=== PATIENT | female | born 1960 | race Caucasian/White ===

== ENCOUNTER 2016-07-25 18:02 | Inpatient (IN) | payer OTHER ==
[2016-07-25] VITALS (27 sets, daily range): BP systolic 66–106; BP diastolic 36–67; PULSE 102–116; RESP 18–30; TEMP 97.6–98.6; O2SAT 91–100
[~2016-07-25] VITALS: Ht 167.6 cm; Wt 101.0 kg
[~2016-07-25 18:02] MED LIST: AMLO10TA2 PO; ATOR20TA15 PO; BUPR100T4 PO; CARV3.12 PO; CHLO25TA2 PO; HYDR-3535 PO; LISI40TA PO; PERC7.5T13 PO; PROT40TA PO; XANA2TAB2 PO; XARE20TA PO
[2016-07-25] MEDS ORDERED: SODIUM CHLORIDE 0.9% FLUSH 5 ML FLUSH IVF PRN ×3 (18:45→19:45)
[2016-07-25] MEDS ORDERED: SODIUM CHLOR 0.9% 1000 ML INJ 1,000 ML IV ONE ×2 (18:45→19:30)
[2016-07-25] MEDS ORDERED: SODIUM CHLOR 0.9% 1000 ML INJ 1,000 ML IV SCH (18:45)
[2016-07-25] MEDS ORDERED: PANTOPRAZOLE INJ 80 MG in SODIUM CHLORIDE 0.9% INJ 35 ML IV ONE (18:45)
[2016-07-25] MEDS ORDERED: ONDANSETRON HCL 4 MG/2 ML VIAL IM ONE (18:45)
[2016-07-25 19:03] LABS: AUTOMATED NEUTROPHIL # 10.1 TH/MM3 (1.8-7.7); BASOPHIL # 0.4 TH/MM3 (0-0.2); EOSINOPHIL # 0.1 TH/MM3 (0-0.4); EOSINOPHIL % 0.8 % (0.0-4.0); HEMATOCRIT 37.3 % (35.0-46.0); LYMPH % 14.1 % (9.0-44.0); LYMPHOCYTE # 1.9 TH/MM3 (1.0-4.8); MEAN CELL VOLUME 85.5 FL (80.0-100.0); MEAN CORPUSCULAR HGB CONC 33.9 % (32.0-36.0); MONO % 6.3 % (0.0-8.0); NEUT % 75.8 % (16.0-70.0); PLATELET COUNT 311 TH/MM3 (150-450); RED BLOOD COUNT 4.36 MIL/MM3 (4.00-5.30); RED CELL DISTRIBUTION WIDTH 13.2 % (11.6-17.2); WHITE BLOOD COUNT 13.3 TH/MM3 (4.0-11.0)
[2016-07-25 19:04] LABS: HEMO FLAGS DIFF FINAL
[2016-07-25] MEDS ORDERED: ONDANSETRON HCL 4 MG/2 ML VIAL IV PUSH ONE ×2 (19:15→20:00)
[2016-07-25 19:22] LABS: CHLORIDE 84 MEQ/L (98-107); POTASSIUM 3.6 MEQ/L (3.5-5.1); SODIUM (NA) 131 MEQ/L (136-145)
[2016-07-25 19:25] LABS: ANION GAP 18 MEQ/L (5-15); BICARBONATE 28.7 MEQ/L (21.0-32.0); BLOOD UREA NITROGEN 70 MG/DL (7-18)
[2016-07-25 19:27] LABS: APTT (PATIENT) 30.6 SEC (24.3-30.1); PROTHROMBIN TIME - PATIENT 11.4 SEC (9.8-11.6)
[2016-07-25 19:28] LABS: ALT (GPT) 18 U/L (10-53); AST (GOT) 32 U/L (15-37)
[2016-07-25 19:29] LABS: GLOMERULAR FILTRATION RATE 5 ML/MIN (>89)
[2016-07-25 19:30] LABS: TOTAL BILIRUBIN ADULT 0.5 MG/DL (0.2-1.0)
[2016-07-25 19:31] LABS: ALKALINE PHOSPHATASE 136 U/L (45-117)
--- NOTE | 2016-07-25 19:43 | PD ---
Data Data Last Documented VS Vital Signs Date Time Temp Pulse Resp B/P Pulse Ox O2 Delivery O2 Flow Rate FiO2 07/25/16 19:35 97.7 104 22 90/65 96 Nasal Cannula 3 Orders Complete Blood Count With Diff (07/25/16 18:45) Comprehensive Metabolic Panel (07/25/16 18:45) Prothrombin Time / Inr (Pt) (07/25/16 18:45) Act Partial Throm Time (Ptt) (07/25/16 18:45) Type And Screen (07/25/16 18:45) Red Blood Cells (Rbc) (07/25/16 18:45) Blood Product Administration .UPON TRANSFUSION (07/25/16 18:45) Ecg Monitoring (07/25/16 18:45) Iv Access Insert/Monitor (07/25/16 18:45) Ng Gastric Tube Insert/Monitor (07/25/16 18:45) Oximetry (07/25/16 18:45) Oxygen Administration (07/25/16 18:45) Sodium Chlor 0.9% 1000 Ml Inj (Ns 1000 M (07/25/16 18:45) Octreotide Inj (Sandostatin Inj) (07/25/16 18:45) Ondansetron Inj (Zofran Inj) (07/25/16 18:45) Pantoprazole Inj (Protonix Inj) (07/25/16 18:45) Sodium Chlor 0.9% 1000 Ml Inj (Ns 1000 M (07/25/16 18:45) Ondansetron Inj (Zofran Inj) (07/25/16 19:15) Ammonia (07/25/16 19:22) Chest, Single Ap (07/25/16 19:22) Pantoprazole Inj (Protonix Inj) (07/25/16 19:30) Sodium Chlor 0.9% 1000 Ml Inj (Ns 1000 M (07/25/16 19:30) Electrocardiogram (07/25/16 ) Ct Abd/Pel W/O Iv Contrast (07/25/16 ) Ed Urine Pregnancytest Poc (07/25/16 19:30) Urinary Catheter Insert/Apply (07/25/16 19:30) Admit Order (Ed Use Only) (07/25/16 ) ^ Saline Lock (07/25/16 19:35) Resp Oxygen Wisam C Titrat 1-4 L (07/25/16 ) ^ Notify Dr: Other (07/25/16 19:35) Sodium Chloride 0.9% Flush (Ns Flush) (07/25/16 21:00) Sodium Chloride 0.9% Flush (Ns Flush) (07/25/16 19:45) Red Blood Cells (Rbc) (07/25/16 19:37) Phosphorus (Po4) (07/25/16 18:59) Labs Laboratory Tests Test 07/25/16 07/25/16 18:59 19:37 White Blood Count 13.3 TH/MM3 Red Blood Count 4.36 MIL/MM3 Hemoglobin 12.6 GM/DL Hematocrit 37.3 % Mean Corpuscular Volume 85.5 FL Mean Corpuscular Hemoglobin 29.0 PG Mean Corpuscular Hemoglobin 33.9 % Concent Red Cell Distribution Width 13.2 % Platelet Count 311 TH/MM3 Mean Platelet Volume 9.4 FL Neutrophils (%) (Auto) 75.8 % Lymphocytes (%) (Auto) 14.1 % Monocytes (%) (Auto) 6.3 % Eosinophils (%) (Auto) 0.8 % Basophils (%) (Auto) 3.0 % Neutrophils # (Auto) 10.1 TH/MM3 Lymphocytes # (Auto) 1.9 TH/MM3 Monocytes # (Auto) 0.8 TH/MM3 Eosinophils # (Auto) 0.1 TH/MM3 Basophils # (Auto) 0.4 TH/MM3 CBC Comment DIFF FINAL Differential Comment Prothrombin Time 11.4 SEC Prothromb Time International 1.0 RATIO Ratio Activated Partial 30.6 SEC Thromboplast Time Sodium Level 131 MEQ/L Potassium Level 3.6 MEQ/L Chloride Level 84 MEQ/L Carbon Dioxide Level 28.7 MEQ/L Anion Gap 18 MEQ/L Blood Urea Nitrogen 70 MG/DL Creatinine 8.20 MG/DL Estimat Glomerular Filtration 5 ML/MIN Rate Random Glucose 121 MG/DL Calcium Level 8.6 MG/DL Phosphorus Level 8.8 MG/DL Total Bilirubin 0.5 MG/DL Aspartate Amino Transf 32 U/L (AST/SGOT) Alanine Aminotransferase 18 U/L (ALT/SGPT) Alkaline Phosphatase 136 U/L Total Protein 8.0 GM/DL Albumin 3.7 GM/DL Blood Type O POSITIVE Antibody Screen NEGATIVE Crossmatch Leukocyte-Reduced Red Blood Cells Blood Bank Comment MDM Supervised Visit with STEFANO: No Narrative Course I was asked by Dr. Hernández to place a central line in the right femoral for this patient. Patient briefly has a history of GI bleeding and anemia. Hypotensive on arrival. Please see Dr. Hernández's note for further details. Procedures Procedure Narrative CENTRAL VENOUS LINE: Under emergent consent. The site was prepped with chlorhexidine and sterilely draped. I was wearing sterile gown and gloves and mask and hat. Patient was prepped very hastily given the nature of her emergency.. It was infiltrated with 1% lidocaine plain. The deep vein was cannulated using normal Seldinger technique. A 7fr 3 lumen central line was placed in the right femoral site and secured with simple interrupted suture. The site was sterilely dressed. The patient tolerated the procedure well. Site was chosen as patient needs compressable site 2/2 anticoagulation. David Sabillon MD Jul 25, 2016 19:43
[2016-07-25] MEDS: OCTREOTIDE INJ 500 MCG in SODIUM CHLORID 0.9% 500 ML INJ 500 ML IV SCH (19:45)
[2016-07-25] MEDS: PANTOPRAZOLE INJ 80 MG in SODIUM CHLORIDE 0.9% INJ 100 ML IV SCH (19:46)
[2016-07-25] MEDS ORDERED: METOCLOPRAMIDE HCL 10 MG/2 ML VIAL IV PUSH ONE (20:00)
--- NOTE | 2016-07-25 20:04 | PD ---
HPI Chief Complaint: GI Complaint Time Seen by Provider: 19:08 Travel History International Travel<30 days: No Contact w/Intl Traveler<30days: No Traveled to known affect area: No History of Present Illness HPI 55-year-old female presents to the emergency department for evaluation of vomiting blood and coffee grounds since yesterday. Patient complains of generalized weakness. Patient notes that she has history of previous peptic ulcer disease and does complain of epigastric pain radiating into her back. Patient's had no fever or chills. Patient denies any bowel movement. Patient denies any injury or fall. Patient denies any chest pain or shortness of breath. Patient states that she does have prior history of DVT and as presently prescribed and taking on a daily basis Xarelto and attempted to take her last dose at 5 AM this morning but vomited the dose. Patient does complain of lightheadedness and generalized weakness and fatigue. Patient rates her gastric right upper quadrant and right flank pain as 8/10 in intensity. Patient also has history of asthma depression CHF DVT Nora filter chronic back pain COPD peptic ulcer disease gastritis tube ligation bilateral hip replacement tonsillectomy adenoidectomy cholecystectomy and in 2012 was admitted with GI bleed at that time had upper endoscopy which was consistent with severe grade D esophagitis and mild gastritis. Patient denies any NSAID use tobacco use or alcohol use. PFSH Past Medical History Narrative Medical Xarelto use, DVT, IVC filter, asthma, COPD, depression, CHF, hypertension, peptic ulcer disease, gastritis, esophagitis, tubal ligation, cholecystectomy, no alcohol use positive tobacco use nursing notes reviewed Hx Anticoagulant Therapy: Yes (Xeralto) Arthritis: No Asthma: Yes Autoimmune Disease: No Blood Disorders: Yes Depression: Yes Heart Rhythm Problems: No Cancer: No Cardiovascular Problems: Yes High Cholesterol: No Chest Pain: No Congestive Heart Failure: No Diabetes: No Diminished Hearing: No Deep Vein Thrombosis: Yes (03/2011- RIGHT LEG) Endocrine: No Gastrointestinal Disorders: Yes GERD: Yes Genitourinary: No Hepatitis: No Hiatal Hernia: No Hypertension: Yes Immune Disorder: No Implanted Vascular Access Dvce: Yes Medical other: Yes (HX BLOOD CLOT-DONNA FILTER) Musculoskeletal: Yes (CHRONIC BACK PAIN) Neurologic: No Psychiatric: No Reproductive: No Respiratory: Yes (copd, hx recent pneumomia) Immunizations Current: Yes Thyroid Disease: No Ulcer: Yes Tetanus Vaccination: < 5 Years Influenza Vaccination: Yes ?: Not Menopausal: Yes : 4 Para: 3 Miscarriage: 1 : 0 Tubal Ligation: Yes Past Surgical History Abdominal Surgery: Yes (DONNA FILTER) AICD: No Body Medical Devices: IVC FILTER Cardiac Surgery: No Cholecystectomy: Yes Ear Surgery: No Endocrine Surgery: No Eye Surgery: No Genitourinary Surgery: No Gynecologic Surgery: Yes (TUBAL LIG.) Joint Replacement: Yes (BILATERAL TOTAL HIPS) Oral Surgery: Yes (T & A) Pacemaker: No Thoracic Surgery: No Tonsillectomy: Yes Other Surgery: Yes (ISIDRO,TUBAL LIG, TONSILS,IVC FILTER) Social History Alcohol Use: No (DENIES ) Tobacco Use: Yes (1 PPD) Substance Use: No Allergies-Medications (Allergen,Severity, Reaction): Coded Allergies: No Known Allergies (Verified , 11/19/15) Reported Meds & Prescriptions Reported Meds & Active Scripts Active Reported Protonix (Pantoprazole Sodium) 40 Mg Tab 40 Mg PO DAILY Xarelto (Rivaroxaban) 20 Mg Tab 20 Mg PO DAILY Lisinopril 40 Mg Tab 40 Mg PO DAILY Xanax (Alprazolam) 2 Mg Tab 2 Mg PO DAILY PRN Amlodipine (Amlodipine Besylate) 10 Mg Tab 10 Mg PO DAILY Chlorthalidone 25 Mg Tab 12.5 Mg PO DAILY Lortab (Hydrocodone-Acetaminophen) 10-325 Mg Tab 1 Tab PO Q4H PRN Carvedilol 3.125 Mg Tab 3.125 Mg PO BID Bupropion HCl 100 Mg Tab 100 Mg PO BID Atorvastatin (Atorvastatin Calcium) 20 Mg Tab 20 Mg PO HS Review of Systems Except as stated in HPI: all other systems reviewed are Neg General / Constitutional: No: Fever HENT: No: Congestion Cardiovascular: No: Chest Pain or Discomfort Respiratory: No: Shortness of Breath Gastrointestinal: Positive: Nausea, Vomiting, Abdominal Pain, Hematemesis Genitourinary: Positive: Decreased Urinary Output Musculoskeletal: No: Myalgias Skin: No Rash Neurologic: Positive: Weakness, Dizziness Psychiatric: No: Anxiety Hematologic/Lymphatic: Positive: Easy Bruising Physical Exam Narrative GENERAL: @ 19:05 Well-developed well-nourished obese female in obvious distress ; GCS 15; @ 18:25 triage blood pressure 81/40 triage heart rate 116 O2 saturation room air 97% respiratory rate 20 afebrile temperature 98.6F SKIN: Warm and dry. Pallor HEAD: Normocephalic. EYES: No scleral icterus. No injection or drainage. ENT: Black tenderness tongue with dried coffee-ground blood on lips and clothing NECK: Supple, trachea midline. No JVD or lymphadenopathy. CARDIOVASCULAR: Increased Regular rate and rhythm without murmurs, gallops, or rubs. RESPIRATORY: Breath sounds equal bilaterally. No accessory muscle use. GASTROINTESTINAL: Abdomen soft, tender epigastric and right upper quadrant, nondistended. MUSCULOSKELETAL: No cyanosis, or edema. BACK: Nontender without obvious deformity. No CVA tenderness. Data Data Last Documented VS Vital Signs Date Time Temp Pulse Resp B/P Pulse Ox O2 Delivery O2 Flow Rate FiO2 07/25/16 19:35 97.7 104 22 90/65 96 Nasal Cannula 3 Orders Complete Blood Count With Diff (07/25/16 18:45) Comprehensive Metabolic Panel (07/25/16 18:45) Prothrombin Time / Inr (Pt) (07/25/16 18:45) Act Partial Throm Time (Ptt) (07/25/16 18:45) Type And Screen (07/25/16 18:45) Red Blood Cells (Rbc) (07/25/16 18:45) Blood Product Administration .UPON TRANSFUSION (07/25/16 18:45) Ecg Monitoring (07/25/16 18:45) Iv Access Insert/Monitor (07/25/16 18:45) Ng Gastric Tube Insert/Monitor (07/25/16 18:45) Oximetry (07/25/16 18:45) Oxygen Administration (07/25/16 18:45) Sodium Chlor 0.9% 1000 Ml Inj (Ns 1000 M (07/25/16 18:45) Octreotide Inj (Sandostatin Inj) (07/25/16 18:45) Ondansetron Inj (Zofran Inj) (07/25/16 18:45) Pantoprazole Inj (Protonix Inj) (07/25/16 18:45) Sodium Chlor 0.9% 1000 Ml Inj (Ns 1000 M (07/25/16 18:45) Ondansetron Inj (Zofran Inj) (07/25/16 19:15) Ammonia (07/25/16 19:22) Chest, Single Ap (07/25/16 19:22) Pantoprazole Inj (Protonix Inj) (07/25/16 19:30) Sodium Chlor 0.9% 1000 Ml Inj (Ns 1000 M (07/25/16 19:30) Electrocardiogram (07/25/16 ) Ct Abd/Pel W/O Iv Contrast (07/25/16 ) Ed Urine Pregnancytest Poc (07/25/16 19:30) Urinary Catheter Insert/Apply (07/25/16 19:30) Admit Order (Ed Use Only) (07/25/16 ) ^ Saline Lock (07/25/16 19:35) Resp Oxygen Wisam C Titrat 1-4 L (07/25/16 ) ^ Notify Dr: Other (07/25/16 19:35) Sodium Chloride 0.9% Flush (Ns Flush) (07/25/16 21:00) Sodium Chloride 0.9% Flush (Ns Flush) (07/25/16 19:45) Red Blood Cells (Rbc) (07/25/16 19:37) Phosphorus (Po4) (07/25/16 18:59) Labs Laboratory Tests Test 07/25/16 07/25/16 18:59 19:37 White Blood Count 13.3 TH/MM3 Red Blood Count 4.36 MIL/MM3 Hemoglobin 12.6 GM/DL Hematocrit 37.3 % Mean Corpuscular Volume 85.5 FL Mean Corpuscular Hemoglobin 29.0 PG Mean Corpuscular Hemoglobin 33.9 % Concent Red Cell Distribution Width 13.2 % Platelet Count 311 TH/MM3 Mean Platelet Volume 9.4 FL Neutrophils (%) (Auto) 75.8 % Lymphocytes (%) (Auto) 14.1 % Monocytes (%) (Auto) 6.3 % Eosinophils (%) (Auto) 0.8 % Basophils (%) (Auto) 3.0 % Neutrophils # (Auto) 10.1 TH/MM3 Lymphocytes # (Auto) 1.9 TH/MM3 Monocytes # (Auto) 0.8 TH/MM3 Eosinophils # (Auto) 0.1 TH/MM3 Basophils # (Auto) 0.4 TH/MM3 CBC Comment DIFF FINAL Differential Comment Prothrombin Time 11.4 SEC Prothromb Time International 1.0 RATIO Ratio Activated Partial 30.6 SEC Thromboplast Time Sodium Level 131 MEQ/L Potassium Level 3.6 MEQ/L Chloride Level 84 MEQ/L Carbon Dioxide Level 28.7 MEQ/L Anion Gap 18 MEQ/L Blood Urea Nitrogen 70 MG/DL Creatinine 8.20 MG/DL Estimat Glomerular Filtration 5 ML/MIN Rate Random Glucose 121 MG/DL Calcium Level 8.6 MG/DL Phosphorus Level 8.8 MG/DL Total Bilirubin 0.5 MG/DL Aspartate Amino Transf 32 U/L (AST/SGOT) Alanine Aminotransferase 18 U/L (ALT/SGPT) Alkaline Phosphatase 136 U/L Total Protein 8.0 GM/DL Albumin 3.7 GM/DL Blood Type O POSITIVE Antibody Screen NEGATIVE Crossmatch Leukocyte-Reduced Red Blood Cells Blood Bank Comment MDM Medical Decision Making Medical Screen Exam Complete: Yes Emergency Medical Condition: Yes Medical Record Reviewed: Yes Interpretation(s) hgb: 12.6 cr 8.2 EKG sinus tachycardia rate [address] elevation or injury pattern change noted artifact baseline is present Last Impressions Chest X-Ray 07/25/16 1922 Signed Impressions: Service Date/Time: Monday, July 25, 2016 19:43 - CONCLUSION: No acute disease. Alden Menendez MD Abdomen/Pelvis CT 07/25/16 0000 Signed Impressions: Service Date/Time: Monday, July 25, 2016 20:28 - CONCLUSION: 1. Fluid distention of the stomach. No small bowel obstruction. No free air or free fluid. Mild constipation. Alden Menendez MD Differential Diagnosis upper gi bleed erosive esophagogastritis PUD viscous perforation hemorrhagic shock Narrative Course At 1905 accepted care from prior provider who has already ordered: IV fluids type and screen, Zofran, Protonix 80 mg IV ordered, Sandostatin ordered, and IV access with large bore 2 ordered. Presently patient's blood pressure is 70/50 patient complaining of nausea additional Zofran administered and vomiting coffee-ground's;emergency release blood ordered x 2 units PRBC's; GCS 15 and daughter at the bedside consent obtained for central line. Patient and family aware of critical nature of condition and plan to transfer to [facility]. Stat chest x-ray identifies no subdiaphragmatic free air; case has been discussed with [employer] Administrator and logging supervisor EKG: Sinus tachycardia rate [address] elevation or injury pattern or ectopy noted artifact is noted at baseline. Initial hemoglobin is identified as 12.6 with initial BUN 70 creatinine of 8.2 this is acutely worsen from comparison creatinine 05/18/16 Cr:3.33 and 1.33; reports patient has had no urine output for 3 days. Central line placed by colleague Dr Sabillon @ 20:45 BP: 100/47 O2 sat 2L/M NC 98% HR: 106 ST patient has returned from CT continues to complain of epigastric pain radiating into her back with mild nausea patient denies any shortness of breath or chest pain. At 10:20 PM EMS is at the bedside GCS remains 15 however blood pressure has decreased to 78/50 and phenylephrine has been initiated. Critical Care Narrative Aggregate critical care time was 45 minutes. Time to perform other separately billable procedures was not included in the critical care time. My time did not include minutes spent treating any other patients simultaneously or on activities that did not directly contribute to the patient's treatment. The services I provided to this patient were to treat and/or prevent clinically significant deterioration that could result in: Hypovolemic/hemorrhagic shock, exsanguination, respiratory failure arrest, I provided critical care services requiring my management, as noted below: Chart data review, documentation time, medication orders and management, vital sign assessments/reviewing monitor data, ordering and reviewing lab tests, ordering and interpreting/reviewing x-rays and diagnostic studies, care of the patient and discussion of the patient with the admitting physicians. Procedures EKG Prior to Arrival: No HemaPrompt Point of Care Internal Pos. & Neg. Controls: Passed Fecal Specimen Occult Blood: Negative Physician Communication Physician Communication 19:[address]graw will accept transfer w sbp 90 or map 65 as needed administer phenyephrine;GI Dr Conn @ 19:40 will scope in the AM; @ 22:30 Dr Mcgraw updated on patient status BP has dropped [id number] on recently started phenylephrine and aware of bun/cr --cant accept with current VS --aware starting levaphed --wants nephrology consulted --- call to Dr Elena -->aware of critical patient with acutely elevated bun/cr 70/8.2 and K 3.6 -- per Dr Elena no further , additional or acute recommendation beyond current aggressive resuscitation and no further intervention by nephrology at this time; patient will be transferred with MD on EMS unit and Dr Mcgraw aware. Diagnosis Primary Impression: Upper gastrointestinal hemorrhage Additional Impressions: Hypotension Qualified Code: I95.89 - Other specified hypotension ARF (acute renal failure) Qualified Code: N17.9 - Acute renal failure, unspecified acute renal failure type Admitting Information Admitting Physician Requests: Admit Tonya Hernández MD Jul 25, 2016 20:04
--- NOTE | 2016-07-25 20:11 | RADHPO ---
EXAM DATE/TIME: 07/25/2016 19:43 [facility] COMPARISON: No previous studies available for comparison. INDICATIONS : Hematemesis. MEDICAL HISTORY : Hypertension. Deep venous thrombosis. Chronic obstructive pulmonary disease. Pneumonia, Asthma, U lcer, Gallbladder disease, GERD SURGICAL HISTORY : Tonsillectomy. Tubal ligation. Cholecystectomy. IVC filter, Left total hip replacement ENCOUNTER: Initial ACUITY: 1 day PAIN SCORE: 8/10 LOCATION: Bilateral chest FINDINGS: A single view of the chest demonstrates the lungs to be symmetrically aerated without evidence of mas s, infiltrate or effusion. The cardiomediastinal contours are unremarkable. Osseous structures are intact. CONCLUSION: No acute disease. Alden Menendez MD on July 25, 2016 at 20:09 Board Certified Radiologist. This report was verified electronically.
--- NOTE | 2016-07-25 20:57 | RADHPO ---
EXAM DATE/TIME: 07/25/2016 20:28 [facility] COMPARISON: No previous studies available for comparison. INDICATIONS : Nausea and vomiting for one day. ORAL CONTRAST: No oral contrast ingested. RADIATION DOSE: 24.41 CTDIvol (mGy) MEDICAL HISTORY : Hypertension. SURGICAL HISTORY : Tonsillectomy. bilateral hip replacement. ENCOUNTER: Initial ACUITY: 1 day PAIN SCALE: 7/10 LOCATION: abdomen. TECHNIQUE: Volumetric scanning of the abdomen and pelvis was performed. Using automated exposure control and ad justment of the mA and/or kV according to patient size, radiation dose was kept as low as reasonably achievable to obtain optimal diagnostic quality images. FINDINGS: Lung bases are clear. No acute findings in the liver, spleen, adrenals, kidneys or pancreas. Previous cholecystectomy. Inferior vena cava filter present. There is fluid distention of the stomach. Mild c onstipation. No small bowel obstruction. No free fluid or free air. Central line present in the right iliac vein. Bilateral hip replacement. CONCLUSION: 1. Fluid distention of the stomach. No small bowel obstruction. No free air or free fluid. Mild const ipation. Alden Menendez MD on July 25, 2016 at 20:52 Board Certified Radiologist. This report was verified electronically.
[2016-07-25] MEDS ORDERED: SODIUM CHLORIDE 0.9% FLUSH 5 ML FLUSH IVF SCH (21:00)
[2016-07-25 21:41] LABS: BLOOD, URINE LARGE (NEG); GLUCOSE,URINE NEG (NEG); KETONE, URINE NEG (NEG); NITRITE,URINE NEG (NEG); PH, URINE 5.5 (5.0-8.5)
[2016-07-25] MEDS ORDERED: TERBUTALINE INJ 1 MG/ML AMP SQ PRN ×3 (21:45→22:45)
[2016-07-25] MEDS ORDERED: SODIUM CHLORID 0.9% 500 ML INJ 500 ML IV ONE ×2 (21:45→22:15)
[2016-07-25 21:56] LABS: RBC, URINE 0-3 /hpf (0-3); SQUAMOUS EPITHELIAL CELL URINE 0-5 /hpf (0-5); URINE COLOR YELLOW (YELLW/STRAW)
[2016-07-25 21:57] LABS: COMMENT (UR) CATH-CULT NOT IND; CULTURE IF INDICATED CATH CULTURE NOT IND
[2016-07-25 22:06] LABS: BLOOD GAS BASE EXCESS -7.8 mmol/L (-2-2); BLOOD GAS CARBOXYHEMOGLOBIN 4.2 % (0-4); BLOOD GAS HCO3 19 mmol/L (22-26); BLOOD GAS METHEMOGLOBIN 1.4 % (0-2); BLOOD GAS O2 HGB SATURATION 93 % (90-100); BLOOD GAS OXYGEN CONTENT 16.1 Vol % (12.0-20.0); BLOOD GAS PCO2 47 mmHG (38-42); BLOOD GAS PO2 127 mmHG (61-120); BLOOD GAS TOTAL HGB 12.2 G/DL (12.0-16.0); TEMP CORR TO 98.6
[2016-07-25 22:07] LABS: CRITICAL VALUE YES; DRAW SITE LT RADIAL; LITER FLOW 4 L/M; NUMBER OF ARTERIAL PUNCTURES 1; OXYGEN DEVICE NASAL CANNULA; STAT YES; ULNAR PULSE Y
[2016-07-25] MEDS: SODIUM CHLOR 0.9% 1000 ML INJ 1,000 ML IV SCH (22:07)
[2016-07-25] MEDS ORDERED: POTASSIUM CHLOR 40 MEQ PREMIX 100 ML IV PRN ×2 (22:15)
[2016-07-25] MEDS ORDERED: BISACODYL 10 MG SUPP RECTAL PRN (22:15)
[2016-07-25] MEDS ORDERED: CHLORHEXIDINE GLUCONATE 2 % 1 PACK (2 CLOTHS) TOP PRN (22:15)
[2016-07-25] MEDS: PHENYLEPHRINE INJ 40 MG in DEXTROSE 5% IN WATE 500 ML INJ 496 ML IV SCH ×2 (22:15)
[2016-07-25] MEDS ORDERED: POTASSIUM PHOSPHATE INJ 30 MMOL in SODIUM CHLOR 0.9% 250 ML INJ 250 ML IV PRN (22:15)
[2016-07-25] MEDS ORDERED: POTASSIUM CHLOR 20 MEQ PREMIX 100 ML IV PRN ×2 (22:15)
[2016-07-25] MEDS ORDERED: SODIUM PHOSPHATE INJ 30 MMOL in SODIUM CHLOR 0.9% 250 ML INJ 240 ML IV PRN (22:15)
[2016-07-25] MEDS ORDERED: MAGNESIUM SULFATE INJ 2 GM in SODIUM CHLORIDE 0.9% INJ 96 ML IV PRN (22:15)
[2016-07-25] MEDS ORDERED: POTASSIUM PHOSPHATE MONOBASIC 500 MG TAB PO/TUBE PRN (22:15)
[2016-07-25] MEDS ORDERED: POTASSIUM PHOSPHATE MONOBASIC 500 MG TAB PO PRN (22:15)
[2016-07-25] MEDS ORDERED: MAGNESIUM OXIDE 400 MG TAB PO PRN (22:15)
[2016-07-25] MEDS ORDERED: RESP: ALBUTEROL 2.5 MG/IPRATROPIUM 0.5 MG NEB (PRN) INH (22:15)
[2016-07-25] MEDS ORDERED: MISCELLANEOUS NURSING INFORMATION XX SCH (22:15)
[2016-07-25] MEDS ORDERED: ONDANSETRON HCL 4 MG/2 ML VIAL IV PRN (22:15)
[2016-07-25] MEDS ORDERED: MAGNESIUM SULFATE INJ 4 GM in SODIUM CHLORIDE 0.9% INJ 92 ML IV PRN (22:15)
[2016-07-25] MEDS ORDERED: POTASSIUM CL 40 MEQ/30 ML LIQ UDC PO/TUBE PRN ×2 (22:15)
[2016-07-25] MEDS ORDERED: DEXTROSE 50% IN WATER 50 ML VIAL(D50) IV PUSH PRN (22:30)
[2016-07-25] MEDS ORDERED: GLUCAGON 1 MG/ML VIAL OTHER PRN (22:30)
[2016-07-25] MEDS ORDERED: NOREPINEPHRINE-DEXTROSE DRIP 250 ML IV SCH ×2 (22:45)
--- NOTE | 2016-07-25 22:45 | EKG ---
Date Performed: 07/25/2016 Time Performed: 19:38:08 PTAGE: 55 years EKG: Sinus tachycardia. Inferior/lateral T wave changes are nonspecific Borderline ECG PREVIOUS TRACING : 07/27/2015 12.23 Compared to the previous tracing, Nonspecific ST and T wav e abnormalities DOCTOR: Patel Reeder Interpretating Date/Time 07/25/2016 22:42:50
[2016-07-26] VITALS (19 sets, daily range): BP systolic 95–132; BP diastolic 44–80; PULSE 80–112; RESP 14–27; TEMP 98.5–99.9; O2SAT 92–100
[2016-07-26] MEDS ORDERED: PANTOPRAZOLE INJ 80 MG in SODIUM CHLORIDE 0.9% INJ 100 ML IV SCH ×2
--- NOTE | 2016-07-26 01:16 | HHI.HP ---
HPI Service Critical Care Medicine Primary Care Physician Chacha Vazquez MD Admission Diagnosis Upper GI Bleed on xarelto w/ shock Diagnosis: Travel History International Travel<30 Days: No Contact w/Intl Traveler <30 Da: No Traveled to Known Affected Are: No History of Present Illness 55-year-old female that presented to [facility] emergency department for evaluation of vomiting blood and coffee grounds since yesterday. Patient complains of generalized weakness. The patient states that she started vomiting approximately 2 days ago, dark black emesis. She stated that she had no urine output for approximately 3 days. Her history is significant for the fact that she has a history of DVT in 2013, Donna filter placement and is on Xarelto. The patient also stated that she has a history of peptic ulcer disease. The patient's pain level on presentation to the [facility] was 7/10 noted to be epigastric and radiating into her back. The patient presented with complaints of lightheadedness ,generalized weakness,fatigue and inability to void 3 days. The patient medical history significant for the fact that in 2012 was admitted with GI bleed at that time had upper endoscopy which was consistent with severe grade D esophagitis and mild gastritis. The patient denies NSAID use. On presentation to the ED and [facility] the patient's blood pressure ranges 65/40 to 81/40 with initial hemoglobin of 12. The patient reported also having medical history significant for history of renal failure, and congestive heart failure. The patient received 4 units of crystalloid, an NG tube was placed, approximately a liter of coffee ground emesis upon initial placement. Octreotide and Protonix infusions were initiated , and GI was consulted. Patient was transfused 1unit PRBC. The patient remained hypotensive, a right femoral line was placed, the patient was placed on Shane-Synephrine. Critical care medicine was consulted for treatment and management. A telephone handoff was given from Dr. Hernández, upon initiation of transport from [facility], the patient became acutely hypotensive, SBP 70's. The patient was placed on a Levophed infusion, MAP's were obtained greater than 65mmHG. the patient was then transferred to [facility] with ER physician, Dr. Sabillon accompanying patient. The patient arrived in [facility] @2327, verbal handoff was given with Dr. Sabillon. Upon arrival, MAP 76, the patient was alert and oriented not in respiratory distress, tachycardic complaining of abdominal pain, maldonado draining pale yellow urine. Levophed had been weaned off prior to arrival ,and the patient remained on Shane-Synephrine at 70mcgs. [facility] Past Medical History Narrative Medical Xarelto use, DVT, IVC filter, asthma, COPD, depression, CHF, hypertension, peptic ulcer disease, gastritis, esophagitis, tubal ligation, cholecystectomy, no alcohol use positive tobacco use nursing notes reviewed Hx Anticoagulant Therapy: Yes (Xeralto) Arthritis: No Asthma: Yes Autoimmune Disease: No Blood Disorders: Yes Depression: Yes Heart Rhythm Problems: No Cancer: No Cardiovascular Problems: Yes High Cholesterol: No Chest Pain: No Congestive Heart Failure: No Diabetes: No Diminished Hearing: No Deep Vein Thrombosis: Yes (03/2011- RIGHT LEG) Endocrine: No Gastrointestinal Disorders: Yes GERD: Yes Genitourinary: No Hepatitis: No Hiatal Hernia: No Hypertension: Yes Immune Disorder: No Implanted Vascular Access Dvce: Yes Medical other: Yes (HX BLOOD CLOT-DONNA FILTER) Musculoskeletal: Yes (CHRONIC BACK PAIN) Neurologic: No Psychiatric: No Reproductive: No Respiratory: Yes (copd, hx recent pneumomia) Immunizations Current: Yes Thyroid Disease: No Ulcer: Yes Tetanus Vaccination: < 5 Years Influenza Vaccination: Yes ?: Not Menopausal: Yes : 4 Para: 3 Miscarriage: 1 : 0 Tubal Ligation: Yes Past Surgical History Abdominal Surgery: Yes (DONNA FILTER) AICD: No Body Medical Devices: IVC FILTER Cardiac Surgery: No Cholecystectomy: Yes Ear Surgery: No Endocrine Surgery: No Eye Surgery: No Genitourinary Surgery: No Gynecologic Surgery: Yes (TUBAL LIG.) Joint Replacement: Yes (BILATERAL TOTAL HIPS) Oral Surgery: Yes (T & A) Pacemaker: No Thoracic Surgery: No Tonsillectomy: Yes Other Surgery: Yes (ISIDRO,TUBAL LIG, TONSILS,IVC FILTER) Social History Alcohol Use: No (DENIES ) Tobacco Use: Yes (1 PPD) Substance Use: No Allergies-Medications (Allergen,Severity, Reaction): Coded Allergies: No Known Allergies (Verified , 11/19/15) Reported Meds & Prescriptions Reported Meds & Active Scripts Active Reported Protonix (Pantoprazole Sodium) 40 Mg Tab 40 Mg PO DAILY Xarelto (Rivaroxaban) 20 Mg Tab 20 Mg PO DAILY Lisinopril 40 Mg Tab 40 Mg PO DAILY Xanax (Alprazolam) 2 Mg Tab 2 Mg PO DAILY PRN Amlodipine (Amlodipine Besylate) 10 Mg Tab 10 Mg PO DAILY Chlorthalidone 25 Mg Tab 12.5 Mg PO DAILY Lortab (Hydrocodone-Acetaminophen) 10-325 Mg Tab 1 Tab PO Q4H PRN Carvedilol 3.125 Mg Tab 3.125 Mg PO BID Bupropion HCl 100 Mg Tab 100 Mg PO BID Atorvastatin (Atorvastatin Calcium) 20 Mg Tab 20 Mg PO HS Review of Systems Except as stated in HPI: all other systems reviewed are Neg General / Constitutional: No: Fever HENT: No: Congestion Cardiovascular: No: Chest Pain or Discomfort Respiratory: No: Shortness of Breath Gastrointestinal: Positive: Nausea, Vomiting, Abdominal Pain, Hematemesis Genitourinary: Positive: Decreased Urinary Output Musculoskeletal: No: Myalgias Skin: No Rash Neurologic: Positive: Weakness, Dizziness Psychiatric: No: Anxiety Hematologic/Lymphatic: Positive: Easy Bruising Physical Exam Vital Signs Vital Signs Date Time Temp Pulse Resp B/P Pulse Ox O2 Delivery O2 Flow Rate FiO2 07/26/16 00:11 96 Nasal Cannula 3.00 07/26/16 00:10 98.5 112 27 98/50 98 07/25/16 19:35 97.7 104 22 90/65 96 Nasal Cannula 3 07/25/16 19:25 97.7 104 22 104/51 96 Nasal Cannula 3 07/25/16 19:20 97.6 105 22 73/36 96 Nasal Cannula 3 07/25/16 19:15 96 Nasal Cannula 3 07/25/16 19:00 22 07/25/16 19:00 91 Nasal Cannula 3 07/25/16 18:25 98.6 116 20 81/40 97 Physical Exam GENERAL: This is a well-developed well-nourished morbidly obese female, sitting up; recumbent in bed. SKIN: Warm and dry. HEAD: Atraumatic. Normocephalic. EYES: Pupils equal and round. No scleral icterus. No injection or drainage. ENT: No nasal bleeding or discharge. Mucous membranes pink and moist. NG tube right more, nasal cannula at 2 L/m NECK: Trachea midline. No JVD. CARDIOVASCULAR: Sinus tachycardia, regular rhythm. RESPIRATORY: No accessory muscle use. Clear to auscultation. Breath sounds equal bilaterally. GASTROINTESTINAL: Abdomen obese soft, non-tender, nondistended. No guarding. No rebound tenderness. Right upper quadrant pain MUSCULOSKELETAL: Extremities without clubbing, cyanosis, or edema. No obvious deformities. NEUROLOGICAL: Awake and alert. RASS 0. No gross focal/sensory deficits. Follows commands in all 4 extremities. Laboratory Laboratory Tests Test 07/25/16 07/25/16 07/25/16 07/25/16 18:59 19:37 21:24 21:30 White Blood Count 13.3 Red Blood Count 4.36 Hemoglobin 12.6 Hematocrit 37.3 Mean Corpuscular Volume 85.5 Mean Corpuscular Hemoglobin 29.0 Mean Corpuscular Hemoglobin 33.9 Concent Red Cell Distribution Width 13.2 Platelet Count 311 Mean Platelet Volume 9.4 Neutrophils (%) (Auto) 75.8 Lymphocytes (%) (Auto) 14.1 Monocytes (%) (Auto) 6.3 Eosinophils (%) (Auto) 0.8 Basophils (%) (Auto) 3.0 Neutrophils # (Auto) 10.1 Lymphocytes # (Auto) 1.9 Monocytes # (Auto) 0.8 Eosinophils # (Auto) 0.1 Basophils # (Auto) 0.4 CBC Comment DIFF FINAL Differential Comment Prothrombin Time 11.4 Prothromb Time International 1.0 Ratio Activated Partial 30.6 Thromboplast Time Sodium Level 131 Potassium Level 3.6 Chloride Level 84 Carbon Dioxide Level 28.7 Anion Gap 18 Blood Urea Nitrogen 70 Creatinine 8.20 Estimat Glomerular Filtration 5 Rate Random Glucose 121 Calcium Level 8.6 Phosphorus Level 8.8 Total Bilirubin 0.5 Aspartate Amino Transf 32 (AST/SGOT) Alanine Aminotransferase 18 (ALT/SGPT) Alkaline Phosphatase 136 Total Protein 8.0 Albumin 3.7 Blood Type O POSITIVE Antibody Screen NEGATIVE Crossmatch Leukocyte-Reduced Red Blood Cells Blood Bank Comment Ammonia 23 Urine Color YELLOW Urine Turbidity CLEAR Urine pH 5.5 Urine Specific Cameron 1.012 Urine Protein 30 Urine Glucose (UA) NEG Urine Ketones NEG Urine Occult Blood LARGE Urine Nitrite NEG Urine Bilirubin NEG Urine Leukocyte Esterase NEG Urine RBC 0-3 Urine WBC 3-5 Urine Squamous Epithelial 0-5 Cells Urine Bacteria NONE Microscopic Urinalysis Comment CATH-CULT NOT IND Test 07/25/16 07/25/16 21:51 22:01 Lactic Acid Level 0.8 Blood Gas Puncture Site LT RADIAL Blood Gas Patient Temperature 98.6 Blood Gas HCO3 19 Blood Gas Base Excess -7.8 Blood Gas Oxygen Saturation 93 Arterial Blood pH 7.22 Arterial Blood Partial 47 Pressure CO2 Arterial Blood Partial 127 Pressure O2 Arterial Blood Oxygen Content 16.1 Arterial Blood 4.2 Carboxyhemoglobin Arterial Blood Methemoglobin 1.4 Blood Gas Hemoglobin 12.2 Oxygen Delivery Device NASAL CANNULA Blood Gas Liter Flow 4 Result Diagram: 07/25/16185807/25/161858 Imaging Last 24 hours Impressions Chest X-Ray 07/25/161921 Signed Impressions: Service Date/Time: Monday, July 25, 2016 19:43 - CONCLUSION: No acute disease. Alden Menendez MD Septic Shock Reassessment Lungs: Clear Skin: Warm Peripheral Pulses: Bounding Right Radial Bounding Left Radial Bounding Right Dorsalis Pedis Bounding Left Dorsalis Pedis Capillary Refill: Brisk Assessment and Plan Assessment and Plan This is a 55-year-old morbidly obese female, with a history of DVT on Xarelto daily that presents with hematemesis for greater than 48 hours, and severe dehydration, and hemorrhagic shock. Plan by systems: Neurologic: Anxiety Depression Pain -Ofirmev 1 g every 6 hours 4 -Fentanyl 50-100 mcgs PRN -Ativan 0.5 mg PRN Respiratory: COPD Asthma Nicotine abuse -Nicotine patch -Maintain O2 sat greater than 92%, O2 at 3 L nasal cannula O2 sat 98% -Bronchodilators scheduled every 4 hours, and every 2 hours when necessary -Patient counseled on cessation of smoking Cardiovascular: Hemorrhagic shock H/O CHF Hypertension H/O DVT Hyperlipidemia -Maintain MAP greater than 65 mmHg -Hold Xarelto, atorvastatin -Patient transfused 2 units of packed cells, transfuse 2 units of FFP -Obtain PTT, PTT, INR to assess residual effects of Xarelto -Monitor serial hemoglobin levels every 4 hours -EKG 07/25-sinus tach Renal: Severe dehydration -Creatinine 8.2, BUN 70 -Patient received 4 L IV fluid bolus at [facility], 1 L bolus initiated -Repeat BMP follow-up results -Maintain Maldonado, hourly measurement -- Strict I/Os FEN/GI: Morbid obesity Upper GI bleed GERD -Maintain NPO status -NG tube to low intermittent wall suction-monitor output, replace cc per cc with IV fluid -Octreotide and Protonix infusions -Zofran when necessary for nausea -GI consulted Dr [id number] recommendations - CT Abd/Pel-no free air Heme/ID: Possible anticoagulate associated hemorrhage H/O DVT -Xarelto held -Transfuse 2 units of FFP -Serial CBC every 4 hours -Derwent IVC filter placement-2012 Endocrine: -- SSI Prophylaxis: GI Prophylaxis Protonix DVT Prophylaxis -- SCDs No pharmacological prophylaxis indicated at this time Lines: Peripheral IVs 2. Right femoral triple-lumen catheter( 07/26) Dispo: This patient remains critically ill with one or more organ systems which are or may become a threat to life. I have spent in excess of 72 minutes discontinuously in the care and management of this patient. This time is exclusive of procedures, and includes, but is not limited to, evaluation of the patient, review of the medical record, discussions with family, consultants, nursing staff, or respiratory therapy, and documentation in the medical record. Code Status Full Code Discussed Condition With WEB PAGE DESIGNER at bedside Mimi Mcgraw MD Jul 26, 2016 01:16
[2016-07-26] MEDS ORDERED: LORazepam 2 MG/ML VIAL IV PUSH PRN (01:30)
[2016-07-26] MEDS: NICOTINE 21 MG/24 HR PATCH TD SCH ×2 (01:38→07:49)
[2016-07-26] MEDS: ACETAMINOPHEN 1000 MG/100 ML VIAL IV SCH ×4 (01:39→19:53)
[2016-07-26 02:34] LABS: AUTOMATED NEUTROPHIL # 6.6 TH/MM3 (1.8-7.7); BASOPHIL % 0.3 % (0.0-2.0); EOSINOPHIL # 0.1 TH/MM3 (0-0.4); HEMATOCRIT 33.2 % (35.0-46.0); HEMO FLAGS DIFF FINAL; LYMPH % 18.7 % (9.0-44.0); LYMPHOCYTE # 1.8 TH/MM3 (1.0-4.8); MEAN CELL VOLUME 83.2 FL (80.0-100.0); MEAN CORPUSCULAR HEMOGLOBIN 28.5 PG (27.0-34.0); MEAN CORPUSCULAR HGB CONC 34.2 % (32.0-36.0); MONO % 10.6 % (0.0-8.0); NEUT % 69.4 % (16.0-70.0); PLATELET COUNT 201 TH/MM3 (150-450); RED BLOOD COUNT 3.99 MIL/MM3 (4.00-5.30); RED CELL DISTRIBUTION WIDTH 17.8 % (11.6-17.2); WHITE BLOOD COUNT 9.6 TH/MM3 (4.0-11.0)
[2016-07-26 02:51] LABS: APTT (PATIENT) 29.4 SEC (24.3-30.1)
--- NOTE | 2016-07-26 03:15 | PD ---
Data Data Last Documented VS Vital Signs Date Time Temp Pulse Resp B/P Pulse Ox O2 Delivery O2 Flow Rate FiO2 07/25/16 19:35 97.7 104 22 90/65 96 Nasal Cannula 3 Orders Complete Blood Count With Diff (07/25/16 18:45) Comprehensive Metabolic Panel (07/25/16 18:45) Prothrombin Time / Inr (Pt) (07/25/16 18:45) Act Partial Throm Time (Ptt) (07/25/16 18:45) Type And Screen (07/25/16 18:45) Red Blood Cells (Rbc) (07/25/16 18:45) Blood Product Administration .UPON TRANSFUSION (07/25/16 18:45) Ecg Monitoring (07/25/16 18:45) Iv Access Insert/Monitor (07/25/16 18:45) Ng Gastric Tube Insert/Monitor (07/25/16 18:45) Oximetry (07/25/16 18:45) Oxygen Administration (07/25/16 18:45) Sodium Chlor 0.9% 1000 Ml Inj (Ns 1000 M (07/25/16 18:45) Octreotide Inj (Sandostatin Inj) (07/25/16 18:45) Ondansetron Inj (Zofran Inj) (07/25/16 18:45) Pantoprazole Inj (Protonix Inj) (07/25/16 18:45) Sodium Chlor 0.9% 1000 Ml Inj (Ns 1000 M (07/25/16 18:45) Ondansetron Inj (Zofran Inj) (07/25/16 19:15) Ammonia (07/25/16 19:22) Chest, Single Ap (07/25/16 19:22) Pantoprazole Inj (Protonix Inj) (07/25/16 19:30) Sodium Chlor 0.9% 1000 Ml Inj (Ns 1000 M (07/25/16 19:30) Electrocardiogram (07/25/16 ) Ct Abd/Pel W/O Iv Contrast (07/25/16 ) Ed Urine Pregnancytest Poc (07/25/16 19:30) Urinary Catheter Insert/Apply (07/25/16 19:30) Admit Order (Ed Use Only) (07/25/16 ) ^ Saline Lock (07/25/16 19:35) Resp Oxygen Wisam C Titrat 1-4 L (07/25/16 ) ^ Notify Dr: Other (07/25/16 19:35) Sodium Chloride 0.9% Flush (Ns Flush) (07/25/16 21:00) Sodium Chloride 0.9% Flush (Ns Flush) (07/25/16 19:45) Red Blood Cells (Rbc) (07/25/16 19:37) Phosphorus (Po4) (07/25/16 18:59) Labs Laboratory Tests Test 07/25/16 07/25/16 18:59 19:37 White Blood Count 13.3 TH/MM3 Red Blood Count 4.36 MIL/MM3 Hemoglobin 12.6 GM/DL Hematocrit 37.3 % Mean Corpuscular Volume 85.5 FL Mean Corpuscular Hemoglobin 29.0 PG Mean Corpuscular Hemoglobin 33.9 % Concent Red Cell Distribution Width 13.2 % Platelet Count 311 TH/MM3 Mean Platelet Volume 9.4 FL Neutrophils (%) (Auto) 75.8 % Lymphocytes (%) (Auto) 14.1 % Monocytes (%) (Auto) 6.3 % Eosinophils (%) (Auto) 0.8 % Basophils (%) (Auto) 3.0 % Neutrophils # (Auto) 10.1 TH/MM3 Lymphocytes # (Auto) 1.9 TH/MM3 Monocytes # (Auto) 0.8 TH/MM3 Eosinophils # (Auto) 0.1 TH/MM3 Basophils # (Auto) 0.4 TH/MM3 CBC Comment DIFF FINAL Differential Comment Prothrombin Time 11.4 SEC Prothromb Time International 1.0 RATIO Ratio Activated Partial 30.6 SEC Thromboplast Time Sodium Level 131 MEQ/L Potassium Level 3.6 MEQ/L Chloride Level 84 MEQ/L Carbon Dioxide Level 28.7 MEQ/L Anion Gap 18 MEQ/L Blood Urea Nitrogen 70 MG/DL Creatinine 8.20 MG/DL Estimat Glomerular Filtration 5 ML/MIN Rate Random Glucose 121 MG/DL Calcium Level 8.6 MG/DL Phosphorus Level 8.8 MG/DL Total Bilirubin 0.5 MG/DL Aspartate Amino Transf 32 U/L (AST/SGOT) Alanine Aminotransferase 18 U/L (ALT/SGPT) Alkaline Phosphatase 136 U/L Total Protein 8.0 GM/DL Albumin 3.7 GM/DL Blood Type O POSITIVE Antibody Screen NEGATIVE Crossmatch Leukocyte-Reduced Red Blood Cells Blood Bank Comment MDM Supervised Visit with STEFANO: No Narrative Course Patient toward the end of her workup patient needing transfer up to [facility] for higher level of care. Dr. Hernández has been working up patient and i have participated to this point only to place a central line. Logistically, it is more amenable for me to transfer patient. Dr. Hernández has given me report on the patient. SHe has recieved near 4L of fluid and 1U of PRBC's for hypotension, she has significant JESUS with uremia and Cr of 8. Nephrology has been consulted as well as GI and shear tender. Patient despite fluid resucitation. She has now started neosyn for hypotension refractory to fluid resucitation. Patient has had near to a L of output from her NG tube of dark material likely blood. SHe has had about 200cc of urine output in the ED. EMS arrives and patient underwent a short transfer to the [facility] ICU. I increased her neosyn modestly enroute. Her pap was maintained at >60 and she is mentating appropriately on transfer. On arrival to the [facility] a face to face handoff was given between me and Dr. Mcgraw. Patient care was transferred to Dr. Mcgraw who plans for additional blood transfusion. Patient is critically ill Diagnosis Primary Impression: Upper gastrointestinal hemorrhage Additional Impressions: ARF (acute renal failure) Qualified Code: N17.9 - Acute renal failure, unspecified acute renal failure type Hypotension Qualified Code: I95.89 - Other specified hypotension Admitting Information Admitting Physician Requests: Admit Condition: Critical David Sabillon MD Jul 26, 2016 03:15
[2016-07-26] MEDS: CHLORHEXIDINE GLUCONATE 2 % 1 PACK (2 CLOTHS) TOP SCH (04:00)
[2016-07-26] MEDS: PANTOPRAZOLE INJ 80 MG in SODIUM CHLORIDE 0.9% INJ 100 ML IV SCH ×2 (04:15→15:42)
[2016-07-26] MEDS: PHENYLEPHRINE INJ 40 MG in DEXTROSE 5% IN WATE 500 ML INJ 496 ML IV SCH ×2 (04:15)
[2016-07-26] MEDS: OCTREOTIDE INJ 500 MCG in SODIUM CHLORID 0.9% 500 ML INJ 500 ML IV SCH ×2 (04:15→15:55)
[2016-07-26 05:06] LABS: BICARBONATE 24.3 MEQ/L (21.0-32.0); MAGNESIUM 1.8 MG/DL (1.5-2.5); POTASSIUM 3.6 MEQ/L (3.5-5.1)
[2016-07-26 05:51] LABS: CALCIUM-PROTEIN CORRECTED 7.9 MG/DL (8.5-10.1)
[2016-07-26 07:00] LABS: MEAN CELL VOLUME 83.9 FL (80.0-100.0); MEAN CORPUSCULAR HEMOGLOBIN 28.9 PG (27.0-34.0); MEAN CORPUSCULAR HGB CONC 34.5 % (32.0-36.0); PLATELET COUNT 176 TH/MM3 (150-450); RED BLOOD COUNT 3.58 MIL/MM3 (4.00-5.30); RED CELL DISTRIBUTION WIDTH 18.1 % (11.6-17.2); REVIEW FLAG FINAL; WHITE BLOOD COUNT 7.5 TH/MM3 (4.0-11.0)
[2016-07-26] MEDS: INSULIN ASPART SUPPLEMENTAL SCALE SQ SCH ×4 (07:00→21:00)
[2016-07-26] MEDS: fentaNYL CITRATE 250 MCG/5 ML AMP IV PUSH PRN ×3 (07:49→23:35)
[2016-07-26] MEDS: SODIUM CHLORIDE 0.9% FLUSH 5 ML FLUSH IV FLUSH SCH ×2 (07:49→21:00)
[2016-07-26] MEDS: REMOVE OLD NICODERM (NICOTINE) PATCH TD SCH (07:49)
[2016-07-26] MEDS: SODIUM CHLOR 0.9% 1000 ML INJ 1,000 ML IV SCH ×2 (07:49→21:49)
[2016-07-26] MEDS ORDERED: LACTATED RINGER'S 1000 ML INJ 1,000 ML IV ONE (08:00)
--- NOTE | 2016-07-26 08:36 | PD.CONS ---
HPI History of Present Illness This is a 55 year old female patient, with a history of peptic ulcer disease and who is currently on several tilt for a DVT, who came to the emergency room for evaluation of hematemesis. This started about a day going consist of coffee -ground emesis. She also has some associated right upper quadrant tenderness which is a mild dull ache without radiation. This is aggravated by food intake. She reports that she does have a history of GERD but that this is well controlled with Protonix 40 mg by mouth daily. She denies any bowel changes and denies any melena or hematochezia. She does not take any ibuprofen or Aleve and does not drink alcohol. She had an upper endoscopy (08/17/2012) and this revealed severe grade D esophagitis with exudate possible Ruiz's esophagus, mild gastritis, normal duodenum. Pathology revealed squamous mucosa with superficial mild acute inflammation. A GMS staining is positive for small number pseudohyphae invading the superficial squamous mucosa consistent with Mckayla esophagitis. It was recommended that she have her EGD/colonoscopy in 6 weeks. She reports that this was done but because of her insurance it was done at [facility] by Dr. Kohler and that it was normal. (Aline Marquez) PFSH Past Medical History DVT (July 2015) Asthma/COPD Depression CHF HTN Reports PUD Severe esophagitis (mckayla) Gastritis Past Surgical History Cholecystectomy Tonsillectomy EGD Colonoscopy IVC Filter Bilateral hip surgery (Alnie Marquez) Coded Allergies: No Known Allergies (Verified , 11/19/15) Medications Allergies Coded Allergies Type Severity Reaction Last Updated Verified No Known Allergies 11/19/15 Yes Active Scripts Medications Dose Route/Sig Days Date Category Protonix (Pantoprazole Sodium) 40 Mg Tab 40 Mg PO DAILY 05/18/16 Reported Xarelto (Rivaroxaban) 20 Mg Tab 20 Mg PO DAILY 05/18/16 Reported Lisinopril 40 Mg Tab 40 Mg PO DAILY 05/18/16 Reported Xanax (Alprazolam) 2 Mg Tab 2 Mg PO DAILY PRN 05/18/16 Reported Amlodipine (Amlodipine Besylate) 10 Mg Tab 10 Mg PO DAILY 05/18/16 Reported Chlorthalidone 25 Mg Tab 12.5 Mg PO DAILY 05/18/16 Reported Lortab (Hydrocodone-Acetaminophen) 10-325 Mg Tab 1 Tab PO Q4H PRN 05/18/16 Reported Carvedilol 3.125 Mg Tab 3.125 Mg PO BID 05/18/16 Reported Bupropion HCl 100 Mg Tab 100 Mg PO BID 05/18/16 Reported Atorvastatin (Atorvastatin Calcium) 20 Mg Tab 20 Mg PO HS 05/18/16 Reported Family History Father had colon cancer Social History Patient smokes 1 pack of cigarettes per day. States that she has actually cut back and one year ago she was smoking 3 packs of cigarettes per day No EtOH (Aline Marquez) Review of Systems Constitutional: COMPLAINS OF: Fatigue, DENIES: Weight loss Respiratory: DENIES: Cough, Shortness of breath Cardiovascular: DENIES: Chest pain Gastrointestinal: COMPLAINS OF: Abdominal pain, Nausea, Vomiting, Heartburn, Hematemesis, DENIES: Black stools, Bloody stools, Constipation, Diarrhea, Swelling of Abdomen Musculoskeletal: COMPLAINS OF: Joint pain Integumentary: DENIES: Abnormal pigmentation Hematologic/lymphatic: DENIES: Bruising Neurologic: DENIES: Headache Psychiatric: DENIES: Confusion (Aline Marquez) GI Exam Vitals I&O Vital Signs Date Time Temp Pulse Resp B/P Pulse Ox O2 Delivery O2 Flow Rate FiO2 07/26/16 08:11 97 Nasal Cannula 2.00 07/26/16 06:00 80 07/26/16 04:09 99.1 85 16 96/44 99 07/26/16 04:00 85 07/26/16 04:00 99.1 85 19 106/53 99 95/44 07/26/16 03:00 98.9 97 24 122/55 100 07/26/16 02:23 99.8 99 24 117/46 96 07/26/16 02:09 24 07/26/16 02:00 98.7 99 24 106/61 98 07/26/16 02:00 99 07/26/16 01:00 98.5 106 24 104/50 97 07/26/16 00:11 96 Nasal Cannula 3.00 07/26/16 00:10 98.5 112 27 98/50 98 07/25/16 23:52 112 07/25/16 23:45 112 30 100/51 96 07/25/16 23:17 113 18 105/64 100 Nasal Cannula 2 07/25/16 23:10 110 20 93/52 98 Nasal Cannula 2 07/25/16 23:04 112 20 81/36 98 Nasal Cannula 2 07/25/16 22:59 112 20 97/49 100 Nasal Cannula 2 07/25/16 22:55 110 20 95/54 98 Nasal Cannula 2 07/25/16 22:40 110 18 106/51 96 Nasal Cannula 07/25/16 22:35 110 18 102/60 96 Nasal Cannula 2 07/25/16 22:30 110 20 91/52 95 Nasal Cannula 2 07/25/16 22:25 110 20 76/50 96 Nasal Cannula 2 07/25/16 22:20 110 20 78/50 96 Nasal Cannula 2 07/25/16 22:15 112 20 79/45 95 Nasal Cannula 2 07/25/16 22:00 114 20 84/67 100 Nasal Cannula 2 07/25/16 21:45 114 20 89/50 95 Nasal Cannula 2 07/25/16 21:30 110 20 84/47 97 Nasal Cannula 2 07/25/16 21:15 110 20 90/53 100 Nasal Cannula 2 07/25/16 20:45 106 20 99/50 95 Nasal Cannula 2 07/25/16 20:10 97.8 102 20 85/42 100 Nasal Cannula 3 07/25/16 20:00 104 20 86/49 99 Nasal Cannula 3 07/25/16 19:45 102 22 74/50 96 Nasal Cannula 3 07/25/16 19:35 97.7 104 22 90/65 96 Nasal Cannula 3 07/25/16 19:25 97.7 104 22 104/51 96 Nasal Cannula 3 07/25/16 19:20 97.6 105 22 73/36 96 Nasal Cannula 3 07/25/16 19:15 96 Nasal Cannula 3 07/25/16 19:00 108 22 66/44 91 Nasal Cannula 3 07/25/16 19:00 22 07/25/16 19:00 91 Nasal Cannula 3 07/25/16 18:25 98.6 116 20 81/40 97 I/O 07/25/16 07/25/16 07/25/16 07/26/16 07/26/16 07/26/16 07:00 15:00 23:00 07:00 15:00 23:00 Intake Total 4600 ml 3611 ml Output Total 1025 ml 2600 ml Balance 3575 ml 1011 ml Intake Oral 0 ml IV Total 4000 ml 2649 ml Packed Cells 600 ml 260 ml FFP 702 ml Output Urine Total 275 ml 2290 ml Stool Total 0 ml Gastric Drainage Total 750 ml 310 ml Imaging Last Impressions Chest X-Ray 07/25/16 1922 Signed Impressions: Service Date/Time: Monday, July 25, 2016 19:43 - CONCLUSION: No acute disease. Alden Menendez MD Abdomen/Pelvis CT 07/25/16 0000 Signed Impressions: Service Date/Time: Monday, July 25, 2016 20:28 - CONCLUSION: 1. Fluid distention of the stomach. No small bowel obstruction. No free air or free fluid. Mild constipation. Alden Menendez MD Laboratory Test 07/25/16 07/25/16 07/25/16 07/25/16 18:59 19:37 21:24 21:30 White Blood Count 13.3 TH/MM3 Red Blood Count 4.36 MIL/MM3 Hemoglobin 12.6 GM/DL Hematocrit 37.3 % Mean Corpuscular Volume 85.5 FL Mean Corpuscular Hemoglobin 29.0 PG Mean Corpuscular Hemoglobin 33.9 % Concent Red Cell Distribution Width 13.2 % Platelet Count 311 TH/MM3 Mean Platelet Volume 9.4 FL Neutrophils (%) (Auto) 75.8 % Lymphocytes (%) (Auto) 14.1 % Monocytes (%) (Auto) 6.3 % Eosinophils (%) (Auto) 0.8 % Basophils (%) (Auto) 3.0 % Neutrophils # (Auto) 10.1 TH/MM3 Lymphocytes # (Auto) 1.9 TH/MM3 Monocytes # (Auto) 0.8 TH/MM3 Eosinophils # (Auto) 0.1 TH/MM3 Basophils # (Auto) 0.4 TH/MM3 CBC Comment DIFF FINAL Differential Comment Prothrombin Time 11.4 SEC Prothromb Time International 1.0 RATIO Ratio Activated Partial 30.6 SEC Thromboplast Time Sodium Level 131 MEQ/L Potassium Level 3.6 MEQ/L Chloride Level 84 MEQ/L Carbon Dioxide Level 28.7 MEQ/L Anion Gap 18 MEQ/L Blood Urea Nitrogen 70 MG/DL Creatinine 8.20 MG/DL Estimat Glomerular Filtration 5 ML/MIN Rate Random Glucose 121 MG/DL Calcium Level 8.6 MG/DL Phosphorus Level 8.8 MG/DL Total Bilirubin 0.5 MG/DL Aspartate Amino Transf 32 U/L (AST/SGOT) Alanine Aminotransferase 18 U/L (ALT/SGPT) Alkaline Phosphatase 136 U/L Total Protein 8.0 GM/DL Albumin 3.7 GM/DL Blood Type O POSITIVE Antibody Screen NEGATIVE Crossmatch Leukocyte-Reduced Red Blood Cells Blood Bank Comment Ammonia 23 MCMOL/L Urine Color YELLOW Urine Turbidity CLEAR Urine pH 5.5 Urine Specific [place] 1.012 Urine Protein 30 mg/dL Urine Glucose (UA) NEG mg/dL Urine Ketones NEG mg/dL Urine Occult Blood LARGE Urine Nitrite NEG Urine Bilirubin NEG Urine Leukocyte Esterase NEG Urine RBC 0-3 /hpf Urine WBC 3-5 /hpf Urine Squamous Epithelial 0-5 /hpf Cells Urine Bacteria NONE /hpf Microscopic Urinalysis Comment CATH-CULT NOT IND Test 07/25/16 07/25/16 07/26/16 07/26/16 21:51 22:01 00:00 00:09 Lactic Acid Level 0.8 mmol/L Blood Gas Puncture Site LT RADIAL Blood Gas Patient Temperature 98.6 Blood Gas HCO3 19 mmol/L Blood Gas Base Excess -7.8 mmol/L Blood Gas Oxygen Saturation 93 % Arterial Blood pH 7.22 Arterial Blood Partial 47 mmHG Pressure CO2 Arterial Blood Partial 127 mmHG Pressure O2 Arterial Blood Oxygen Content 16.1 Vol % Arterial Blood 4.2 % Carboxyhemoglobin Arterial Blood Methemoglobin 1.4 % Blood Gas Hemoglobin 12.2 G/DL Oxygen Delivery Device NASAL CANNULA Blood Gas Liter Flow 4 L/M Nasal Screen MRSA (PCR) NEGATIVE Blood Bank Comment Test 07/26/16 07/26/16 07/26/16 01:55 03:20 06:15 White Blood Count 9.6 TH/MM3 7.5 TH/MM3 Red Blood Count 3.99 MIL/MM3 3.58 MIL/MM3 Hemoglobin 11.4 GM/DL 10.4 GM/DL Hematocrit 33.2 % 30.0 % Mean Corpuscular Volume 83.2 FL 83.9 FL Mean Corpuscular Hemoglobin 28.5 PG 28.9 PG Mean Corpuscular Hemoglobin 34.2 % 34.5 % Concent Red Cell Distribution Width 17.8 % 18.1 % Platelet Count 201 TH/MM3 176 TH/MM3 Mean Platelet Volume 9.2 FL 9.4 FL Neutrophils (%) (Auto) 69.4 % Lymphocytes (%) (Auto) 18.7 % Monocytes (%) (Auto) 10.6 % Eosinophils (%) (Auto) 1.0 % Basophils (%) (Auto) 0.3 % Neutrophils # (Auto) 6.6 TH/MM3 Lymphocytes # (Auto) 1.8 TH/MM3 Monocytes # (Auto) 1.0 TH/MM3 Eosinophils # (Auto) 0.1 TH/MM3 Basophils # (Auto) 0.0 TH/MM3 CBC Comment DIFF FINAL Differential Comment Prothrombin Time 11.0 SEC Prothromb Time International 1.0 RATIO Ratio Activated Partial 29.4 SEC Thromboplast Time Sodium Level 140 MEQ/L Potassium Level 3.6 MEQ/L Chloride Level 105 MEQ/L Carbon Dioxide Level 24.3 MEQ/L Anion Gap 11 MEQ/L Blood Urea Nitrogen 53 MG/DL Creatinine 4.32 MG/DL Estimat Glomerular Filtration 11 ML/MIN Rate Random Glucose 156 MG/DL Lactic Acid Level 0.7 mmol/L Calcium Level 7.2 MG/DL Protein Corrected Calcium 7.9 MG/DL Phosphorus Level 4.9 MG/DL Magnesium Level 1.8 MG/DL Total Protein 5.7 GM/DL Physical Examination HEENT: Normocephalic; atraumatic; no jaundice. Throat is clear. NECK: Neck is supple, no JVD, no lymphadenopathy. CHEST: CTA CARDIAC: RRR ABDOMEN: Soft, nondistended, nontender; no hepatosplenomegaly; bowel sounds are present in all four quadrants. NGT to LIWS, coffee ground emesis EXTREMITIES: No clubbing, cyanosis, or edema. SKIN: Normal; no rash; no jaundice. STORY TELLER: No focal deficits; alert and oriented times three. (Aline MarquezP) Assessment and Plan Plan ASSESSMENT: - Upper GI bleed with coffee-ground emesis. Patient reports a history of peptic ulcer disease and takes the Xarelto at home for history of DVT. She last took this yesterday am, but states she vomited right after so she does not think she could have absorbed this. She started having nausea and vomiting with coffee-ground emesis 1 day ago. She has mild right upper quadrant discomfort. She denies any melena or hematochezia. She was evaluated for the same 3 years ago and underwent evaluation with EGD (08/17/2012) and this revealed severe grade D esophagitis with exudate possible Ruiz's esophagus, mild gastritis, normal duodenum. Pathology revealed squamous mucosa with superficial mild acute inflammation. A GMS staining is positive for small number pseudohyphae invading the superficial squamous mucosa consistent with Mckayla esophagitis. It was recommended that she have her EGD/colonoscopy in 6 weeks. She reports that this was done but because of her insurance it was done at [facility] by Dr. Kohler and that it was normal. H&H stable. PPI/octreotide drip. - Anemia secondary to acute blood loss. Status post 2 units of packed red blood cells, 2 units of FFP. H&H is stable at 10.4/30.0 - Acute kidney failure secondary to dehydration. Creatinine improved from 8.20 to 4.32. - Hyponatremia. Per [facility] - Dehydration. IVF - HTN, CHF, Asthma/COPD per primary - Hx DVT, August 2015. S/P IVC Filter. On Xarelto. Last took this yesterday am, but states she vomited right after. PLAN: - Plan for EGD today - Obtain consents - Clear liquids - Nothing by mouth - NGT to LIWS - Protonix drip - Serial H&H - Transfuse as necessary - Continue IV fluids - CBC, BMP in a.m. - Supportive care - Further recommendations to follow based on results of above - Patient seen and examined by Dr. Moss and myself and this note is written on his behalf (Aline Marquez) Physician Comments patient was seen and examined, agree with above note, supportive care, EGD today. (Gabe Moss MD) Aline Marquez Jul 26, 2016 08:36 Gabe Moss MD Jul 26, 2016 11:20
[2016-07-26 10:11] LABS: HEMATOCRIT 31.1 % (35.0-46.0); MEAN CELL VOLUME 83.3 FL (80.0-100.0); MEAN CORPUSCULAR HEMOGLOBIN 28.5 PG (27.0-34.0); MEAN CORPUSCULAR HGB CONC 34.3 % (32.0-36.0); PLATELET COUNT 173 TH/MM3 (150-450); RED BLOOD COUNT 3.74 MIL/MM3 (4.00-5.30); RED CELL DISTRIBUTION WIDTH 17.7 % (11.6-17.2); REVIEW FLAG FINAL; WHITE BLOOD COUNT 6.8 TH/MM3 (4.0-11.0)
[2016-07-26 13:54] LABS: HEMATOCRIT 29.3 % (35.0-46.0); MEAN CELL VOLUME 83.1 FL (80.0-100.0); MEAN CORPUSCULAR HEMOGLOBIN 29.3 PG (27.0-34.0); MEAN CORPUSCULAR HGB CONC 35.3 % (32.0-36.0); PLATELET COUNT 164 TH/MM3 (150-450); RED BLOOD COUNT 3.53 MIL/MM3 (4.00-5.30); RED CELL DISTRIBUTION WIDTH 17.5 % (11.6-17.2); REVIEW FLAG FINAL; WHITE BLOOD COUNT 5.9 TH/MM3 (4.0-11.0)
--- NOTE | 2016-07-26 14:06 | EKG ---
Date Performed: 07/26/2016 Time Performed: 13:38:50 PTAGE: 55 years EKG: Sinus rhythm NORMAL ECG PREVIOUS TRACING : 07/25/2016 19.38 Since previous tracing, no significant change noted DOCTOR: Patel Reeder Interpretating Date/Time 07/26/2016 14:04:48
[2016-07-26] MEDS ORDERED: PROPOFOL 200 MG/20 ML AMP IV ONE (16:54)
[2016-07-26] MEDS ORDERED: DO NOT ADM ANY ANTICOAGULANT DRUGS XX PRN (17:03)
[2016-07-26 20:10] LABS: HEMATOCRIT 31.7 % (35.0-46.0); MEAN CORPUSCULAR HEMOGLOBIN 28.7 PG (27.0-34.0); MEAN CORPUSCULAR HGB CONC 34.1 % (32.0-36.0); PLATELET COUNT 173 TH/MM3 (150-450); RED BLOOD COUNT 3.78 MIL/MM3 (4.00-5.30); RED CELL DISTRIBUTION WIDTH 17.5 % (11.6-17.2); REVIEW FLAG FINAL; WHITE BLOOD COUNT 8.3 TH/MM3 (4.0-11.0)
[2016-07-26 23:04] LABS: BASOPHIL % 0.4 % (0.0-2.0); EOSINOPHIL # 0.1 TH/MM3 (0-0.4); EOSINOPHIL % 1.1 % (0.0-4.0); HEMATOCRIT 30.7 % (35.0-46.0); HEMO FLAGS DIFF FINAL; LYMPH % 8.9 % (9.0-44.0); LYMPHOCYTE # 0.6 TH/MM3 (1.0-4.8); MEAN CORPUSCULAR HEMOGLOBIN 28.6 PG (27.0-34.0); MONO % 6.2 % (0.0-8.0); NEUT % 83.4 % (16.0-70.0); PLATELET COUNT 168 TH/MM3 (150-450); RED BLOOD COUNT 3.66 MIL/MM3 (4.00-5.30); RED CELL DISTRIBUTION WIDTH 17.6 % (11.6-17.2); WHITE BLOOD COUNT 7.1 TH/MM3 (4.0-11.0)
[2016-07-27] VITALS (13 sets, daily range): BP systolic 117–166; BP diastolic 63–80; PULSE 85–95; RESP 14–22; TEMP 97.7–99.1; O2SAT 93–99
[2016-07-27] MEDS: ACETAMINOPHEN 1000 MG/100 ML VIAL IV SCH ×2 (03:57→07:43)
[2016-07-27] MEDS: PANTOPRAZOLE INJ 80 MG in SODIUM CHLORIDE 0.9% INJ 100 ML IV SCH (03:58)
[2016-07-27] MEDS: OCTREOTIDE INJ 500 MCG in SODIUM CHLORID 0.9% 500 ML INJ 500 ML IV SCH (03:58)
[2016-07-27] MEDS: CHLORHEXIDINE GLUCONATE 2 % 1 PACK (2 CLOTHS) TOP SCH (04:00)
[2016-07-27] MEDS: fentaNYL CITRATE 250 MCG/5 ML AMP IV PUSH PRN ×2 (04:13→09:27)
[2016-07-27 05:06] LABS: AUTOMATED NEUTROPHIL # 4.2 TH/MM3 (1.8-7.7); BASOPHIL # 0.1 TH/MM3 (0-0.2); BASOPHIL % 0.9 % (0.0-2.0); EOSINOPHIL # 0.1 TH/MM3 (0-0.4); EOSINOPHIL % 1.4 % (0.0-4.0); HEMATOCRIT 31.5 % (35.0-46.0); HEMO FLAGS DIFF FINAL; LYMPH % 16.1 % (9.0-44.0); MEAN CELL VOLUME 84.2 FL (80.0-100.0); MEAN CORPUSCULAR HEMOGLOBIN 28.6 PG (27.0-34.0); MEAN CORPUSCULAR HGB CONC 33.9 % (32.0-36.0); MONO % 10.4 % (0.0-8.0); NEUT % 71.2 % (16.0-70.0); PLATELET COUNT 169 TH/MM3 (150-450); RED BLOOD COUNT 3.74 MIL/MM3 (4.00-5.30); RED CELL DISTRIBUTION WIDTH 17.2 % (11.6-17.2)
[2016-07-27 05:35] LABS: ALKALINE PHOSPHATASE 93 U/L (45-117); ALT (GPT) 18 U/L (10-53); ANION GAP 8 MEQ/L (5-15); AST (GOT) 31 U/L (15-37); BICARBONATE 28.2 MEQ/L (21.0-32.0); BLOOD UREA NITROGEN 14 MG/DL (7-18); CHLORIDE 109 MEQ/L (98-107); GLOMERULAR FILTRATION RATE 72 ML/MIN (>89); POTASSIUM 4.3 MEQ/L (3.5-5.1); SODIUM (NA) 145 MEQ/L (136-145); TOTAL BILIRUBIN ADULT 0.4 MG/DL (0.2-1.0)
[2016-07-27] MEDS: INSULIN ASPART SUPPLEMENTAL SCALE SQ SCH ×4 (06:26→19:23)
[2016-07-27] MEDS: SODIUM CHLOR 0.9% 1000 ML INJ 1,000 ML IV SCH (07:42)
[2016-07-27] MEDS: REMOVE OLD NICODERM (NICOTINE) PATCH TD SCH (07:42)
[2016-07-27] MEDS: NICOTINE 21 MG/24 HR PATCH TD SCH (07:42)
--- NOTE | 2016-07-27 08:12 | HHI.PR ---
Subjective Remarks f/u; GI bleed resting comfortably with no distress. no further GI bleed. d/w the RN and no acute issues over night. off pressors since yesterday. Objective Vitals Vital Signs Date Time Temp Pulse Resp B/P Pulse Ox O2 Delivery O2 Flow Rate FiO2 07/27/16 06:00 86 07/27/16 04:00 87 07/27/16 04:00 99.1 87 22 138/65 96 117/80 07/27/16 02:00 90 07/27/16 00:35 16 07/27/16 00:00 90 07/27/16 00:00 98.9 90 18 131/63 95 123/78 07/26/16 22:00 93 07/26/16 20:23 16 07/26/16 20:00 99.9 95 16 132/63 97 115/80 07/26/16 20:00 95 07/26/16 19:58 97 Nasal Cannula 1.50 07/26/16 18:00 95 07/26/16 17:30 100.2 96 16 112/63 95 Nasal Cannula 2 07/26/16 17:15 92 16 120/62 95 Nasal Cannula 2 07/26/16 17:06 100.3 96 16 110/64 94 Nasal Cannula 2 07/26/16 16:00 99.5 97 14 125/59 92 07/26/16 16:00 99 07/26/16 14:00 92 07/26/16 12:00 98.9 94 18 100/51 100 07/26/16 12:00 94 07/26/16 10:00 85 07/26/16 08:11 97 Nasal Cannula 2.00 I/O 07/26/16 07/26/16 07/26/16 07/27/16 07/27/16 07/27/16 07:00 15:00 23:00 07:00 15:00 23:00 Intake Total 3611 ml 2723 ml 2086 ml 1361 ml Output Total 2600 ml 1475 ml 2450 ml 525 ml Balance 1011 ml 1248 ml -364 ml 836 ml Intake Oral 0 ml 420 ml 222 ml IV Total 2649 ml 2723 ml 1666 ml 1139 ml Packed Cells 260 ml FFP 702 ml Other 0 ml Output Urine Total 2290 ml 1425 ml 2450 ml 525 ml Stool Total 0 ml 0 ml Gastric Drainage Total 310 ml 50 ml Estimated Blood Loss 0 ml # Bowel Movements 1 0 Result Diagram: 07/27/160 07/27/16 0430 Imaging Last Impressions Chest X-Ray 07/25/16 1922 Signed Impressions: Service Date/Time: Monday, July 25, 2016 19:43 - CONCLUSION: No acute disease. Alden Menendez MD Abdomen/Pelvis CT 07/25/16 0000 Signed Impressions: Service Date/Time: Monday, July 25, 2016 20:28 - CONCLUSION: 1. Fluid distention of the stomach. No small bowel obstruction. No free air or free fluid. Mild constipation. Alden Menendez MD Objective Remarks GENERAL: This is a well-nourished, well-developed patient, in no apparent distress. CARDIOVASCULAR: Regular rate and regular rhythm without murmurs, gallops, or rubs. RESPIRATORY: Clear to auscultation. Breath sounds equal bilaterally. No wheezes , rales, or rhonchi. GASTROINTESTINAL: Abdomen soft, non-tender, nondistended. Normal, active bowel sounds MUSCULOSKELETAL: Extremities without clubbing, cyanosis, or edema. NEURO: Alert & Oriented x4 to person, place, time, situation. Moves all ext x4 Procedures EGD Medications and IVs Current Medications Sodium Chloride (NS 1000 ml Inj) 1,000 ml @ 1,000 mls/hr Q1H IV Last administered on 07/25/16 19:46; Start 07/25/16 at 18:45; Stop 07/25/16 at 19:44; Status DC IV Flush 2 ml 2 ml UNSCH PRN IVF FLUSH AFTER USING IV ACCESS; Start 07/25/16 at 18:45; Status Cancel Octreotide Acetate/Sodium Chloride (SandoSTATIN INJ/ NS 500 ml Inj) 500.5 ml @ 50 mls/hr Q10H IV Last administered on 07/27/16 03:58; Start 07/25/16 at 18:45 Ondansetron HCl 4 mg 4 mg ONCE ONCE IM ; Start 07/25/16 at 18:45; Stop 07/25/16 at 19:50; Status DC Pantoprazole Sodium 80 mg/ Sodium Chloride 35 ml @ 420 mls/hr ONCE ONCE IV Last administered on 07/25/16 19:46; Start 07/25/16 at 18:45; Stop 07/25/16 at 18: 49; Status DC Sodium Chloride (NS 1000 ml Inj) 1,000 ml @ 999 mls/hr BOLUS ONCE IV Last administered on 07/25/16 19:47; Start 07/25/16 at 18:45; Stop 07/25/16 at 19:45; Status DC Ondansetron HCl (Zofran Inj) 4 mg ONCE ONCE IV PUSH Last administered on 19:20; Start 07/25/16 at 19:15; Stop 07/25/16 at 19:16; Status DC IV Flush 2 ml 2 ml UNSCH PRN IVF FLUSH AFTER USING IV ACCESS; Start 07/25/16 at 19:30; Status Cancel Pantoprazole Sodium 80 mg/ Sodium Chloride 100 ml @ 10 mls/hr Q10H IV Last administered on 07/27/16 03:58; Start 07/25/16 at 19:30 Sodium Chloride (NS 1000 ml Inj) 1,000 ml @ 999 mls/hr BOLUS ONCE IV Last administered on 07/25/16 19:49; Start 07/25/16 at 19:30; Stop 07/25/16 at 20:30; Status DC IV Flush (NS Flush) 2 ml BID IVF ; Start 07/25/16 at 21:00; Stop 07/25/16 at 22:34 ; Status DC IV Flush (NS Flush) 2 ml UNSCH PRN IVF FLUSH AFTER USING IV ACCESS; Start at 19:45; Stop 07/25/16 at 22:34; Status DC Ondansetron HCl (Zofran Inj) 4 mg ONCE ONCE IV PUSH Last administered on 19:52; Start 07/25/16 at 20:00; Stop 07/25/16 at 20:01; Status DC Metoclopramide HCl 5 mg 5 mg ONCE ONCE IV PUSH Last administered on 07/25/16 20:08; Start 07/25/16 at 20:00; Stop 07/25/16 at 20:01; Status DC Sodium Chloride 500 ml @ 500 mls/hr BOLUS ONCE IV Last administered on 21:45; Start 07/25/16 at 21:45; Stop 07/25/16 at 22:44; Status DC Phenylephrine HCl/ Dextrose (Neosynephrine Inj/D5W 500 ml Inj) 500 ml @ 0 mls/ hr TITRATE IV Last administered on 07/26/16 04:15; Start 07/25/16 at 22:45 Terbutaline Sulfate 1 mg 1 mg UNSCH PRN SQ For Extravasation; Start 07/25/16 at 21:45 Sodium Chloride 500 ml @ 500 mls/hr BOLUS ONCE IV Last administered on 22:15; Start 07/25/16 at 22:15; Stop 07/25/16 at 23:14; Status DC Sodium Chloride (NS 1000 ml Inj) 1,000 ml @ 100 mls/hr Q10H IV Last administered on 07/27/16 07:42; Start 07/25/16 at 22:07 IV Flush (NS Flush) 2 ml UNSCH PRN IV FLUSH FLUSH AFTER USING IV ACCESS; Start 07/25/16 at 22:15 IV Flush (NS Flush) 2 ml BID IV FLUSH Last administered on 07/26/16 07:49; Start 07/26/16 at 09:00 Ondansetron HCl (Zofran Inj) 4 mg Q6H PRN IV NAUSEA OR VOMITING; Start 07/25/16 at 22:15 Bisacodyl (Dulcolax Supp) 10 mg DAILY PRN RECTAL CONSTIPATION; Start 07/25/16 at 22:15 Albuterol/ Ipratropium (Duoneb Neb) 1 ampule Q4HR NEB PRN INH WHEEZING; Start 07/25/16 at 22:15 Miscellaneous Information 1 [id number] XX Last administered on 07/25/16 22:15; Start 07/25/16 at 22:15 Chlorhexidine Gluconate (Chlorhexidine 2% Cloth) 3 pack Taper DAILY@04 TOP Last administered on 07/27/16 04:00; Start 07/26/16 at 04:00; Stop 07/22/17 at 03: 59 Chlorhexidine Gluconate 3 pack 3 pack UNSCH PRN TOP HYGIENIC CARE; Start at 22:15 Potassium Chloride 100 ml @ 50 mls/hr Q2H PRN IV For Potassium 2.8 - 3.2 mEq/L ; Start 07/25/16 at 22:15; Stop 07/26/16 at 15:24; Status DC Potassium Chloride (KCl 20 Meq Premix Inj) 100 ml @ 50 mls/hr Q2H PRN IV For Potassium 2.8 - 3.2 mEq/L; Start 07/25/16 at 22:15; Stop 07/26/16 at 15:24; Status DC Potassium Chloride 40 meq 40 meq UNSCH PRN PO/TUBE For Potassium 3.3 - 3.5 mEq/ L; Start 07/25/16 at 22:15; Stop 07/26/16 at 15:24; Status DC Potassium Chloride 100 ml @ 25 mls/hr UNSCH PRN IV For Potassium 3.3 - 3.5 mEq /L; Start 07/25/16 at 22:15; Stop 07/26/16 at 15:24; Status DC Potassium Chloride 100 ml @ 50 mls/hr Q2H PRN IV For Potassium 3.3 - 3.5 mEq/L ; Start 07/25/16 at 22:15; Stop 07/26/16 at 15:24; Status DC Magnesium Sulfate/ Sodium Chloride (Magnesium Sulfate Inj/NS Inj) 100 ml @ 50 mls/hr UNSCH PRN IV For Magnesium 0.9 - 1.1 mg/dL; Start 07/25/16 at 22:15; Stop 07/26/16 at 15:21; Status DC Magnesium Oxide 800 mg 800 mg UNSCH PRN PO For Magnesium 1.2 - 1.6 mg/dL; Start 07/25/16 at 22:15; Stop 07/26/16 at 15:24; Status DC Magnesium Sulfate/ Sodium Chloride (Magnesium Sulfate Inj/NS Inj) 100 ml @ 50 mls/hr UNSCH PRN IV For Magnesium 1.2 - 1.6 mg/dL; Start 07/25/16 at 22:15; Stop 07/26/16 at 15:22; Status DC Potassium Phosphate 2000 mg 2,000 mg Q4H PRN PO For Phosphorus < 2.5 mg/dL; Start 07/25/16 at 22:15; Stop 07/26/16 at 15:24; Status DC Sodium Phosphate/ Sodium Chloride (Sodium Phosphate Inj/NS 250 ml Inj) 250 ml @ 42 mls/hr UNSCH PRN IV For Phosphorus < 2.5 mg/dL; Start 07/25/16 at 22:15; Stop 07/26/16 at 15:24; Status DC Potassium Chloride (KCl 40 Meq/30 ml Liq) 40 meq UNSCH PRN PO/TUBE SEE LABEL COMMENTS; Start 07/25/16 at 22:15; Stop 07/26/16 at 15:24; Status DC Potassium Phosphate 2000 mg 2,000 mg UNSCH PRN PO/TUBE SEE LABEL COMMENTS; Start 07/25/16 at 22:15; Stop 07/26/16 at 15:24; Status DC Potassium Phosphate/Sodium Chloride (Potassium Phosphate Inj/NS 250 ml Inj) 260 ml @ 42 mls/hr UNSCH PRN IV SEE LABEL COMMENTS; Start 07/25/16 at 22:15; Stop 07/26/16 at 15:24; Status DC Dextrose (D50w (Vial) Inj) 25 ml UNSCH PRN IV PUSH HYPOGLYCEMIA-SEE COMMENTS; Start 07/25/16 at 22:30 Glucagon (Glucagon Inj) 1 mg UNSCH PRN OTHER HYPOGLYCEMIA-SEE COMMENTS; Start 07/25/16 at 22:30 Insulin Aspart 1 1 ACHS SLIDING SCALE SQ ; Start 07/26/16 at 07:00 Pantoprazole Sodium 80 mg/ Sodium Chloride 100 ml @ 10 mls/hr Q10H IV ; Start 07/26/16 at 00:00; Status Cancel Norepinephrine Bitartrate (Levophed-Dextrose Drip) 250 ml @ 0 mls/hr TITRATE IV ; Start 07/25/16 at 22:45 Terbutaline Sulfate 1 mg 1 mg UNSCH PRN SQ For Extravasation; Start 07/25/16 at 22:45; Stop 07/26/16 at 15:45; Status DC Norepinephrine Bitartrate (Levophed-Dextrose Drip) 250 ml @ 0 mls/hr TITRATE IV ; Start 07/25/16 at 22:45; Stop 07/26/16 at 15:43; Status DC Terbutaline Sulfate (Brethine Inj) 1 mg UNSCH PRN SQ For Extravasation; Start 07/25/16 at 22:45 Nicotine (Habitrol 21 Mg Patch.24 Hr) 1 patch DAILY TD Last administered on 07/27 07:42; Start 07/26/16 at 00:00 Miscellaneous Information 1 DAILY TD Last administered on 07/27/16 07:42; Start 07/26/16 at 09:00 Pneumococcal Polyvalent Vaccine (Pneumovax-23 Inj) 25 mcg ONCE ONCE IM ; Start 07/27/16 at 10:00; Stop 07/27/16 at 10:01 Influenza Virus Vaccine (Flu (Quadrivalent) Vaccine Inj) 0.5 ml ONCE ONCE IM ; Start 07/27/16 at 10:00; Stop 07/27/16 at 10:01 Fentanyl Citrate (fentaNYL INJ) 50 mcg Q4HR PRN IV PUSH PAIN SCALE 7 TO 10 Last administered on 07/27/16 04:13; Start 07/26/16 at 01:30 Lorazepam (Ativan Inj) 0.5 mg Q6H PRN IV PUSH ANXIETY; Start 07/26/16 at 01:30 Acetaminophen 1000 mg 1,000 mg Q6H IV Last administered on 07/27/16 07:43; Start 07/26/16 at 01:30 Lactated Ringer's (Lr 1000 ml Inj) 1,000 ml @ 999 mls/hr BOLUS ONCE IV Last administered on 07/26/16 08:41; Start 07/26/16 at 08:00; Stop 07/26/16 at 09:00; Status DC Miscellaneous Information ALL NURSING DEPARTME... UNSCH PRN XX SEE LABEL COMMENTS; Start 07/26/16 at 17:03; Stop 07/27/16 at 17:02 Propofol (Diprivan 200 Mg/20 ml Inj) 150 mg STK-MED ONCE IV ; Start 07/26/16 at 16:54; Stop 07/26/16 at 17:43; Status DC A/P Assessment and Plan A/P Anxiety Depression Pain -Ativan 0.5 mg PRN COPD Asthma Nicotine abuse -Nicotine patch -Maintain O2 sat greater than 92%, O2 at 3 L nasal cannula O2 sat 98% -continue Bronchodilators -Patient counseled on cessation of smoking Hemorrhagic shock H/O CHF ( chronic diastolic) Hypertension H/O DVT Hyperlipidemia -Maintain MAP greater than 65 mmHg -Hold Xarelto, atorvastatin -Patient transfused 2 units of packed cells, transfused 2 units of FFP -Monitor hemoglobin levels -EKG 07/25-sinus tach acute kidney injury-resolved dc maldonado cath- monitor renal function Morbid obesity Upper GI bleed GERD -s/p EGD with esophageal ulcer -Octreotide and Protonix infusions -Zofran when necessary for nausea -GI following - CT Abd/Pel-no free air Possible anticoagulate associated hemorrhage H/O DVT -Xarelto held -Transfused 2 units of FFP -[place] IVC filter placement-2012 Prophylaxis: GI Prophylaxis Protonix DVT Prophylaxis -- SCDs transfer to telemetry this afternoon if stable. Discharge Planning possible dc home in am if stable and cleared by GI. Zia Patel MD Jul 27, 2016 08:12
[2016-07-27] MEDS: SODIUM CHLORIDE 0.9% FLUSH 5 ML FLUSH IV FLUSH SCH ×2 (09:27→19:20)
[2016-07-27] MEDS ORDERED: PNEUMOCOCCAL POLYVALENT INJ 25 MCG/0.5 ML SYR IM ONE (10:00)
[2016-07-27] MEDS ORDERED: INFLUENZA VIRUS VACCINE (QUADRIVALENT) 0.5 ML SYR IM ONE (10:00)
[2016-07-27] MEDS: HYDROmorphone HCL PF 1 MG/ML VIAL IV PUSH PRN ×3 (13:59→21:52)
[2016-07-27] MEDS: SODIUM CHLORIDE 0.9% FLUSH 5 ML FLUSH IV FLUSH PRN ×2 (13:59→17:57)
[2016-07-27] MEDS: PANTOPRAZOLE SOD 40 MG DELAYED RELEASE TAB PO SCH (19:20)
[2016-07-28] VITALS: BP 171/80; PULSE 95; RESP 18; TEMP 98.6; O2SAT 95
[2016-07-28] MEDS: HYDROmorphone HCL PF 1 MG/ML VIAL IV PUSH PRN ×3 (01:47→09:29)
[2016-07-28] MEDS: CHLORHEXIDINE GLUCONATE 2 % 1 PACK (2 CLOTHS) TOP SCH (03:58)
[2016-07-28] MEDS: INSULIN ASPART SUPPLEMENTAL SCALE SQ SCH ×2 (05:25→11:00)
[2016-07-28 05:35] LABS: HEMATOCRIT 31.5 % (35.0-46.0)
[2016-07-28 06:02] LABS: BICARBONATE 29.1 MEQ/L (21.0-32.0); POTASSIUM 3.3 MEQ/L (3.5-5.1)
--- NOTE | 2016-07-28 07:27 | MR ---
cc: EDISON MOSS M.D., TWETHIDA MD DATE: 07/26/2016 DATE OF : 1960 TYPE OF PROCEDURE Upper gastrointestinal endoscopy with biopsy. ENDOSCOPIST Dr. Moss MEDICATION Propofol with Anesthesia. INSTRUMENT Pentax upper scope. INDICATION A 55-year-old lady who has hematemesis and anemia. PROCEDURE After informing the patient about the procedure and complications, consent was signed. The patient was placed on her back. Intubation was performed by Anesthesia with adequate sedation. The scope was placed in the mouth, advanced under video guidance to the second portion of the duodenum. Scope drawn back to the stomach. Retroflexion was performed. Biopsy from the distal esophagus. The scope drawn back without immediate complication. FINDINGS 1. Esophagus: Severe grade D esophagitis with esophageal ulcers. Biopsy was done. 2. Stomach: Normal. 3. Duodenum: Normal. 4. No sign of active bleeding at this time. RECOMMENDATIONS 1. Follow-up biopsy. 2. No NSAIDs. 3. Avoid tobacco or alcohol. 4. Protonix 40 mg daily. 5. Clear liquids, advance to [facility] as tolerated. MD MICHELLE Obando/COLEMAN /5:05 PM /7:22 AM
--- NOTE | 2016-07-28 07:46 | HHI.PR ---
Subjective Remarks resting comfortably with no distress. no further GI bleed. denies abdominal pain, nausea or vomiting. Objective Vitals Vital Signs Date Time Temp Pulse Resp B/P Pulse Ox O2 Delivery O2 Flow Rate FiO2 07/28/16 06:11 16 07/28/16 00:00 98.6 95 18 171/80 95 07/27/16 20:00 99.1 95 16 136/65 95 07/27/16 19:59 94 07/27/16 18:45 98 21 07/27/16 16:00 98.7 87 16 166/76 98 07/27/16 13:43 97.7 85 16 147/79 99 07/27/16 12:00 93 07/27/16 12:00 98.1 90 16 161/74 93 07/27/16 10:00 88 07/27/16 08:02 97 Nasal Cannula 1.50 07/27/16 08:00 98.6 95 14 139/65 97 Arterial Line 07/27/16 08:00 95 I/O 07/27/16 07/27/16 07/27/16 07/28/16 07/28/16 07/28/16 07:00 15:00 23:00 07:00 15:00 23:00 Intake Total 1361 ml 667 ml 340 ml 340 ml Output Total 525 ml 200 ml 200 ml 500 ml Balance 836 ml 467 ml 140 ml -160 ml Intake Oral 222 ml 340 ml 340 ml IV Total 1139 ml 667 ml Output Urine Total 525 ml 200 ml 200 ml 500 ml Stool Total 0 ml # Voids 2 # Bowel Movements 0 4 Result Diagram: 07/28/160 07/28/160 Imaging Last Impressions Chest X-Ray 07/25/161921 Signed Impressions: Service Date/Time: Monday, July 25, 2016 19:43 - CONCLUSION: No acute disease. Alden Menendez MD Abdomen/Pelvis CT 07/25/16 0000 Signed Impressions: Service Date/Time: Monday, July 25, 2016 20:28 - CONCLUSION: 1. Fluid distention of the stomach. No small bowel obstruction. No free air or free fluid. Mild constipation. Alden Menendez MD Objective Remarks GENERAL: This is a well-nourished, well-developed patient, in no apparent distress. CARDIOVASCULAR: Regular rate and regular rhythm without murmurs, gallops, or rubs. RESPIRATORY: Clear to auscultation. Breath sounds equal bilaterally. No wheezes , rales, or rhonchi. GASTROINTESTINAL: Abdomen soft, non-tender, nondistended. Normal, active bowel sounds MUSCULOSKELETAL: Extremities without clubbing, cyanosis, or edema. NEURO: Alert & Oriented x4 to person, place, time, situation. Moves all ext x4 Procedures EGD Medications and IVs Current Medications Sodium Chloride (NS 1000 ml Inj) 1,000 ml @ 1,000 mls/hr Q1H IV Last administered on 07/25/16 19:46; Start 07/25/16 at 18:45; Stop 07/25/16 at 19:44; Status DC IV Flush 2 ml 2 ml UNSCH PRN IVF FLUSH AFTER USING IV ACCESS; Start 07/25/16 at 18:45; Status Cancel Octreotide Acetate/Sodium Chloride (SandoSTATIN INJ/ NS 500 ml Inj) 500.5 ml @ 50 mls/hr Q10H IV Last administered on 07/27/16 03:58; Start 07/25/16 at 18:45; Stop 07/27/16 at 11:25; Status DC Ondansetron HCl 4 mg 4 mg ONCE ONCE IM ; Start 07/25/16 at 18:45; Stop 07/25/16 at 19:50; Status DC Pantoprazole Sodium 80 mg/ Sodium Chloride 35 ml @ 420 mls/hr ONCE ONCE IV Last administered on 07/25/16 19:46; Start 07/25/16 at 18:45; Stop 07/25/16 at 18: 49; Status DC Sodium Chloride (NS 1000 ml Inj) 1,000 ml @ 999 mls/hr BOLUS ONCE IV Last administered on 07/25/16 19:47; Start 07/25/16 at 18:45; Stop 07/25/16 at 19:45; Status DC Ondansetron HCl (Zofran Inj) 4 mg ONCE ONCE IV PUSH Last administered on 19:20; Start 07/25/16 at 19:15; Stop 07/25/16 at 19:16; Status DC IV Flush 2 ml 2 ml UNSCH PRN IVF FLUSH AFTER USING IV ACCESS; Start 07/25/16 at 19:30; Status Cancel Pantoprazole Sodium 80 mg/ Sodium Chloride 100 ml @ 10 mls/hr Q10H IV Last administered on 07/27/16 03:58; Start 07/25/16 at 19:30; Stop 07/27/16 at 11:28; Status DC Sodium Chloride (NS 1000 ml Inj) 1,000 ml @ 999 mls/hr BOLUS ONCE IV Last administered on 07/25/16 19:49; Start 07/25/16 at 19:30; Stop 07/25/16 at 20:30; Status DC IV Flush (NS Flush) 2 ml BID IVF ; Start 07/25/16 at 21:00; Stop 07/25/16 at 22:34 ; Status DC IV Flush (NS Flush) 2 ml UNSCH PRN IVF FLUSH AFTER USING IV ACCESS; Start at 19:45; Stop 07/25/16 at 22:34; Status DC Ondansetron HCl (Zofran Inj) 4 mg ONCE ONCE IV PUSH Last administered on 19:52; Start 07/25/16 at 20:00; Stop 07/25/16 at 20:01; Status DC Metoclopramide HCl 5 mg 5 mg ONCE ONCE IV PUSH Last administered on 07/25/16 20:08; Start 07/25/16 at 20:00; Stop 07/25/16 at 20:01; Status DC Sodium Chloride 500 ml @ 500 mls/hr BOLUS ONCE IV Last administered on 21:45; Start 07/25/16 at 21:45; Stop 07/25/16 at 22:44; Status DC Phenylephrine HCl/ Dextrose (Neosynephrine Inj/D5W 500 ml Inj) 500 ml @ 0 mls/ hr TITRATE IV Last administered on 07/26/16 04:15; Start 07/25/16 at 22:45; Stop 07/27/16 at 12:48; Status DC Terbutaline Sulfate 1 mg 1 mg UNSCH PRN SQ For Extravasation; Start 07/25/16 at 21:45 Sodium Chloride 500 ml @ 500 mls/hr BOLUS ONCE IV Last administered on 22:15; Start 07/25/16 at 22:15; Stop 07/25/16 at 23:14; Status DC Sodium Chloride (NS 1000 ml Inj) 1,000 ml @ 100 mls/hr Q10H IV Last administered on 07/27/16 07:42; Start 07/25/16 at 22:07; Status Hold IV Flush (NS Flush) 2 ml UNSCH PRN IV FLUSH FLUSH AFTER USING IV ACCESS Last administered on 07/27/16 17:57; Start 07/25/16 at 22:15 IV Flush (NS Flush) 2 ml BID IV FLUSH Last administered on 07/27/16 19:20; Start 07/26/16 at 09:00 Ondansetron HCl (Zofran Inj) 4 mg Q6H PRN IV NAUSEA OR VOMITING; Start 07/25/16 at 22:15 Bisacodyl (Dulcolax Supp) 10 mg DAILY PRN RECTAL CONSTIPATION; Start 07/25/16 at 22:15 Albuterol/ Ipratropium (Duoneb Neb) 1 ampule Q4HR NEB PRN INH WHEEZING; Start 07/25/16 at 22:15 Miscellaneous Information 1 Q361D XX Last administered on 07/25/16 22:15; Start 07/25/16 at 22:15 Chlorhexidine Gluconate (Chlorhexidine 2% Cloth) 3 pack Taper DAILY@04 TOP Last administered on 07/27/16 04:00; Start 07/26/16 at 04:00; Stop 07/22/17 at 03: 59 Chlorhexidine Gluconate 3 pack 3 pack UNSCH PRN TOP HYGIENIC CARE; Start at 22:15 Potassium Chloride 100 ml @ 50 mls/hr Q2H PRN IV For Potassium 2.8 - 3.2 mEq/L ; Start 07/25/16 at 22:15; Stop 07/26/16 at 15:24; Status DC Potassium Chloride (KCl 20 Meq Premix Inj) 100 ml @ 50 mls/hr Q2H PRN IV For Potassium 2.8 - 3.2 mEq/L; Start 07/25/16 at 22:15; Stop 07/26/16 at 15:24; Status DC Potassium Chloride 40 meq 40 meq UNSCH PRN PO/TUBE For Potassium 3.3 - 3.5 mEq/ L; Start 07/25/16 at 22:15; Stop 07/26/16 at 15:24; Status DC Potassium Chloride 100 ml @ 25 mls/hr UNSCH PRN IV For Potassium 3.3 - 3.5 mEq /L; Start 07/25/16 at 22:15; Stop 07/26/16 at 15:24; Status DC Potassium Chloride 100 ml @ 50 mls/hr Q2H PRN IV For Potassium 3.3 - 3.5 mEq/L ; Start 07/25/16 at 22:15; Stop 07/26/16 at 15:24; Status DC Magnesium Sulfate/ Sodium Chloride (Magnesium Sulfate Inj/NS Inj) 100 ml @ 50 mls/hr UNSCH PRN IV For Magnesium 0.9 - 1.1 mg/dL; Start 07/25/16 at 22:15; Stop 07/26/16 at 15:21; Status DC Magnesium Oxide 800 mg 800 mg UNSCH PRN PO For Magnesium 1.2 - 1.6 mg/dL; Start 07/25/16 at 22:15; Stop 07/26/16 at 15:24; Status DC Magnesium Sulfate/ Sodium Chloride (Magnesium Sulfate Inj/NS Inj) 100 ml @ 50 mls/hr UNSCH PRN IV For Magnesium 1.2 - 1.6 mg/dL; Start 07/25/16 at 22:15; Stop 07/26/16 at 15:22; Status DC Potassium Phosphate 2000 mg 2,000 mg Q4H PRN PO For Phosphorus < 2.5 mg/dL; Start 07/25/16 at 22:15; Stop 07/26/16 at 15:24; Status DC Sodium Phosphate/ Sodium Chloride (Sodium Phosphate Inj/NS 250 ml Inj) 250 ml @ 42 mls/hr UNSCH PRN IV For Phosphorus < 2.5 mg/dL; Start 07/25/16 at 22:15; Stop 07/26/16 at 15:24; Status DC Potassium Chloride (KCl 40 Meq/30 ml Liq) 40 meq UNSCH PRN PO/TUBE SEE LABEL COMMENTS; Start 07/25/16 at 22:15; Stop 07/26/16 at 15:24; Status DC Potassium Phosphate 2000 mg 2,000 mg UNSCH PRN PO/TUBE SEE LABEL COMMENTS; Start 07/25/16 at 22:15; Stop 07/26/16 at 15:24; Status DC Potassium Phosphate/Sodium Chloride (Potassium Phosphate Inj/NS 250 ml Inj) 260 ml @ 42 mls/hr UNSCH PRN IV SEE LABEL COMMENTS; Start 07/25/16 at 22:15; Stop 07/26/16 at 15:24; Status DC Dextrose (D50w (Vial) Inj) 25 ml UNSCH PRN IV PUSH HYPOGLYCEMIA-SEE COMMENTS; Start 07/25/16 at 22:30 Glucagon (Glucagon Inj) 1 mg UNSCH PRN OTHER HYPOGLYCEMIA-SEE COMMENTS; Start 07/25/16 at 22:30 Insulin Aspart 1 1 ACHS SLIDING SCALE SQ ; Start 07/26/16 at 07:00 Pantoprazole Sodium 80 mg/ Sodium Chloride 100 ml @ 10 mls/hr Q10H IV ; Start 07/26/16 at 00:00; Status Cancel Norepinephrine Bitartrate (Levophed-Dextrose Drip) 250 ml @ 0 mls/hr TITRATE IV ; Start 07/25/16 at 22:45 Terbutaline Sulfate 1 mg 1 mg UNSCH PRN SQ For Extravasation; Start 07/25/16 at 22:45; Stop 07/26/16 at 15:45; Status DC Norepinephrine Bitartrate (Levophed-Dextrose Drip) 250 ml @ 0 mls/hr TITRATE IV ; Start 07/25/16 at 22:45; Stop 07/26/16 at 15:43; Status DC Terbutaline Sulfate (Brethine Inj) 1 mg UNSCH PRN SQ For Extravasation; Start 07/25/16 at 22:45 Nicotine (Habitrol 21 Mg Patch.24 Hr) 1 patch DAILY TD Last administered on 07/27 07:42; Start 07/26/16 at 00:00 Miscellaneous Information 1 DAILY TD Last administered on 07/27/16 07:42; Start 07/26/16 at 09:00 Pneumococcal Polyvalent Vaccine (Pneumovax-23 Inj) 25 mcg ONCE ONCE IM ; Start 07/27/16 at 10:00; Stop 07/27/16 at 10:01; Status DC Influenza Virus Vaccine (Flu (Quadrivalent) Vaccine Inj) 0.5 ml ONCE ONCE IM ; Start 07/27/16 at 10:00; Stop 07/27/16 at 10:01; Status DC Fentanyl Citrate (fentaNYL INJ) 50 mcg Q4HR PRN IV PUSH PAIN SCALE 7 TO 10 Last administered on 07/27/16 09:27; Start 07/26/16 at 01:30; Stop 07/27/16 at 12: 48; Status DC Lorazepam (Ativan Inj) 0.5 mg Q6H PRN IV PUSH ANXIETY Last administered on 21:52; Start 07/26/16 at 01:30 Acetaminophen 1000 mg 1,000 mg Q6H IV Last administered on 07/27/16 07:43; Start 07/26/16 at 01:30; Stop 07/27/16 at 12:06; Status DC Lactated Ringer's (Lr 1000 ml Inj) 1,000 ml @ 999 mls/hr BOLUS ONCE IV Last administered on 07/26/16 08:41; Start 07/26/16 at 08:00; Stop 07/26/16 at 09:00; Status DC Miscellaneous Information ALL NURSING DEPARTME... UNSCH PRN XX SEE LABEL COMMENTS; Start 07/26/16 at 17:03; Stop 07/27/16 at 17:02; Status DC Propofol (Diprivan 200 Mg/20 ml Inj) 150 mg STK-MED ONCE IV ; Start 07/26/16 at 16:54; Stop 07/26/16 at 17:43; Status DC Pantoprazole Sodium (Protonix) 40 mg BID PO Last administered on 07/27/16 19:20 ; Start 07/27/16 at 21:00 Hydromorphone HCl (Dilaudid Pf Inj) 0.2 mg Q4H PRN IV PUSH PAIN 7-10 Last administered on 07/28/16 05:41; Start 07/27/16 at 13:00 A/P Assessment and Plan A/P Anxiety Depression Pain -Ativan 0.5 mg PRN COPD Asthma Nicotine abuse -Nicotine patch -Maintain O2 sat greater than 92%, O2 at 3 L nasal cannula O2 sat 98% -continue Bronchodilators -Patient counseled on cessation of smoking Hemorrhagic shock H/O CHF ( chronic diastolic) Hypertension H/O DVT Hyperlipidemia -Maintain MAP greater than 65 mmHg -Hold Xarelto, atorvastatin -Patient transfused 2 units of packed cells, transfused 2 units of FFP -Monitor hemoglobin levels -EKG 07/25-sinus tach acute kidney injury-resolved monitor renal function Morbid obesity Upper GI bleed GERD -s/p EGD with esophageal ulcer- biopsy pending. -Octreotide and Protonix infusions -Zofran when necessary for nausea -GI following - CT Abd/Pel-no free air Possible anticoagulate associated hemorrhage H/O DVT -Xarelto held; will resume when ok with GI -Transfused 2 units of FFP -[place] IVC filter placement-2012 Prophylaxis: GI Prophylaxis Protonix DVT Prophylaxis -- SCDs Discharge Planning likely dc home later today if cleared by GI. see med list. f/u; pcp and GI. d/w the patient. Zia Patel MD Jul 28, 2016 07:46
[2016-07-28] MEDS ORDERED: PANT40TA3 PO (07:48)
--- NOTE | 2016-07-28 07:49 | HHI.DCPOC ---
Discharge Care Plan Diagnosis: (1) Upper gastrointestinal hemorrhage Your Health Problems Are: Bleeding Tendency Goals to Promote Your Health * To prevent worsening of your condition and complications * To maintain your health at the optimal level Directions to Meet Your Goals Take your medications as prescribed Follow your dietary instruction Follow activity as directed Keep your appointments as scheduled Take your immunizations and boosters as scheduled If your symptoms worsen call your PCP, if no PCP go to Urgent Care Center or Emergency Room Smoking is Dangerous to Your Health. Avoid second hand smoke Call the 24-hour hour crisis hotline for domestic abuse at Zia Patel MD Jul 28, 2016 07:49
--- NOTE | 2016-07-28 07:50 | HHI.DS ---
Discharge Summary Admission Date Jul 25, 2016 at 19:38 Discharge Date: Jul 28, 2016 Admitting Diagnosis Upper GI Bleed on xarelto w/ shock (1) Upper gastrointestinal hemorrhage ICD Code: K92.2 Diagnosis: Principal (2) Acute kidney injury ICD Code: N17.9 Diagnosis: Principal (3) Hypovolemic shock ICD Code: R57.1 Diagnosis: Principal Procedures EGD Brief History - From Admission 55-year-old female that presented to [place] emergency department for evaluation of vomiting blood and coffee grounds since yesterday. Patient complains of generalized weakness. The patient states that she started vomiting approximately 2 days ago, dark black emesis. She stated that she had no urine output for approximately 3 days. Her history is significant for the fact that she has a history of DVT in 2012, Homer filter placement and is on Xarelto. The patient also stated that she has a history of peptic ulcer disease. The patient's pain level on presentation to the [place] was 7/10 noted to be epigastric and radiating into her back. The patient presented with complaints of lightheadedness ,generalized weakness,fatigue and inability to void 3 days. The patient medical history significant for the fact that in 2012 was admitted with GI bleed at that time had upper endoscopy which was consistent with severe grade D esophagitis and mild gastritis. The patient denies NSAID use. On presentation to the ED and [place] the patient's blood pressure ranges 65/40 to 81/40 with initial hemoglobin of 12. The patient reported also having medical history significant for history of renal failure, and congestive heart failure. The patient received 4 units of crystalloid, an NG tube was placed, approximately a liter of coffee ground emesis upon initial placement. Octreotide and Protonix infusions were initiated , and GI was consulted. Patient was transfused 1unit PRBC. The patient remained hypotensive, a right femoral line was placed, the patient was placed on Shane-Synephrine. Critical care medicine was consulted for treatment and management. A telephone handoff was given from Dr. Hernández, upon initiation of transport from [place], the patient became acutely hypotensive, SBP 70's. The patient was placed on a Levophed infusion, MAP's were obtained greater than 65mmHG. the patient was then transferred to [facility] with ER physician, Dr. Sabillon accompanying patient. The patient arrived in [facility] @2327, verbal handoff was given with Dr. Sabillon. Upon arrival, MAP 76, the patient was alert and oriented not in respiratory distress, tachycardic complaining of abdominal pain, maldonado draining pale yellow urine. Levophed had been weaned off prior to arrival ,and the patient remained on Shane-Synephrine at 70mcgs. [facility] Past Medical History Narrative Medical Xarelto use, DVT, IVC filter, asthma, COPD, depression, CHF, hypertension, peptic ulcer disease, gastritis, esophagitis, tubal ligation, cholecystectomy, no alcohol use positive tobacco use nursing notes reviewed Hx Anticoagulant Therapy: Yes (Xeralto) Arthritis: No Asthma: Yes Autoimmune Disease: No Blood Disorders: Yes Depression: Yes Heart Rhythm Problems: No Cancer: No Cardiovascular Problems: Yes High Cholesterol: No Chest Pain: No Congestive Heart Failure: No Diabetes: No Diminished Hearing: No Deep Vein Thrombosis: Yes (03/2011- RIGHT LEG) Endocrine: No Gastrointestinal Disorders: Yes GERD: Yes Genitourinary: No Hepatitis: No Hiatal Hernia: No Hypertension: Yes Immune Disorder: No Implanted Vascular Access Dvce: Yes Medical other: Yes (HX BLOOD CLOT-DONNA FILTER) Musculoskeletal: Yes (CHRONIC BACK PAIN) Neurologic: No Psychiatric: No Reproductive: No Respiratory: Yes (copd, hx recent pneumomia) Immunizations Current: Yes Thyroid Disease: No Ulcer: Yes Tetanus Vaccination: < 5 Years Influenza Vaccination: Yes ?: Not Menopausal: Yes : 4 Para: 3 Miscarriage: 1 : 0 Tubal Ligation: Yes Past Surgical History Abdominal Surgery: Yes (DONNA FILTER) AICD: No Body Medical Devices: IVC FILTER Cardiac Surgery: No Cholecystectomy: Yes Ear Surgery: No Endocrine Surgery: No Eye Surgery: No Genitourinary Surgery: No Gynecologic Surgery: Yes (TUBAL LIG.) Joint Replacement: Yes (BILATERAL TOTAL HIPS) Oral Surgery: Yes (T & A) Pacemaker: No Thoracic Surgery: No Tonsillectomy: Yes Other Surgery: Yes (ISIDRO,TUBAL LIG, TONSILS,IVC FILTER) Social History Alcohol Use: No (DENIES ) Tobacco Use: Yes (1 PPD) Substance Use: No Allergies-Medications (Allergen,Severity, Reaction): Coded Allergies: No Known Allergies (Verified , 11/19/15) Reported Meds & Prescriptions Reported Meds & Active Scripts Active Reported Protonix (Pantoprazole Sodium) 40 Mg Tab 40 Mg PO DAILY Xarelto (Rivaroxaban) 20 Mg Tab 20 Mg PO DAILY Lisinopril 40 Mg Tab 40 Mg PO DAILY Xanax (Alprazolam) 2 Mg Tab 2 Mg PO DAILY PRN Amlodipine (Amlodipine Besylate) 10 Mg Tab 10 Mg PO DAILY Chlorthalidone 25 Mg Tab 12.5 Mg PO DAILY Lortab (Hydrocodone-Acetaminophen) 10-325 Mg Tab 1 Tab PO Q4H PRN Carvedilol 3.125 Mg Tab 3.125 Mg PO BID Bupropion HCl 100 Mg Tab 100 Mg PO BID Atorvastatin (Atorvastatin Calcium) 20 Mg Tab 20 Mg PO HS Review of Systems Except as stated in HPI: all other systems reviewed are Neg General / Constitutional: No: Fever HENT: No: Congestion Cardiovascular: No: Chest Pain or Discomfort Respiratory: No: Shortness of Breath Gastrointestinal: Positive: Nausea, Vomiting, Abdominal Pain, Hematemesis Genitourinary: Positive: Decreased Urinary Output Musculoskeletal: No: Myalgias Skin: No Rash Neurologic: Positive: Weakness, Dizziness Psychiatric: No: Anxiety Hematologic/Lymphatic: Positive: Easy Bruising CBC/BMP: 07/28/16 0440 07/28/16 0440 Significant Findings Laboratory Tests Test 07/25/16 07/25/16 07/25/16 07/26/16 18:59 21:30 22:01 01:55 White Blood Count 13.3 TH/MM3 (4.0-11.0) Neutrophils (%) (Auto) 75.8 % (16.0-70.0) Basophils (%) (Auto) 3.0 % (0.0-2.0) Neutrophils # (Auto) 10.1 TH/MM3 (1.8-7.7) Basophils # (Auto) 0.4 TH/MM3 (0-0.2) Activated Partial 30.6 SEC Thromboplast Time (24.3-30.1) Sodium Level 131 MEQ/L (136-145) Chloride Level 84 MEQ/L (98-107) Anion Gap 18 MEQ/L (5-15) Blood Urea Nitrogen 70 MG/DL (7-18) Creatinine 8.20 MG/DL (0.50-1.00) Estimat Glomerular Filtration 5 ML/MIN (>89) Rate Random Glucose 121 MG/DL (74-106) Phosphorus Level 8.8 MG/DL (2.5-4.9) Alkaline Phosphatase 136 U/L (45-117) Urine Protein 30 mg/dL (NEG-TRACE) Urine Occult Blood LARGE (NEG) Blood Gas HCO3 19 mmol/L (22-26) Blood Gas Base Excess -7.8 mmol/L (-2-2) Arterial Blood pH 7.22 (7.380-7.420) Arterial Blood Partial 47 mmHG (38-42) Pressure CO2 Arterial Blood Partial 127 mmHG Pressure O2 (61-120) Arterial Blood 4.2 % (0-4) Carboxyhemoglobin Red Blood Count 3.99 MIL/MM3 (4.00-5.30) Hemoglobin 11.4 GM/DL (11.6-15.3) Hematocrit 33.2 % (35.0-46.0) Red Cell Distribution Width 17.8 % (11.6-17.2) Monocytes (%) (Auto) 10.6 % (0.0-8.0) Monocytes # (Auto) 1.0 TH/MM3 (0-0.9) Test 07/26/16 07/26/16 07/26/16 07/26/16 03:20 06:15 09:29 13:12 Blood Urea Nitrogen 53 MG/DL (7-18) Creatinine 4.32 MG/DL (0.50-1.00) Estimat Glomerular Filtration 11 ML/MIN (>89) Rate Random Glucose 156 MG/DL (74-106) Calcium Level 7.2 MG/DL (8.5-10.1) Protein Corrected Calcium 7.9 MG/DL (8.5-10.1) Total Protein 5.7 GM/DL (6.4-8.2) Red Blood Count 3.58 MIL/MM3 3.74 MIL/MM3 3.53 MIL/MM3 (4.00-5.30) (4.00-5.30) (4.00-5.30) Hemoglobin 10.4 GM/DL 10.7 GM/DL 10.4 GM/DL (11.6-15.3) (11.6-15.3) (11.6-15.3) Hematocrit 30.0 % 31.1 % 29.3 % (35.0-46.0) (35.0-46.0) (35.0-46.0) Red Cell Distribution Width 18.1 % 17.7 % 17.5 % (11.6-17.2) (11.6-17.2) (11.6-17.2) Test 07/26/16 07/26/16 07/27/16 07/28/16 18:15 22:20 04:30 04:40 Red Blood Count 3.78 MIL/MM3 3.66 MIL/MM3 3.74 MIL/MM3 (4.00-5.30) (4.00-5.30) (4.00-5.30) Hemoglobin 10.8 GM/DL 10.5 GM/DL 10.7 GM/DL 10.8 GM/DL (11.6-15.3) (11.6-15.3) (11.6-15.3) (11.6-15.3) Hematocrit 31.7 % 30.7 % 31.5 % 31.5 % (35.0-46.0) (35.0-46.0) (35.0-46.0) (35.0-46.0) Red Cell Distribution Width 17.5 % 17.6 % (11.6-17.2) (11.6-17.2) Neutrophils (%) (Auto) 83.4 % 71.2 % (16.0-70.0) (16.0-70.0) Lymphocytes (%) (Auto) 8.9 % (9.0-44.0) Lymphocytes # (Auto) 0.6 TH/MM3 (1.0-4.8) Monocytes (%) (Auto) 10.4 % (0.0-8.0) Chloride Level 109 MEQ/L 109 MEQ/L (98-107) (98-107) Estimat Glomerular Filtration 72 ML/MIN (>89) 76 ML/MIN (>89) Rate Random Glucose 136 MG/DL 107 MG/DL (74-106) (74-106) Calcium Level 7.9 MG/DL (8.5-10.1) Total Protein 6.0 GM/DL (6.4-8.2) Albumin 2.7 GM/DL (3.4-5.0) Potassium Level 3.3 MEQ/L (3.5-5.1) Imaging Last Impressions Chest X-Ray 07/25/16 1922 Signed Impressions: Service Date/Time: Monday, July 25, 2016 19:43 - CONCLUSION: No acute disease. Alden Menendez MD Abdomen/Pelvis CT 07/25/16 0000 Signed Impressions: Service Date/Time: Monday, July 25, 2016 20:28 - CONCLUSION: 1. Fluid distention of the stomach. No small bowel obstruction. No free air or free fluid. Mild constipation. Alden Menendez MD PE at Discharge GENERAL: This is a well-nourished, well-developed patient, in no apparent distress. CARDIOVASCULAR: Regular rate and regular rhythm without murmurs, gallops, or rubs. RESPIRATORY: Clear to auscultation. Breath sounds equal bilaterally. No wheezes , rales, or rhonchi. GASTROINTESTINAL: Abdomen soft, non-tender, nondistended. Normal, active bowel sounds MUSCULOSKELETAL: Extremities without clubbing, cyanosis, or edema. NEURO: Alert & Oriented x4 to person, place, time, situation. Moves all ext x4 Hospital Course Anxiety Depression Pain -Ativan 0.5 mg PRN COPD Asthma Nicotine abuse -Nicotine patch -Maintain O2 sat greater than 92%, O2 at 3 L nasal cannula O2 sat 98% -continue Bronchodilators -Patient counseled on cessation of smoking Hemorrhagic shock H/O CHF ( chronic diastolic) Hypertension H/O DVT Hyperlipidemia -Maintain MAP greater than 65 mmHg -Hold Xarelto, atorvastatin -Patient transfused 2 units of packed cells, transfused 2 units of FFP -Monitor hemoglobin levels -EKG 07/25-sinus tach acute kidney injury-resolved monitor renal function Morbid obesity Upper GI bleed GERD -s/p EGD with esophageal ulcer- biopsy pending. -Octreotide and Protonix infusions -Zofran when necessary for nausea -GI following - CT Abd/Pel-no free air Possible anticoagulate associated hemorrhage H/O DVT -Xarelto held; will resume when ok with GI -Transfused 2 units of FFP -Homer IVC filter placement-2012 Prophylaxis: GI Prophylaxis Protonix DVT Prophylaxis -- SCDs Pt Condition on Discharge: Good Discharge Disposition: Discharge Home Discharge Time: <= 30 minutes Discharge Instructions DIET: Follow Instructions for: Heart Healthy Diet Activities you can perform: Regular-No Restrictions Follow up Referrals: Gastroenterology PCP Follow-up New Medications: Pantoprazole (Pantoprazole) 40 Mg Tab 40 MG PO BID esophagitis Days 30 Ref 0 TAB Continued Medications: Alprazolam (Xanax) 2 Mg Tab 2 MG PO DAILY PRN ANXIETY Ref 0 TAB Atorvastatin (Atorvastatin) 20 Mg Tab 20 MG PO HS Cholesterol Management #30 Ref 0 TAB Bupropion HCl (Bupropion HCl) 100 Mg Tab 100 MG PO BID Control Depression Ref 0 TAB Carvedilol (Carvedilol) 3.125 Mg Tab 3.125 MG PO BID #60 Ref 0 TAB Hydrocodone-Acetaminophen (Lortab) 10-325 Mg Tab 1 TAB PO Q4H PRN PAIN Ref 0 TAB Rivaroxaban (Xarelto) 20 Mg Tab 20 MG PO DAILY Blood Clot Prevention Ref 0 TAB Discontinued Medications: Amlodipine (Amlodipine) 10 Mg Tab 10 MG PO DAILY Blood Pressure Management #30 Ref 0 TAB Chlorthalidone (Chlorthalidone) 25 Mg Tab 12.5 MG PO DAILY Ref 0 TAB Lisinopril (Lisinopril) 40 Mg Tab 40 MG PO DAILY Blood Pressure Management #30 Ref 0 TAB Pantoprazole (Protonix) 40 Mg Tab 40 MG PO DAILY Reflux #30 Ref 0 TAB Zia Patel MD Jul 28, 2016 07:50
[2016-07-28 08:00] VITALS: BP 164/77; PULSE 94; RESP 18; TEMP 97.5; O2SAT 95
[2016-07-28] MEDS: REMOVE OLD NICODERM (NICOTINE) PATCH TD SCH (08:19)
[2016-07-28] MEDS: SODIUM CHLORIDE 0.9% FLUSH 5 ML FLUSH IV FLUSH SCH (08:19)
[2016-07-28] MEDS: PANTOPRAZOLE SOD 40 MG DELAYED RELEASE TAB PO SCH (08:19)
[2016-07-28] MEDS: NICOTINE 21 MG/24 HR PATCH TD SCH (08:19)
[2016-07-28] MEDS ORDERED: POTASSIUM CHLORIDE 10 MEQ CONTROLLED RELEASE TAB PO ONE (09:00)
[2016-07-28 09:09] VITALS: BP 154/71; PULSE 98; RESP 18; TEMP 98.3; O2SAT 94
[2016-07-28 10:07] VITALS: RESP 20
[2016-07-28 10:57] VITALS: O2SAT 92
== END 2016-07-28 12:16 | disposition home or self-care (01) | DRG 377 ==
LOC: PHED 18:02 → PHEDA 19:38 → HIMN 23:30 → N07B 07-27 13:14
PROVIDERS: ADMIT Internal Medicine; ATTEND Internal Medicine
PROC: 30233N1 Transfusion of Nonautologous Red Blood Cells into Peripheral Vein, Percutaneous Approach (ICD-10-PCS; 2016-07-25)
PROC: 04HK33Z Insertion of Infusion Device into Right Femoral Artery, Percutaneous Approach (ICD-10-PCS; 2016-07-25)
PROC: 0DB38ZX Excision of Lower Esophagus, Via Natural or Artificial Opening Endoscopic, Diagnostic (ICD-10-PCS; 2016-07-26)
PROC: 30233K1 Transfusion of Nonautologous Frozen Plasma into Peripheral Vein, Percutaneous Approach (ICD-10-PCS; principal; 2016-07-26 16:41)
DX: K92.0 Hematemesis (principal); R57.1 Hypovolemic shock; N17.9 Acute kidney failure, unspecified; I50.32 Chronic diastolic (congestive) heart failure; K22.10 Ulcer of esophagus without bleeding; E87.1 Hypo-osmolality and hyponatremia; D62 Acute posthemorrhagic anemia; E66.01 Morbid (severe) obesity due to excess calories; Z68.35 Body mass index [BMI] 35.0-35.9, adult; E86.0 Dehydration; Z86.718 Personal history of other venous thrombosis and embolism; Z79.02 Long term (current) use of antithrombotics/antiplatelets; F41.9 Anxiety disorder, unspecified; F32.9 Major depressive disorder, single episode, unspecified; J44.9 Chronic obstructive pulmonary disease, unspecified; J45.909 Unspecified asthma, uncomplicated; I10 Essential (primary) hypertension; E78.5 Hyperlipidemia, unspecified; K21.9 Gastro-esophageal reflux disease without esophagitis; Z87.11 Personal history of peptic ulcer disease; Z96.643 Presence of artificial hip joint, bilateral; M54.9 Dorsalgia, unspecified; G89.29 Other chronic pain; F17.210 Nicotine dependence, cigarettes, uncomplicated
CPT/HCPCS: 36430; 36556; 36600; 36620; 51702; 71010; 74176; 76937; 80048; 80053; 81001; 82140; 82805; 82948; 83605; 83735; 84100; 84155; 84703; 85014; 85018; 85025; 85027; 85610; 85730; 86850; 86900; 86901; 86920; 86927; 87641; 88305; 88312; 93005; 96374; C9113; J0131; J1170; J2060; J2354; J2370; J2405; J2765; J3010; J7030; J7040; J7060; J7120; P9016; P9017

== ENCOUNTER 2016-07-28 17:56 | Inpatient (IN) | payer OTHER ==
[~2016-07-28] VITALS: Ht 167.6 cm; Wt 93.3 kg
[2016-07-28 17:55] VITALS: O2SAT 98
[~2016-07-28 17:56] MED LIST changes: +PANT40TA3 PO; -PERC7.5T13 PO
[2016-07-28 17:59] VITALS: BP 160/104; PULSE 138; RESP 14; O2SAT 98
[2016-07-28] MEDS ORDERED: SODIUM CHLORIDE 0.9% FLUSH 5 ML FLUSH IVF PRN (18:00)
[2016-07-28] MEDS ORDERED: PROPOFOL 1000 MG/100 ML INJ 100 ML ONE (18:00)
[2016-07-28 18:10] VITALS: O2SAT 10
--- NOTE | 2016-07-28 18:51 | PD ---
HPI Chief Complaint: Code Blue Time Seen by Provider: 17:59 Travel History International Travel<30 days: No Contact w/Intl Traveler<30days: No Traveled to known affect area: No History of Present Illness HPI 55-year-old female with history of recent admission for gastric ulcer and GI bleed, left today from the hospital, presents back to the ER brought in by EMS, apparently patient was found prone and unresponsive, found to be in PEA with organized bradycardia, CPR initiated on scene, and patient came around, was able to talk a little bit and stated that she should not have left the hospital. Patient was in significant respiratory distress and hypoxic and patient was intubated for respiratory distress. She is unable to give any further history in the ER. Modifying Factors: None Associated Signs & Symptoms: Hypoxia, respiratory distress, PEA, post intubation Risk Factors: Recent GI bleed PFSH Past Medical History Hx Anticoagulant Therapy: Yes (Xeralto) Arthritis: No Asthma: Yes Autoimmune Disease: No Blood Disorders: Yes Anxiety: Yes (pt reports 2mg of xanax daily) Depression: Yes Heart Rhythm Problems: No Cancer: No Cardiovascular Problems: Yes High Cholesterol: No Chest Pain: No Congestive Heart Failure: No COPD: No Diabetes: No Diminished Hearing: No Deep Vein Thrombosis: Yes (03/2011- RIGHT LEG) Endocrine: No Gastrointestinal Disorders: Yes GERD: Yes Genitourinary: No Hepatitis: No Hiatal Hernia: No Hypertension: Yes Immune Disorder: No Implanted Vascular Access Dvce: Yes Musculoskeletal: Yes (CHRONIC BACK PAIN) Neurologic: No Psychiatric: No Reproductive: No Respiratory: Yes (copd, hx recent pneumomia) Immunizations Current: Yes Sleep Apnea: No Thyroid Disease: No Ulcer: Yes Menopausal: Yes : 4 Para: 3 Miscarriage: 1 : 0 Tubal Ligation: Yes Past Surgical History Abdominal Surgery: Yes (DONNA FILTER) AICD: No Body Medical Devices: IVC FILTER Cardiac Surgery: No Cholecystectomy: Yes Ear Surgery: No Endocrine Surgery: No Eye Surgery: No Genitourinary Surgery: No Gynecologic Surgery: Yes (TUBAL LIG.) Joint Replacement: Yes (BILATERAL TOTAL HIPS) Oral Surgery: Yes (T & A) Pacemaker: No Thoracic Surgery: No Tonsillectomy: Yes Other Surgery: Yes (ISIDRO,TUBAL LIG, TONSILS,IVC FILTER) Social History Alcohol Use: No (DENIES ) Tobacco Use: Yes (1 PPD) Substance Use: No Allergies-Medications (Allergen,Severity, Reaction): Coded Allergies: No Known Allergies (Verified , 11/19/15) Reported Meds & Prescriptions Reported Meds & Active Scripts Active Pantoprazole (Pantoprazole Sodium) 40 Mg Tab 40 Mg PO BID 30 Days Reported Xarelto (Rivaroxaban) 20 Mg Tab 20 Mg PO DAILY Xanax (Alprazolam) 2 Mg Tab 2 Mg PO DAILY PRN Lortab (Hydrocodone-Acetaminophen) 10-325 Mg Tab 1 Tab PO Q4H PRN Carvedilol 3.125 Mg Tab 3.125 Mg PO BID Bupropion HCl 100 Mg Tab 100 Mg PO BID Atorvastatin (Atorvastatin Calcium) 20 Mg Tab 20 Mg PO HS Review of Systems Except as stated in HPI: all other systems reviewed are Neg Physical Exam Narrative GENERAL: Well-nourished, well-developed middle age obese white female patient who is intubated. SKIN: Warm and dry. HEAD: Normocephalic. EYES: No scleral icterus. No injection or drainage. NECK: trachea midline. CARDIOVASCULAR: Regular rate and rhythm without murmurs, gallops, or rubs. RESPIRATORY: Breath sounds equal bilaterally. Intubated. GASTROINTESTINAL: Abdomen soft, non-tender, nondistended. MUSCULOSKELETAL: No cyanosis, or edema. BACK: Nontender without obvious deformity. No CVA tenderness. Data Data Last Documented VS Vital Signs Date Time Temp Pulse Resp B/P Pulse Ox O2 Delivery O2 Flow Rate FiO2 07/28/16 17:59 138 14 160/104 98 Orders Electrocardiogram (07/28/16 17:59) Complete Blood Count With Diff (07/28/16 17:59) Comprehensive Metabolic Panel (07/28/16 17:59) Magnesium (Mg) (07/28/16 17:59) B-Type Natriuretic Peptide (07/28/16 17:59) Ckmb (Isoenzyme) Profile (07/28/16 17:59) Troponin I (07/28/16 17:59) Act Partial Throm Time (Ptt) (07/28/16 17:59) Prothrombin Time / Inr (Pt) (07/28/16 17:59) Chest, Single Ap (07/28/16 17:59) Ecg Monitoring (07/28/16 17:59) Iv Access Insert/Monitor (07/28/16 17:59) Oximetry (07/28/16 17:59) Sodium Chloride 0.9% Flush (Ns Flush) (07/28/16 18:00) Propofol 1000 Mg/100 Ml Inj (Diprivan 10 (07/28/16 18:00) Admit Order (Ed Use Only) (07/28/16 18:05) MDM Medical Decision Making Medical Screen Exam Complete: Yes Emergency Medical Condition: Yes Medical Record Reviewed: Yes Differential Diagnosis PEA arrest/respiratory distress/hypoxia - metabolic issues versus worsening pneumonia versus CHF versus dysrhythmias versus Narrative Course Chest x-ray shows bilateral fluffy infiltrates. ET tube in place. Breath sounds are them both sides of the lungs. At this point, patient had been placed on posterior arrest cooling. Case was discussed with Dr. Richardson, admission specialist for admission. Aggregate critical care time was 20 minutes. Time to perform other separately billable procedures was not included in the critical care time. My time did not include minutes spent treating any other patients simultaneously or on activities that did not directly contribute to the patient's treatment. The services I provided to this patient were to treat and/or prevent clinically significant deterioration that could result in: Worsening respiratory arrest, cardiopulmonary arrest, I provided critical care services requiring my management, as noted below: Chart data review, documentation time, medication orders and management, vital sign assessments/reviewing monitor data, ordering and reviewing lab tests, ordering and interpreting/reviewing x-rays and diagnostic studies, care of the patient and discussion of the patient with the admitting physicians. Diagnosis Primary Impression: Required emergent intubation Additional Impression: PEA (Pulseless electrical activity) Admitting Information Admitting Physician Requests: Admit Evelina Álvarez MD Jul 28, 2016 18:51
[2016-07-28 18:58] LABS: BLOOD GAS VENOUS BASE EXCESS -0.3 mmol/L (-2-2); BLOOD GAS VENOUS HCO3 25 mmol/L (22-26); BLOOD GAS VENOUS O2 CONTENT 7.6 Vol % (9.0-17.0); BLOOD GAS VENOUS O2 HGB SAT 46 % (70-76); BLOOD GAS VENOUS PCO2 52 mmHg (44-48); BLOOD GAS VENOUS PO2 29 mmHg (35-40); BLOOD GAS VENOUS pH 7.31 (7.360-7.400); TEMP CORR TO 98.6
[2016-07-28 18:59] LABS: CRITICAL VALUE YES; DRAW SITE CL; FIO2 50 %; OXYGEN DEVICE VENTILATOR; STAT YES; VENT SETTINGS PVRCAC/VT500/R14/P5
[2016-07-28] MEDS ORDERED: FUROSEMIDE 40 MG/4 ML VIAL IV PUSH ONE (19:00)
[2016-07-28] MEDS ORDERED: CHLORHEXIDINE GLUCONATE 2 % 1 PACK (2 CLOTHS) TOP PRN (19:00)
[2016-07-28] MEDS ORDERED: MISCELLANEOUS NURSING INFORMATION XX SCH (19:00)
[2016-07-28] MEDS ORDERED: NOREPINEPHRINE-DEXTROSE DRIP 250 ML IV SCH (19:00)
[2016-07-28] MEDS ORDERED: TERBUTALINE INJ 1 MG/ML AMP SQ PRN (19:00)
[2016-07-28] MEDS ORDERED: ONDANSETRON HCL 4 MG/2 ML VIAL IV PRN (19:00)
--- NOTE | 2016-07-28 19:02 | HHI.HP ---
[facility] Service Critical Care Medicine Primary Care Physician Chacha Vazquez MD Admission Diagnosis postarrest/intubated Diagnosis: Chief Complaint: Discharged earlier today after UGI bleed. On Xarelto for chronic DVT, Has Donna filter. Her history is significant for the fact that she has a history of DVT in 2013, Donna filter placement and is on Xarelto. The patient also stated that she has a history of peptic ulcer disease. The patient's pain level on presentation to the [place] was 7/10 noted to be epigastric and radiating into her back. The patient presented with complaints of lightheadedness ,generalized weakness,fatigue and inability to void 3 days. The patient medical history significant for the fact that in 2013 was admitted with GI bleed at that time had upper endoscopy which was consistent with severe grade D esophagitis and mild gastritis. The patient denies NSAID use. On presentation to the ED and [place] the patient's blood pressure ranges 65/40 to 81/40 with initial hemoglobin of 12. The patient reported also having medical history significant for history of renal failure, and congestive heart failure. The patient received 4 units of crystalloid, an NG tube was placed, approximately a liter of coffee ground emesis upon initial placement. Octreotide and Protonix infusions were initiated, and GI was consulted. Patient was transfused 1unit PRBC. The patient remained hypotensive, a right femoral line was placed, the patient was placed on Shane-Synephrine. Critical care medicine was consulted for treatment and management. A telephone handoff was given from Dr. Hernández, upon initiation of transport from [place], the patient became acutely hypotensive, SBP 70's. The patient was placed on a Levophed infusion, MAP's were obtained greater than 65mmHG. the patient was then transferred to [facility] with ER physician, Dr. Sabillon accompanying patient. The patient arrived in [facility] @2327, verbal handoff was given with Dr. Sabillon. Upon arrival, MAP 76, the patient was alert and oriented not in respiratory distress, tachycardic complaining of abdominal pain, maldonado draining pale yellow urine. Levophed had been weaned off prior to arrival ,and the patient remained on Shane-Synephrine at 70mcgs. Travel History International Travel<30 Days: No Contact w/Intl Traveler <30 Da: No Traveled to Known Affected Are: No History of Present Illness See above. Past Family Social History Allergies: Coded Allergies: No Known Allergies (Verified , 11/19/15) Past Medical History Past Medical History Hx Anticoagulant Therapy: Yes (Xeralto) Arthritis: No Asthma: Yes Autoimmune Disease: No Blood Disorders: Yes Anxiety: Yes (pt reports 2mg of xanax daily) Depression: Yes Heart Rhythm Problems: No Cancer: No Cardiovascular Problems: Yes High Cholesterol: No Chest Pain: No Congestive Heart Failure: No COPD: No Diabetes: No Diminished Hearing: No Deep Vein Thrombosis: Yes (03/2011- RIGHT LEG) Endocrine: No Gastrointestinal Disorders: Yes GERD: Yes Genitourinary: No Hepatitis: No Hiatal Hernia: No Hypertension: Yes Immune Disorder: No Implanted Vascular Access Dvce: Yes Musculoskeletal: Yes (CHRONIC BACK PAIN) Neurologic: No Psychiatric: No Reproductive: No Respiratory: Yes (copd, hx recent pneumomia) Immunizations Current: Yes Sleep Apnea: No Thyroid Disease: No Ulcer: Yes Menopausal: Yes : 4 Para: 3 Miscarriage: 1 : 0 Tubal Ligation: Yes Past Surgical History Abdominal Surgery: Yes (DONNA FILTER) AICD: No Body Medical Devices: IVC FILTER Cardiac Surgery: No Cholecystectomy: Yes Ear Surgery: No Endocrine Surgery: No Eye Surgery: No Genitourinary Surgery: No Gynecologic Surgery: Yes (TUBAL LIG.) Joint Replacement: Yes (BILATERAL TOTAL HIPS) Oral Surgery: Yes (T & A) Pacemaker: No Thoracic Surgery: No Tonsillectomy: Yes Other Surgery: Yes (ISIDRO,TUBAL LIG, TONSILS,IVC FILTER) Social History Alcohol Use: No (DENIES ) Tobacco Use: Yes (1 PPD) Substance Use: No Allergies-Medications Allergies-Medications (Allergen,Severity, Reaction): Coded Allergies: No Known Allergies (Verified , 11/19/15) Reported Meds & Prescriptions Reported Meds & Active Scripts Active Pantoprazole (Pantoprazole Sodium) 40 Mg Tab 40 Mg PO BID 30 Days Reported Xarelto (Rivaroxaban) 20 Mg Tab 20 Mg PO DAILY Xanax (Alprazolam) 2 Mg Tab 2 Mg PO DAILY PRN Lortab (Hydrocodone-Acetaminophen) 10-325 Mg Tab 1 Tab PO Q4H PRN Carvedilol 3.125 Mg Tab 3.125 Mg PO BID Bupropion HCl 100 Mg Tab 100 Mg PO BID Atorvastatin (Atorvastatin Calcium) 20 Mg Tab 20 Mg PO HS Physical Exam Vital Signs Vital Signs Date Time Temp Pulse Resp B/P Pulse Ox O2 Delivery O2 Flow Rate FiO2 07/28/16 18:10 10 100 07/28/16 17:59 138 14 160/104 98 Physical Exam P 133, SBP 72, R 22 on vent General: Shock s/p cardiac arrest. Head: Normal. Neck: Supple, orally intubated. Lungs: Clear, no wheezes or crackles. Heart: NL S1S2, no n,r. RRR Abdomen: Soft, nondistended. No BS. Extremities: Cool, poorly perfused. Neuro: Pupils 2 mm, react. Doll's eyes normal. Moves upper extremities with purpose. Skin: Mottled. Assessment and Plan Problem List: (1) Cardiac arrest ICD Code: I46.9 Status: Acute (2) Cardiogenic shock ICD Code: R57.0 Status: Acute (3) Acute respiratory failure ICD Code: J96.00 Status: Acute (4) Encephalopathy acute ICD Code: G93.40 Status: Acute Assessment and Plan Plan: CV: Levophed to keep MAP > 65, cardiac markers, ABG, central line. RESP: PRVC vent mode, nebs. NEURO: Not a cooling candidate. Purposeful movement and too unstable. RENAL: Follow urine output and CVP. GI: NG to look for bleeding and decompress stomach. : Maldonado for hourly output. ENDO: SSI for euglycemia. HEME: Serial Hgb. ID: Cultures, hold abx. PX: Lovenox 40 only until possibility of GI bleed ruled out. Overall impression: Critically ill after PEA cardiac arrest. Remains unstable. Hx of DVT. Recent GI bleed 4 days ago requiring transfusion. Critical Care 60 mins aside from procedures. Timur Pena MD Jul 28, 2016 19:02
--- NOTE | 2016-07-28 19:21 | PD.PROCEDR ---
Procedure Note Procedure DX: Craediac Arrest. OP: Insertion Central Venous Line Procedure: Right chest prepped and draped. Right subclavian vein cannulated and wire easily advanced. Catheter passed over wire to 18 cm. Lumens aspirated and flushed. Dressing applied. CXR ordered, will review. Timur Pena MD Jul 28, 2016 19:21
--- NOTE | 2016-07-28 19:26 | RADRPT ---
EXAM DATE/TIME: 07/28/2016 17:57 [facility] COMPARISON: CHEST SINGLE AP, July 25, 2016, 19:43. INDICATIONS : Post intubation. MEDICAL HISTORY : Hypertension. Deep venous thrombosis. Chronic obstructive pulmonary SURGICAL HISTORY : Cholecystectomy. IVC filter ENCOUNTER: Initial ACUITY: 1 day PAIN SCORE: Non-responsive. LOCATION: Bilateral chest FINDINGS: A single AP supine portable view of the chest was obtained and demonstrates interval intubation with the endotracheal tube tip approximately 3 cm above the jessy. There are no confluent infiltrates or effusions. The heart size is at the upper limits of normal. There is mild motion artifact. Overlying electrocardiogram leads are present. The bony thorax appears intact. The tip of the right costophreni c angle was cut off the exam. CONCLUSION: Interval intubation. Jhony Mittal MD on July 28, 2016 at 19:23 Board Certified Radiologist. This report was verified electronically.
[2016-07-28 20:00] VITALS: BP 109/69; PULSE 113; PULSE 114; RESP 23; TEMP 98.6; O2SAT 100
[2016-07-28 20:29] LABS: AUTOMATED NEUTROPHIL # 15.4 TH/MM3 (1.8-7.7); BASOPHIL # 0.1 TH/MM3 (0-0.2); BASOPHIL % 0.7 % (0.0-2.0); EOSINOPHIL % 0.2 % (0.0-4.0); HEMATOCRIT 34.1 % (35.0-46.0); LYMPHOCYTE # 1.3 TH/MM3 (1.0-4.8); MEAN CELL VOLUME 84.4 FL (80.0-100.0); MEAN CORPUSCULAR HEMOGLOBIN 28.4 PG (27.0-34.0); MEAN CORPUSCULAR HGB CONC 33.7 % (32.0-36.0); MONO % 6.1 % (0.0-8.0); PLATELET COUNT 196 TH/MM3 (150-450); RED BLOOD COUNT 4.04 MIL/MM3 (4.00-5.30); RED CELL DISTRIBUTION WIDTH 17.1 % (11.6-17.2)
[2016-07-28 20:34] LABS: HEMO FLAGS AUTO DIFF
[2016-07-28 20:56] LABS: APTT (PATIENT) 20.8 SEC (24.3-30.1); INTERNATIONAL NORMALIZED RATIO 1.1 RATIO; PROTHROMBIN TIME - PATIENT 12.1 SEC (9.8-11.6)
[2016-07-28 21:00] LABS: ANION GAP 10 MEQ/L (5-15); AST (GOT) 49 U/L (15-37); BICARBONATE 25.9 MEQ/L (21.0-32.0); BLOOD UREA NITROGEN 10 MG/DL (7-18); CHLORIDE 107 MEQ/L (98-107); GLOMERULAR FILTRATION RATE 57 ML/MIN (>89); MAGNESIUM 1.5 MG/DL (1.5-2.5); POTASSIUM 3.5 MEQ/L (3.5-5.1); SODIUM (NA) 143 MEQ/L (136-145)
--- NOTE | 2016-07-28 21:03 | RADRPT ---
EXAM DATE/TIME: 07/28/2016 20:23 [facility] COMPARISON: CHEST SINGLE AP, July 28, 2016, 17:57. INDICATIONS : Evaluate heart and lungs status post central line placement and nasogastric tube placement. MEDICAL HISTORY : Hypertension. Chronic obstructive pulmonary disease. SURGICAL HISTORY : Cholecystectomy. IVC Filter ENCOUNTER: Subsequent ACUITY: 3 days PAIN SCORE: Non-responsive. LOCATION: chest FINDINGS: A single AP portable erect view of the chest was obtained and demonstrates interval placement of a na sogastric tube which is seen coursing through the esophagus and into the stomach. There has been plac ement of a right subclavian central venous line with no pneumothorax. The endotracheal tube remains i n place with the tip approximately 3 cm above the jessy. There is hazy opacity in the right perihila r region and right lung base. The heart size is at the upper limits of normal. CONCLUSION: 1. Interval placement of right subclavian central venous line and nasogastric tube. 2. Abnormal opacity in right perihilar region and right lung base. Jhony Mittal MD on July 28, 2016 at 21:00 Board Certified Radiologist. This report was verified electronically.
[2016-07-28 21:05] LABS: ALKALINE PHOSPHATASE 147 U/L (45-117); ALT (GPT) 30 U/L (10-53); CREATINE KINASE 168 U/L (26-192); TOTAL BILIRUBIN ADULT 0.7 MG/DL (0.2-1.0)
[2016-07-28] MEDS: ENOXAPARIN SODIUM 40 MG/0.4 ML SYRINGE SQ SCH (21:11)
[2016-07-28] MEDS: PROPOFOL 1000 MG/100 ML INJ 100 ML IV SCH (21:12)
[2016-07-28] MEDS: SODIUM CHLORIDE 0.9% FLUSH 5 ML FLUSH IV FLUSH SCH (21:12)
[2016-07-28 21:24] LABS: CKMB 3.5 NG/ML (0.5-3.6)
[2016-07-28 21:28] LABS: PLATELET ESTIMATE SMEAR NORMAL (NORMAL); PLATELET MORPHOLOGY NORMAL (NORMAL); SCAN/DIFF AUTO DIFF CONFIRMED
[2016-07-28 21:30] LABS: BLOOD GAS CARBOXYHEMOGLOBIN 1.6 % (0-4); BLOOD GAS HCO3 27 mmol/L (22-26); BLOOD GAS METHEMOGLOBIN 1.2 % (0-2); BLOOD GAS O2 HGB SATURATION 80 % (90-100); BLOOD GAS OXYGEN CONTENT 13.3 Vol % (12.0-20.0); BLOOD GAS PCO2 33 mmHg (38-42); BLOOD GAS PO2 53 mmHg (61-120); BLOOD GAS TOTAL HGB 11.9 G/DL (12.0-16.0); TEMP CORR TO 98.6
[2016-07-28 21:31] LABS: CRITICAL VALUE YES; DRAW SITE LT BRACHIAL; FIO2 70 %; NUMBER OF ARTERIAL PUNCTURES 2; OXYGEN DEVICE VENTILATOR; STAT NO; ULNAR PULSE PRESENT
[2016-07-28 22:00] VITALS: PULSE 104
[2016-07-28 22:15] VITALS: O2SAT 100
[2016-07-28 22:29] LABS: BACTERIA, URINE RARE /hpf; BLOOD, URINE TRACE (NEG); COMMENT (UR) CULT NOT INDICATED; CULTURE IF INDICATED CULT NOT INDICATED; GLUCOSE,URINE 150 mg/dL (NEG); KETONE, URINE NEG (NEG); MUCUS URINE FEW /lpf (OCC); NITRITE,URINE NEG (NEG); SQUAMOUS EPITHELIAL CELL URINE <1 /hpf (0-5); URINE COLOR DARK-YELLOW (YELLW/STRAW)
[2016-07-29] VITALS (21 sets, daily range): BP systolic 105–118; BP diastolic 62–78; PULSE 83–107; RESP 14–27; TEMP 98.3–99.2; O2SAT 98–100
[2016-07-29] MEDS: PROPOFOL 1000 MG/100 ML INJ 100 ML IV SCH ×6 (00:01→22:57)
[2016-07-29] MEDS: CHLORHEXIDINE GLUCONATE 2 % 1 PACK (2 CLOTHS) TOP SCH (03:27)
[2016-07-29 04:00] LABS: ANION GAP 9 MEQ/L (5-15); BICARBONATE 32.5 MEQ/L (21.0-32.0); BLOOD UREA NITROGEN 11 MG/DL (7-18); CHLORIDE 105 MEQ/L (98-107); MAGNESIUM 1.3 MG/DL (1.5-2.5); POTASSIUM 3.1 MEQ/L (3.5-5.1); SODIUM (NA) 146 MEQ/L (136-145)
[2016-07-29 04:02] LABS: AUTOMATED NEUTROPHIL # 5.2 TH/MM3 (1.8-7.7); BASOPHIL % 0.2 % (0.0-2.0); EOSINOPHIL # 0.1 TH/MM3 (0-0.4); EOSINOPHIL % 1.4 % (0.0-4.0); HEMATOCRIT 33.6 % (35.0-46.0); HEMO FLAGS DIFF FINAL; LYMPH % 26.8 % (9.0-44.0); LYMPHOCYTE # 2.3 TH/MM3 (1.0-4.8); MEAN CELL VOLUME 84.1 FL (80.0-100.0); MEAN CORPUSCULAR HGB CONC 34.5 % (32.0-36.0); MONO % 10.7 % (0.0-8.0); NEUT % 60.9 % (16.0-70.0); PLATELET COUNT 176 TH/MM3 (150-450); RED CELL DISTRIBUTION WIDTH 17.4 % (11.6-17.2); WHITE BLOOD COUNT 8.6 TH/MM3 (4.0-11.0)
[2016-07-29 04:10] LABS: ALKALINE PHOSPHATASE 125 U/L (45-117); ALT (GPT) 35 U/L (10-53); AST (GOT) 49 U/L (15-37); CREATINE KINASE 139 U/L (26-192); GLOMERULAR FILTRATION RATE 59 ML/MIN (>89); TOTAL BILIRUBIN ADULT 0.5 MG/DL (0.2-1.0)
[2016-07-29] MEDS: LACTULOSE SYRUP 20 GM/30 ML CUP PO SCH (09:00)
[2016-07-29] MEDS ORDERED: PANTOPRAZOLE SODIUM 40 MG VIAL IV SCH (09:00)
[2016-07-29] MEDS: SODIUM CHLORIDE 0.9% FLUSH 5 ML FLUSH IV FLUSH SCH ×2 (09:00→19:28)
--- NOTE | 2016-07-29 13:18 | HHI.CCPN ---
Subjective Remarks/Hospital Course On 07/25/2016 the patient presented to ED in [place].Her history is significant for the fact that she has a history of DVT in 2013, [place] filter placement and was on Xarelto. The patient also stated that she has a history of peptic ulcer disease. The patient presented with complaints of lightheadedness,generalized weakness,fatigue and inability to void 3 days, on 07/25/2016. The patient medical history significant for the fact that in 2012 was admitted with GI bleed at that time had upper endoscopy which was consistent with severe grade D esophagitis,mild gastritis and mckayla. The patient had denied NSAID use. On presentation to the ED in [place] on 07/25, the patient's blood pressure ranges 65/40 to 81/40 with initial hemoglobin of 12. The patient reported also having medical history significant for history of renal failure, and congestive heart failure. The patient received 4 units of crystalloids, indigo a NG tube was placed, approximately a liter of coffee ground emesis upon initial placement. Octreotide and Protonix infusions were initiated, and GI was consulted. Patient was transfused 1unit PRBC. The patient remained hypotensive, a right femoral line was placed, the patient was placed on Shane-Synephrine. Critical care medicine was consulted for treatment and management, on 07/25/2016. A telephone handoff was given from Dr. Hernández, upon initiation of transport from [place], the patient became acutely hypotensive, SBP 70's. The patient was placed on a Levophed infusion, MAP's were obtained greater than 65mmHG. the patient was then transferred to [facility] with ER physician, Dr. Sabillon accompanying patient. Upon arrival, MAP 76, the patient was alert and oriented not in respiratory distress , tachycardic complaining of abdominal pain, maldonado draining pale yellow urine. Levophed had been weaned off prior to arrival and the patient remained on Shane- Synephrine at 70mcgs. The patient then underwent an endoscopy revealing multiple gastric ulcers. The 55-year-old female with history of recent admission for gastric ulcer and GI bleed, was discharged from the hospital on in the am, and presented back to the ED brought in by EMS on the same evening. Apparently the patient was found prone and unresponsive, found to be in PEA with organized bradycardia, CPR initiated on scene, and patient came around, was able to talk a little bit and stated that she should not have left the hospital. Patient was in significant respiratory distress and hypoxic and patient was intubated for respiratory distress. The patient was intubated in ED. Critical care medicine was consulted for management and treatment. 07/29:Upon cessation of sedation, the patient was noted to be a GCS of 11 T, following commands. The patient continues on norepinephrine at 3 mcgs, and propofol at 25 mcgs.Will obtain ECHO today, cardiology consulted. Objective Vital Signs Date Time Temp Pulse Resp B/P Pulse Ox O2 Delivery O2 Flow Rate FiO2 07/29/16 12:00 98.5 102 14 116/71 100 07/29/16 12:00 40 Intake and Output 07/28/16 07/28/16 07/29/16 08:00 16:00 00:00 Intake Total 209 ml Output Total 650 ml Balance -441 ml Result Diagram: 07/29/16 0335 07/29/16 0335 Other Results Laboratory Tests Test 07/28/16 07/28/16 18:35 21:20 Blood Gas Puncture Site CL LT BRACHIAL Blood Gas Patient Temperature 98.6 98.6 Venous Blood pH 7.31 (7.360-7.400) Venous Blood Partial Pressure 52 mmHg (44-48) CO2 Venous Blood Partial Pressure 29 mmHg (35-40) O2 Venous Blood HCO3 25 mmol/L (22-26) Venous Blood Oxygen Saturation 46 % (70-76) Venous Blood Oxygen Content 7.6 Vol % (9.0-17.0) Venous Blood Base Excess -0.3 mmol/L (-2-2) Oxygen Delivery Device VENTILATOR VENTILATOR Blood Gas Ventilator Setting PVRCAC/VT500/R14/P5 SEE COMMENT Blood Gas Inspired Oxygen 50 % 70 % Blood Gas HCO3 27 mmol/L (22-26) Blood Gas Base Excess 4.0 mmol/L (-2-2) Blood Gas Oxygen Saturation 80 % (90-100) Arterial Blood pH 7.52 (7.380-7.420) Arterial Blood Partial 33 mmHg (38-42) Pressure CO2 Arterial Blood Partial 53 mmHg Pressure O2 (61-120) Arterial Blood Oxygen Content 13.3 Vol % (12.0-20.0) Arterial Blood 1.6 % (0-4) Carboxyhemoglobin Arterial Blood Methemoglobin 1.2 % (0-2) Blood Gas Hemoglobin 11.9 G/DL (12.0-16.0) Objective Remarks P 133, SBP 72, R 22 on vent General: Shock s/p cardiac arrest. Head: Normal. Neck: Supple, orally intubated. Lungs: Clear, no wheezes or crackles. Heart: NL S1S2, no n,r. RRR Abdomen: Soft, nondistended. No BS. Extremities: Cool, poorly perfused. Neuro: Pupils 2 mm, react. Doll's eyes normal. Moves upper extremities with purpose. Skin: Mottled. Urinary Catheter: Yes Assessment to: Continue Maldonado insert reason: Measure Accurate Output Date of Insertion: Jul 28, 2016 Vascular Central Line Catheter: Yes Date of Insertion: Jul 28, 2016 Location: Subclavian A/P Problem List: (1) Cardiac arrest ICD Code: I46.9 Status: Acute (2) Cardiogenic shock ICD Code: R57.0 Status: Acute (3) Acute respiratory failure ICD Code: J96.00 Status: Acute (4) Encephalopathy acute ICD Code: G93.40 Status: Acute Assessment and Plan Assessment and Plan This is a 55-year-old morbidly obese female, with a history of DVT on Xarelto daily that presented with hematemesis secondary to GI bleed, and severe dehydration, and hemorrhagic shock on 07/25/2016. Patient was subsequently discharged on 07/28/2016. Upon arrival home, the subsequently had PEA arrest, CPR was initiated, ROSC, and transferred to the ED, at which time the patient was in acute hypoxic respiratory failure and was intubated and sedated. The patient remains critically ill and prognosis is guarded at this time. Problem list; PEA Arrest most likely secondary to prothrombotic state Acute hypoxic respiratory failure Plan by systems: Neurologic: Anxiety Depression Pain -Ofirmev 1 g every 6 hours 4 -Fentanyl 50-100 mcgs PRN -Ativan 0.5 mg PRN Respiratory: COPD Asthma Nicotine abuse -Nicotine patch -Maintain O2 sat greater than 92%, O2 at 3 L nasal cannula O2 sat 98% -Bronchodilators scheduled every 4 hours, and every 2 hours when necessary -Patient counseled on cessation of smoking -PRVC vent mode, nebs. Cardiovascular: PEA arrest H/O CHF H/O Hypertension H/O DVT Hyperlipidemia -Maintain MAP greater than 65 mmHg -Continue atorvastatin -Obtain ECHO -[place] filter in situ since 2012 -Cardiology consult -EKG -Troponin 1.74-->1.6 - Obtain CT PE angiogram , and reconsult GI for clearance if anticoagulation required, if test results are positive. Renal: Severe dehydration -Creatinine 8.2, BUN 70 -Repeat BMP follow-up results -Maintain Maldonado, hourly measurement -- Strict I/Os -Monitor CVP FEN/GI: Morbid obesity H/O Upper GI bleed 07/25/16 Gastric ulceration GERD -Maintain NPO status -OGT tube to low intermittent wall suction-monitor output -Zofran when necessary for nausea -Increase Protonix to BID -GI consult, recent GI bleed, patient may need anticoagulation, if pulmonary embolus Heme/ID: H/O DVT -Previously on Xarelto -Ian IVC filter placement-2012 Endocrine: Glucose monitoring every 6 hours per ICU protocol -- SSI Prophylaxis: GI Prophylaxis Protonix DVT Prophylaxis -- SCDs, Lovenox 40mg q day,Recent GI bleed 4 days ago requiring transfusion. This patient remains critically ill with one or more organ systems which are or may become a threat to life. I have spent in excess of 55 minutes discontinuously in the care and management of this patient. This time is exclusive of procedures, and includes, but is not limited to, evaluation of the patient, review of the medical record, discussions with family, consultants, nursing staff, or respiratory therapy, and documentation in the medical record. Physician Mimi Griffin MD Jul 29, 2016 13:18
--- NOTE | 2016-07-29 14:06 | EKG ---
Date Performed: 07/28/2016 Time Performed: 19:06:33 PTAGE: 55 years EKG: SINUS TACHYCARDIA WITH SHORT OH INTERVAL ABNORMAL RHYTHM ECG INTERPRETATION BASED ON A DEFA ULT AGE OF 42 YEARS Since PREVIOUS TRACING , no significant change noted DOCTOR: Casa Andrew Interpretating Date/Time 07/29/2016 13:59:56
[2016-07-29] MEDS ORDERED: MAGNESIUM OXIDE 400 MG TAB PO PRN (14:15)
[2016-07-29] MEDS ORDERED: MAGNESIUM SULFATE INJ 2 GM in SODIUM CHLORIDE 0.9% INJ 96 ML IV PRN (14:15)
[2016-07-29] MEDS ORDERED: POTASSIUM PHOSPHATE INJ 30 MMOL in SODIUM CHLOR 0.9% 250 ML INJ 250 ML IV PRN (14:15)
[2016-07-29] MEDS ORDERED: MAGNESIUM SULFATE INJ 4 GM in SODIUM CHLORIDE 0.9% INJ 92 ML IV PRN (14:15)
[2016-07-29] MEDS ORDERED: POTASSIUM CHLOR 20 MEQ PREMIX 100 ML IV PRN ×2 (14:15)
[2016-07-29] MEDS ORDERED: POTASSIUM CL 40 MEQ/30 ML LIQ UDC PO/TUBE PRN ×2 (14:15)
[2016-07-29] MEDS ORDERED: POTASSIUM PHOSPHATE MONOBASIC 500 MG TAB PO/TUBE PRN (14:15)
[2016-07-29] MEDS ORDERED: POTASSIUM PHOSPHATE MONOBASIC 500 MG TAB PO PRN (14:15)
[2016-07-29] MEDS: POTASSIUM CHLOR 40 MEQ PREMIX 100 ML IV PRN (14:40)
[2016-07-29] MEDS ORDERED: IOHEXOL 350 MG/ML 10 ML VIAL (for RAD DIAG) IV ONE (15:29)
--- NOTE | 2016-07-29 15:55 | RADRPT ---
EXAM DATE/TIME: 07/29/2016 15:26 [facility] COMPARISON: No previous studies available for comparison. INDICATIONS : Shortness of breath and history of blood clots; status-post pulseless electrical activity arrest. IV CONTRAST: 75 cc Omnipaque 350 (iohexol) IV RADIATION DOSE: 23.44 CTDIvol (mGy) MEDICAL HISTORY : Deep venous thrombosis. Hypertension. Cardiovascular disease SURGICAL HISTORY : Cholecystectomy. IVC Filter placement. ENCOUNTER: Initial ACUITY: 1 day PAIN SCALE: Non-responsive LOCATION: Upper chest TECHNIQUE: Volumetric scanning of the chest was performed using a pulmonary embolism protocol MIP images were re constructed. Using automated exposure control and adjustment of the mA and/or kV according to patien t size, radiation dose was kept as low as reasonably achievable to obtain optimal diagnostic quality images. FINDINGS: There is evidence of acute pulmonary emboli within the upper lobe branches of pulmonary arteries bila terally. Small bilateral pleural effusions are noted. Bibasilar alveolar consolidations are also no jenelle (right more extensive than the left) consistent with atelectasis and/or pneumonia. Clinical corre lation is recommended. The heart is enlarged. No mediastinal, hilar or axillary lymphadenopathy is no jenelle. An endotracheal tube is noted in good position well above the jessy. A nasogastric tube has i ts tip below the diaphragm. CONCLUSION: 1. Acute pulmonary emboli within the upper lobe branches of the pulmonary arteries bilaterally. 2. Small bilateral pleural effusions. 3. Bibasilar alveolar consolidations (right worse than left) consistent with atelectasis and/or pneum onia. Clinical correlation is recommended. 4. Cardiomegaly. David Luther MD on July 29, 2016 at 15:45 Board Certified Radiologist. This report was verified electronically.
[2016-07-29 16:29] LABS: INTERNATIONAL NORMALIZED RATIO 1.1 RATIO; PROTHROMBIN TIME - PATIENT 12.6 SEC (9.8-11.6)
[2016-07-29 16:33] LABS: BLOOD GAS BASE EXCESS 6.2 mmol/L (-2-2); BLOOD GAS CARBOXYHEMOGLOBIN 1.4 % (0-4); BLOOD GAS HCO3 30 mmol/L (22-26); BLOOD GAS METHEMOGLOBIN 1.6 % (0-2); BLOOD GAS O2 HGB SATURATION 94 % (90-100); BLOOD GAS OXYGEN CONTENT 14.7 Vol % (12.0-20.0); BLOOD GAS PCO2 39 mmHg (38-42); BLOOD GAS PO2 81 mmHg (61-120); BLOOD GAS TOTAL HGB 11.1 G/DL (12.0-16.0); TEMP CORR TO 98.6
[2016-07-29 16:34] LABS: CRITICAL VALUE NO; FIO2 40 %; OXYGEN DEVICE VENTILATOR; VENT SETTINGS SEE COMMENTS
[2016-07-29 16:35] LABS: DRAW SITE LT BRACHIAL; STAT YES
[2016-07-29] MEDS: SODIUM PHOSPHATE INJ 30 MMOL in SODIUM CHLOR 0.9% 250 ML INJ 240 ML IV PRN (17:03)
--- NOTE | 2016-07-29 17:11 | MB ---
cc: IDALMIS ZAMORA M.D. DATE OF CONSULTATION: 07/29/2016 REASON FOR CONSULTATION: HISTORY OF PRESENT ILLNESS: Yas is a very pleasant 55 year-old lady currently intubated. The history is obtained from the patient's daughter and . Apparently the patient was admitted recently for evaluation of peptic ulcer disease, discharged yesterday, and then according to her daughter had a syncopal event associated with shortness of breath and had to be resuscitation per EMS, was intubated. Also noted to be unresponsive. CPR was done at the scene. She was noted to be bradycardiac. She was noted to be somewhat verbal and aware that she had just recently left the hospital. She was hypoxic, and therefore intubated. The patient was also noted to have pulseless electrical activity. REVIEW OF SYSTEMS: Further review of systems is otherwise unobtainable due to her being intubated and sedated. PAST MEDICAL HISTORY: 1. Asthma. 2. Depression. 3. DVT. 4. Hypertension. 5. Chronic back pain. 6. Implanted vascular device. 7. COPD. 8. Recent pneumonia. 9. Peptic ulcer disease 10. Recent bleed. 11. [place] filter. 12. IVC filter. 13. Cholecystectomy. 14. Bilateral total hip replacement. 15. History of congestive heart failure. SOCIAL HISTORY: Denies tobacco use, smokes a pack of cigarettes a day. ALLERGIES: NONE. MEDICATIONS: Medications in the hospital: 1. Potassium supplementation. 2. Magnesium supplementation 3. Lovenox 40 subcu q.24 hours. 4. Propofol IV. 5. Norepinephrine drip. PHYSICAL EXAMINATION VITAL SIGNS: Blood pressure 116/71, pulse 102, temperature 98.5, respiratory 14, sat 100% of 40% oxygen. General: She is intubated, sedated. Neck: Supple. No JVD, no bruit. Cardiovascular: S1-S2. No murmurs, rubs, or gallops. Lungs: Clear to auscultation bilaterally. Abdomen: Soft, nontender, nondistended, positive bowel sounds. Extremities: No extremity edema. LABORATORY DATA White count 18.0, hemoglobin 11.5, hematocrit 34.1, platelet count 196. Sodium 146, potassium 3.1, chloride 105, bicarb 32.5, BUN 11, creatinine 0.98, lactic acid is 1.4. Initial troponin 1.74. Second troponin 1.66, BNP is 1225, albumin is 2.6. INR is 1.1. Blood gas pH 7.52, PCO2 33, PO2 53 on 70% oxygen. X-RAYS: Chest x-ray on admission, interval placement of right subclavian central venous line and nasogastric tube, abnormal opacity in the right perihilar region and right lung base. Repeat chest x-ray, interval intubation. EKG: Sinus tachycardia at 120 beats per minute. No ST-T wave changes. FINAL DIAGNOSIS 1. Non STEMI. 2. Pulseless electrical activity. 3. Cardiac arrest. 4. Hypotension. 5. Respiratory failure. 6. Encephalopathy. 7. Peptic ulcer disease. 8. Anemia. 9. Elevated white count. 10. Hypernatremia. 11. History of DVT. DISCUSSION: At this point in time it appears more likely that the patient's elevated troponin is probably from global hypoperfusion from a hypotensive event. It is indeterminate the initiating factor for her acute hypotension. Certainly the differential would be cardiogenic shock versus septic shock or PE, particularly with her history of DVT. She is being DVT prophylaxed with heparin currently, off Xarelto, although presumably this is still being taken yesterday, so it should still have some therapeutic effect. She is going to have a CT of the chest, rule out PE. She is mildly volume overloaded by her BNP evaluation. At this point in time she is requiring pressors for blood pressure support. Therefore, MILDRED inhibitor and beta-blockers are contraindicated. Her mental status is uncertain. She does have an encephalopathy per Dr. Pena. Again, therefore, would continue medical management. Follow up CTA of the chest and also follow up her hemodynamic trends and neurologic trends. Also follow up 2-D echocardiogram. Her condition is certainly guarded. Recommend to continue ICU care and telemetry monitoring. MD MURRAY Jones/KULWANT /2:57 PM /4:52 PM
[2016-07-29] MEDS: PANTOPRAZOLE SODIUM 40 MG VIAL IV SCH (19:27)
[2016-07-29] MEDS: ENOXAPARIN SODIUM 40 MG/0.4 ML SYRINGE SQ SCH (19:27)
[2016-07-29] MEDS ORDERED: MIDAZOLAM HCL 5 MG/ML VIAL (1 ML) ONE (20:30)
--- NOTE | 2016-07-29 20:49 | PD.PROCEDR ---
Procedure Note Procedure DX: Respiratory Failure (J96.01) OP: Orotracheal Intubation ([id number]) Procedure: Patient self-extubated. Bag mask ventilation. Versed 10 mg and rocuronium 100 mg iv. Intubated orally with 7.5 tube. Position confirmed with CO2 detection, breath sounds, improved sats 100%. CXR ordered, will review. Timur Pena MD Jul 29, 2016 20:49
--- NOTE | 2016-07-29 21:38 | RADRPT ---
EXAM DATE/TIME: 07/29/2016 21:11 [facility] COMPARISON: CT PULMONARY ANGIOGRAM, July 29, 2016, 15:26. INDICATIONS : OG Placement MEDICAL HISTORY : Hypertension. Deep venous thrombosis. Chronic obstructive pulmonary SURGICAL HISTORY : Tonsillectomy. Tubal ligation. Cholecystectomy. IVC filter, Left total hip ENCOUNTER: Subsequent ACUITY: 4 - 6 days PAIN SCORE: Non-responsive. LOCATION: Bilateral chest FINDINGS: Endotracheal tube tip at the level the clavicles. OG tube courses off the inferior margin of the film . There is right lower lobe atelectasis and bilateral pleural effusions are seen. Right subclavian li ne tip overlies expect location of the right atrium. Osseous structures are intact. CONCLUSION: Lines and tubes are noted as above. Brandon Edward MD on July 29, 2016 at 21:35 Board Certified Radiologist. This report was verified electronically.
[2016-07-29] MEDS ORDERED: LABETALOL HCL 100 MG/20 ML VIAL IV PUSH PRN (22:00)
--- NOTE | 2016-07-29 23:00 | EC ---
Study Study Date:07/29/2016 STUDY CONCLUSIONS SUMMARY LEFT VENTRICLE: The cavity size was normal. Wall thickness was normal. Systolic function was moderately to severely reduced. The estimated ejection fraction was in the range of 30% to 35%. Wall motion was normal; there were no regional wall motion abnormalities. If LV function is below 40, please consider prescribing an ACEI or ARB or document rationale for non-use. PROCEDURE DATA STUDY STATUS: Elective. Procedure: Transthoracic echocardiography. Image quality was poor. Scanning was performed from the parasternal, apical, and subcostal acoustic windows. Study completion: The patient tolerated the procedure well. Transthoracic echocardiography. M-mode, complete 2D, complete spectral Doppler, and color Doppler. Patient status: Inpatient. CARDIAC ANATOMY LEFT VENTRICLE: The cavity size was normal. Wall thickness was normal. Systolic function was moderately to severely reduced. The estimated ejection fraction was in the range of 30% to 35%. Wall motion was normal; there were no regional wall motion abnormalities. AORTIC VALVE: Trileaflet; normal thickness leaflets. Doppler: Transvalvular velocity was within the normal range. There was no stenosis. No regurgitation. AORTA: Aortic root: The aortic root was normal in size. MITRAL VALVE: Structurally normal valve. Doppler: Transvalvular velocity was within the normal range. There was no evidence for stenosis. No regurgitation. Valve area by pressure half-time: 2.93cm^2. LEFT ATRIUM: The atrium was normal in size. RIGHT VENTRICLE: The cavity size was normal. Wall thickness was normal. PULMONIC VALVE: Doppler: Transvalvular velocity was within the normal range. There was no evidence for stenosis. No regurgitation. TRICUSPID VALVE: Structurally normal valve. Doppler: Transvalvular velocity was within the normal range. No regurgitation. PULMONARY ARTERY: The main pulmonary artery was normal-sized. Systolic pressure was within the normal range. RIGHT ATRIUM: The atrium was normal in size. PERICARDIUM: There was no pericardial effusion. SYSTEMIC VEINS: Inferior vena cava: The vessel was normal in size. BASIC MEASUREMENTS ADULT NORMAL Left ventricle LV internal dimension, ED, chordal level, 43.7 mm 43-52 PLAX LV internal dimension, ES, chordal level, *38.6 mm 23-38 PLAX Fractional shortening, chordal level, PLAX *12 % >29 LV posterior wall thickness, ED 11.7 mm IVS/LVPW ratio, ED 0.92 <1.3 Ventricular septum Septal thickness, ED 10.8 mm Aortic valve Leaflet separation 23 mm 15-26 Right ventricle RV internal dimension, ED, PLAX *18.6 mm 19-38 BASIC MEASUREMENTS ADULT NORMAL Aortic valve Leaflet separation 23 mm 15-26 Aorta Root diameter, ED 27 mm 20-37 Left atrium Anterior-posterior dimension, ES 39 mm 19-40 LA/aortic root ratio 1.44 DOPPLER MEASUREMENTS ADULT NORMAL Mitral valve Pressure half-time 75 ms Valve area, pressure half-time 2.93 cm^2 LEGEND: Mean values are shown as u=mean value. Asterisk (*) aguilar values outside specified normal range. Prepared and signed by Casa Andrew [id number]
[2016-07-30] VITALS (20 sets, daily range): BP systolic 111–131; BP diastolic 61–72; PULSE 79–92; RESP 14; TEMP 98–100.6; O2SAT 92–100
[2016-07-30] MEDS: POTASSIUM CHLOR 40 MEQ PREMIX 100 ML IV PRN ×4 (00:57→22:13)
[2016-07-30] MEDS: CHLORHEXIDINE GLUCONATE 2 % 1 PACK (2 CLOTHS) TOP SCH (04:00)
[2016-07-30] MEDS: PROPOFOL 1000 MG/100 ML INJ 100 ML IV SCH ×6 (04:25→22:52)
[2016-07-30 05:37] LABS: HEMATOCRIT 29.8 % (35.0-46.0); MEAN CELL VOLUME 84.1 FL (80.0-100.0); MEAN CORPUSCULAR HEMOGLOBIN 28.3 PG (27.0-34.0); MEAN CORPUSCULAR HGB CONC 33.7 % (32.0-36.0); PLATELET COUNT 130 TH/MM3 (150-450); RED BLOOD COUNT 3.54 MIL/MM3 (4.00-5.30); RED CELL DISTRIBUTION WIDTH 17.1 % (11.6-17.2); REVIEW FLAG FINAL; WHITE BLOOD COUNT 7.9 TH/MM3 (4.0-11.0)
--- NOTE | 2016-07-30 05:56 | RADRPT ---
EXAM DATE/TIME: 07/30/2016 04:48 [facility] COMPARISON: CHEST SINGLE AP, July 29, 2016, 21:11. INDICATIONS : Shortness of breath. MEDICAL HISTORY : Hypertension. Deep venous thrombosis. Cardiovascular disease. SURGICAL HISTORY : Cholecystectomy. IVC filter ENCOUNTER: Subsequent ACUITY: 4 - 6 days PAIN SCORE: Non-responsive. LOCATION: Bilateral chest FINDINGS: A single view of the chest demonstrates worsening right mid lung and right basilar consolidation. Lef t basilar/retrocardiac density again seen. Endotracheal tube, nasogastric tube and right subclavian c entral line are stable in position. The cardiomediastinal contours are unremarkable. Osseous structu res are intact. CONCLUSION: 1. Worsening right midlung and right basilar consolidation. 2. Stable left basilar density. Gareth Gray MD on July 30, 2016 at 5:54 Board Certified Radiologist. This report was verified electronically.
[2016-07-30 05:57] LABS: BLOOD GAS BASE EXCESS 4.2 mmol/L (-2-2); BLOOD GAS CARBOXYHEMOGLOBIN 1.2 % (0-4); BLOOD GAS HCO3 28 mmol/L (22-26); BLOOD GAS O2 HGB SATURATION 97 % (90-100); BLOOD GAS OXYGEN CONTENT 16.9 Vol % (12.0-20.0); BLOOD GAS PCO2 36 mmHg (38-42); BLOOD GAS PO2 144 mmHg (61-120); BLOOD GAS TOTAL HGB 12.2 G/DL (12.0-16.0); CRITICAL VALUE NO; OXYGEN DEVICE VENTILATOR; TEMP CORR TO 98.6
[2016-07-30 05:59] LABS: DRAW SITE RT RADIAL; FIO2 50 %; NUMBER OF ARTERIAL PUNCTURES 1; STAT NO; ULNAR PULSE PRESENT; VENT SETTINGS PRVC/AC
[2016-07-30 06:18] LABS: BICARBONATE 31.4 MEQ/L (21.0-32.0); POTASSIUM 3.7 MEQ/L (3.5-5.1)
[2016-07-30] MEDS: SODIUM CHLORIDE 0.9% FLUSH 5 ML FLUSH IV FLUSH SCH ×2 (08:09→22:13)
[2016-07-30] MEDS: PANTOPRAZOLE SODIUM 40 MG VIAL IV SCH ×2 (08:09→22:12)
[2016-07-30] MEDS: LACTULOSE SYRUP 20 GM/30 ML CUP PO SCH (08:10)
[2016-07-30] MEDS: SODIUM PHOSPHATE INJ 30 MMOL in SODIUM CHLOR 0.9% 250 ML INJ 240 ML IV PRN (09:38)
--- NOTE | 2016-07-30 13:45 | HHI.CCPN ---
Subjective Remarks/Hospital Course On 07/25/2016 the patient presented to ED in [place].Her history is significant for the fact that she has a history of DVT in 2013, Turlock filter placement and was on Xarelto. The patient also stated that she has a history of peptic ulcer disease. The patient presented with complaints of lightheadedness,generalized weakness,fatigue and inability to void 3 days, on 07/25/2016. The patient medical history significant for the fact that in 2012 was admitted with GI bleed at that time had upper endoscopy which was consistent with severe grade D esophagitis,mild gastritis and mckayla. The patient had denied NSAID use. On presentation to the ED in [place] on 07/25, the patient's blood pressure ranges 65/40 to 81/40 with initial hemoglobin of 12. The patient reported also having medical history significant for history of renal failure, and congestive heart failure. The patient received 4 units of crystalloids, indigo a NG tube was placed, approximately a liter of coffee ground emesis upon initial placement. Octreotide and Protonix infusions were initiated, and GI was consulted. Patient was transfused 1unit PRBC. The patient remained hypotensive, a right femoral line was placed, the patient was placed on Shane-Synephrine. Critical care medicine was consulted for treatment and management, on 07/25/2016. A telephone handoff was given from Dr. Hernández, upon initiation of transport from [place], the patient became acutely hypotensive, SBP 70's. The patient was placed on a Levophed infusion, MAP's were obtained greater than 65mmHG. the patient was then transferred to [facility] with ER physician, Dr. Sabillon accompanying patient. Upon arrival, MAP 76, the patient was alert and oriented not in respiratory distress , tachycardic complaining of abdominal pain, maldonado draining pale yellow urine. Levophed had been weaned off prior to arrival and the patient remained on Shane- Synephrine at 70mcgs. The patient then underwent an endoscopy revealing multiple gastric ulcers. The 55-year-old female with history of recent admission for gastric ulcer and GI bleed, was discharged from the hospital on in the am, and presented back to the ED brought in by EMS on the same evening. Apparently the patient was found prone and unresponsive, found to be in PEA with organized bradycardia, CPR initiated on scene, and patient came around, was able to talk a little bit and stated that she should not have left the hospital. Patient was in significant respiratory distress and hypoxic and patient was intubated for respiratory distress. The patient was intubated in ED. Critical care medicine was consulted for management and treatment. 07/29:Upon cessation of sedation, the patient was noted to be a GCS of 11 T, following commands. The patient continues on norepinephrine at 3 mcgs, and propofol at 25 mcgs.Will obtain ECHO today, cardiology consulted. 07/30: Norepinephrine was weaned off early this a.m.. The patient required reintubation last p.m. secondary to inadvertent removal with repositioning of patient. Troponins trending down at this time, cardiology following. GI was re- consulted regarding initiation of anticoagulation in the setting of bilateral pulmonary emboli, patient was placed on heparin infusion at this time with plans for transition to Xarelto. Objective Vital Signs Date Time Temp Pulse Resp B/P Pulse Ox O2 Delivery O2 Flow Rate FiO2 07/30/16 12:00 80 07/30/16 12:00 40 07/30/16 12:00 98.0 14 114/65 100 Intake and Output 07/29/16 07/29/16 07/30/16 08:00 16:00 00:00 Intake Total 171 ml 167 ml 603 ml Output Total 600 ml 400 ml 600 ml Balance -429 ml -233 ml 3 ml Result Diagram: 07/30/16 0415 07/30/16 0900 Other Results Laboratory Tests Test 07/29/16 07/30/16 16:23 05:46 Blood Gas Puncture Site LT BRACHIAL RT RADIAL Blood Gas Patient Temperature 98.6 98.6 Blood Gas HCO3 30 mmol/L 28 mmol/L (22-26) (22-26) Blood Gas Base Excess 6.2 mmol/L 4.2 mmol/L (-2-2) (-2-2) Blood Gas Oxygen Saturation 94 % (90-100) 97 % (90-100) Arterial Blood pH 7.50 7.50 (7.380-7.420) (7.380-7.420) Arterial Blood Partial 39 mmHg (38-42) 36 mmHg (38-42) Pressure CO2 Arterial Blood Partial 81 mmHg 144 mmHg Pressure O2 (61-120) (61-120) Arterial Blood Oxygen Content 14.7 Vol % 16.9 Vol % (12.0-20.0) (12.0-20.0) Arterial Blood 1.4 % (0-4) 1.2 % (0-4) Carboxyhemoglobin Arterial Blood Methemoglobin 1.6 % (0-2) 1.0 % (0-2) Blood Gas Hemoglobin 11.1 G/DL 12.2 G/DL (12.0-16.0) (12.0-16.0) Oxygen Delivery Device VENTILATOR VENTILATOR Blood Gas Ventilator Setting SEE COMMENTS PRVC/AC Blood Gas Inspired Oxygen 40 % 50 % Objective Remarks GENERAL: Super morbidly obese female, intubated and sedated SKIN: Warm and dry. HEAD: Atraumatic. Normocephalic. EYES: Pupils equal and round. No scleral icterus. No injection or drainage. ENT: No nasal bleeding or discharge. Mucous membranes pink and moist. NECK: Trachea midline. No JVD. CARDIOVASCULAR: Normal rate, regular rhythm. RESPIRATORY: Mechanical ventilation. Clear to auscultation. Breath sounds equal bilaterally. GASTROINTESTINAL: Abdomen soft, protuberant non-tender, nondistended. No guarding. NGT to LIWS, minimal bilious drainage MUSCULOSKELETAL: Extremities without clubbing, cyanosis, or edema. No obvious deformities. NEUROLOGICAL: Intubated and sedated. RASS -2. No gross focal/sensory deficits. Follows commands in all 4 extremities. Maldonado insert reason: Measure Accurate Output Date of Insertion: Jul 28, 2016 Vascular Central Line Catheter: Yes (CVP monitoring and vasoactive medications) Date of Insertion: Jul 28, 2016 Location: Subclavian A/P Problem List: (1) Cardiac arrest ICD Code: I46.9 Status: Acute (2) Cardiogenic shock ICD Code: R57.0 Status: Acute (3) Acute respiratory failure ICD Code: J96.00 Status: Acute (4) Encephalopathy acute ICD Code: G93.40 Status: Acute Assessment and Plan Assessment and Plan This is a 55-year-old super morbidly obese female, with a history of DVT on Xarelto daily that presented with hematemesis secondary to GI bleed, and severe dehydration, and hemorrhagic shock on 07/25/2016. Patient was subsequently discharged on 07/28/2016,with reconciliation to continue home medications which included Xarelto. Upon arrival home, the subsequently had PEA arrest, CPR was initiated, ROSC, and transferred to the ED, at which time the patient was in acute hypoxic respiratory failure and was intubated and sedated. The patient remains critically ill and prognosis is guarded at this time. Problem list; PEA Arrest most likely secondary to prothrombotic state Acute hypoxic respiratory failure Plan by systems: Neurologic: Anxiety Depression Pain -Ofirmev 1 g every 6 hours 4 -Fentanyl 50-100 mcgs PRN -Ativan 0.5 mg PRN Respiratory: COPD Asthma Nicotine abuse Bilateral pulmonary emboli -Mechanical ventilation PRVC 14/0.550/5/0.40 -Maintain O2 sat greater than 92% -CTA 07/29-acute pulmonary emboli upper lobe branches bilateral -Bronchodilators scheduled every 4 hours, and every 2 hours when necessary -Ventilator bundle -Maintain head of bed greater than 30 Cardiovascular: PEA arrest H/O CHF H/O Hypertension H/O DVT Hyperlipidemia NSTEMI Cardiomegaly -Maintain MAP greater than 65 mmHg -Continue atorvastatin -Obtain ECHO -Turlock filter in situ since 2012 -Cardiology following -Troponin 1.74-->1.6 -GI -okay to resume anticoagulation (Xarelto) the patient was discharged home on medication, patient is S/P upper endoscopy 07/26-grade D esophagitis with esophageal ulcers. In light of history of esophageal ulcer will begin heparin infusion, and transition to Xarelto. Monitor for signs of bleeding. Renal: -Repeat BMP follow-up results -Maintain Maldonado, hourly measurement -- Strict I/Os -Monitor CVP -7 FEN/GI: Super Morbid obesity H/O Upper GI bleed 07/25/16 Gastric ulceration GERD -We'll begin vital high protein tube feeds at 10 cc/hour with goal of 55/hour -Zofran when necessary for nausea -Continue Protonix to BID Heme/ID: H/O DVT Bilateral PE -Previously on Xarelto -Ian IVC filter placement-2012 -Ultrasound Doppler bilateral upper extremities Endocrine: Glucose monitoring every 6 hours per ICU protocol -- SSI Prophylaxis: GI Prophylaxis Protonix DVT Prophylaxis -- SCDs, Lovenox discontinued, begin heparin infusion. Dispo: Telephoned Mr. Tariq, and discussed patient's medical status and plan of care with initiation of anticoagulation therapy (Heparin) and plans to transition back to Xarelto. This patient remains critically ill with one or more organ systems which are or may become a threat to life. I have spent in excess of 50 minutes discontinuously in the care and management of this patient. This time is exclusive of procedures, and includes, but is not limited to, evaluation of the patient, review of the medical record, discussions with family, consultants, nursing staff, or respiratory therapy, and documentation in the medical record. Physician Mimi Griffin MD Jul 30, 2016 13:45
--- NOTE | 2016-07-30 13:48 | PD.CONS ---
HPI History of Present Illness This is a 55 year old female patient who takes Xarelto for hx of DVT (July of 2015) and was recently hospitalized from 07/25/16-07/28/16 for GI bleeding consisting of hematemesis with coffee-ground emesis. She was evaluated with an EGD on 07/26/16 and this revealed severe grade D esophagitis with esophageal ulcers, normal stomach, normal duodenum, no active bleeding at that time. Pathology is still pending. On 07/28/16, she was clinically stable, cleared to resume anticoagulation, and discharged home on her Xarelto and Protonix. Unfortunately she was found unresponsive by the time EMS arrived she was then PEA with organized bradycardia. CPR was initiated and she had SROC and was transferred to the ICU. PE was suspected and therefore CTA was done (07/29/16) and this revealed acute pulmonary emboli within the upper lobe branches that the pulmonary arteries bilaterally, small bilateral pleural effusions, by basilar alveolar consolidations (right worse than left) consistent with atelectasis and/or pneumonia. Clinical correlation is recommended. Cardiomegaly. He was started on Protonix 40 mg IV twice a day and GI was consulted for clearance to resume anticoagulation. She is currently sedated on the ventilator. She has an NG tube to low intermittent wall suction and this is draining a very small amount of green bilious drainage with no evidence of hematemesis. Her abdomen is soft. She is not having any obvious bleeding. Her H&H's have been stable and her current H&H is 10.0/29.8. (Aline Marquez) PFSH Past Medical History DVT (July 2015) Asthma/COPD Depression CHF Hypertension History of peptic ulcer disease Severe esophagitis, mckayla Recent GI bleeding secondary to severe esophagitis and esophageal ulcers Gastritis Recent acute kidney failure Anemia Past Surgical History EGD Cholecystectomy Tonsillectomy Colonoscopy (Aline Marquez) Coded Allergies: No Known Allergies (Verified , 11/19/15) Medications Allergies Coded Allergies Type Severity Reaction Last Updated Verified No Known Allergies 11/19/15 Yes Active Scripts Medications Dose Route/Sig Days Date Category Pantoprazole (Pantoprazole Sodium) 40 Mg Tab 40 Mg PO BID 30 07/28/16 Rx Xarelto (Rivaroxaban) 20 Mg Tab 20 Mg PO DAILY 05/18/16 Reported Xanax (Alprazolam) 2 Mg Tab 2 Mg PO DAILY PRN 05/18/16 Reported Lortab (Hydrocodone-Acetaminophen) 10-325 Mg Tab 1 Tab PO Q4H PRN 05/18/16 Reported Carvedilol 3.125 Mg Tab 3.125 Mg PO BID 05/18/16 Reported Bupropion HCl 100 Mg Tab 100 Mg PO BID 05/18/16 Reported Atorvastatin (Atorvastatin Calcium) 20 Mg Tab 20 Mg PO HS 05/18/16 Reported Family History Father had colon cancer Social History Patient smokes 1 pack of cigarettes per day. States that she has actually cut back in one year ago she was smoking 3 packs of cigarettes per day No alcohol (Aline Marquez) Review of Systems ROS Unable to obtain sedated on the vent (Aline Marquez) GI Exam Vitals I&O Vital Signs Date Time Temp Pulse Resp B/P Pulse Ox O2 Delivery O2 Flow Rate FiO2 07/30/16 12:00 80 07/30/16 12:00 40 07/30/16 12:00 98.0 79 14 114/65 100 07/30/16 11:37 100 40 07/30/16 10:00 79 07/30/16 08:00 40 07/30/16 08:00 98.5 80 14 131/72 100 07/30/16 08:00 84 07/30/16 07:50 100 40 07/30/16 06:00 80 07/30/16 04:10 100 50 07/30/16 04:00 50 07/30/16 04:00 98.8 80 14 117/65 99 07/30/16 04:00 80 07/30/16 02:00 80 07/30/16 01:20 100 60 07/30/16 00:00 40 07/30/16 00:00 98.7 82 14 111/61 100 07/30/16 00:00 82 07/29/16 22:50 100 60 07/29/16 22:00 83 07/29/16 20:00 96 07/29/16 20:00 99.1 96 27 112/64 100 07/29/16 20:00 40 07/29/16 19:20 100 40 07/29/16 18:00 98 07/29/16 16:47 100 40 07/29/16 16:00 98.4 101 25 109/62 100 07/29/16 16:00 98 07/29/16 16:00 40 07/29/16 15:15 98 07/29/16 14:00 104 07/29/16 13:56 99 40 I/O 07/29/16 07/29/16 07/29/16 07/30/16 07/30/16 07/30/16 07:00 15:00 23:00 07:00 15:00 23:00 Intake Total 171 ml 167 ml 603 ml 350 ml Output Total 600 ml 400 ml 600 ml 500 ml Balance -429 ml -233 ml 3 ml -150 ml Intake Oral 0 ml IV Total 171 ml 167 ml 603 ml 350 ml Output Urine Total 600 ml 400 ml 600 ml 350 ml Gastric Drainage Total 150 ml # Bowel Movements 0 1 0 Imaging Last Impressions Chest X-Ray 07/30/16 0600 Signed Impressions: Service Date/Time: Saturday, July 30, 2016 04:48 - CONCLUSION: 1. Worsening right midlung and right basilar consolidation. 2. Stable left basilar density. Gareth Gray MD CT Angiography 07/29/16 0000 Signed Impressions: Service Date/Time: Friday, July 29, 2016 15:26 - CONCLUSION: 1. Acute pulmonary emboli within the upper lobe branches of the pulmonary arteries bilaterally. 2. Small bilateral pleural effusions. 3. Bibasilar alveolar consolidations (right worse than left) consistent with atelectasis and/or pneumonia. Clinical correlation is recommended. 4. Cardiomegaly. David Luther MD Laboratory Test 07/29/16 07/29/16 07/29/16 07/30/16 16:00 16:23 23:52 04:15 Prothrombin Time 12.6 SEC Prothromb Time International 1.1 RATIO Ratio Phosphorus Level 1.7 MG/DL 2.0 MG/DL Troponin I 0.78 NG/ML Blood Gas Puncture Site LT BRACHIAL Blood Gas Patient Temperature 98.6 Blood Gas HCO3 30 mmol/L Blood Gas Base Excess 6.2 mmol/L Blood Gas Oxygen Saturation 94 % Arterial Blood pH 7.50 Arterial Blood Partial 39 mmHg Pressure CO2 Arterial Blood Partial 81 mmHg Pressure O2 Arterial Blood Oxygen Content 14.7 Vol % Arterial Blood 1.4 % Carboxyhemoglobin Arterial Blood Methemoglobin 1.6 % Blood Gas Hemoglobin 11.1 G/DL Oxygen Delivery Device VENTILATOR Blood Gas Ventilator Setting SEE COMMENTS Blood Gas Inspired Oxygen 40 % Potassium Level 2.8 MEQ/L 3.7 MEQ/L White Blood Count 7.9 TH/MM3 Red Blood Count 3.54 MIL/MM3 Hemoglobin 10.0 GM/DL Hematocrit 29.8 % Mean Corpuscular Volume 84.1 FL Mean Corpuscular Hemoglobin 28.3 PG Mean Corpuscular Hemoglobin 33.7 % Concent Red Cell Distribution Width 17.1 % Platelet Count 130 TH/MM3 Mean Platelet Volume 10.0 FL Sodium Level 147 MEQ/L Chloride Level 107 MEQ/L Carbon Dioxide Level 31.4 MEQ/L Anion Gap 9 MEQ/L Blood Urea Nitrogen 9 MG/DL Creatinine 0.66 MG/DL Estimat Glomerular Filtration 94 ML/MIN Rate Random Glucose 74 MG/DL Calcium Level 7.5 MG/DL Magnesium Level 2.0 MG/DL Test 07/30/16 07/30/16 05:46 09:00 Blood Gas Puncture Site RT RADIAL Blood Gas Patient Temperature 98.6 Blood Gas HCO3 28 mmol/L Blood Gas Base Excess 4.2 mmol/L Blood Gas Oxygen Saturation 97 % Arterial Blood pH 7.50 Arterial Blood Partial 36 mmHg Pressure CO2 Arterial Blood Partial 144 mmHg Pressure O2 Arterial Blood Oxygen Content 16.9 Vol % Arterial Blood 1.2 % Carboxyhemoglobin Arterial Blood Methemoglobin 1.0 % Blood Gas Hemoglobin 12.2 G/DL Oxygen Delivery Device VENTILATOR Blood Gas Ventilator Setting PRVC/AC Blood Gas Inspired Oxygen 50 % Potassium Level 3.3 MEQ/L Date/Time Procedure Status Source Growth 07/28/16 20:10 Aerobic Blood Culture - Preliminary Resulted Blood Peripheral NO GROWTH IN 2 DAYS 07/28/16 20:10 Anaerobic Blood Culture - Preliminary Resulted Blood Peripheral NO GROWTH IN 2 DAYS Physical Examination HEENT: Normocephalic; atraumatic; no jaundice. CHEST: Resp even and unlabored. OETT to vent CARDIAC: RRR ABDOMEN: Soft, nondistended, nontender; no hepatosplenomegaly; bowel sounds are present in all four quadrants. NGT to LIWS- scant amount bilious material EXTREMITIES: Generalized edema. SKIN: Normal; no rash; no jaundice. DIE INSPECTOR: Sedated on the vent. (Aline Marquez) Assessment and Plan Plan ASSESSMENT: - Recent GIB with coffee ground emesis. Recently hospitalized from 07/25/16- for GI bleeding consisting of hematemesis with coffee-ground emesis. She was evaluated with an EGD on 07/26/16 and this revealed severe grade D esophagitis with esophageal ulcers, normal stomach, normal duodenum, no active bleeding at that time. Pathology is still pending. HH stable. She has NGT to LIWS with scant amount of bilious material, no evidence of GI bleeding. Okay to resume TF. Protonix 40mg IV BID. - Severe esophagitis with esophageal ulcers. Protonix 40mg IV BID. - PE, hx DVT in July of 2015. On Xarelto. This was on hold for GI bleeding and was cleared to be resumed on 07/28/16. She was discharged home on Xarelto. Okay from GI standpoint to resume anticoagulation. - Resp. Failure. Vent per CCM. - Anemia. No active bleeding. .0/29.8. - PEA Arrest, S/P CPR with SROC. CTA with PE. Per CCM. - JESUS, electrolyte abnormalities - HTN, CHF, Asthma/COPD per CCM. PLAN: - Vital High Protein with goal rate of 55 ml/hr - Protonix 40mg IV BID - Monitor HH - Transfuse as necessary - Notify GI of active bleeding - Okay to resume anticoagulation from GI standpoint - Supportive care - Further recommendations to follow based on results of above - Pt seen and examined by Dr. Westbrook and myself and this note is written on his behalf (Aline Marquez) Physician Comments Patient seen and examined Agree with above Continue with current supportive care Monitor labs Okay to resume anticoagulation but continue with close monitoring of vitals and blood counts transfuse as needed and if there is any evidence of active GI bleed we will pursue further investigation (Wilfrido Westbrook MD) Aline Marquez Jul 30, 2016 13:48 Wilfrido Westbrook MD Jul 30, 2016 21:15
[2016-07-30 14:33] LABS: HEMATOCRIT 30.5 % (35.0-46.0); MEAN CELL VOLUME 84.4 FL (80.0-100.0); MEAN CORPUSCULAR HEMOGLOBIN 29.1 PG (27.0-34.0); MEAN CORPUSCULAR HGB CONC 34.5 % (32.0-36.0); PLATELET COUNT 142 TH/MM3 (150-450); RED BLOOD COUNT 3.61 MIL/MM3 (4.00-5.30); REVIEW FLAG FINAL; WHITE BLOOD COUNT 7.9 TH/MM3 (4.0-11.0)
[2016-07-30 14:42] LABS: APTT (PATIENT) 26.8 SEC (24.3-30.1); PROTHROMBIN TIME - PATIENT 11.4 SEC (9.8-11.6)
[2016-07-30] MEDS: HEPARIN-D5W INJ 250 ML IV SCH (14:53)
--- NOTE | 2016-07-30 15:18 | PD.CARD.PN ---
Subjective Subjective Remarks intubated, sedated Objective Vital Signs / I&O Vital Signs Date Time Temp Pulse Resp B/P Pulse Ox O2 Delivery O2 Flow Rate FiO2 07/30/16 14:00 80 07/30/16 13:56 96 40 07/30/16 12:00 80 07/30/16 12:00 40 07/30/16 12:00 98.0 79 14 114/65 100 07/30/16 11:37 100 40 07/30/16 10:00 79 07/30/16 08:00 40 07/30/16 08:00 98.5 80 14 131/72 100 07/30/16 08:00 84 07/30/16 07:50 100 40 07/30/16 06:00 80 07/30/16 04:10 100 50 07/30/16 04:00 50 07/30/16 04:00 98.8 80 14 117/65 99 07/30/16 04:00 80 07/30/16 02:00 80 07/30/16 01:20 100 60 07/30/16 00:00 40 07/30/16 00:00 98.7 82 14 111/61 100 07/30/16 00:00 82 07/29/16 22:50 100 60 07/29/16 22:00 83 07/29/16 20:00 96 07/29/16 20:00 99.1 96 27 112/64 100 07/29/16 20:00 40 07/29/16 19:20 100 40 07/29/16 18:00 98 07/29/16 16:47 100 40 07/29/16 16:00 98.4 101 25 109/62 100 07/29/16 16:00 98 07/29/16 16:00 40 I/O 07/29/16 07/29/16 07/29/16 07/30/16 07/30/16 07/30/16 07:00 15:00 23:00 07:00 15:00 23:00 Intake Total 171 ml 167 ml 603 ml 350 ml 454 ml Output Total 600 ml 400 ml 600 ml 500 ml 350 ml Balance -429 ml -233 ml 3 ml -150 ml 104 ml Intake Oral 0 ml IV Total 171 ml 167 ml 603 ml 350 ml 454 ml Output Urine Total 600 ml 400 ml 600 ml 350 ml 350 ml Gastric Drainage Total 150 ml # Bowel Movements 0 1 0 Physical Exam GENERAL: SKIN: Warm and dry. HEAD: Normocephalic. EYES: No scleral icterus. No injection or drainage. NECK: Supple, trachea midline. No JVD or lymphadenopathy. CARDIOVASCULAR: Regular rate and rhythm without murmurs, gallops, or rubs. RESPIRATORY: Breath sounds equal bilaterally. No accessory muscle use. GASTROINTESTINAL: Abdomen soft, non-tender, nondistended. MUSCULOSKELETAL: No cyanosis, or edema. BACK: Nontender without obvious deformity. No CVA tenderness. Laboratory Laboratory Tests Test 07/29/16 07/29/16 07/29/16 07/30/16 16:00 16:23 23:52 04:15 Prothrombin Time 12.6 SEC Prothromb Time International 1.1 RATIO Ratio Phosphorus Level 1.7 MG/DL 2.0 MG/DL Troponin I 0.78 NG/ML Blood Gas Puncture Site LT BRACHIAL Blood Gas Patient Temperature 98.6 Blood Gas HCO3 30 mmol/L Blood Gas Base Excess 6.2 mmol/L Blood Gas Oxygen Saturation 94 % Arterial Blood pH 7.50 Arterial Blood Partial 39 mmHg Pressure CO2 Arterial Blood Partial 81 mmHg Pressure O2 Arterial Blood Oxygen Content 14.7 Vol % Arterial Blood 1.4 % Carboxyhemoglobin Arterial Blood Methemoglobin 1.6 % Blood Gas Hemoglobin 11.1 G/DL Oxygen Delivery Device VENTILATOR Blood Gas Ventilator Setting SEE COMMENTS Blood Gas Inspired Oxygen 40 % Potassium Level 2.8 MEQ/L 3.7 MEQ/L White Blood Count 7.9 TH/MM3 Red Blood Count 3.54 MIL/MM3 Hemoglobin 10.0 GM/DL Hematocrit 29.8 % Mean Corpuscular Volume 84.1 FL Mean Corpuscular Hemoglobin 28.3 PG Mean Corpuscular Hemoglobin 33.7 % Concent Red Cell Distribution Width 17.1 % Platelet Count 130 TH/MM3 Mean Platelet Volume 10.0 FL Sodium Level 147 MEQ/L Chloride Level 107 MEQ/L Carbon Dioxide Level 31.4 MEQ/L Anion Gap 9 MEQ/L Blood Urea Nitrogen 9 MG/DL Creatinine 0.66 MG/DL Estimat Glomerular Filtration 94 ML/MIN Rate Random Glucose 74 MG/DL Calcium Level 7.5 MG/DL Magnesium Level 2.0 MG/DL Test 07/30/16 07/30/16 07/30/16 05:46 09:00 14:00 Blood Gas Puncture Site RT RADIAL Blood Gas Patient Temperature 98.6 Blood Gas HCO3 28 mmol/L Blood Gas Base Excess 4.2 mmol/L Blood Gas Oxygen Saturation 97 % Arterial Blood pH 7.50 Arterial Blood Partial 36 mmHg Pressure CO2 Arterial Blood Partial 144 mmHg Pressure O2 Arterial Blood Oxygen Content 16.9 Vol % Arterial Blood 1.2 % Carboxyhemoglobin Arterial Blood Methemoglobin 1.0 % Blood Gas Hemoglobin 12.2 G/DL Oxygen Delivery Device VENTILATOR Blood Gas Ventilator Setting PRVC/AC Blood Gas Inspired Oxygen 50 % Potassium Level 3.3 MEQ/L White Blood Count 7.9 TH/MM3 Red Blood Count 3.61 MIL/MM3 Hemoglobin 10.5 GM/DL Hematocrit 30.5 % Mean Corpuscular Volume 84.4 FL Mean Corpuscular Hemoglobin 29.1 PG Mean Corpuscular Hemoglobin 34.5 % Concent Red Cell Distribution Width 17.0 % Platelet Count 142 TH/MM3 Mean Platelet Volume 9.6 FL Prothrombin Time 11.4 SEC Prothromb Time International 1.0 RATIO Ratio Activated Partial 26.8 SEC Thromboplast Time Assessment and Plan Problem List: (1) COPD exacerbation (2) Acute systolic CHF (congestive heart failure) (3) HTN (hypertension) (4) CHF (congestive heart failure) (5) DVT (deep venous thrombosis) (6) Upper gastrointestinal hemorrhage (7) Hypotension (8) Hypovolemic shock (9) PEA (Pulseless electrical activity) (10) Required emergent intubation (11) Acute respiratory failure (12) Cardiogenic shock (13) Cardiac arrest (14) Encephalopathy acute (15) PE (pulmonary thromboembolism) Assessment and Plan 1.) PE - s/p pea cardiac arrest with respiratory failure requiring intubation, recent life threatening GIB, on heparin drip, high risk for poor outcome d/t dilemma of pe and gib; Casa Andrew MD Jul 30, 2016 15:18
--- NOTE | 2016-07-30 17:38 | RADRPT ---
EXAM DATE/TIME: 07/30/2016 16:08 [place] COMPARISON: No previous studies available for comparison. INDICATIONS : Bilateral upper extremity swelling. MEDICAL HISTORY : Hypertension. Gastroesophageal reflux disease. . Deep vein thrombosis. Ulcer. Asthma. Chroni c back pain. SURGICAL HISTORY : Tonsillectomy. Cholecystectomy. Tubal ligation. Bilateral hip replacements. IVC filter. ENCOUNTER: Initial ACUITY: 1 day PAIN SCORE: Non-responsive LOCATION: Bilateral arm. FINDINGS: RIGHT UPPER EXTREMITY: There is spontaneous flow documented in the brachial, basilic, cephalic, axillary, and subclavian vei ns. The vessels are compressible and augmentation response is documented. No filling defects are se en. The flow is phasic with respiration. Direction of flow in the jugular vein is caudal. LEFT UPPER EXTREMITY: There is occlusive and nonocclusive thrombus within the left cephalic vein from the mid arm to the pr oximal forearm. There is normal color flow within the left jugular, subclavian and axillary, brachial , basilic, radial and ulnar veins. CONCLUSION: 1. Occlusive and nonocclusive thrombus within the left cephalic vein from the mid arm to the proximal forearm. 2. No deep venous thrombosis within the right upper extremity. David Luther MD on July 30, 2016 at 17:34 Board Certified Radiologist. This report was verified electronically.
[2016-07-30 21:01] LABS: APTT (PATIENT) 42.3 SEC (24.3-30.1)
[2016-07-31] VITALS (19 sets, daily range): BP systolic 105–119; BP diastolic 55–62; PULSE 78–92; RESP 14–18; TEMP 98.4–101; O2SAT 96–100
[2016-07-31] MEDS: ACETAMINOPHEN 325 MG TAB PO PRN (00:14)
[2016-07-31 02:43] LABS: APTT (PATIENT) 45.6 SEC (24.3-30.1)
[2016-07-31] MEDS: PROPOFOL 1000 MG/100 ML INJ 100 ML IV SCH ×7 (02:49→23:19)
[2016-07-31] MEDS: HEPARIN-D5W INJ 250 ML IV SCH ×2 (03:02→17:46)
[2016-07-31] MEDS: CHLORHEXIDINE GLUCONATE 2 % 1 PACK (2 CLOTHS) TOP SCH (04:00)
[2016-07-31 04:46] LABS: BICARBONATE 29.1 MEQ/L (21.0-32.0); POTASSIUM 3.6 MEQ/L (3.5-5.1)
[2016-07-31] MEDS: LACTULOSE SYRUP 20 GM/30 ML CUP PO SCH (07:53)
[2016-07-31] MEDS: PANTOPRAZOLE SODIUM 40 MG VIAL IV SCH ×2 (07:53→20:54)
[2016-07-31] MEDS: SODIUM CHLORIDE 0.9% FLUSH 5 ML FLUSH IV FLUSH SCH ×2 (07:53→20:54)
[2016-07-31] MEDS ORDERED: BISACODYL 10 MG SUPP RECTAL PRN (08:15)
--- NOTE | 2016-07-31 08:40 | HHI.CCPN ---
Subjective Remarks/Hospital Course On 07/25/2016 the patient presented to ED in [place].Her history is significant for the fact that she has a history of DVT in 2013, Gallup filter placement and was on Xarelto. The patient also stated that she has a history of peptic ulcer disease. The patient presented with complaints of lightheadedness,generalized weakness,fatigue and inability to void 3 days, on 07/25/2016. The patient medical history significant for the fact that in 2012 was admitted with GI bleed at that time had upper endoscopy which was consistent with severe grade D esophagitis,mild gastritis and mckayla. The patient had denied NSAID use. On presentation to the ED in [place] on 07/25, the patient's blood pressure ranges 65/40 to 81/40 with initial hemoglobin of 12. The patient reported also having medical history significant for history of renal failure, and congestive heart failure. The patient received 4 units of crystalloids, indigo a NG tube was placed, approximately a liter of coffee ground emesis upon initial placement. Octreotide and Protonix infusions were initiated, and GI was consulted. Patient was transfused 1unit PRBC. The patient remained hypotensive, a right femoral line was placed, the patient was placed on Shane-Synephrine. Critical care medicine was consulted for treatment and management, on 07/25/2016. A telephone handoff was given from Dr. Hernández, upon initiation of transport from [place], the patient became acutely hypotensive, SBP 70's. The patient was placed on a Levophed infusion, MAP's were obtained greater than 65mmHG. the patient was then transferred to [facility] with ER physician, Dr. Sabillon accompanying patient. Upon arrival, MAP 76, the patient was alert and oriented not in respiratory distress , tachycardic complaining of abdominal pain, maldonado draining pale yellow urine. Levophed had been weaned off prior to arrival and the patient remained on Shane- Synephrine at 70mcgs. The patient then underwent an endoscopy revealing multiple gastric ulcers. The 55-year-old female with history of recent admission for gastric ulcer and GI bleed, was discharged from the hospital on in the am, and presented back to the ED brought in by EMS on the same evening. Apparently the patient was found prone and unresponsive, found to be in PEA with organized bradycardia, CPR initiated on scene, and patient came around, was able to talk a little bit and stated that she should not have left the hospital. Patient was in significant respiratory distress and hypoxic and patient was intubated for respiratory distress. The patient was intubated in ED. Critical care medicine was consulted for management and treatment. 07/29:Upon cessation of sedation, the patient was noted to be a GCS of 11 T, following commands. The patient continues on norepinephrine at 3 mcgs, and propofol at 25 mcgs.Will obtain ECHO today, cardiology consulted. 07/30: Norepinephrine was weaned off early this a.m.. The patient required reintubation last p.m. secondary to inadvertent removal with repositioning of patient. Troponins trending down at this time, cardiology following. GI was re- consulted regarding initiation of anticoagulation in the setting of bilateral pulmonary emboli, patient was placed on heparin infusion at this time with plans for transition to Xarelto. 07/31: Tmax 101.0. The patient was transitioned to heparin last evening, and continues to be closely monitored for GI bleeding in the setting of esophageal ulcer and bilateral pulmonary embolus. Ultrasound of bilateral upper extremities obtained yesterday revealing thrombus left cephalic vein. On sedation holiday last evening the patient became extremely anxious, will resume Xanax 2 mg daily(home medication). Chest x-ray reviewed showed worsening right midlung and right basilar consolidations, oxygen requirements not increased. Objective Vital Signs Date Time Temp Pulse Resp B/P Pulse Ox O2 Delivery O2 Flow Rate FiO2 07/31/16 08:04 100 40 07/31/16 06:00 80 105/56 07/31/16 04:00 98.4 14 Intake and Output 07/30/16 07/30/16 07/31/16 08:00 16:00 00:00 Intake Total 350 ml 454 ml 721 ml Output Total 500 ml 350 ml 350 ml Balance -150 ml 104 ml 371 ml Result Diagram: 07/30/16 1400 07/31/16 0410 Imaging Last 48 hours Impressions Chest X-Ray 07/30/16 0600 Signed Impressions: Service Date/Time: Saturday, July 30, 2016 04:48 - CONCLUSION: 1. Worsening right midlung and right basilar consolidation. 2. Stable left basilar density. Gareth Gray MD Upper Extremity Ultrasound 07/30/16 0000 Signed Impressions: Service Date/Time: Saturday, July 30, 2016 16:08 - CONCLUSION: 1. Occlusive and nonocclusive thrombus within the left cephalic vein from the mid arm to the proximal forearm. 2. No deep venous thrombosis within the right upper extremity. David Luther MD Objective Remarks GENERAL: Super morbidly obese female, intubated and sedated SKIN: Warm and dry. HEAD: Atraumatic. Normocephalic. EYES: Pupils equal and round. No scleral icterus. No injection or drainage. ENT: No nasal bleeding or discharge. Mucous membranes pink and moist. NECK: Trachea midline. No JVD. CARDIOVASCULAR: Normal rate, regular rhythm. RESPIRATORY: Mechanical ventilation. Clear to auscultation. Breath sounds equal bilaterally. GASTROINTESTINAL: Abdomen soft, protuberant non-tender, nondistended. No guarding. Tubefeeds MUSCULOSKELETAL: Extremities without clubbing, cyanosis, or edema. No obvious deformities. NEUROLOGICAL: Intubated and sedated. RASS -2. No gross focal/sensory deficits. Follows commands in all 4 extremities. Date of Insertion: Jul 28, 2016 Date of Insertion: Jul 28, 2016 Location: Subclavian A/P Problem List: (1) Cardiac arrest ICD Code: I46.9 Status: Acute (2) Cardiogenic shock ICD Code: R57.0 Status: Acute (3) Acute respiratory failure ICD Code: J96.00 Status: Acute (4) Encephalopathy acute ICD Code: G93.40 Status: Acute Assessment and Plan Assessment and Plan This is a 55-year-old super morbidly obese female, with a history of DVT on Xarelto daily that presented with hematemesis secondary to GI bleed, and severe dehydration, and hemorrhagic shock on 07/25/2016. Patient was subsequently discharged on 07/28/2016,with reconciliation to continue home medications which included Xarelto. Upon arrival home, the subsequently had PEA arrest, CPR was initiated, ROSC, and transferred to the ED, at which time the patient was in acute hypoxic respiratory failure and was intubated and sedated. Reinitiation of anticoagulation for prothrombotic state in the setting of recent esophageal ulcer. The patient remains critically ill and prognosis is guarded at this time. Problem list; PEA Arrest most likely secondary to prothrombotic state Acute hypoxic respiratory failure Plan by systems: Neurologic: Anxiety Depression Pain -Resume Xanax 2 mg PO/day PRN -Fentanyl and propofol infusion for ventilator synchrony -Maintain RASS-2 Respiratory: COPD Asthma Nicotine abuse Bilateral pulmonary emboli -Mechanical ventilation PRVC 14/0.550/5/0.40 -Maintain O2 sat greater than 92% -Chest x-ray 07/30-worsening right midlung, right basilar consolidation with stable left basilar density -CTA 07/29-acute pulmonary emboli upper lobe branches bilateral -Bronchodilators scheduled every 4 hours, and every 2 hours when necessary -Ventilator bundle -Maintain head of bed greater than 30 -BAL today Cardiovascular: PEA arrest H/O CHF H/O Hypertension H/O DVT Hyperlipidemia NSTEMI Cardiomegaly -Maintain MAP greater than 65 mmHg -Continue atorvastatin -Obtain ECHO -Ian filter in situ since 2012 -Cardiology following- -Troponin 1.74-->1.6 -Resumed anticoagulation, utilizing heparin secondary to the patient is S/P upper endoscopy 07/26-grade D esophagitis with esophageal ulcers. In light of history of esophageal ulcer will transition to Xarelto. Close monitoring for signs of bleeding. Renal: -Repeat BMP follow-up results -Maintain Malodnado, hourly measurement -- Strict I/Os -Monitor CVP -5 FEN/GI: Super Morbid obesity H/O Upper GI bleed 07/25/16 Gastric ulceration GERD Hypophosphatemia -Vital High Protein tube feeds at goal of 55/hour- no residual -Zofran when necessary for nausea -Continue Protonix to BID -Replete electrolytes per ICU protocol Heme/ID: H/O DVT Bilateral PE Thrombus-left cephalic vein -Previously on Xarelto, will continue heparin infusion, PTT therapeutic 45.6 -Gallup IVC filter placement-2012 -07/31-ultrasound B/L upper extremities-nonocclusive and occlusive thrombus in left cephalic vein mid arm to proximal forearm. Endocrine: Glucose monitoring every 6 hours per ICU protocol -- SSI Prophylaxis: GI Prophylaxis Protonix DVT Prophylaxis -- SCDs, heparin infusion. Dispo: This patient remains critically ill with one or more organ systems which are or may become a threat to life. I have spent in excess of 47 minutes discontinuously in the care and management of this patient. This time is exclusive of procedures, and includes, but is not limited to, evaluation of the patient, review of the medical record, discussions with family, consultants, nursing staff, or respiratory therapy, and documentation in the medical record. Physician Mimi Griffin MD Jul 31, 2016 08:40
[2016-07-31] MEDS: RESP: ALBUTEROL 2.5 MG/IPRATROPIUM 0.5 MG NEB (SCH) NEB ×3 (08:47→20:06)
[2016-07-31] MEDS ORDERED: MIDAZOLAM HCL 5 MG/ML VIAL (1 ML) ONE (09:16)
[2016-07-31] MEDS: ALPRAZolam 1 MG TAB PO PRN (09:22)
[2016-07-31] MEDS ORDERED: MIDAZOLAM HCL 2 MG/2 ML VIAL IV ONE (09:30)
--- NOTE | 2016-07-31 12:36 | PD.PROCEDR ---
Procedure Note Procedure Procedure: Fiberoptic Bronchoscopy/ BAL Diagnosis: B/L PE, respiratory failure Indications: Fever, increased sputum secretions Consent: Obtained from Anesthesia: Propofol infusion, Versed 2 mg Description of the Procedure: The patient was sedated and mechanically ventilated. The patient was placed on 100% FIO2 and a volume control mode of ventilation. The fiberoptic bronchoscopy was inserted via 7.5 ETT. The trachea, right and left mainstem bronchi, and sub-segmental bronchi were evaluated. The endobronchial anatomy was normal. Findings: Yellowish thick secretions BAL samples: 3 The patient tolerated the procedure well with no hemodynamic instability or hypoxia. There were no immediate complications noted. At the conclusion of the procedure, the patient was placed back on their pre-procedure ventilatory settings. There was minimal EBL. A chest x-ray has been ordered. I personally performed the procedure. Mimi Mcgraw MD Jul 31, 2016 12:36
--- NOTE | 2016-07-31 14:31 | HHI.GIFU ---
Subjective Remarks Resting in bed. Sedated on the vent in no distress. No active bleeding. ( Aline Marquez) Objective Vitals I&O Vital Signs Date Time Temp Pulse Resp B/P Pulse Ox O2 Delivery O2 Flow Rate FiO2 07/31/16 12:55 100 45 07/31/16 12:00 40 07/31/16 12:00 99.2 83 18 115/58 99 07/31/16 12:00 83 07/31/16 10:54 96 100 07/31/16 10:00 80 07/31/16 09:00 40 07/31/16 08:05 40 07/31/16 08:04 100 40 07/31/16 08:04 40 07/31/16 08:00 40 07/31/16 08:00 80 07/31/16 08:00 98.5 78 14 113/58 99 07/31/16 06:00 80 105/56 07/31/16 06:00 81 07/31/16 04:09 97 40 07/31/16 04:00 98.4 87 14 111/55 99 07/31/16 04:00 40 07/31/16 04:00 87 07/31/16 02:00 91 07/31/16 01:12 99 40 07/31/16 00:00 92 07/31/16 00:00 101.0 92 14 117/62 100 07/31/16 00:00 40 07/30/16 23:08 100 40 07/30/16 22:00 92 07/30/16 20:13 100 40 07/30/16 20:00 91 07/30/16 20:00 40 07/30/16 20:00 100.6 91 14 122/66 100 07/30/16 18:00 86 128/70 07/30/16 18:00 87 07/30/16 16:00 40 07/30/16 16:00 85 07/30/16 16:00 99.0 86 14 126/70 98 07/30/16 15:45 92 40 I/O 07/30/16 07/30/16 07/30/16 07/31/16 07/31/16 07/31/16 07:00 15:00 23:00 07:00 15:00 23:00 Intake Total 350 ml 454 ml 721 ml 761 ml Output Total 500 ml 350 ml 350 ml 300 ml Balance -150 ml 104 ml 371 ml 461 ml IV Total 350 ml 454 ml 501 ml 400 ml Tube Feeding 190 ml 301 ml Other 30 ml 60 ml Output Urine Total 350 ml 350 ml 350 ml 300 ml Stool Total 0 ml 0 ml Gastric Drainage Total 150 ml # Bowel Movements 0 0 0 Laboratory Laboratory Tests Test 07/30/16 07/30/16 07/31/16 07/31/16 18:30 20:20 02:20 04:10 Potassium Level 3.4 3.6 Phosphorus Level 2.5 2.0 Activated Partial 42.3 45.6 Thromboplast Time Sodium Level 144 Chloride Level 108 Carbon Dioxide Level 29.1 Anion Gap 7 Blood Urea Nitrogen 11 Creatinine 0.65 Estimat Glomerular Filtration 95 Rate Random Glucose 116 Calcium Level 7.7 Magnesium Level 2.0 Date/Time Procedure Status Source Growth 07/31/16 10:45 Gram Stain Received Bronchial Washings Bronchial Pending 07/31/16 10:45 Bronchial Culture Received Bronchial Washings Bronchial Pending 07/28/16 20:10 Aerobic Blood Culture - Preliminary Resulted Blood Peripheral NO GROWTH IN 3 DAYS 07/28/16 20:10 Anaerobic Blood Culture - Preliminary Resulted Blood Peripheral NO GROWTH IN 3 DAYS Imaging Last Impressions Chest X-Ray 07/30/16 0600 Signed Impressions: Service Date/Time: Saturday, July 30, 2016 04:48 - CONCLUSION: 1. Worsening right midlung and right basilar consolidation. 2. Stable left basilar density. Gareth Gray MD Upper Extremity Ultrasound 07/30/16 0000 Signed Impressions: Service Date/Time: Saturday, July 30, 2016 16:08 - CONCLUSION: 1. Occlusive and nonocclusive thrombus within the left cephalic vein from the mid arm to the proximal forearm. 2. No deep venous thrombosis within the right upper extremity. David Luther MD CT Angiography 07/29/16 0000 Signed Impressions: Service Date/Time: Friday, July 29, 2016 15:26 - CONCLUSION: 1. Acute pulmonary emboli within the upper lobe branches of the pulmonary arteries bilaterally. 2. Small bilateral pleural effusions. 3. Bibasilar alveolar consolidations (right worse than left) consistent with atelectasis and/or pneumonia. Clinical correlation is recommended. 4. Cardiomegaly. David Luther MD Physical Exam HEENT: Normocephalic; atraumatic; no jaundice. CHEST: Resp even and unlabored. OETT to vent CARDIAC: RRR ABDOMEN: Soft, nondistended, nontender; no hepatosplenomegaly; bowel sounds are present in all four quadrants. NGT EXTREMITIES: Generalized edema. SKIN: Normal; no rash; no jaundice. 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 (Aline Marquez) Assessment and Plan Plan ASSESSMENT: - Recent GIB with coffee ground emesis. Recently hospitalized from 07/25/16- for GI bleeding consisting of hematemesis with coffee-ground emesis. She was evaluated with an EGD on 07/26/16 and this revealed severe grade D esophagitis with esophageal ulcers, normal stomach, normal duodenum, no active bleeding at that time. Pathology is still pending. HH stable at 10.5/30.5, Heparin started. No evidence of GI bleeding. Tolerating TF. Protonix 40mg IV BID. - Severe esophagitis with esophageal ulcers. Protonix 40mg IV BID. - PE, hx DVT in July of 2015. On Xarelto. This was on hold for GI bleeding and was cleared to be resumed on 07/28/16. She was discharged home on Xarelto. Currently on Heparin. - Resp. Failure. Vent per CCM. - Anemia. No active bleeding. 10.30.5. - PEA Arrest, S/P CPR with SROC. CTA with PE. Per CCM. - JESUS, electrolyte abnormalities - HTN, CHF, Asthma/COPD per CCM. PLAN: - Vital High Protein with goal rate of 55 ml/hr - Protonix 40mg IV BID - Monitor HH - Transfuse as necessary - Notify GI of active bleeding - Okay for anticoagulation with close monitoring of VS and blood counts - GI will sign off, please reconsult if any evidence of active GI bleeding- drop in h/h, active bleeding - Pt seen and examined by Dr. Westbrook and myself and this note is written on his behalf (Aline Marquez) Physician Comments Patient was seen and examined Agree with above Continue with current supportive care Monitor labs We will sign off (Wilfrido Westbrook MD) Aline Marquez Jul 31, 2016 14:31 Wilfrido Westbrook MD Jul 31, 2016 19:11
--- NOTE | 2016-07-31 15:44 | PD.CARD.PN ---
Subjective Subjective Remarks intubated, sedated Objective Vital Signs / I&O Vital Signs Date Time Temp Pulse Resp B/P Pulse Ox O2 Delivery O2 Flow Rate FiO2 07/31/16 14:00 86 07/31/16 12:55 100 45 07/31/16 12:00 40 07/31/16 12:00 99.2 83 18 115/58 99 07/31/16 12:00 83 07/31/16 10:54 96 100 07/31/16 10:00 80 07/31/16 09:00 40 07/31/16 08:05 40 07/31/16 08:04 100 40 07/31/16 08:04 40 07/31/16 08:00 40 07/31/16 08:00 80 07/31/16 08:00 98.5 78 14 113/58 99 07/31/16 06:00 80 105/56 07/31/16 06:00 81 07/31/16 04:09 97 40 07/31/16 04:00 98.4 87 14 111/55 99 07/31/16 04:00 40 07/31/16 04:00 87 07/31/16 02:00 91 07/31/16 01:12 99 40 07/31/16 00:00 92 07/31/16 00:00 101.0 92 14 117/62 100 07/31/16 00:00 40 07/30/16 23:08 100 40 07/30/16 22:00 92 07/30/16 20:13 100 40 07/30/16 20:00 91 07/30/16 20:00 40 07/30/16 20:00 100.6 91 14 122/66 100 07/30/16 18:00 86 128/70 07/30/16 18:00 87 07/30/16 16:00 40 07/30/16 16:00 85 07/30/16 16:00 99.0 86 14 126/70 98 07/30/16 15:45 92 40 I/O 07/30/16 07/30/16 07/30/16 07/31/16 07/31/16 07/31/16 07:00 15:00 23:00 07:00 15:00 23:00 Intake Total 350 ml 454 ml 721 ml 761 ml 765 ml Output Total 500 ml 350 ml 350 ml 300 ml 500 ml Balance -150 ml 104 ml 371 ml 461 ml 265 ml IV Total 350 ml 454 ml 501 ml 400 ml 347 ml Tube Feeding 190 ml 301 ml 238 ml Other 30 ml 60 ml 180 ml Output Urine Total 350 ml 350 ml 350 ml 300 ml 500 ml Stool Total 0 ml 0 ml Gastric Drainage Total 150 ml # Bowel Movements 0 0 0 1 Physical Exam GENERAL: SKIN: Warm and dry. HEAD: Normocephalic. EYES: No scleral icterus. No injection or drainage. NECK: Supple, trachea midline. No JVD or lymphadenopathy. CARDIOVASCULAR: Regular rate and rhythm without murmurs, gallops, or rubs. RESPIRATORY: Breath sounds equal bilaterally. No accessory muscle use. GASTROINTESTINAL: Abdomen soft, non-tender, nondistended. MUSCULOSKELETAL: No cyanosis, or edema. BACK: Nontender without obvious deformity. No CVA tenderness. Laboratory Laboratory Tests Test 07/30/16 07/30/16 07/31/16 07/31/16 18:30 20:20 02:20 04:10 Potassium Level 3.4 MEQ/L 3.6 MEQ/L Phosphorus Level 2.5 MG/DL 2.0 MG/DL Activated Partial 42.3 SEC 45.6 SEC Thromboplast Time Sodium Level 144 MEQ/L Chloride Level 108 MEQ/L Carbon Dioxide Level 29.1 MEQ/L Anion Gap 7 MEQ/L Blood Urea Nitrogen 11 MG/DL Creatinine 0.65 MG/DL Estimat Glomerular Filtration 95 ML/MIN Rate Random Glucose 116 MG/DL Calcium Level 7.7 MG/DL Magnesium Level 2.0 MG/DL Assessment and Plan Problem List: (1) COPD exacerbation (2) Acute systolic CHF (congestive heart failure) (3) HTN (hypertension) (4) CHF (congestive heart failure) (5) DVT (deep venous thrombosis) (6) Upper gastrointestinal hemorrhage (7) Hypotension (8) Hypovolemic shock (9) PEA (Pulseless electrical activity) (10) Required emergent intubation (11) Acute respiratory failure (12) Cardiogenic shock (13) Cardiac arrest (14) Encephalopathy acute (15) PE (pulmonary thromboembolism) Assessment and Plan 1.) PE - s/p pea cardiac arrest with respiratory failure requiring intubation, recent life threatening GIB, on heparin drip, high risk for poor outcome d/t dilemma of pe and gib; so far tolerating iv heparin Casa Andrew MD Jul 31, 2016 15:44
[2016-07-31] MEDS: ATORVASTATIN 20 MG TAB PO SCH (20:55)
[2016-08-01] VITALS (17 sets, daily range): BP systolic 94–119; BP diastolic 52–63; PULSE 64–90; RESP 14–18; TEMP 98.7–99.7; O2SAT 95–100
[2016-08-01] MEDS: PROPOFOL 1000 MG/100 ML INJ 100 ML IV SCH ×3 (02:34→10:16)
[2016-08-01] MEDS: CHLORHEXIDINE GLUCONATE 2 % 1 PACK (2 CLOTHS) TOP SCH ×2 (04:00→19:48)
[2016-08-01] MEDS: RESP: ALBUTEROL 2.5 MG/IPRATROPIUM 0.5 MG NEB (SCH) NEB ×4 (04:22→21:17)
[2016-08-01 06:17] LABS: APTT (PATIENT) 46.4 SEC (24.3-30.1)
[2016-08-01] MEDS: HEPARIN-D5W INJ 250 ML IV SCH (06:43)
[2016-08-01] MEDS: PANTOPRAZOLE SODIUM 40 MG VIAL IV SCH ×2 (08:21→19:48)
[2016-08-01] MEDS: SODIUM CHLORIDE 0.9% FLUSH 5 ML FLUSH IV FLUSH SCH ×2 (08:21→19:04)
[2016-08-01] MEDS: LACTULOSE SYRUP 20 GM/30 ML CUP PO SCH (08:21)
[2016-08-01] MEDS: ALPRAZolam 1 MG TAB PO PRN (10:16)
--- NOTE | 2016-08-01 10:19 | HHI.CCPN ---
Subjective Remarks/Hospital Course On 07/25/2016 the patient presented to ED in [place].Her history is significant for the fact that she has a history of DVT in 2013, Bogard filter placement and was on Xarelto. The patient also stated that she has a history of peptic ulcer disease. The patient presented with complaints of lightheadedness,generalized weakness,fatigue and inability to void 3 days, on 07/25/2016. The patient medical history significant for the fact that in 2012 was admitted with GI bleed at that time had upper endoscopy which was consistent with severe grade D esophagitis,mild gastritis and mckayla. The patient had denied NSAID use. On presentation to the ED in [place] on 07/25, the patient's blood pressure ranges 65/40 to 81/40 with initial hemoglobin of 12. The patient reported also having medical history significant for history of renal failure, and congestive heart failure. The patient received 4 units of crystalloids, indigo a NG tube was placed, approximately a liter of coffee ground emesis upon initial placement. Octreotide and Protonix infusions were initiated, and GI was consulted. Patient was transfused 1unit PRBC. The patient remained hypotensive, a right femoral line was placed, the patient was placed on Shane-Synephrine. Critical care medicine was consulted for treatment and management, on 07/25/2016. A telephone handoff was given from Dr. Hernández, upon initiation of transport from [place], the patient became acutely hypotensive, SBP 70's. The patient was placed on a Levophed infusion, MAP's were obtained greater than 65mmHG. the patient was then transferred to [facility] with ER physician, Dr. Sabillon accompanying patient. Upon arrival, MAP 76, the patient was alert and oriented not in respiratory distress , tachycardic complaining of abdominal pain, maldonado draining pale yellow urine. Levophed had been weaned off prior to arrival and the patient remained on Shane- Synephrine at 70mcgs. The patient then underwent an endoscopy revealing multiple gastric ulcers. The 55-year-old female with history of recent admission for gastric ulcer and GI bleed, was discharged from the hospital on in the am, and presented back to the ED brought in by EMS on the same evening. Apparently the patient was found prone and unresponsive, found to be in PEA with organized bradycardia, CPR initiated on scene, and patient came around, was able to talk a little bit and stated that she should not have left the hospital. Patient was in significant respiratory distress and hypoxic and patient was intubated for respiratory distress. The patient was intubated in ED. Critical care medicine was consulted for management and treatment. 07/29:Upon cessation of sedation, the patient was noted to be a GCS of 11 T, following commands. The patient continues on norepinephrine at 3 mcgs, and propofol at 25 mcgs.Will obtain ECHO today, cardiology consulted. 07/30: Norepinephrine was weaned off early this a.m.. The patient required reintubation last p.m. secondary to inadvertent removal with repositioning of patient. Troponins trending down at this time, cardiology following. GI was re- consulted regarding initiation of anticoagulation in the setting of bilateral pulmonary emboli, patient was placed on heparin infusion at this time with plans for transition to Xarelto. 07/31: Tmax 101.0. The patient was transitioned to heparin last evening, and continues to be closely monitored for GI bleeding in the setting of esophageal ulcer and bilateral pulmonary embolus. Ultrasound of bilateral upper extremities obtained yesterday revealing thrombus left cephalic vein. On sedation holiday last evening the patient became extremely anxious, will resume Xanax 2 mg daily(home medication). Chest x-ray reviewed showed worsening right midlung and right basilar consolidations, oxygen requirements not increased. 08/01: continues to fail SBTs for agitation. secretions are still an issue. s/p bronch yesterday. continues on heparin infusion, no bleeding episodes x 48h. Objective Vital Signs Date Time Temp Pulse Resp B/P Pulse Ox O2 Delivery O2 Flow Rate FiO2 08/01/16 07:45 100 35 08/01/16 06:00 83 08/01/16 04:00 99.7 14 117/63 Intake and Output 07/31/16 07/31/16 08/01/16 08:00 16:00 00:00 Intake Total 761 ml 765 ml 916 ml Output Total 300 ml 500 ml 700 ml Balance 461 ml 265 ml 216 ml Result Diagram: 07/30/16 1400 07/31/16 0410 Other Results Microbiology Date/Time Procedure Status Source Growth 07/31/16 18:00 Stool Occult Blood (SOULEYMANE) - Final Complete Stool Stool HEMOCCULT NEGATIVE Imaging Last 48 hours Impressions Chest X-Ray 07/30/16 0600 Signed Impressions: Service Date/Time: Saturday, July 30, 2016 04:48 - CONCLUSION: 1. Worsening right midlung and right basilar consolidation. 2. Stable left basilar density. Gareth Gray MD Upper Extremity Ultrasound 07/30/16 0000 Signed Impressions: Service Date/Time: Saturday, July 30, 2016 16:08 - CONCLUSION: 1. Occlusive and nonocclusive thrombus within the left cephalic vein from the mid arm to the proximal forearm. 2. No deep venous thrombosis within the right upper extremity. David Luther MD Objective Remarks GENERAL: Super morbidly obese female, intubated and sedated SKIN: Warm and dry. HEAD: Atraumatic. Normocephalic. EYES: Pupils equal and round. No scleral icterus. No injection or drainage. ENT: No nasal bleeding or discharge. Mucous membranes pink and moist. NECK: Trachea midline. No JVD. CARDIOVASCULAR: Normal rate, regular rhythm. RESPIRATORY: Mechanical ventilation. Clear to auscultation. Breath sounds equal bilaterally. GASTROINTESTINAL: Abdomen soft, protuberant non-tender, nondistended. No guarding. MUSCULOSKELETAL: Extremities without clubbing, cyanosis, or edema. No obvious deformities. NEUROLOGICAL: Intubated and sedated. RASS -2. No gross focal/sensory deficits. Follows commands in all 4 extremities. Date of Insertion: Jul 28, 2016 Date of Insertion: Jul 28, 2016 Location: [facility] A/P Problem List: (1) Cardiac arrest ICD Code: I46.9 Status: Acute (2) Cardiogenic shock ICD Code: R57.0 Status: Acute (3) Acute respiratory failure ICD Code: J96.00 Status: Acute (4) Encephalopathy acute ICD Code: G93.40 Status: Acute Assessment and Plan Assessment and Plan This is a 55-year-old super morbidly obese female, with a history of DVT on Xarelto daily that presented with hematemesis secondary to GI bleed, and severe dehydration, and hemorrhagic shock on 07/25/2016. Patient was subsequently discharged on 07/28/2016,with reconciliation to continue home medications which included Xarelto. Upon arrival home, the subsequently had PEA arrest, CPR was initiated, ROSC, and transferred to the ED, at which time the patient was in acute hypoxic respiratory failure and was intubated and sedated. Reinitiation of anticoagulation for prothrombotic state in the setting of recent esophageal ulcer. The patient remains critically ill and prognosis is guarded at this time. Problem list; PEA Arrest most likely secondary to prothrombotic state Acute hypoxic respiratory failure Severe agitated delirium Plan by systems: Neurologic: Anxiety Depression Pain -Resume Xanax 2 mg PO/day PRN -Fentanyl and propofol infusion for ventilator synchrony -will transition to precedex -will start seroquel 100mg po q8h. -Maintain RASS 0 Respiratory: COPD Asthma Nicotine abuse Bilateral pulmonary emboli -will again try SBT. continues to fail for agitation. -Maintain O2 sat greater than 92% -Chest x-ray 07/30-worsening right midlung, right basilar consolidation with stable left basilar density -CTA 07/29-acute pulmonary emboli upper lobe branches bilateral -Bronchodilators scheduled every 4 hours, and every 2 hours when necessary -Ventilator bundle -Maintain head of bed greater than 30 -BAL today Cardiovascular: PEA arrest H/O CHF H/O Hypertension H/O DVT Hyperlipidemia NSTEMI Cardiomegaly -Maintain MAP greater than 65 mmHg -Continue atorvastatin -Bogard filter in situ since 2012 -Cardiology following- -Troponin 1.74-->1.6 -Resumed anticoagulation, utilizing heparin secondary to the patient is S/P upper endoscopy 07/26-grade D esophagitis with esophageal ulcers. will transition to therapeutic lovenox today. Renal: -Repeat BMP follow-up results -Maintain Maldonado, hourly measurement -- Strict I/Os -Monitor CVP -5 -lasix 40mg iv x 1 now. FEN/GI: Super Morbid obesity H/O Upper GI bleed 07/25/16 Gastric ulceration GERD Hypophosphatemia -Vital High Protein tube feeds at goal of 55/hour- no residual -Zofran when necessary for nausea -Continue Protonix to BID -Replete electrolytes per ICU protocol Heme/ID: H/O DVT Bilateral PE Thrombus-left cephalic vein -Previously on Xarelto, will transition to lovenox 1mg sq q12h. -Ian IVC filter placement-2012 -07/31-ultrasound B/L upper extremities-nonocclusive and occlusive thrombus in left cephalic vein mid arm to proximal forearm. Endocrine: Glucose monitoring every 6 hours per ICU protocol -- SSI Prophylaxis: GI Prophylaxis Protonix DVT Prophylaxis -- SCDs, heparin infusion. Dispo: This patient remains critically ill with one or more organ systems which are or may become a threat to life. I have spent in excess of 39 minutes discontinuously in the care and management of this patient. This time is exclusive of procedures, and includes, but is not limited to, evaluation of the patient, review of the medical record, discussions with family, consultants, nursing staff, or respiratory therapy, and documentation in the medical record. Nilo Moran MD Aug 01, 2016 10:19
[2016-08-01] MEDS: DEXMEDETOMIDINE INJ 50 ML IV SCH ×3 (11:00→19:48)
[2016-08-01] MEDS: ENOXAPARIN SODIUM 100 MG/ML SYRINGE SQ SCH ×2 (11:00→22:19)
[2016-08-01] MEDS ORDERED: FUROSEMIDE 40 MG/4 ML VIAL IV PUSH ONE (11:00)
[2016-08-01] MEDS: SODIUM CHLORIDE 0.9% FLUSH 5 ML FLUSH IV FLUSH PRN (11:00)
[2016-08-01 11:38] LABS: HEMATOCRIT 27.7 % (35.0-46.0); MEAN CELL VOLUME 84.3 FL (80.0-100.0); MEAN CORPUSCULAR HEMOGLOBIN 28.8 PG (27.0-34.0); MEAN CORPUSCULAR HGB CONC 34.1 % (32.0-36.0); PLATELET COUNT 153 TH/MM3 (150-450); RED BLOOD COUNT 3.28 MIL/MM3 (4.00-5.30); RED CELL DISTRIBUTION WIDTH 16.7 % (11.6-17.2); REVIEW FLAG FINAL; WHITE BLOOD COUNT 9.4 TH/MM3 (4.0-11.0)
[2016-08-01 11:55] LABS: POTASSIUM 3.1 MEQ/L (3.5-5.1)
[2016-08-01] MEDS: POTASSIUM CHLOR 40 MEQ PREMIX 100 ML IV PRN ×2 (12:18→17:32)
[2016-08-01] MEDS: QUEtiapine FUMARATE 100 MG TAB PO SCH ×2 (12:18→20:19)
[2016-08-01] MEDS: ALPRAZolam 1 MG TAB PO SCH ×2 (14:14→20:19)
[2016-08-01] MEDS: HALOPERIDOL LACTATE 5 MG/ML AMP IV PUSH PRN (14:14)
--- NOTE | 2016-08-01 18:25 | PD.CARD.PN ---
Subjective Subjective Remarks intubated, sedated Objective Vital Signs / I&O Vital Signs Date Time Temp Pulse Resp B/P Pulse Ox O2 Delivery O2 Flow Rate FiO2 08/01/16 18:00 76 08/01/16 17:00 98 35 08/01/16 16:00 35 08/01/16 16:00 72 08/01/16 16:00 98.7 72 14 94/52 97 08/01/16 14:00 90 08/01/16 12:30 35 08/01/16 12:12 35 08/01/16 12:12 95 35 08/01/16 12:00 98.9 64 16 101/58 96 08/01/16 12:00 64 08/01/16 10:00 83 08/01/16 08:00 35 08/01/16 08:00 99.2 79 18 119/59 99 08/01/16 08:00 79 08/01/16 07:45 100 35 08/01/16 07:45 35 08/01/16 06:00 83 08/01/16 04:20 99 35 08/01/16 04:00 35 08/01/16 04:00 78 08/01/16 04:00 99.7 78 14 117/63 100 08/01/16 02:00 77 08/01/16 00:00 81 08/01/16 00:00 35 08/01/16 00:00 99.5 81 15 108/56 98 08/01/16 00:00 98 35 07/31/16 22:00 84 07/31/16 20:07 100 35 07/31/16 20:00 35 07/31/16 20:00 99.0 85 14 119/58 100 07/31/16 20:00 85 I/O 07/31/16 07/31/16 07/31/16 08/01/16 08/01/16 08/01/16 07:00 15:00 23:00 07:00 15:00 23:00 Intake Total 761 ml 765 ml 916 ml 712 ml 821 ml Output Total 300 ml 500 ml 700 ml 1125 ml 2700 ml Balance 461 ml 265 ml 216 ml -413 ml -1879 ml IV Total 400 ml 347 ml 406 ml 338 ml 304 ml Tube Feeding 301 ml 238 ml 450 ml 374 ml 337 ml Other 60 ml 180 ml 60 ml 180 ml Output Urine Total 300 ml 500 ml 700 ml 1125 ml 2700 ml Stool Total 0 ml # Bowel Movements 0 1 2 2 1 Physical Exam GENERAL: SKIN: Warm and dry. HEAD: Normocephalic. EYES: No scleral icterus. No injection or drainage. NECK: Supple, trachea midline. No JVD or lymphadenopathy. CARDIOVASCULAR: Regular rate and rhythm without murmurs, gallops, or rubs. RESPIRATORY: Breath sounds equal bilaterally. No accessory muscle use. GASTROINTESTINAL: Abdomen soft, non-tender, nondistended. MUSCULOSKELETAL: No cyanosis, or edema. BACK: Nontender without obvious deformity. No CVA tenderness. Laboratory Laboratory Tests Test 08/01/16 08/01/16 04:10 11:00 Activated Partial 46.4 SEC Thromboplast Time White Blood Count 9.4 TH/MM3 Red Blood Count 3.28 MIL/MM3 Hemoglobin 9.4 GM/DL Hematocrit 27.7 % Mean Corpuscular Volume 84.3 FL Mean Corpuscular Hemoglobin 28.8 PG Mean Corpuscular Hemoglobin 34.1 % Concent Red Cell Distribution Width 16.7 % Platelet Count 153 TH/MM3 Mean Platelet Volume 10.1 FL Sodium Level 144 MEQ/L Potassium Level 3.1 MEQ/L Chloride Level 107 MEQ/L Carbon Dioxide Level 30.0 MEQ/L Anion Gap 7 MEQ/L Blood Urea Nitrogen 8 MG/DL Creatinine 0.48 MG/DL Estimat Glomerular Filtration 135 ML/MIN Rate Random Glucose 109 MG/DL Calcium Level 8.0 MG/DL Assessment and Plan Problem List: (1) COPD exacerbation (2) Acute systolic CHF (congestive heart failure) (3) HTN (hypertension) (4) CHF (congestive heart failure) (5) DVT (deep venous thrombosis) (6) Upper gastrointestinal hemorrhage (7) Hypotension (8) Hypovolemic shock (9) PEA (Pulseless electrical activity) (10) Required emergent intubation (11) Acute respiratory failure (12) Cardiogenic shock (13) Cardiac arrest (14) Encephalopathy acute (15) PE (pulmonary thromboembolism) Assessment and Plan 1.) PE - s/p pea cardiac arrest with respiratory failure requiring intubation, recent life threatening GIB, now on lovenox, slight drop in hgb with no obvious bleeding, high risk for poor outcome d/t dilemma of pe and gib; Casa Andrew MD Aug 01, 2016 18:24
[2016-08-01 19:26] LABS: BICARBONATE 30.7 MEQ/L (21.0-32.0); POTASSIUM 3.9 MEQ/L (3.5-5.1)
[2016-08-01] MEDS: ATORVASTATIN 20 MG TAB PO SCH (19:48)
[2016-08-02] VITALS (20 sets, daily range): BP systolic 99–132; BP diastolic 55–70; PULSE 72–99; RESP 14–26; TEMP 98.3–100.8; O2SAT 95–100
[2016-08-02] MEDS: DEXMEDETOMIDINE INJ 50 ML IV SCH ×3 (00:40→21:23)
[2016-08-02] MEDS: RESP: ALBUTEROL 2.5 MG/IPRATROPIUM 0.5 MG NEB (SCH) NEB ×4 (03:26→20:11)
[2016-08-02] MEDS: ALPRAZolam 1 MG TAB PO SCH ×3 (04:17→21:24)
[2016-08-02] MEDS: QUEtiapine FUMARATE 100 MG TAB PO SCH ×3 (04:17→21:24)
[2016-08-02 05:32] LABS: HEMATOCRIT 27.2 % (35.0-46.0); MEAN CELL VOLUME 84.5 FL (80.0-100.0); MEAN CORPUSCULAR HEMOGLOBIN 27.9 PG (27.0-34.0); PLATELET COUNT 154 TH/MM3 (150-450); RED BLOOD COUNT 3.22 MIL/MM3 (4.00-5.30); RED CELL DISTRIBUTION WIDTH 16.9 % (11.6-17.2); REVIEW FLAG FINAL; WHITE BLOOD COUNT 11.4 TH/MM3 (4.0-11.0)
[2016-08-02 05:37] LABS: BICARBONATE 27.7 MEQ/L (21.0-32.0); POTASSIUM 3.7 MEQ/L (3.5-5.1)
[2016-08-02 05:48] LABS: APTT (PATIENT) 31.2 SEC (24.3-30.1)
--- NOTE | 2016-08-02 08:32 | PD.CARD.PN ---
Subjective Subjective Remarks intubated, sedated Objective Vital Signs / I&O Vital Signs Date Time Temp Pulse Resp B/P Pulse Ox O2 Delivery O2 Flow Rate FiO2 08/02/16 07:26 35 08/02/16 07:23 96 35 08/02/16 07:20 99 35 08/02/16 06:00 76 08/02/16 04:28 97 35 08/02/16 04:00 76 08/02/16 04:00 98.9 83 16 105/55 96 08/02/16 04:00 35 08/02/16 02:00 76 08/02/16 01:19 96 50 08/02/16 00:00 35 08/02/16 00:00 76 08/02/16 00:00 98.3 79 14 111/56 97 08/01/16 22:00 76 08/01/16 21:17 95 35 08/01/16 20:00 35 08/01/16 20:00 76 08/01/16 20:00 98.7 79 14 107/56 97 08/01/16 18:00 76 08/01/16 17:00 98 35 08/01/16 16:00 35 08/01/16 16:00 72 08/01/16 16:00 98.7 72 14 94/52 97 08/01/16 14:00 90 08/01/16 12:30 35 08/01/16 12:12 35 08/01/16 12:12 95 35 08/01/16 12:00 98.9 64 16 101/58 96 08/01/16 12:00 64 08/01/16 10:00 83 I/O 08/01/16 08/01/16 08/01/16 08/02/16 08/02/16 08/02/16 07:00 15:00 23:00 07:00 15:00 23:00 Intake Total 712 ml 821 ml 887 ml 925 ml Output Total 1125 ml 2700 ml 1100 ml 750 ml Balance -413 ml -1879 ml -213 ml 175 ml IV Total 338 ml 304 ml 337 ml 425 ml Tube Feeding 374 ml 337 ml 425 ml 375 ml Other 180 ml 125 ml 125 ml Output Urine Total 1125 ml 2700 ml 1100 ml 750 ml # Bowel Movements 2 1 1 Physical Exam GENERAL: SKIN: Warm and dry. HEAD: Normocephalic. EYES: No scleral icterus. No injection or drainage. NECK: Supple, trachea midline. No JVD or lymphadenopathy. CARDIOVASCULAR: Regular rate and rhythm without murmurs, gallops, or rubs. RESPIRATORY: Breath sounds equal bilaterally. No accessory muscle use. GASTROINTESTINAL: Abdomen soft, non-tender, nondistended. MUSCULOSKELETAL: No cyanosis, or edema. BACK: Nontender without obvious deformity. No CVA tenderness. Laboratory Laboratory Tests Test 08/01/16 08/01/16 08/02/16 11:00 18:30 03:59 White Blood Count 9.4 TH/MM3 11.4 TH/MM3 Red Blood Count 3.28 MIL/MM3 3.22 MIL/MM3 Hemoglobin 9.4 GM/DL 9.0 GM/DL Hematocrit 27.7 % 27.2 % Mean Corpuscular Volume 84.3 FL 84.5 FL Mean Corpuscular Hemoglobin 28.8 PG 27.9 PG Mean Corpuscular Hemoglobin 34.1 % 33.0 % Concent Red Cell Distribution Width 16.7 % 16.9 % Platelet Count 153 TH/MM3 154 TH/MM3 Mean Platelet Volume 10.1 FL 11.2 FL Sodium Level 144 MEQ/L 144 MEQ/L 146 MEQ/L Potassium Level 3.1 MEQ/L 3.9 MEQ/L 3.7 MEQ/L Chloride Level 107 MEQ/L 107 MEQ/L 109 MEQ/L Carbon Dioxide Level 30.0 MEQ/L 30.7 MEQ/L 27.7 MEQ/L Anion Gap 7 MEQ/L 6 MEQ/L 9 MEQ/L Blood Urea Nitrogen 8 MG/DL 9 MG/DL 14 MG/DL Creatinine 0.48 MG/DL 0.55 MG/DL 0.68 MG/DL Estimat Glomerular Filtration 135 ML/MIN 116 ML/MIN 91 ML/MIN Rate Random Glucose 109 MG/DL 120 MG/DL 118 MG/DL Calcium Level 8.0 MG/DL 8.3 MG/DL 8.2 MG/DL Activated Partial 31.2 SEC Thromboplast Time Assessment and Plan Problem List: (1) COPD exacerbation (2) Acute systolic CHF (congestive heart failure) (3) HTN (hypertension) (4) CHF (congestive heart failure) (5) DVT (deep venous thrombosis) (6) Upper gastrointestinal hemorrhage (7) Hypotension (8) Hypovolemic shock (9) PEA (Pulseless electrical activity) (10) Required emergent intubation (11) Acute respiratory failure (12) Cardiogenic shock (13) Cardiac arrest (14) Encephalopathy acute (15) PE (pulmonary thromboembolism) Assessment and Plan 1.) PE - s/p pea cardiac arrest with respiratory failure requiring intubation, recent life threatening GIB, now on lovenox, slight drop in hgb again, hgb=9.0, with no obvious bleeding, high risk for poor outcome d/t dilemma of pe and gib; Casa Andrew MD Aug 02, 2016 08:32
[2016-08-02] MEDS: LACTULOSE SYRUP 20 GM/30 ML CUP PO SCH (09:04)
[2016-08-02] MEDS: SODIUM CHLORIDE 0.9% FLUSH 5 ML FLUSH IV FLUSH PRN (09:05)
[2016-08-02] MEDS: PANTOPRAZOLE SODIUM 40 MG VIAL IV SCH ×2 (09:05→21:24)
[2016-08-02] MEDS: SODIUM CHLORIDE 0.9% FLUSH 5 ML FLUSH IV FLUSH SCH ×2 (09:05→21:24)
--- NOTE | 2016-08-02 10:30 | HHI.CCPN ---
Subjective Remarks/Hospital Course On 07/25/2016 the patient presented to ED in [place].Her history is significant for the fact that she has a history of DVT in 2013, [place] filter placement and was on Xarelto. The patient also stated that she has a history of peptic ulcer disease. The patient presented with complaints of lightheadedness,generalized weakness,fatigue and inability to void 3 days, on 07/25/2016. The patient medical history significant for the fact that in 2012 was admitted with GI bleed at that time had upper endoscopy which was consistent with severe grade D esophagitis,mild gastritis and mckayla. The patient had denied NSAID use. On presentation to the ED in [place] on 07/25, the patient's blood pressure ranges 65/40 to 81/40 with initial hemoglobin of 12. The patient reported also having medical history significant for history of renal failure, and congestive heart failure. The patient received 4 units of crystalloids, indigo a NG tube was placed, approximately a liter of coffee ground emesis upon initial placement. Octreotide and Protonix infusions were initiated, and GI was consulted. Patient was transfused 1unit PRBC. The patient remained hypotensive, a right femoral line was placed, the patient was placed on Shane-Synephrine. Critical care medicine was consulted for treatment and management, on 07/25/2016. A telephone handoff was given from Dr. Hernández, upon initiation of transport from [place], the patient became acutely hypotensive, SBP 70's. The patient was placed on a Levophed infusion, MAP's were obtained greater than 65mmHG. the patient was then transferred to [facility] with ER physician, Dr. Sabillon accompanying patient. Upon arrival, MAP 76, the patient was alert and oriented not in respiratory distress , tachycardic complaining of abdominal pain, maldonado draining pale yellow urine. Levophed had been weaned off prior to arrival and the patient remained on Shane- Synephrine at 70mcgs. The patient then underwent an endoscopy revealing multiple gastric ulcers. The 55-year-old female with history of recent admission for gastric ulcer and GI bleed, was discharged from the hospital on in the am, and presented back to the ED brought in by EMS on the same evening. Apparently the patient was found prone and unresponsive, found to be in PEA with organized bradycardia, CPR initiated on scene, and patient came around, was able to talk a little bit and stated that she should not have left the hospital. Patient was in significant respiratory distress and hypoxic and patient was intubated for respiratory distress. The patient was intubated in ED. Critical care medicine was consulted for management and treatment. 07/29:Upon cessation of sedation, the patient was noted to be a GCS of 11 T, following commands. The patient continues on norepinephrine at 3 mcgs, and propofol at 25 mcgs.Will obtain ECHO today, cardiology consulted. 07/30: Norepinephrine was weaned off early this a.m.. The patient required reintubation last p.m. secondary to inadvertent removal with repositioning of patient. Troponins trending down at this time, cardiology following. GI was re- consulted regarding initiation of anticoagulation in the setting of bilateral pulmonary emboli, patient was placed on heparin infusion at this time with plans for transition to Xarelto. 07/31: Tmax 101.0. The patient was transitioned to heparin last evening, and continues to be closely monitored for GI bleeding in the setting of esophageal ulcer and bilateral pulmonary embolus. Ultrasound of bilateral upper extremities obtained yesterday revealing thrombus left cephalic vein. On sedation holiday last evening the patient became extremely anxious, will resume Xanax 2 mg daily(home medication). Chest x-ray reviewed showed worsening right midlung and right basilar consolidations, oxygen requirements not increased. 08/01: continues to fail SBTs for agitation. secretions are still an issue. s/p bronch yesterday. continues on heparin infusion, no bleeding episodes x 48h. 08/02: failed SBT again yesterday for agitation. Seroquel started. this AM much more awake. transitioned yesterday to lovenox from heparin drip, hgb decreased slightly from 9.4 to 9. no signs of active bleeding. Objective Vital Signs Date Time Temp Pulse Resp B/P Pulse Ox O2 Delivery O2 Flow Rate FiO2 08/02/16 07:26 35 08/02/16 07:23 96 08/02/16 06:00 76 08/02/16 04:00 98.9 16 105/55 Intake and Output 08/01/16 08/01/16 08/02/16 08:00 16:00 00:00 Intake Total 712 ml 821 ml 887 ml Output Total 1125 ml 2700 ml 1100 ml Balance -413 ml -1879 ml -213 ml Result Diagram: 08/02/16 0359 08/02/16 0359 Other Results Microbiology Date/Time Procedure Status Source Growth 07/31/16 18:00 Stool Occult Blood (SOULEYMANE) - Final Complete Stool Stool HEMOCCULT NEGATIVE Imaging Last 48 hours Impressions Chest X-Ray 07/30/16 0600 Signed Impressions: Service Date/Time: Saturday, July 30, 2016 04:48 - CONCLUSION: 1. Worsening right midlung and right basilar consolidation. 2. Stable left basilar density. Gareth Gray MD Upper Extremity Ultrasound 07/30/16 0000 Signed Impressions: Service Date/Time: Saturday, July 30, 2016 16:08 - CONCLUSION: 1. Occlusive and nonocclusive thrombus within the left cephalic vein from the mid arm to the proximal forearm. 2. No deep venous thrombosis within the right upper extremity. David Luther MD Objective Remarks GENERAL: Super morbidly obese female, intubated and sedated SKIN: Warm and dry. HEAD: Atraumatic. Normocephalic. EYES: Pupils equal and round. No scleral icterus. No injection or drainage. ENT: No nasal bleeding or discharge. Mucous membranes pink and moist. NECK: Trachea midline. No JVD. CARDIOVASCULAR: Normal rate, regular rhythm. RESPIRATORY: Mechanical ventilation. Clear to auscultation. Breath sounds equal bilaterally. GASTROINTESTINAL: Abdomen soft, protuberant non-tender, nondistended. No guarding. MUSCULOSKELETAL: Extremities without clubbing, cyanosis, or edema. No obvious deformities. NEUROLOGICAL: Intubated and sedated. RASS -2. No gross focal/sensory deficits. Follows commands in all 4 extremities. Date of Insertion: Jul 28, 2016 Date of Insertion: Jul 28, 2016 Location: [facility] A/P Problem List: (1) Cardiac arrest ICD Code: I46.9 Status: Acute (2) Cardiogenic shock ICD Code: R57.0 Status: Acute (3) Acute respiratory failure ICD Code: J96.00 Status: Acute (4) Encephalopathy acute ICD Code: G93.40 Status: Acute Assessment and Plan Assessment and Plan This is a 55-year-old super morbidly obese female, with a history of DVT on Xarelto daily that presented with hematemesis secondary to GI bleed, and severe dehydration, and hemorrhagic shock on 07/25/2016. Patient was subsequently discharged on 07/28/2016,with reconciliation to continue home medications which included Xarelto. Upon arrival home, the subsequently had PEA arrest, CPR was initiated, ROSC, and transferred to the ED, at which time the patient was in acute hypoxic respiratory failure and was intubated and sedated. Reinitiation of anticoagulation for prothrombotic state in the setting of recent esophageal ulcer. The patient remains critically ill and prognosis is guarded at this time. Problem list; PEA Arrest most likely secondary to prothrombotic state Bilateral Pulmonary Emboli GI bleeding Acute hypoxic respiratory failure Severe agitated delirium Plan by systems: Neurologic: Anxiety Depression Pain -decrease xanax to 1mg po q8hr with a taper -Fentanyl and propofol infusion for ventilator synchrony -precedex for goal RASS 0. -seroquel 100mg po q8h. -Maintain RASS 0 Respiratory: COPD Asthma Nicotine abuse Bilateral pulmonary emboli -will again try SBT. continues to fail for agitation. -Maintain O2 sat greater than 92% -Chest x-ray 07/30-worsening right midlung, right basilar consolidation with stable left basilar density -CTA 07/29-acute pulmonary emboli upper lobe branches bilateral -Bronchodilators scheduled every 4 hours, and every 2 hours when necessary -Ventilator bundle -Maintain head of bed greater than 30 Cardiovascular: PEA arrest H/O CHF H/O Hypertension H/O DVT Hyperlipidemia NSTEMI Cardiomegaly -Maintain MAP greater than 65 mmHg -Continue atorvastatin -[place] filter in situ since 2012 -Cardiology following- -Troponin 1.74-->1.6 -continue therapeutic lovenox. (upper endoscopy 07/26-grade D esophagitis with esophageal ulcers) Renal: -daily BMP -Maintain Maldonado, hourly measurement -- Strict I/Os -Monitor CVP -10 -lasix 40mg iv x 1 now. FEN/GI: Super Morbid obesity H/O Upper GI bleed 07/25/16 Gastric ulceration GERD Hypophosphatemia -Vital High Protein tube feeds at goal of 55/hour- no residual -Zofran when necessary for nausea -Continue Protonix to BID -Replete electrolytes per ICU protocol Heme/ID: H/O DVT Bilateral PE Thrombus-left cephalic vein -Previously on Xarelto, continue lovenox 1mg/kg sq q12h. -[place] IVC filter placement-2012-ultrasound B/L upper extremities-nonocclusive and occlusive thrombus in left cephalic vein mid arm to proximal forearm. Endocrine: Glucose monitoring every 6 hours per ICU protocol -- SSI Prophylaxis: GI Prophylaxis Protonix DVT Prophylaxis -- SCDs, therapeutic lovenox. Dispo: This patient remains critically ill with one or more organ systems which are or may become a threat to life. I have spent in excess of 32 minutes discontinuously in the care and management of this patient. This time is exclusive of procedures, and includes, but is not limited to, evaluation of the patient, review of the medical record, discussions with family, consultants, nursing staff, or respiratory therapy, and documentation in the medical record. Nilo Moran MD Aug 02, 2016 10:30
[2016-08-02] MEDS ORDERED: FUROSEMIDE 40 MG/4 ML VIAL IV PUSH ONE (11:00)
[2016-08-02] MEDS: ENOXAPARIN SODIUM 100 MG/ML SYRINGE SQ SCH (13:01)
[2016-08-02] MEDS: ACETAMINOPHEN 325 MG TAB PO PRN (21:23)
[2016-08-02] MEDS: ATORVASTATIN 20 MG TAB PO SCH (21:24)
[2016-08-03] VITALS (20 sets, daily range): BP systolic 100–116; BP diastolic 54–57; PULSE 66–98; RESP 14–18; TEMP 98.4–100; O2SAT 93–98
[2016-08-03] MEDS: ENOXAPARIN SODIUM 100 MG/ML SYRINGE SQ SCH ×3 (00:04→21:07)
[2016-08-03] MEDS: DEXMEDETOMIDINE INJ 50 ML IV SCH ×5 (02:14→23:08)
[2016-08-03] MEDS: RESP: ALBUTEROL 2.5 MG/IPRATROPIUM 0.5 MG NEB (SCH) NEB ×4 (03:29→20:26)
[2016-08-03] MEDS: CHLORHEXIDINE GLUCONATE 2 % 1 PACK (2 CLOTHS) TOP SCH ×2 (04:00→21:09)
[2016-08-03] MEDS: QUEtiapine FUMARATE 100 MG TAB PO SCH ×3 (05:25→21:08)
[2016-08-03] MEDS: ALPRAZolam 1 MG TAB PO SCH ×3 (05:25→21:08)
[2016-08-03 05:29] LABS: HEMATOCRIT 27.4 % (35.0-46.0); MEAN CELL VOLUME 84.6 FL (80.0-100.0); MEAN CORPUSCULAR HEMOGLOBIN 28.4 PG (27.0-34.0); MEAN CORPUSCULAR HGB CONC 33.5 % (32.0-36.0); PLATELET COUNT 155 TH/MM3 (150-450); RED BLOOD COUNT 3.24 MIL/MM3 (4.00-5.30); RED CELL DISTRIBUTION WIDTH 16.9 % (11.6-17.2); REVIEW FLAG FINAL; WHITE BLOOD COUNT 10.6 TH/MM3 (4.0-11.0)
[2016-08-03 05:32] LABS: APTT (PATIENT) 32.9 SEC (24.3-30.1)
[2016-08-03 05:38] LABS: BICARBONATE 29.5 MEQ/L (21.0-32.0); POTASSIUM 3.3 MEQ/L (3.5-5.1)
--- NOTE | 2016-08-03 08:56 | PD.CARD.PN ---
Subjective Subjective Remarks intubated, sedated Objective Vital Signs / I&O Vital Signs Date Time Temp Pulse Resp B/P Pulse Ox O2 Delivery O2 Flow Rate FiO2 08/03/16 08:10 97 40 08/03/16 06:00 76 08/03/16 04:13 98 40 08/03/16 04:00 71 08/03/16 04:00 35 08/03/16 04:00 100.0 71 18 106/56 94 08/03/16 02:00 68 08/03/16 01:55 97 40 08/03/16 00:00 99.6 69 14 100/55 96 08/03/16 00:00 69 08/03/16 00:00 35 08/02/16 23:13 97 40 08/02/16 22:00 78 08/02/16 20:12 96 40 08/02/16 20:00 100.8 80 14 99/57 95 08/02/16 20:00 35 08/02/16 20:00 80 08/02/16 18:00 87 08/02/16 17:49 96 40 08/02/16 16:00 100.0 95 20 109/63 96 08/02/16 16:00 95 08/02/16 16:00 35 08/02/16 14:00 99 08/02/16 12:00 100 40 08/02/16 12:00 94 08/02/16 12:00 35 08/02/16 12:00 99.8 94 26 132/70 96 08/02/16 10:00 74 I/O 08/02/16 08/02/16 08/02/16 08/03/16 08/03/16 08/03/16 07:00 15:00 23:00 07:00 15:00 23:00 Intake Total 925 ml 388 ml 495 ml 573 ml Output Total 750 ml 750 ml 750 ml 300 ml Balance 175 ml -362 ml -255 ml 273 ml IV Total 425 ml 102 ml 135 ml 144 ml Tube Feeding 375 ml 286 ml 360 ml 429 ml Other 125 ml Output Urine Total 750 ml 750 ml 550 ml 300 ml Stool Total 0 ml 200 ml 0 ml Physical Exam GENERAL: SKIN: Warm and dry. HEAD: Normocephalic. EYES: No scleral icterus. No injection or drainage. NECK: Supple, trachea midline. No JVD or lymphadenopathy. CARDIOVASCULAR: Regular rate and rhythm without murmurs, gallops, or rubs. RESPIRATORY: Breath sounds equal bilaterally. No accessory muscle use. GASTROINTESTINAL: Abdomen soft, non-tender, nondistended. MUSCULOSKELETAL: No cyanosis, or edema. BACK: Nontender without obvious deformity. No CVA tenderness. Laboratory Laboratory Tests Test 08/03/16 04:15 White Blood Count 10.6 TH/MM3 Red Blood Count 3.24 MIL/MM3 Hemoglobin 9.2 GM/DL Hematocrit 27.4 % Mean Corpuscular Volume 84.6 FL Mean Corpuscular Hemoglobin 28.4 PG Mean Corpuscular Hemoglobin 33.5 % Concent Red Cell Distribution Width 16.9 % Platelet Count 155 TH/MM3 Mean Platelet Volume 11.0 FL Activated Partial 32.9 SEC Thromboplast Time Sodium Level 146 MEQ/L Potassium Level 3.3 MEQ/L Chloride Level 107 MEQ/L Carbon Dioxide Level 29.5 MEQ/L Anion Gap 10 MEQ/L Blood Urea Nitrogen 17 MG/DL Creatinine 0.63 MG/DL Estimat Glomerular Filtration 99 ML/MIN Rate Random Glucose 123 MG/DL Calcium Level 8.5 MG/DL Assessment and Plan Problem List: (1) COPD exacerbation (2) Acute systolic CHF (congestive heart failure) (3) HTN (hypertension) (4) CHF (congestive heart failure) (5) DVT (deep venous thrombosis) (6) Upper gastrointestinal hemorrhage (7) Hypotension (8) Hypovolemic shock (9) PEA (Pulseless electrical activity) (10) Required emergent intubation (11) Acute respiratory failure (12) Cardiogenic shock (13) Cardiac arrest (14) Encephalopathy acute (15) PE (pulmonary thromboembolism) Assessment and Plan 1.) PE - s/p pea cardiac arrest with respiratory failure requiring intubation, recent life threatening GIB, now on lovenox, hgb =9.2, stable x 24 hours, with no obvious bleeding, high risk for poor outcome d/t dilemma of pe and gib; Casa Andrew MD Aug 03, 2016 08:56
[2016-08-03] MEDS: SODIUM CHLORIDE 0.9% FLUSH 5 ML FLUSH IV FLUSH PRN (09:27)
[2016-08-03] MEDS: SODIUM CHLORIDE 0.9% FLUSH 5 ML FLUSH IV FLUSH SCH ×2 (09:27→21:08)
[2016-08-03] MEDS: PANTOPRAZOLE SODIUM 40 MG VIAL IV SCH ×2 (09:27→21:07)
[2016-08-03] MEDS: LACTULOSE SYRUP 20 GM/30 ML CUP PO SCH (09:27)
[2016-08-03] MEDS: POTASSIUM CHLOR 40 MEQ PREMIX 100 ML IV PRN (11:51)
--- NOTE | 2016-08-03 12:09 | HHI.CCPN ---
Subjective Remarks/Hospital Course On 07/25/2016 the patient presented to ED in [place].Her history is significant for the fact that she has a history of DVT in 2013, [place] filter placement and was on Xarelto. The patient also stated that she has a history of peptic ulcer disease. The patient presented with complaints of lightheadedness,generalized weakness,fatigue and inability to void 3 days, on 07/25/2016. The patient medical history significant for the fact that in 2012 was admitted with GI bleed at that time had upper endoscopy which was consistent with severe grade D esophagitis,mild gastritis and mckayla. The patient had denied NSAID use. On presentation to the ED in [place] on 07/25, the patient's blood pressure ranges 65/40 to 81/40 with initial hemoglobin of 12. The patient reported also having medical history significant for history of renal failure, and congestive heart failure. The patient received 4 units of crystalloids, indigo a NG tube was placed, approximately a liter of coffee ground emesis upon initial placement. Octreotide and Protonix infusions were initiated, and GI was consulted. Patient was transfused 1unit PRBC. The patient remained hypotensive, a right femoral line was placed, the patient was placed on Shane-Synephrine. Critical care medicine was consulted for treatment and management, on 07/25/2016. A telephone handoff was given from Dr. Hernández, upon initiation of transport from [place], the patient became acutely hypotensive, SBP 70's. The patient was placed on a Levophed infusion, MAP's were obtained greater than 65mmHG. the patient was then transferred to [facility] with ER physician, Dr. Sabillon accompanying patient. Upon arrival, MAP 76, the patient was alert and oriented not in respiratory distress , tachycardic complaining of abdominal pain, maldonado draining pale yellow urine. Levophed had been weaned off prior to arrival and the patient remained on Shane- Synephrine at 70mcgs. The patient then underwent an endoscopy revealing multiple gastric ulcers. The 55-year-old female with history of recent admission for gastric ulcer and GI bleed, was discharged from the hospital on in the am, and presented back to the ED brought in by EMS on the same evening. Apparently the patient was found prone and unresponsive, found to be in PEA with organized bradycardia, CPR initiated on scene, and patient came around, was able to talk a little bit and stated that she should not have left the hospital. Patient was in significant respiratory distress and hypoxic and patient was intubated for respiratory distress. The patient was intubated in ED. Critical care medicine was consulted for management and treatment. 07/29:Upon cessation of sedation, the patient was noted to be a GCS of 11 T, following commands. The patient continues on norepinephrine at 3 mcgs, and propofol at 25 mcgs.Will obtain ECHO today, cardiology consulted. 07/30: Norepinephrine was weaned off early this a.m.. The patient required reintubation last p.m. secondary to inadvertent removal with repositioning of patient. Troponins trending down at this time, cardiology following. GI was re- consulted regarding initiation of anticoagulation in the setting of bilateral pulmonary emboli, patient was placed on heparin infusion at this time with plans for transition to Xarelto. 07/31: Tmax 101.0. The patient was transitioned to heparin last evening, and continues to be closely monitored for GI bleeding in the setting of esophageal ulcer and bilateral pulmonary embolus. Ultrasound of bilateral upper extremities obtained yesterday revealing thrombus left cephalic vein. On sedation holiday last evening the patient became extremely anxious, will resume Xanax 2 mg daily(home medication). Chest x-ray reviewed showed worsening right midlung and right basilar consolidations, oxygen requirements not increased. 08/01: continues to fail SBTs for agitation. secretions are still an issue. s/p bronch yesterday. continues on heparin infusion, no bleeding episodes x 48h. 08/02: failed SBT again yesterday for agitation. Seroquel started. this AM much more awake. transitioned yesterday to Lovenox from heparin drip, hgb decreased slightly from 9.4 to 9. no signs of active bleeding. 08/03: Failed SBT due to tachypnea. Currently on 3 mcg/kg/hour Precedex. Family at bedside. No evidence of active bleeding Objective Vital Signs Date Time Temp Pulse Resp B/P Pulse Ox O2 Delivery O2 Flow Rate FiO2 08/03/16 10:50 97 40 08/03/16 06:00 76 08/03/16 04:00 100.0 18 106/56 Intake and Output 08/02/16 08/02/16 08/03/16 08:00 16:00 00:00 Intake Total 925 ml 388 ml 495 ml Output Total 750 ml 750 ml 750 ml Balance 175 ml -362 ml -255 ml Result Diagram: 08/03/16 0415 08/03/16 0415 Other Results Microbiology Date/Time Procedure Status Source Growth 07/31/16 18:00 Stool Occult Blood (SOULEYMANE) - Final Complete Stool Stool HEMOCCULT NEGATIVE Imaging Last 48 hours Impressions Chest X-Ray 07/30/16 0600 Signed Impressions: Service Date/Time: Saturday, July 30, 2016 04:48 - CONCLUSION: 1. Worsening right midlung and right basilar consolidation. 2. Stable left basilar density. Gareth Gray MD Upper Extremity Ultrasound 07/30/16 0000 Signed Impressions: Service Date/Time: Saturday, July 30, 2016 16:08 - CONCLUSION: 1. Occlusive and nonocclusive thrombus within the left cephalic vein from the mid arm to the proximal forearm. 2. No deep venous thrombosis within the right upper extremity. David Luther MD Objective Remarks GENERAL: Super morbidly obese female, intubated, on Precedex SKIN: Warm and dry. HEAD: Atraumatic. Normocephalic. EYES: Pupils equal and round. No scleral icterus. No injection or drainage. ENT: No nasal bleeding or discharge. Orotracheally intubated NECK: Trachea midline. No JVD. CARDIOVASCULAR: Normal rate, regular rhythm. RESPIRATORY: Clear to auscultation. Breath sounds equal bilaterally. GASTROINTESTINAL: Abdomen soft, protuberant non-tender, nondistended. No guarding. MUSCULOSKELETAL: Extremities without clubbing, cyanosis, or edema. No obvious deformities. NEUROLOGICAL: Intubated and sedated. RASS -2. No gross focal/sensory deficits. Follows commands in all 4 extremities. Date of Insertion: Jul 28, 2016 Date of Insertion: Jul 28, 2016 Location: [facility] A/P Problem List: (1) Cardiac arrest ICD Code: I46.9 Status: Acute (2) Cardiogenic shock ICD Code: R57.0 Status: Acute (3) Acute respiratory failure ICD Code: J96.00 Status: Acute (4) Encephalopathy acute ICD Code: G93.40 Status: Acute Assessment and Plan Assessment and Plan This is a 55-year-old super morbidly obese female, with a history of DVT on Xarelto daily that presented with hematemesis secondary to GI bleed, and severe dehydration, and hemorrhagic shock on 07/25/2016. Patient was subsequently discharged on 07/28/2016,with reconciliation to continue home medications which included Xarelto. Upon arrival home, the subsequently had PEA arrest, CPR was initiated, ROSC, and transferred to the ED, at which time the patient was in acute hypoxic respiratory failure and was intubated and sedated. Reinitiation of anticoagulation for prothrombotic state in the setting of recent esophageal ulcer. The patient remains critically ill and prognosis is guarded at this time. Problem list; PEA Arrest most likely secondary to prothrombotic state Bilateral Pulmonary Emboli GI bleeding Acute hypoxic respiratory failure Severe agitated delirium Plan by systems: Neurologic: Anxiety Depression Pain -Xanax to 1mg po q8hr with a taper -Fentanyl and propofol infusion as needed for ventilator synchrony -Precedex for goal RASS 0. -seroquel 100mg po q8h. -Maintain RASS 0 Respiratory: COPD Asthma Nicotine abuse (smokes 2 packs of cigarettes per day) Bilateral pulmonary emboli -Daily SBT. continues to fail for agitation. -Maintain O2 sat greater than 92% -Chest x-ray 07/30-worsening right midlung, right basilar consolidation with stable left basilar density -CTA 07/29-acute pulmonary emboli upper lobe branches bilateral -Bronchodilators scheduled every 4 hours, and every 2 hours when necessary -Ventilator bundle -Maintain head of bed greater than 30 Cardiovascular: PEA arrest H/O CHF H/O Hypertension H/O DVT Hyperlipidemia NSTEMI Cardiomegaly -Maintain MAP greater than 65 mmHg -Continue atorvastatin -[place] filter in situ since 2012 -Cardiology following- -Troponin 1.74-->1.6 -continue therapeutic lovenox. (upper endoscopy 07/26-grade D esophagitis with esophageal ulcers) Renal: -daily BMP -Maintain Maldonado, hourly measurement -Strict I/Os -Monitor CVP -10 -Lasix 40mg iv x 1 now. FEN/GI: Super Morbid obesity H/O Upper GI bleed 07/25/16 Gastric ulceration GERD Hypophosphatemia -Vital High Protein tube feeds at goal of 55/hour- no residual -Zofran when necessary for nausea -Continue Protonix to BID -Replete electrolytes per ICU protocol Heme/ID: Bilateral PE Thrombus-left cephalic vein H/O DVT -Previously on Xarelto, continue lovenox 1mg/kg sq q12h. -[place] IVC filter placement-2012 -07/31-ultrasound B/L upper extremities-nonocclusive and occlusive thrombus in left cephalic vein mid arm to proximal forearm. Endocrine: Glucose monitoring every 6 hours per ICU protocol -- SSI Prophylaxis: GI Prophylaxis Protonix DVT Prophylaxis -- SCDs, therapeutic lovenox. Dispo: This patient remains critically ill with one or more organ systems which are or may become a threat to life. I have spent in excess of 32 minutes discontinuously in the care and management of this patient. This time is exclusive of procedures, and includes, but is not limited to, evaluation of the patient, review of the medical record, discussions with family, consultants, nursing staff, or respiratory therapy, and documentation in the medical record. Updated and daughter at the bedside 08/03/16 Alannah Maravilla MD Aug 03, 2016 12:09
[2016-08-03 18:56] LABS: NUMBER OF ARTERIAL PUNCTURES 1
[2016-08-03] MEDS: ATORVASTATIN 20 MG TAB PO SCH (21:08)
[2016-08-03] MEDS: ACETAMINOPHEN 325 MG TAB PO PRN (21:08)
[2016-08-04] VITALS (18 sets, daily range): BP systolic 107–118; BP diastolic 57–67; PULSE 62–81; RESP 16–24; TEMP 98.4–99.1; O2SAT 93–100
[2016-08-04] MEDS: RESP: ALBUTEROL 2.5 MG/IPRATROPIUM 0.5 MG NEB (SCH) NEB ×2 (03:39→07:38)
--- NOTE | 2016-08-04 05:36 | RADRPT ---
EXAM DATE/TIME: 08/04/2016 03:18 [facility] COMPARISON: CHEST SINGLE AP, July 30, 2016, 4:48. INDICATIONS : Shortness of breath, possible pulmonary disease. MEDICAL HISTORY : Hypertension. Deep venous thrombosis. Cardiovascular disease. SURGICAL HISTORY : Cholecystectomy. IVC filter placement. ENCOUNTER: Subsequent ACUITY: 1 week PAIN SCORE: Non-responsive. LOCATION: Bilateral chest FINDINGS: Endotracheal tube tip is present 2 cm above the jessy. Nasogastric tube descends into the stomach ri ght subclavian central line is stable in good position. Hazy basilar parenchymal opacities have impro pat indicating decreasing alveolar disease and effusion. Cardiac contour is grossly stable. CONCLUSION: Improving aeration Taiwo Cruz MD on August 04, 2016 at 5:34 Board Certified Radiologist. This report was verified electronically.
[2016-08-04] MEDS: DEXMEDETOMIDINE INJ 50 ML IV SCH ×3 (06:01→17:48)
[2016-08-04] MEDS: QUEtiapine FUMARATE 100 MG TAB PO SCH ×3 (06:01→19:58)
[2016-08-04] MEDS: ALPRAZolam 1 MG TAB PO SCH ×3 (06:01→19:58)
[2016-08-04 06:40] LABS: AUTOMATED NEUTROPHIL # 7.9 TH/MM3 (1.8-7.7); BASOPHIL % 0.3 % (0.0-2.0); EOSINOPHIL # 0.3 TH/MM3 (0-0.4); HEMATOCRIT 26.6 % (35.0-46.0); HEMO FLAGS DIFF FINAL; LYMPH % 10.5 % (9.0-44.0); MEAN CELL VOLUME 84.8 FL (80.0-100.0); MONO % 7.6 % (0.0-8.0); NEUT % 78.6 % (16.0-70.0); PLATELET COUNT 158 TH/MM3 (150-450); RED BLOOD COUNT 3.14 MIL/MM3 (4.00-5.30); RED CELL DISTRIBUTION WIDTH 17.2 % (11.6-17.2)
[2016-08-04 06:52] LABS: APTT (PATIENT) 28.3 SEC (24.3-30.1)
[2016-08-04 07:11] LABS: ALKALINE PHOSPHATASE 100 U/L (45-117); ALT (GPT) 33 U/L (10-53); ANION GAP 10 MEQ/L (5-15); AST (GOT) 20 U/L (15-37); BICARBONATE 26.8 MEQ/L (21.0-32.0); BLOOD UREA NITROGEN 19 MG/DL (7-18); CHLORIDE 105 MEQ/L (98-107); GLOMERULAR FILTRATION RATE 116 ML/MIN (>89); MAGNESIUM 1.9 MG/DL (1.5-2.5); POTASSIUM 3.3 MEQ/L (3.5-5.1); SODIUM (NA) 142 MEQ/L (136-145); TOTAL BILIRUBIN ADULT 0.3 MG/DL (0.2-1.0)
[2016-08-04] MEDS: LACTULOSE SYRUP 20 GM/30 ML CUP PO SCH (07:47)
[2016-08-04] MEDS: SODIUM CHLORIDE 0.9% FLUSH 5 ML FLUSH IV FLUSH PRN (08:29)
[2016-08-04] MEDS: SODIUM CHLORIDE 0.9% FLUSH 5 ML FLUSH IV FLUSH SCH ×2 (08:29→19:58)
[2016-08-04] MEDS: PANTOPRAZOLE SODIUM 40 MG VIAL IV SCH ×2 (08:29→19:59)
[2016-08-04] MEDS: POTASSIUM CHLOR 40 MEQ PREMIX 100 ML IV PRN (08:50)
[2016-08-04] MEDS ORDERED: BUMETANIDE INJ 1 MG/4 ML VIAL IV PUSH ONE (09:30)
[2016-08-04] MEDS ORDERED: POTASSIUM CL 40 MEQ/30 ML LIQ UDC PO ONE (09:30)
--- NOTE | 2016-08-04 09:33 | HHI.CCPN ---
Subjective Remarks/Hospital Course On 07/25/2016 the patient presented to ED in [place].Her history is significant for the fact that she has a history of DVT in 2013, Crane filter placement and was on Xarelto. The patient also stated that she has a history of peptic ulcer disease. The patient presented with complaints of lightheadedness,generalized weakness,fatigue and inability to void 3 days, on 07/25/2016. The patient medical history significant for the fact that in 2012 was admitted with GI bleed at that time had upper endoscopy which was consistent with severe grade D esophagitis,mild gastritis and mckayla. The patient had denied NSAID use. On presentation to the ED in [place] on 07/25, the patient's blood pressure ranges 65/40 to 81/40 with initial hemoglobin of 12. The patient reported also having medical history significant for history of renal failure, and congestive heart failure. The patient received 4 units of crystalloids, indigo a NG tube was placed, approximately a liter of coffee ground emesis upon initial placement. Octreotide and Protonix infusions were initiated, and GI was consulted. Patient was transfused 1unit PRBC. The patient remained hypotensive, a right femoral line was placed, the patient was placed on Shane-Synephrine. Critical care medicine was consulted for treatment and management, on 07/25/2016. A telephone handoff was given from Dr. Hernández, upon initiation of transport from [place], the patient became acutely hypotensive, SBP 70's. The patient was placed on a Levophed infusion, MAP's were obtained greater than 65mmHG. the patient was then transferred to [facility] with ER physician, Dr. Sabillon accompanying patient. Upon arrival, MAP 76, the patient was alert and oriented not in respiratory distress , tachycardic complaining of abdominal pain, maldonado draining pale yellow urine. Levophed had been weaned off prior to arrival and the patient remained on Shane- Synephrine at 70mcgs. The patient then underwent an endoscopy revealing multiple gastric ulcers. The 55-year-old female with history of recent admission for gastric ulcer and GI bleed, was discharged from the hospital on in the am, and presented back to the ED brought in by EMS on the same evening. Apparently the patient was found prone and unresponsive, found to be in PEA with organized bradycardia, CPR initiated on scene, and patient came around, was able to talk a little bit and stated that she should not have left the hospital. Patient was in significant respiratory distress and hypoxic and patient was intubated for respiratory distress. The patient was intubated in ED. Critical care medicine was consulted for management and treatment. 07/29:Upon cessation of sedation, the patient was noted to be a GCS of 11 T, following commands. The patient continues on norepinephrine at 3 mcgs, and propofol at 25 mcgs.Will obtain ECHO today, cardiology consulted. 07/30: Norepinephrine was weaned off early this a.m.. The patient required reintubation last p.m. secondary to inadvertent removal with repositioning of patient. Troponins trending down at this time, cardiology following. GI was re- consulted regarding initiation of anticoagulation in the setting of bilateral pulmonary emboli, patient was placed on heparin infusion at this time with plans for transition to Xarelto. 07/31: Tmax 101.0. The patient was transitioned to heparin last evening, and continues to be closely monitored for GI bleeding in the setting of esophageal ulcer and bilateral pulmonary embolus. Ultrasound of bilateral upper extremities obtained yesterday revealing thrombus left cephalic vein. On sedation holiday last evening the patient became extremely anxious, will resume Xanax 2 mg daily(home medication). Chest x-ray reviewed showed worsening right midlung and right basilar consolidations, oxygen requirements not increased. 08/01: continues to fail SBTs for agitation. secretions are still an issue. s/p bronch yesterday. continues on heparin infusion, no bleeding episodes x 48h. 08/02: failed SBT again yesterday for agitation. Seroquel started. this AM much more awake. transitioned yesterday to Lovenox from heparin drip, hgb decreased slightly from 9.4 to 9. no signs of active bleeding. 08/03: Failed SBT due to tachypnea. Currently on 3 mcg/kg/hour Precedex. Family at bedside. No evidence of active bleeding 08/04/16: Awake and alert failing is continued tachypnea. I will attempt weaning with IMV/pressure support, gradually reducing the mandatory ventilatory rate. Also given 1 mg IV Bumex. Chest x-ray shows improving infiltrates Objective Vital Signs Date Time Temp Pulse Resp B/P Pulse Ox O2 Delivery O2 Flow Rate FiO2 08/04/16 07:39 98 40 08/04/16 06:00 72 08/04/16 04:00 98.9 16 115/65 Intake and Output 08/03/16 08/03/16 08/04/16 08:00 16:00 00:00 Intake Total 573 ml 719 ml 644 ml Output Total 300 ml 525 ml 300 ml Balance 273 ml 194 ml 344 ml Result Diagram: 08/04/16 0530 08/04/16 0530 Imaging Last 48 hours Impressions Chest X-Ray 07/30/16 0600 Signed Impressions: Service Date/Time: Saturday, July 30, 2016 04:48 - CONCLUSION: 1. Worsening right midlung and right basilar consolidation. 2. Stable left basilar density. Gareth Gray MD Upper Extremity Ultrasound 07/30/16 0000 Signed Impressions: Service Date/Time: Saturday, July 30, 2016 16:08 - CONCLUSION: 1. Occlusive and nonocclusive thrombus within the left cephalic vein from the mid arm to the proximal forearm. 2. No deep venous thrombosis within the right upper extremity. David Luther MD Objective Remarks GENERAL: Morbidly obese female, intubated sedated, on Precedex SKIN: Warm and dry. HEAD: Atraumatic. Normocephalic. EYES: Pupils equal and round. No scleral icterus. No injection or drainage. ENT: No nasal bleeding or discharge. Orotracheally intubated, moderate ETT secretions NECK: Trachea midline. No JVD. CARDIOVASCULAR: Normal rate, regular rhythm. RESPIRATORY: Clear to auscultation. Breath sounds equal bilaterally. Mild bilateral rhonchi GASTROINTESTINAL: Abdomen soft, protuberant non-tender, nondistended. No guarding. MUSCULOSKELETAL: Extremities without clubbing, cyanosis, or edema. No obvious deformities. NEUROLOGICAL: Intubated and sedated. RASS -1. No gross focal/sensory deficits. Follows commands in all 4 extremities. Urinary Catheter: Yes Assessment to: Continue Date of Insertion: Jul 28, 2016 Vascular Central Line Catheter: Yes Assessment to: Continue Date of Insertion: Jul 28, 2016 Location: Subclavian A/P Problem List: (1) Cardiac arrest ICD Code: I46.9 Status: Acute (2) Cardiogenic shock ICD Code: R57.0 Status: Acute (3) Acute respiratory failure ICD Code: J96.00 Status: Acute (4) Encephalopathy acute ICD Code: G93.40 Status: Acute Assessment and Plan Assessment and Plan This is a 55-year-old morbidly obese female, with a history of DVT on Xarelto daily that presented with hematemesis secondary to GI bleed, and severe dehydration, hemorrhagic shock on 07/25/2016. Patient was subsequently discharged on 07/28/2016,with reconciliation to continue home medications which included Xarelto. Upon arrival home, the subsequently had PEA arrest, CPR was initiated, ROSC, and transferred to the ED, at which time the patient was in acute hypoxic respiratory failure and was intubated and sedated. Reinitiation of anticoagulation for prothrombotic state in the setting of recent esophageal ulcer. Problem list; PEA Arrest most likely secondary to prothrombotic state Bilateral Pulmonary Emboli GI bleeding Acute hypoxic respiratory failure Severe agitated delirium Plan by systems: Neurologic: Anxiety Depression Pain -Xanax to 1mg po q8hr with a taper -Precedex for goal RASS -1 to 0. -Seroquel 100mg po q8h. -Daily sedation vacation Respiratory: Acute respiratory failure Bilateral pulmonary emboli COPD with possible exacerbation Asthma Nicotine abuse (smokes 2 packs of cigarettes per day) -Daily SBT. continues to fail for agitation, tachypnea. Start IMV/pressure support ventilation, slowly reduce IMV rate -Maintain O2 sat greater than 90% -Chest x-ray 07/30-worsening right midlung, right basilar consolidation with stable left basilar density, chest x-ray 08/04/16 shows improving bilateral infiltrates -CTA 07/29-acute pulmonary emboli upper lobe branches bilateral -Bronchodilators scheduled every 4 hours, and every 2 hours when necessary -For possible COPD exacerbation start Solu-Medrol 125 mg 1 and 40 every 8 hours 08/04/16 -Ventilator bundle -Maintain head of bed greater than 30 Cardiovascular: PEA arrest NSTEMI H/O CHF H/O Hypertension H/O DVT Hyperlipidemia Cardiomegaly -Maintain MAP greater than 65 mmHg -Continue atorvastatin -Crane filter in situ since 2012 -Cardiology following- -Troponin 1.74-->1.6 -continue therapeutic lovenox. (upper endoscopy 07/26-grade D esophagitis with esophageal ulcers) Renal: -daily BMP -Maintain Maldonado, hourly measurement -Strict I/Os -Bumex 1 mg IV x1 FEN/GI: Super Morbid obesity H/O Upper GI bleed 07/25/16 Gastric ulceration GERD Hypophosphatemia -Vital High Protein tube feeds at goal of 55/hour- no residual -Zofran when necessary for nausea -Continue Protonix to BID -Replete electrolytes per ICU protocol Heme/ID: Bilateral PE Thrombus-left cephalic vein H/O DVT -Previously on Xarelto, continue Lovenox 1mg/kg sq q12h. -Crane IVC filter placement-2012-ultrasound B/L upper extremities-nonocclusive and occlusive thrombus in left cephalic vein mid arm to proximal forearm. Endocrine: Glucose monitoring every 6 hours per ICU protocol -- SSI Prophylaxis: GI Prophylaxis Protonix DVT Prophylaxis -- SCDs, therapeutic lovenox. Dispo: This patient remains critically ill with one or more organ systems which are or may become a threat to life. I have spent in excess of 32 minutes discontinuously in the care and management of this patient. This time is exclusive of procedures, and includes, but is not limited to, evaluation of the patient, review of the medical record, discussions with family, consultants, nursing staff, or respiratory therapy, and documentation in the medical record. Updated and daughter at the bedside 08/03/16 Alannah Maravilla MD Aug 04, 2016 09:33
[2016-08-04] MEDS ORDERED: methylPREDNISolone SOD SUCC 125 MG/2 ML VIAL IV PUSH ONE (09:45)
[2016-08-04] MEDS: cefTRIAXone INJ 2,000 MG in SODIUM CHLORIDE 0.9% INJ 100 ML IV SCH (10:02)
[2016-08-04] MEDS: ENOXAPARIN SODIUM 100 MG/ML SYRINGE SQ SCH (10:02)
--- NOTE | 2016-08-04 14:10 | PD.CARD.PN ---
Subjective Subjective Remarks intubated, alert in nad Objective Vital Signs / I&O Vital Signs Date Time Temp Pulse Resp B/P Pulse Ox O2 Delivery O2 Flow Rate FiO2 08/04/16 12:00 81 08/04/16 12:00 98.5 81 23 107/67 98 08/04/16 12:00 40 08/04/16 10:00 81 08/04/16 08:00 98.9 71 22 108/57 97 08/04/16 08:00 40 08/04/16 08:00 71 08/04/16 07:39 98 40 08/04/16 06:00 72 08/04/16 04:12 97 40 08/04/16 04:00 62 08/04/16 04:00 98.9 72 16 115/65 97 08/04/16 04:00 40 08/04/16 02:00 62 08/04/16 01:15 100 40 08/04/16 00:00 65 08/04/16 00:00 40 08/04/16 00:00 99.0 65 16 111/61 99 08/03/16 22:12 97 40 08/03/16 22:00 78 08/03/16 20:30 93 40 08/03/16 20:00 40 08/03/16 20:00 100.0 75 16 116/56 96 08/03/16 20:00 75 08/03/16 18:00 86 08/03/16 18:00 66 08/03/16 16:00 76 08/03/16 16:00 98 08/03/16 16:00 35 08/03/16 16:00 99.4 69 14 110/57 98 08/03/16 15:55 98 40 I/O 08/03/16 08/03/16 08/03/16 08/04/16 08/04/16 08/04/16 07:00 15:00 23:00 07:00 15:00 23:00 Intake Total 573 ml 719 ml 644 ml 635 ml Output Total 300 ml 525 ml 300 ml 325 ml Balance 273 ml 194 ml 344 ml 310 ml IV Total 144 ml 305 ml 160 ml 118 ml Tube Feeding 429 ml 414 ml 384 ml 417 ml Other 100 ml 100 ml Output Urine Total 300 ml 375 ml 250 ml 300 ml Stool Total 0 ml 150 ml 50 ml 25 ml Physical Exam GENERAL: SKIN: Warm and dry. HEAD: Normocephalic. EYES: No scleral icterus. No injection or drainage. NECK: Supple, trachea midline. No JVD or lymphadenopathy. CARDIOVASCULAR: Regular rate and rhythm without murmurs, gallops, or rubs. RESPIRATORY: Breath sounds equal bilaterally. No accessory muscle use. GASTROINTESTINAL: Abdomen soft, non-tender, nondistended. MUSCULOSKELETAL: No cyanosis, or edema. BACK: Nontender without obvious deformity. No CVA tenderness. Laboratory Laboratory Tests Test 08/04/16 05:30 White Blood Count 10.0 TH/MM3 Red Blood Count 3.14 MIL/MM3 Hemoglobin 8.8 GM/DL Hematocrit 26.6 % Mean Corpuscular Volume 84.8 FL Mean Corpuscular Hemoglobin 28.0 PG Mean Corpuscular Hemoglobin 33.0 % Concent Red Cell Distribution Width 17.2 % Platelet Count 158 TH/MM3 Mean Platelet Volume 11.8 FL Neutrophils (%) (Auto) 78.6 % Lymphocytes (%) (Auto) 10.5 % Monocytes (%) (Auto) 7.6 % Eosinophils (%) (Auto) 3.0 % Basophils (%) (Auto) 0.3 % Neutrophils # (Auto) 7.9 TH/MM3 Lymphocytes # (Auto) 1.0 TH/MM3 Monocytes # (Auto) 0.8 TH/MM3 Eosinophils # (Auto) 0.3 TH/MM3 Basophils # (Auto) 0.0 TH/MM3 CBC Comment DIFF FINAL Differential Comment Activated Partial 28.3 SEC Thromboplast Time Sodium Level 142 MEQ/L Potassium Level 3.3 MEQ/L Chloride Level 105 MEQ/L Carbon Dioxide Level 26.8 MEQ/L Anion Gap 10 MEQ/L Blood Urea Nitrogen 19 MG/DL Creatinine 0.55 MG/DL Estimat Glomerular Filtration 116 ML/MIN Rate Random Glucose 131 MG/DL Calcium Level 8.5 MG/DL Magnesium Level 1.9 MG/DL Total Bilirubin 0.3 MG/DL Aspartate Amino Transf 20 U/L (AST/SGOT) Alanine Aminotransferase 33 U/L (ALT/SGPT) Alkaline Phosphatase 100 U/L Total Protein 6.9 GM/DL Albumin 2.1 GM/DL Assessment and Plan Problem List: (1) COPD exacerbation (2) Acute systolic CHF (congestive heart failure) (3) HTN (hypertension) (4) CHF (congestive heart failure) (5) DVT (deep venous thrombosis) (6) Upper gastrointestinal hemorrhage (7) Hypotension (8) Hypovolemic shock (9) PEA (Pulseless electrical activity) (10) Required emergent intubation (11) Acute respiratory failure (12) Cardiogenic shock (13) Cardiac arrest (14) Encephalopathy acute (15) PE (pulmonary thromboembolism) Assessment and Plan 1.) PE - s/p pea cardiac arrest with respiratory failure requiring intubation, recent life threatening GIB, now on lovenox, hgb =8.8, with no obvious bleeding , high risk for poor outcome d/t dilemma of pe and gib; Casa Andrew MD Aug 04, 2016 14:09
[2016-08-04] MEDS: methylPREDNISolone SOD SUCC 40 MG/1 ML VIAL IV PUSH SCH ×2 (14:16→19:57)
[2016-08-04] MEDS: RESP: ALBUTEROL 2.5 MG/IPRATROPIUM 0.5 MG NEB (PRN) INH ×2 (14:52→19:39)
[2016-08-04] MEDS: ACETAMINOPHEN 325 MG TAB PO PRN (19:57)
[2016-08-04] MEDS: ATORVASTATIN 20 MG TAB PO SCH (19:58)
[2016-08-05] VITALS (16 sets, daily range): BP systolic 128–165; BP diastolic 63–95; PULSE 64–119; RESP 20–28; TEMP 97.5–98.7; O2SAT 94–98
[2016-08-05] MEDS: RESP: ALBUTEROL 2.5 MG/IPRATROPIUM 0.5 MG NEB (PRN) INH ×2 (00:51→23:37)
[2016-08-05] MEDS: DEXMEDETOMIDINE INJ 50 ML IV SCH ×4 (02:52→07:27)
[2016-08-05] MEDS: ENOXAPARIN SODIUM 100 MG/ML SYRINGE SQ SCH ×3 (02:52→22:03)
[2016-08-05] MEDS: CHLORHEXIDINE GLUCONATE 2 % 1 PACK (2 CLOTHS) TOP SCH (04:00)
[2016-08-05 04:44] LABS: HEMATOCRIT 27.8 % (35.0-46.0); MEAN CELL VOLUME 84.2 FL (80.0-100.0); MEAN CORPUSCULAR HGB CONC 33.3 % (32.0-36.0); PLATELET COUNT 210 TH/MM3 (150-450); RED CELL DISTRIBUTION WIDTH 16.5 % (11.6-17.2); REVIEW FLAG FINAL; WHITE BLOOD COUNT 7.9 TH/MM3 (4.0-11.0)
[2016-08-05 04:50] LABS: APTT (PATIENT) 27.1 SEC (24.3-30.1)
[2016-08-05 05:20] LABS: ALKALINE PHOSPHATASE 114 U/L (45-117); ALT (GPT) 33 U/L (10-53); ANION GAP 12 MEQ/L (5-15); AST (GOT) 14 U/L (15-37); BICARBONATE 25.9 MEQ/L (21.0-32.0); BLOOD UREA NITROGEN 23 MG/DL (7-18); CHLORIDE 105 MEQ/L (98-107); GLOMERULAR FILTRATION RATE 111 ML/MIN (>89); POTASSIUM 3.6 MEQ/L (3.5-5.1); SODIUM (NA) 143 MEQ/L (136-145); TOTAL BILIRUBIN ADULT 0.2 MG/DL (0.2-1.0)
[2016-08-05] MEDS: QUEtiapine FUMARATE 100 MG TAB PO SCH ×3 (05:46→19:43)
[2016-08-05] MEDS: methylPREDNISolone SOD SUCC 40 MG/1 ML VIAL IV PUSH SCH ×3 (05:46→19:44)
[2016-08-05] MEDS: ALPRAZolam 1 MG TAB PO SCH ×3 (05:46→19:43)
[2016-08-05] MEDS: SODIUM CHLORIDE 0.9% FLUSH 5 ML FLUSH IV FLUSH PRN (07:27)
[2016-08-05] MEDS: PANTOPRAZOLE SODIUM 40 MG VIAL IV SCH ×2 (07:27→19:44)
[2016-08-05] MEDS: SODIUM CHLORIDE 0.9% FLUSH 5 ML FLUSH IV FLUSH SCH ×2 (07:27→19:45)
[2016-08-05] MEDS: LACTULOSE SYRUP 20 GM/30 ML CUP PO SCH (07:27)
[2016-08-05 09:47] LABS: BLOOD GAS BASE EXCESS -0.3 mmol/L (-2-2); BLOOD GAS CARBOXYHEMOGLOBIN 1.5 % (0-4); BLOOD GAS HCO3 23 mmol/L (22-26); BLOOD GAS METHEMOGLOBIN 0.9 % (0-2); BLOOD GAS O2 HGB SATURATION 94 % (90-100); BLOOD GAS OXYGEN CONTENT 12.8 Vol % (12.0-20.0); BLOOD GAS PCO2 36 mmHg (38-42); BLOOD GAS PO2 85 mmHg (61-120); BLOOD GAS TOTAL HGB 9.6 G/DL (12.0-16.0); CRITICAL VALUE NO; DRAW SITE RT RADIAL; FIO2 40 %; NUMBER OF ARTERIAL PUNCTURES 1; OXYGEN DEVICE VENTILATOR; STAT NO; TEMP CORR TO 98.6; ULNAR PULSE PRESENT; VENT SETTINGS CPAP 5/8PS
[2016-08-05] MEDS: cefTRIAXone INJ 2,000 MG in SODIUM CHLORIDE 0.9% INJ 100 ML IV SCH (10:13)
--- NOTE | 2016-08-05 12:11 | HHI.CCPN ---
Subjective Remarks/Hospital Course On 07/25/2016 the patient presented to ED in [place].Her history is significant for the fact that she has a history of DVT in 2013, Lytle filter placement and was on Xarelto. The patient also stated that she has a history of peptic ulcer disease. The patient presented with complaints of lightheadedness,generalized weakness,fatigue and inability to void 3 days, on 07/25/2016. The patient medical history significant for the fact that in 2012 was admitted with GI bleed at that time had upper endoscopy which was consistent with severe grade D esophagitis,mild gastritis and mckayla. The patient had denied NSAID use. On presentation to the ED in [place] on 07/25, the patient's blood pressure ranges 65/40 to 81/40 with initial hemoglobin of 12. The patient reported also having medical history significant for history of renal failure, and congestive heart failure. The patient received 4 units of crystalloids, indigo a NG tube was placed, approximately a liter of coffee ground emesis upon initial placement. Octreotide and Protonix infusions were initiated, and GI was consulted. Patient was transfused 1unit PRBC. The patient remained hypotensive, a right femoral line was placed, the patient was placed on Shane-Synephrine. Critical care medicine was consulted for treatment and management, on 07/25/2016. A telephone handoff was given from Dr. Hrenández, upon initiation of transport from [place], the patient became acutely hypotensive, SBP 70's. The patient was placed on a Levophed infusion, MAP's were obtained greater than 65mmHG. the patient was then transferred to [facility] with ER physician, Dr. Sabillon accompanying patient. Upon arrival, MAP 76, the patient was alert and oriented not in respiratory distress , tachycardic complaining of abdominal pain, maldonado draining pale yellow urine. Levophed had been weaned off prior to arrival and the patient remained on Shane- Synephrine at 70mcgs. The patient then underwent an endoscopy revealing multiple gastric ulcers. The 55-year-old female with history of recent admission for gastric ulcer and GI bleed, was discharged from the hospital on in the am, and presented back to the ED brought in by EMS on the same evening. Apparently the patient was found prone and unresponsive, found to be in PEA with organized bradycardia, CPR initiated on scene, and patient came around, was able to talk a little bit and stated that she should not have left the hospital. Patient was in significant respiratory distress and hypoxic and patient was intubated for respiratory distress. The patient was intubated in ED. Critical care medicine was consulted for management and treatment. 07/29:Upon cessation of sedation, the patient was noted to be a GCS of 11 T, following commands. The patient continues on norepinephrine at 3 mcgs, and propofol at 25 mcgs.Will obtain ECHO today, cardiology consulted. 07/30: Norepinephrine was weaned off early this a.m.. The patient required reintubation last p.m. secondary to inadvertent removal with repositioning of patient. Troponins trending down at this time, cardiology following. GI was re- consulted regarding initiation of anticoagulation in the setting of bilateral pulmonary emboli, patient was placed on heparin infusion at this time with plans for transition to Xarelto. 07/31: Tmax 101.0. The patient was transitioned to heparin last evening, and continues to be closely monitored for GI bleeding in the setting of esophageal ulcer and bilateral pulmonary embolus. Ultrasound of bilateral upper extremities obtained yesterday revealing thrombus left cephalic vein. On sedation holiday last evening the patient became extremely anxious, will resume Xanax 2 mg daily(home medication). Chest x-ray reviewed showed worsening right midlung and right basilar consolidations, oxygen requirements not increased. 08/01: continues to fail SBTs for agitation. secretions are still an issue. s/p bronch yesterday. continues on heparin infusion, no bleeding episodes x 48h. 08/02: failed SBT again yesterday for agitation. Seroquel started. this AM much more awake. transitioned yesterday to Lovenox from heparin drip, hgb decreased slightly from 9.4 to 9. no signs of active bleeding. 08/03: Failed SBT due to tachypnea. Currently on 3 mcg/kg/hour Precedex. Family at bedside. No evidence of active bleeding 08/04/16: Awake and alert failing is continued tachypnea. I will attempt weaning with IMV/pressure support, gradually reducing the mandatory ventilatory rate. Also given 1 mg IV Bumex. Chest x-ray shows improving infiltrates 08/05/16: Tolerating CPAP slightly better today. Started on IV steroids yesterday. Able to wake up and follow some commands while on Precedex Objective Vital Signs Date Time Temp Pulse Resp B/P Pulse Ox O2 Delivery O2 Flow Rate FiO2 08/05/16 10:14 96 Nasal Cannula 4 08/05/16 10:00 75 08/05/16 08:30 40 08/05/16 08:00 97.5 25 135/71 Intake and Output 08/04/16 08/04/16 08/05/16 08:00 16:00 00:00 Intake Total 635 ml 350 ml 1050 ml Output Total 325 ml 1750 ml 650 ml Balance 310 ml -1400 ml 400 ml Result Diagram: 08/05/16 0405 08/05/16 0405 Other Results Laboratory Tests Test 08/05/16 09:40 Blood Gas Puncture Site RT RADIAL Blood Gas Patient Temperature 98.6 Blood Gas HCO3 23 mmol/L (22-26) Blood Gas Base Excess -0.3 mmol/L (-2-2) Blood Gas Oxygen Saturation 94 % (90-100) Arterial Blood pH 7.43 (7.380-7.420) Arterial Blood Partial 36 mmHg (38-42) Pressure CO2 Arterial Blood Partial 85 mmHg Pressure O2 (61-120) Arterial Blood Oxygen Content 12.8 Vol % (12.0-20.0) Arterial Blood 1.5 % (0-4) Carboxyhemoglobin Arterial Blood Methemoglobin 0.9 % (0-2) Blood Gas Hemoglobin 9.6 G/DL (12.0-16.0) Oxygen Delivery Device VENTILATOR Blood Gas Ventilator Setting CPAP 5/8PS Blood Gas Inspired Oxygen 40 % Imaging Last 48 hours Impressions Chest X-Ray 07/30/16 0600 Signed Impressions: Service Date/Time: Saturday, July 30, 2016 04:48 - CONCLUSION: 1. Worsening right midlung and right basilar consolidation. 2. Stable left basilar density. Gareth Gray MD Upper Extremity Ultrasound 07/30/16 0000 Signed Impressions: Service Date/Time: Saturday, July 30, 2016 16:08 - CONCLUSION: 1. Occlusive and nonocclusive thrombus within the left cephalic vein from the mid arm to the proximal forearm. 2. No deep venous thrombosis within the right upper extremity. David Luther MD Objective Remarks GENERAL: Morbidly obese female, intubated sedated, on Precedex SKIN: Warm and dry. HEAD: Atraumatic. Normocephalic. EYES: Pupils equal and round. No scleral icterus. No injection or drainage. ENT: No nasal bleeding or discharge. Orotracheally intubated NECK: Trachea midline. No JVD. CARDIOVASCULAR: Normal rate, regular rhythm. RESPIRATORY: Breath sounds equal bilaterally. Mild bilateral rhonchi GASTROINTESTINAL: Abdomen soft, protuberant non-tender, nondistended. No guarding. MUSCULOSKELETAL: Extremities without clubbing, cyanosis, or edema. No obvious deformities. NEUROLOGICAL: Intubated and sedated. RASS -1. No gross focal/sensory deficits. Follows commands in all 4 extremities. Urinary Catheter: Yes Assessment to: Continue Date of Insertion: Jul 28, 2016 Date of Insertion: Jul 28, 2016 Location: Subclavian A/P Problem List: (1) Cardiac arrest ICD Code: I46.9 Status: Acute (2) Cardiogenic shock ICD Code: R57.0 Status: Acute (3) Acute respiratory failure ICD Code: J96.00 Status: Acute (4) Encephalopathy acute ICD Code: G93.40 Status: Acute Assessment and Plan Assessment and Plan This is a 55-year-old morbidly obese female, with a history of DVT on Xarelto daily that presented with hematemesis secondary to GI bleed, and severe dehydration, hemorrhagic shock on 07/25/2016. Patient was subsequently discharged on 07/28/2016,with reconciliation to continue home medications which included Xarelto. Upon arrival home, the subsequently had PEA arrest, CPR was initiated, ROSC, and transferred to the ED, at which time the patient was in acute hypoxic respiratory failure and was intubated and sedated. Reinitiation of anticoagulation for prothrombotic state in the setting of recent esophageal ulcer. Problem list; PEA Arrest most likely secondary to prothrombotic state Bilateral Pulmonary Emboli GI bleeding Acute hypoxic respiratory failure Severe agitated delirium Plan by systems: Neurologic: Anxiety Depression Pain -Xanax to 1mg po q8hr slow taper -Precedex for goal RASS -1 to 0.-DC if extubated -Seroquel 100mg po q8h. -Daily sedation vacation Respiratory: Acute respiratory failure Bilateral pulmonary emboli COPD with possible exacerbation Asthma Nicotine abuse (smokes 2 packs of cigarettes per day) -Daily SBT. Tolerating C Pap trials better today-possible extubation -Maintain O2 sat greater than 90% -Chest x-ray 07/30-worsening right midlung, right basilar consolidation with stable left basilar density, chest x-ray 08/04/16 shows improving bilateral infiltrates -CTA 07/29-acute pulmonary emboli upper lobe branches bilateral -Bronchodilators scheduled every 4 hours, and every 2 hours when necessary -Solu-Medrol 125 mg 1 and 40 every 8 hours 08/04/16 -Ventilator bundle -Maintain head of bed greater than 30 Cardiovascular: PEA arrest NSTEMI H/O CHF H/O Hypertension H/O DVT Hyperlipidemia Cardiomegaly -Maintain MAP greater than 65 mmHg -Continue atorvastatin -Ian filter in situ since 2012 -Cardiology following- -Troponin 1.74-->1.6 -continue therapeutic lovenox. (upper endoscopy 07/26-grade D esophagitis with esophageal ulcers) Renal: -daily BMP -Maintain Maldonado, hourly measurement -Strict I/Os -Bumex 1 mg IV x1 08/06 FEN/GI: Super Morbid obesity H/O Upper GI bleed 07/25/16 Gastric ulceration GERD Hypophosphatemia -Vital High Protein tube feeds at goal of 55/hour-hold for possible extubation -Zofran when necessary for nausea -Continue Protonix to BID -Replete electrolytes per ICU protocol Heme/ID: Bilateral PE Thrombus-left cephalic vein H/O DVT -Previously on Xarelto, continue Lovenox 1mg/kg sq q12h. -Lytle IVC filter placement-2012 -07/31-ultrasound B/L upper extremities-nonocclusive and occlusive thrombus in left cephalic vein mid arm to proximal forearm. Endocrine: Glucose monitoring every 6 hours per ICU protocol -- SSI Prophylaxis: GI Prophylaxis Protonix DVT Prophylaxis -- SCDs, therapeutic lovenox. Dispo: This patient remains critically ill with one or more organ systems which are or may become a threat to life. I have spent in excess of 32 minutes discontinuously in the care and management of this patient. This time is exclusive of procedures, and includes, but is not limited to, evaluation of the patient, review of the medical record, discussions with family, consultants, nursing staff, or respiratory therapy, and documentation in the medical record. Updated and daughter at the bedside 08/03/16. Continue ICU care Alannah Maravilla MD Aug 05, 2016 12:11
--- NOTE | 2016-08-05 14:05 | PD.CARD.PN ---
Subjective Subjective Remarks extubated, in nad Objective Vital Signs / I&O Vital Signs Date Time Temp Pulse Resp B/P Pulse Ox O2 Delivery O2 Flow Rate FiO2 08/05/16 10:14 96 Nasal Cannula 4 08/05/16 10:14 96 Nasal Cannula 4.00 08/05/16 10:00 75 08/05/16 08:30 40 08/05/16 08:30 98 40 08/05/16 08:00 40 08/05/16 08:00 69 08/05/16 08:00 97.5 69 25 135/71 98 08/05/16 06:00 67 08/05/16 04:05 95 45 08/05/16 04:00 98.2 65 20 128/66 97 08/05/16 04:00 40 08/05/16 04:00 65 08/05/16 02:00 66 08/05/16 01:10 97 45 08/05/16 00:00 98.5 64 27 142/95 98 08/05/16 00:00 64 08/05/16 00:00 40 08/04/16 22:00 64 08/04/16 21:51 93 45 08/04/16 20:00 40 08/04/16 20:00 70 08/04/16 20:00 98.4 70 23 118/61 96 08/04/16 19:57 96 40 08/04/16 19:39 96 40 08/04/16 18:00 70 08/04/16 16:00 99.1 73 24 118/62 96 08/04/16 16:00 40 08/04/16 16:00 73 I/O 08/04/16 08/04/16 08/04/16 08/05/16 08/05/16 08/05/16 07:00 15:00 23:00 07:00 15:00 23:00 Intake Total 635 ml 350 ml 1050 ml 624 ml Output Total 325 ml 1750 ml 650 ml 450 ml Balance 310 ml -1400 ml 400 ml 174 ml IV Total 118 ml 350 ml 127 ml 125 ml Tube Feeding 417 ml 0 ml 573 ml 349 ml Other 100 ml 350 ml 150 ml Output Urine Total 300 ml 1725 ml 650 ml 400 ml Stool Total 25 ml 25 ml 50 ml # Bowel Movements 0 Physical Exam GENERAL: SKIN: Warm and dry. HEAD: Normocephalic. EYES: No scleral icterus. No injection or drainage. NECK: Supple, trachea midline. No JVD or lymphadenopathy. CARDIOVASCULAR: Regular rate and rhythm without murmurs, gallops, or rubs. RESPIRATORY: Breath sounds equal bilaterally. No accessory muscle use. GASTROINTESTINAL: Abdomen soft, non-tender, nondistended. MUSCULOSKELETAL: No cyanosis, or edema. BACK: Nontender without obvious deformity. No CVA tenderness. Laboratory Laboratory Tests Test 08/05/16 08/05/16 04:05 09:40 White Blood Count 7.9 TH/MM3 Red Blood Count 3.30 MIL/MM3 Hemoglobin 9.3 GM/DL Hematocrit 27.8 % Mean Corpuscular Volume 84.2 FL Mean Corpuscular Hemoglobin 28.0 PG Mean Corpuscular Hemoglobin 33.3 % Concent Red Cell Distribution Width 16.5 % Platelet Count 210 TH/MM3 Mean Platelet Volume 11.4 FL Activated Partial 27.1 SEC Thromboplast Time Sodium Level 143 MEQ/L Potassium Level 3.6 MEQ/L Chloride Level 105 MEQ/L Carbon Dioxide Level 25.9 MEQ/L Anion Gap 12 MEQ/L Blood Urea Nitrogen 23 MG/DL Creatinine 0.57 MG/DL Estimat Glomerular Filtration 111 ML/MIN Rate Random Glucose 211 MG/DL Calcium Level 8.7 MG/DL Total Bilirubin 0.2 MG/DL Aspartate Amino Transf 14 U/L (AST/SGOT) Alanine Aminotransferase 33 U/L (ALT/SGPT) Alkaline Phosphatase 114 U/L Total Protein 7.1 GM/DL Albumin 2.2 GM/DL Blood Gas Puncture Site RT RADIAL Blood Gas Patient Temperature 98.6 Blood Gas HCO3 23 mmol/L Blood Gas Base Excess -0.3 mmol/L Blood Gas Oxygen Saturation 94 % Arterial Blood pH 7.43 Arterial Blood Partial 36 mmHg Pressure CO2 Arterial Blood Partial 85 mmHg Pressure O2 Arterial Blood Oxygen Content 12.8 Vol % Arterial Blood 1.5 % Carboxyhemoglobin Arterial Blood Methemoglobin 0.9 % Blood Gas Hemoglobin 9.6 G/DL Oxygen Delivery Device VENTILATOR Blood Gas Ventilator Setting CPAP 5/8PS Blood Gas Inspired Oxygen 40 % Assessment and Plan Problem List: (1) COPD exacerbation (2) Acute systolic CHF (congestive heart failure) (3) HTN (hypertension) (4) CHF (congestive heart failure) (5) DVT (deep venous thrombosis) (6) Upper gastrointestinal hemorrhage (7) Hypotension (8) Hypovolemic shock (9) PEA (Pulseless electrical activity) (10) Required emergent intubation (11) Acute respiratory failure (12) Cardiogenic shock (13) Cardiac arrest (14) Encephalopathy acute (15) PE (pulmonary thromboembolism) Assessment and Plan 1.) PE - s/p pea cardiac arrest with respiratory failure requiring intubation, recent life threatening GIB, now on lovenox, hgb =9.3 today, with no obvious bleeding, high risk for poor outcome d/t dilemma of pe and gib; Casa Andrew MD Aug 05, 2016 14:04
[2016-08-05] MEDS ORDERED: LOPERAMIDE HCL 2 MG CAP PO PRN (15:00)
[2016-08-05] MEDS: ACETAMINOPHEN/HYDROcodone 325 MG/10 MG TAB PO PRN (17:15)
[2016-08-05] MEDS ORDERED: traMADol HCL 50 MG TAB PO PRN (19:30)
[2016-08-05] MEDS: ATORVASTATIN 20 MG TAB PO SCH (19:43)
[2016-08-05] MEDS: HALOPERIDOL LACTATE 5 MG/ML AMP IV PUSH PRN (21:59)
[2016-08-05] MEDS ORDERED: RESP: RACEPINEPHRINE 2.25% 0.5 ML NEB ONE (23:43)
[2016-08-05] MEDS ORDERED: RESP: RACEPINEPHRINE 2.25% 0.5 ML NEB NEB PRN (23:45)
[2016-08-06] VITALS (16 sets, daily range): BP systolic 143–192; BP diastolic 67–122; PULSE 83–119; RESP 23–33; TEMP 97.9–98.5; O2SAT 92–100
[2016-08-06] MEDS: CHLORHEXIDINE GLUCONATE 2 % 1 PACK (2 CLOTHS) TOP SCH (04:00)
[2016-08-06] MEDS: QUEtiapine FUMARATE 100 MG TAB PO SCH ×3 (05:36→20:58)
[2016-08-06] MEDS: methylPREDNISolone SOD SUCC 40 MG/1 ML VIAL IV PUSH SCH ×3 (05:37→20:58)
[2016-08-06] MEDS: ACETAMINOPHEN/HYDROcodone 325 MG/10 MG TAB PO PRN ×3 (05:37→15:10)
[2016-08-06] MEDS: ALPRAZolam 1 MG TAB PO SCH ×3 (05:38→20:59)
[2016-08-06 07:10] LABS: HEMATOCRIT 30.8 % (35.0-46.0); MEAN CELL VOLUME 85.6 FL (80.0-100.0); MEAN CORPUSCULAR HGB CONC 32.7 % (32.0-36.0); PLATELET COUNT 337 TH/MM3 (150-450); RED CELL DISTRIBUTION WIDTH 16.6 % (11.6-17.2); REVIEW FLAG FINAL; WHITE BLOOD COUNT 11.7 TH/MM3 (4.0-11.0)
[2016-08-06 07:14] LABS: APTT (PATIENT) 25.4 SEC (24.3-30.1)
[2016-08-06 07:28] LABS: BICARBONATE 29.4 MEQ/L (21.0-32.0); POTASSIUM 3.5 MEQ/L (3.5-5.1)
[2016-08-06] MEDS ORDERED: PILL SPLITTER OTHER PRN (08:45)
--- NOTE | 2016-08-06 08:55 | HHI.CCPN ---
Subjective Remarks/Hospital Course On 07/25/2016 the patient presented to ED in [place].Her history is significant for the fact that she has a history of DVT in 2013, [place] filter placement and was on Xarelto. The patient also stated that she has a history of peptic ulcer disease. The patient presented with complaints of lightheadedness,generalized weakness,fatigue and inability to void 3 days, on 07/25/2016. The patient medical history significant for the fact that in 2012 was admitted with GI bleed at that time had upper endoscopy which was consistent with severe grade D esophagitis,mild gastritis and mckayla. The patient had denied NSAID use. On presentation to the ED in [place] on 07/25, the patient's blood pressure ranges 65/40 to 81/40 with initial hemoglobin of 12. The patient reported also having medical history significant for history of renal failure, and congestive heart failure. The patient received 4 units of crystalloids, indigo a NG tube was placed, approximately a liter of coffee ground emesis upon initial placement. Octreotide and Protonix infusions were initiated, and GI was consulted. Patient was transfused 1unit PRBC. The patient remained hypotensive, a right femoral line was placed, the patient was placed on Shane-Synephrine. Critical care medicine was consulted for treatment and management, on 07/25/2016. A telephone handoff was given from Dr. Hernández, upon initiation of transport from [place], the patient became acutely hypotensive, SBP 70's. The patient was placed on a Levophed infusion, MAP's were obtained greater than 65mmHG. the patient was then transferred to [facility] with ER physician, Dr. Sabillon accompanying patient. Upon arrival, MAP 76, the patient was alert and oriented not in respiratory distress , tachycardic complaining of abdominal pain, maldonado draining pale yellow urine. Levophed had been weaned off prior to arrival and the patient remained on Shane- Synephrine at 70mcgs. The patient then underwent an endoscopy revealing multiple gastric ulcers. The 55-year-old female with history of recent admission for gastric ulcer and GI bleed, was discharged from the hospital on in the am, and presented back to the ED brought in by EMS on the same evening. Apparently the patient was found prone and unresponsive, found to be in PEA with organized bradycardia, CPR initiated on scene, and patient came around, was able to talk a little bit and stated that she should not have left the hospital. Patient was in significant respiratory distress and hypoxic and patient was intubated for respiratory distress. The patient was intubated in ED. Critical care medicine was consulted for management and treatment. 07/29:Upon cessation of sedation, the patient was noted to be a GCS of 11 T, following commands. The patient continues on norepinephrine at 3 mcgs, and propofol at 25 mcgs.Will obtain ECHO today, cardiology consulted. 07/30: Norepinephrine was weaned off early this a.m.. The patient required reintubation last p.m. secondary to inadvertent removal with repositioning of patient. Troponins trending down at this time, cardiology following. GI was re- consulted regarding initiation of anticoagulation in the setting of bilateral pulmonary emboli, patient was placed on heparin infusion at this time with plans for transition to Xarelto. 07/31: Tmax 101.0. The patient was transitioned to heparin last evening, and continues to be closely monitored for GI bleeding in the setting of esophageal ulcer and bilateral pulmonary embolus. Ultrasound of bilateral upper extremities obtained yesterday revealing thrombus left cephalic vein. On sedation holiday last evening the patient became extremely anxious, will resume Xanax 2 mg daily(home medication). Chest x-ray reviewed showed worsening right midlung and right basilar consolidations, oxygen requirements not increased. 08/01: continues to fail SBTs for agitation. secretions are still an issue. s/p bronch yesterday. continues on heparin infusion, no bleeding episodes x 48h. 08/02: failed SBT again yesterday for agitation. Seroquel started. this AM much more awake. transitioned yesterday to Lovenox from heparin drip, hgb decreased slightly from 9.4 to 9. no signs of active bleeding. 08/03: Failed SBT due to tachypnea. Currently on 3 mcg/kg/hour Precedex. Family at bedside. No evidence of active bleeding 08/04/16: Awake and alert failing is continued tachypnea. I will attempt weaning with IMV/pressure support, gradually reducing the mandatory ventilatory rate. Also given 1 mg IV Bumex. Chest x-ray shows improving infiltrates 08/05/16: Tolerating CPAP slightly better today. Started on IV steroids yesterday. Able to wake up and follow some commands while on Precedex 08/06/16: Extubated yesterday and tolerated well. Overnight developed stridor but responded well to racemic epi. Slightly tachypneic otherwise no specific complaints Objective Vital Signs Date Time Temp Pulse Resp B/P Pulse Ox O2 Delivery O2 Flow Rate FiO2 08/06/16 06:00 112 08/06/16 04:00 98.5 33 173/84 92 08/06/16 00:46 40 08/05/16 10:14 Nasal Cannula 4 Intake and Output 08/05/16 08/05/16 08/06/16 08:00 16:00 00:00 Intake Total 624 ml 457 ml 112 ml Output Total 450 ml 400 ml 800 ml Balance 174 ml 57 ml -688 ml Result Diagram: 08/06/16 0545 08/06/16 0545 Other Results Laboratory Tests Test 08/05/16 09:40 Blood Gas Puncture Site RT RADIAL Blood Gas Patient Temperature 98.6 Blood Gas HCO3 23 mmol/L (22-26) Blood Gas Base Excess -0.3 mmol/L (-2-2) Blood Gas Oxygen Saturation 94 % (90-100) Arterial Blood pH 7.43 (7.380-7.420) Arterial Blood Partial 36 mmHg (38-42) Pressure CO2 Arterial Blood Partial 85 mmHg Pressure O2 (61-120) Arterial Blood Oxygen Content 12.8 Vol % (12.0-20.0) Arterial Blood 1.5 % (0-4) Carboxyhemoglobin Arterial Blood Methemoglobin 0.9 % (0-2) Blood Gas Hemoglobin 9.6 G/DL (12.0-16.0) Oxygen Delivery Device VENTILATOR Blood Gas Ventilator Setting CPAP 5/8PS Blood Gas Inspired Oxygen 40 % Imaging Last 48 hours Impressions Chest X-Ray 07/30/16 0600 Signed Impressions: Service Date/Time: Saturday, July 30, 2016 04:48 - CONCLUSION: 1. Worsening right midlung and right basilar consolidation. 2. Stable left basilar density. Gareth Gray MD Upper Extremity Ultrasound 07/30/16 0000 Signed Impressions: Service Date/Time: Saturday, July 30, 2016 16:08 - CONCLUSION: 1. Occlusive and nonocclusive thrombus within the left cephalic vein from the mid arm to the proximal forearm. 2. No deep venous thrombosis within the right upper extremity. David Luther MD Objective Remarks GENERAL: Morbidly obese female, lying on bed. Slightly tachypneic SKIN: Warm and dry. HEAD: Atraumatic. Normocephalic. EYES: Pupils equal and round. No scleral icterus. No injection or drainage. ENT: No nasal bleeding or discharge. NECK: Trachea midline. No JVD. CARDIOVASCULAR: Normal rate, regular rhythm. RESPIRATORY: Breath sounds equal bilaterally. Mild bilateral rhonchi GASTROINTESTINAL: Abdomen soft, protuberant non-tender, nondistended. No guarding. MUSCULOSKELETAL: Extremities without clubbing, cyanosis, or edema. No obvious deformities. NEUROLOGICAL: Alert awake oriented 3. No focal deficits Date of Insertion: Jul 28, 2016 Date of Insertion: Jul 28, 2016 Location: [facility] A/P Problem List: (1) Cardiac arrest ICD Code: I46.9 Status: Acute (2) Cardiogenic shock ICD Code: R57.0 Status: Acute (3) Acute respiratory failure ICD Code: J96.00 Status: Acute (4) Encephalopathy acute ICD Code: G93.40 Status: Acute Assessment and Plan Assessment and Plan This is a 55-year-old morbidly obese female, with a history of DVT on Xarelto daily that presented with hematemesis secondary to GI bleed, and severe dehydration, hemorrhagic shock on 07/25/2016. Patient was subsequently discharged on 07/28/2016,with reconciliation to continue home medications which included Xarelto. Upon arrival home, the subsequently had PEA arrest, CPR was initiated, ROSC, and transferred to the ED, at which time the patient was in acute hypoxic respiratory failure and was intubated and sedated. Reinitiation of anticoagulation for prothrombotic state in the setting of recent esophageal ulcer. Problem list; PEA Arrest most likely secondary to prothrombotic state Bilateral Pulmonary Emboli GI bleeding Acute hypoxic respiratory failure Severe agitated delirium Plan by systems: Neurologic: Anxiety Depression Pain -Xanax to 1mg po q8hr slow taper (Stop 08/07/16). Continue when necessary Xanax -Discontinue Precedex -Seroquel 100mg po [id number] to DC over 3 days. Restart the Wellbutrin Respiratory: Acute respiratory failure Bilateral pulmonary emboli COPD with possible exacerbation Asthma Nicotine abuse (smokes 2 packs of cigarettes per day) -Extubated 08/05/16 tolerating well. Continue scheduled and when necessary DuoNeb -Received racemic epi for stridor, resolved now -Maintain O2 sat greater than 90% -Chest x-ray 07/30-worsening right midlung, right basilar consolidation with stable left basilar density, chest x-ray 08/04/16 shows improving bilateral infiltrates -CTA 07/29-acute pulmonary emboli upper lobe branches bilateral -Solu-Medrol 125 mg 1 and 40 every 8 hours 08/04/16 -Consulted pulmonology for COPD and pulmonary embolism -Maintain head of bed greater than 30 Cardiovascular: PEA arrest NSTEMI H/O CHF H/O Hypertension H/O DVT Hyperlipidemia Cardiomegaly -Maintain MAP greater than 65 mmHg -Continue atorvastatin -[place] filter in situ since 2012 -Cardiology following- -Troponin 1.74-->1.6 -continue therapeutic lovenox. (upper endoscopy 07/26-grade D esophagitis with esophageal ulcers) Renal: -daily BMP -Maintain Maldonado, hourly measurement -Strict I/Os -Bumex 1 mg IV x1 08/05 FEN/GI: Super Morbid obesity H/O Upper GI bleed 07/25/16 Gastric ulceration GERD Hypophosphatemia -Heart healthy diet -Zofran when necessary for nausea -Continue Protonix to BID IV -Replete electrolytes per ICU protocol Heme/ID: Bilateral PE Thrombus-left cephalic vein H/O DVT -Previously on Xarelto, continue Lovenox 1mg/kg sq q12h. -[place]an IVC filter placement-2012 -07/31-ultrasound B/L upper extremities-nonocclusive and occlusive thrombus in left cephalic vein mid arm to proximal forearm. Endocrine: -Glucose monitoring every 6 hours per ICU protocol -SSI Prophylaxis: GI Prophylaxis Protonix DVT Prophylaxis -- SCDs, therapeutic Lovenox. Dispo: Level 3 Consult [facility] Dr. King to assume care Alannah Maravilla MD Aug 06, 2016 08:55
[2016-08-06] MEDS: LACTULOSE SYRUP 20 GM/30 ML CUP PO SCH (09:00)
[2016-08-06] MEDS: ENOXAPARIN SODIUM 100 MG/ML SYRINGE SQ SCH ×2 (09:19→21:00)
[2016-08-06] MEDS: cefTRIAXone INJ 2,000 MG in SODIUM CHLORIDE 0.9% INJ 100 ML IV SCH (09:19)
[2016-08-06] MEDS: PANTOPRAZOLE SODIUM 40 MG VIAL IV SCH ×2 (09:19→19:52)
[2016-08-06] MEDS: SODIUM CHLORIDE 0.9% FLUSH 5 ML FLUSH IV FLUSH SCH ×2 (09:20→19:52)
[2016-08-06] MEDS: buPROPion HCL 100 MG TAB PO SCH ×2 (09:51→19:52)
[2016-08-06] MEDS: BUDESONIDE-FORMOTEROL 160/4.5 MCG INHALER INH SCH ×2 (09:51→19:51)
[2016-08-06] MEDS: TIOTROPIUM BROMIDE 18 MCG INH INH SCH (09:51)
[2016-08-06] MEDS: RESP: ALBUTEROL 2.5 MG/IPRATROPIUM 0.5 MG NEB (SCH) NEB ×3 (10:53→21:05)
--- NOTE | 2016-08-06 14:34 | PD.CARD.PN ---
Subjective Subjective Remarks alert in nad Objective Vital Signs / I&O Vital Signs Date Time Temp Pulse Resp B/P Pulse Ox O2 Delivery O2 Flow Rate FiO2 08/06/16 10:56 99 Nasal Cannula 4.00 08/06/16 07:00 99 Venturi Mask 6.00 50 08/06/16 06:00 112 08/06/16 04:00 119 08/06/16 04:00 98.5 100 33 173/84 92 08/06/16 02:00 109 08/06/16 00:46 100 40 08/06/16 00:00 109 08/06/16 00:00 98.0 109 28 143/67 98 08/05/16 22:00 113 08/05/16 20:00 119 08/05/16 20:00 97.9 119 28 145/63 95 08/05/16 18:00 108 08/05/16 16:00 98.7 119 26 165/79 94 08/05/16 16:00 119 I/O 08/05/16 08/05/16 08/05/16 08/06/16 08/06/16 08/06/16 07:00 15:00 23:00 07:00 15:00 23:00 Intake Total 624 ml 457 ml 112 ml 200 ml Output Total 450 ml 400 ml 800 ml 900 ml Balance 174 ml 57 ml -688 ml -700 ml Intake Oral 120 ml 100 ml IV Total 125 ml 232 ml 112 ml 100 ml Tube Feeding 349 ml 45 ml Other 150 ml 60 ml Output Urine Total 400 ml 400 ml 800 ml 900 ml Stool Total 50 ml # Bowel Movements 4 0 0 Physical Exam GENERAL: SKIN: Warm and dry. HEAD: Normocephalic. EYES: No scleral icterus. No injection or drainage. NECK: Supple, trachea midline. No JVD or lymphadenopathy. CARDIOVASCULAR: Regular rate and rhythm without murmurs, gallops, or rubs. RESPIRATORY: Breath sounds equal bilaterally. No accessory muscle use. GASTROINTESTINAL: Abdomen soft, non-tender, nondistended. MUSCULOSKELETAL: No cyanosis, or edema. BACK: Nontender without obvious deformity. No CVA tenderness. Laboratory Laboratory Tests Test 08/06/16 05:45 White Blood Count 11.7 TH/MM3 Red Blood Count 3.60 MIL/MM3 Hemoglobin 10.1 GM/DL Hematocrit 30.8 % Mean Corpuscular Volume 85.6 FL Mean Corpuscular Hemoglobin 28.0 PG Mean Corpuscular Hemoglobin 32.7 % Concent Red Cell Distribution Width 16.6 % Platelet Count 337 TH/MM3 Mean Platelet Volume 11.5 FL Activated Partial 25.4 SEC Thromboplast Time Sodium Level 147 MEQ/L Potassium Level 3.5 MEQ/L Chloride Level 112 MEQ/L Carbon Dioxide Level 29.4 MEQ/L Anion Gap 6 MEQ/L Blood Urea Nitrogen 21 MG/DL Creatinine 0.58 MG/DL Estimat Glomerular Filtration 109 ML/MIN Rate Random Glucose 123 MG/DL Calcium Level 9.1 MG/DL Assessment and Plan Problem List: (1) COPD exacerbation (2) Acute systolic CHF (congestive heart failure) (3) HTN (hypertension) (4) CHF (congestive heart failure) (5) DVT (deep venous thrombosis) (6) Upper gastrointestinal hemorrhage (7) Hypotension (8) Hypovolemic shock (9) PEA (Pulseless electrical activity) (10) Required emergent intubation (11) Acute respiratory failure (12) Cardiogenic shock (13) Cardiac arrest (14) Encephalopathy acute (15) PE (pulmonary thromboembolism) Assessment and Plan 1.) PE - s/p pea cardiac arrest with respiratory failure requiring intubation, recent life threatening GIB, now on lovenox, hgb =9.3 today, with no obvious bleeding, high risk for poor outcome d/t dilemma of pe and gib; Casa Andrew MD Aug 06, 2016 14:34
[2016-08-06] MEDS: ATORVASTATIN 20 MG TAB PO SCH (19:52)
[2016-08-07] VITALS (14 sets, daily range): BP systolic 129–170; BP diastolic 60–101; PULSE 79–104; RESP 17–26; TEMP 97.8–98.2; O2SAT 94–100
[2016-08-07] MEDS: RESP: ALBUTEROL 2.5 MG/IPRATROPIUM 0.5 MG NEB (SCH) NEB ×4 (03:56→19:52)
[2016-08-07] MEDS: CHLORHEXIDINE GLUCONATE 2 % 1 PACK (2 CLOTHS) TOP SCH (04:00)
[2016-08-07] MEDS: QUEtiapine FUMARATE 100 MG TAB PO SCH ×3 (05:14→21:36)
[2016-08-07] MEDS: methylPREDNISolone SOD SUCC 40 MG/1 ML VIAL IV PUSH SCH ×2 (05:14→21:33)
[2016-08-07] MEDS: ALPRAZolam 1 MG TAB PO SCH (05:15)
[2016-08-07] MEDS: ACETAMINOPHEN/HYDROcodone 325 MG/10 MG TAB PO PRN ×4 (05:15→22:11)
[2016-08-07 05:30] LABS: HEMATOCRIT 34.1 % (35.0-46.0); MEAN CELL VOLUME 85.5 FL (80.0-100.0); MEAN CORPUSCULAR HEMOGLOBIN 27.6 PG (27.0-34.0); MEAN CORPUSCULAR HGB CONC 32.3 % (32.0-36.0); PLATELET COUNT 335 TH/MM3 (150-450); RED BLOOD COUNT 3.98 MIL/MM3 (4.00-5.30); RED CELL DISTRIBUTION WIDTH 17.3 % (11.6-17.2); REVIEW FLAG FINAL; WHITE BLOOD COUNT 11.9 TH/MM3 (4.0-11.0)
[2016-08-07 05:46] LABS: APTT (PATIENT) 23.8 SEC (24.3-30.1)
[2016-08-07 05:53] LABS: BICARBONATE 26.7 MEQ/L (21.0-32.0); POTASSIUM 4.2 MEQ/L (3.5-5.1)
[2016-08-07] MEDS: buPROPion HCL 100 MG TAB PO SCH ×2 (08:01→21:34)
[2016-08-07] MEDS: PANTOPRAZOLE SODIUM 40 MG VIAL IV SCH ×2 (08:01→21:17)
[2016-08-07] MEDS: TIOTROPIUM BROMIDE 18 MCG INH INH SCH (08:01)
[2016-08-07] MEDS: BUDESONIDE-FORMOTEROL 160/4.5 MCG INHALER INH SCH ×2 (08:01→21:16)
[2016-08-07] MEDS: SODIUM CHLORIDE 0.9% FLUSH 5 ML FLUSH IV FLUSH SCH ×2 (08:02→21:31)
[2016-08-07] MEDS: LACTULOSE SYRUP 20 GM/30 ML CUP PO SCH (08:02)
[2016-08-07] MEDS: cefTRIAXone INJ 2,000 MG in SODIUM CHLORIDE 0.9% INJ 100 ML IV SCH (09:39)
[2016-08-07] MEDS: ENOXAPARIN SODIUM 100 MG/ML SYRINGE SQ SCH ×2 (09:39→21:34)
--- NOTE | 2016-08-07 10:09 | HHI.PR ---
Subjective Remarks The patient said that she was feeling a lot better. She said she will quit smoking. She said she has been using her incentive spirometer. She has been ambulating with physical therapy. Discussed with nursing. Objective Vitals Vital Signs Date Time Temp Pulse Resp B/P Pulse Ox O2 Delivery O2 Flow Rate FiO2 08/07/16 06:00 97 08/07/16 04:00 97.8 79 17 149/70 98 08/07/16 04:00 79 08/07/16 02:00 93 08/07/16 00:00 98.2 84 17 129/60 94 08/07/16 00:00 84 08/06/16 22:00 88 08/06/16 21:07 98 Nasal Cannula 4.00 08/06/16 20:00 97.9 91 23 172/96 93 08/06/16 20:00 91 08/06/16 18:00 88 08/06/16 16:00 98.3 83 23 143/68 96 08/06/16 16:00 83 08/06/16 14:00 87 08/06/16 12:00 109 08/06/16 12:00 98.3 109 33 192/80 96 08/06/16 10:56 99 Nasal Cannula 4.00 I/O 08/06/16 08/06/16 08/06/16 08/07/16 08/07/16 08/07/16 07:00 15:00 23:00 07:00 15:00 23:00 Intake Total 200 ml 460 ml 100 ml 250 ml Output Total 900 ml 350 ml 300 ml 400 ml Balance -700 ml 110 ml -200 ml -150 ml Intake Oral 100 ml 360 ml 100 ml 250 ml IV Total 100 ml 100 ml Output Urine Total 900 ml 350 ml 300 ml 400 ml # Bowel Movements 0 0 0 0 Result Diagram: 08/07/16 0442 08/07/16 0442 Imaging Last Impressions Chest X-Ray 08/04/16 0600 Signed Impressions: Service Date/Time: Thursday, August 04, 2016 03:18 - CONCLUSION: Improving aeration Taiwo Cruz MD Upper Extremity Ultrasound 07/30/16 0000 Signed Impressions: Service Date/Time: Saturday, July 30, 2016 16:08 - CONCLUSION: 1. Occlusive and nonocclusive thrombus within the left cephalic vein from the mid arm to the proximal forearm. 2. No deep venous thrombosis within the right upper extremity. David Luther MD CT Angiography 07/29/16 0000 Signed Impressions: Service Date/Time: Friday, July 29, 2016 15:26 - CONCLUSION: 1. Acute pulmonary emboli within the upper lobe branches of the pulmonary arteries bilaterally. 2. Small bilateral pleural effusions. 3. Bibasilar alveolar consolidations (right worse than left) consistent with atelectasis and/or pneumonia. Clinical correlation is recommended. 4. Cardiomegaly. David Luther MD Objective Remarks GENERAL: Morbidly obese female resting comfortably. SKIN: Warm and dry. HEAD: Atraumatic. Normocephalic. EYES: Pupils equal and round. No scleral icterus. No injection or drainage. ENT: No nasal bleeding or discharge. NECK: Trachea midline. No JVD. CARDIOVASCULAR: Normal rate, regular rhythm. RESPIRATORY: Breath sounds equal bilaterally. Clear to auscultation. GASTROINTESTINAL: Abdomen soft, protuberant non-tender, nondistended. No guarding. MUSCULOSKELETAL: Extremities without clubbing, cyanosis, or edema. No obvious deformities. NEUROLOGICAL: Alert awake oriented 3. No focal deficits. PSYCH: Mood and affect appropriate. Medications and IVs Current Medications Medications (Trade) Dose Ordered Sig/Jessica Route Start Time Stop Time Status Last Admin (NS Flush) 2 ml UNSCH PRN IV FLUSH 07/28/16 19:00 08/05/16 07:27 (NS Flush) 2 ml BID IV FLUSH 07/28/16 21:00 08/07/16 08:02 (Tylenol) 650 mg Q6H PRN PO 07/28/16 19:00 08/04/16 19:57 (Zofran Inj) 4 mg Q6H PRN IV 07/28/16 19:00 (Lactulose Liq) 30 ml DAILY PO 07/29/16 09:00 08/03/16 09:27 Miscellaneous Information 1 [id number] XX 07/28/16 19:00 07/28/16 19:00 (Chlorhexidine 2% Cloth) Taper DAILY@04 TOP 07/29/16 04:00 07/25/17 03:59 08/03/16 21:09 (Chlorhexidine 2% Cloth) 3 pack UNSCH PRN TOP 07/28/16 19:00 Terbutaline Sulfate 1 mg 1 mg UNSCH PRN SQ 07/28/16 19:00 Potassium Chloride 100 ml @ 50 mls/hr Q2H PRN IV 07/29/16 14:15 08/01/16 17:32 (KCl 20 Meq Premix Inj) 100 ml @ 50 mls/hr Q2H PRN IV 07/29/16 14:15 Potassium Chloride 40 meq 40 meq UNSCH PRN PO/TUBE 07/29/16 14:15 Potassium Chloride 100 ml @ 25 mls/hr UNSCH PRN IV 07/29/16 14:15 08/04/16 08:50 Potassium Chloride 100 ml @ 50 mls/hr Q2H PRN IV 07/29/16 14:15 (Magnesium Sulfate Inj/NS Inj) 100 ml @ 50 mls/hr UNSCH PRN IV 07/29/16 14:15 Magnesium Oxide 800 mg 800 mg UNSCH PRN PO 07/29/16 14:15 (Magnesium Sulfate Inj/NS Inj) 100 ml @ 50 mls/hr UNSCH PRN IV 07/29/16 14:15 07/29/16 17:02 Potassium Phosphate 2000 mg 2,000 mg Q4H PRN PO 07/29/16 14:15 (Sodium Phosphate Inj/NS 250 ml Inj) 250 ml @ 42 mls/hr UNSCH PRN IV 07/29/16 14:15 07/30/16 09:38 (KCl 40 Meq/30 ml Liq) 40 meq UNSCH PRN PO/TUBE 07/29/16 14:15 Potassium Phosphate 2000 mg 2,000 mg UNSCH PRN PO/TUBE 07/29/16 14:15 (Potassium Phosphate Inj/NS 250 ml Inj) 260 ml @ 42 mls/hr UNSCH PRN IV 07/29/16 14:15 (Protonix Inj) 40 mg BID IV 07/29/16 21:00 08/07/16 08:01 (Trandate Inj) 20 mg Q4H PRN IV PUSH 07/29/16 22:00 08/06/16 13:32 (Lipitor) 20 mg HS PO 07/31/16 21:00 08/06/16 19:52 (Lovenox Inj) 100 mg Q12H SQ 08/01/16 11:00 08/07/16 09:39 (Xanax) 0.25 mg Taper Q8HR PO 08/01/16 14:00 08/07/16 13:59 08/07/16 05:15 Methylprednisolone Sodium Succinate 40 mg 40 mg Q8HR IV PUSH 08/04/16 14:00 08/07/16 05:14 (Rocephin Inj/NS Inj) 100 ml @ 200 mls/hr Q24H IV 08/04/16 10:00 08/07/16 09:39 ([place] 10-325 Mg) 1 tab Q4H PRN PO 08/05/16 15:00 08/07/16 09:43 (Imodium) 2 mg Q6H PRN PO 08/05/16 15:00 08/05/16 14:51 (SEROquel) 50 mg Q8HR PO 08/06/16 14:00 08/08/16 13:59 08/07/16 05:14 (Wellbutrin) 100 mg BID PO 08/06/16 09:00 08/07/16 08:01 (Pill Splitter) 1 ea UNSCH PRN OTHER 08/06/16 08:45 (Symbicort 160-4.5 Inh) 2 puff Q12HR INH 08/06/16 09:00 08/07/16 08:01 (Spiriva Inh) 18 mcg DAILY INH 08/06/16 09:00 08/07/16 08:01 (Vasotec Inj) 1.25 mg Q6H PRN IV PUSH 08/07/16 10:30 UNV (Colace) 100 mg BID PO 08/07/16 21:00 UNV (Senokot) 17.2 mg DAILY PO 08/07/16 10:30 UNV Date of Insertion: Jul 28, 2016 Date of Insertion: Jul 28, 2016 Location: [facility] A/P Assessment and Plan PEA arrest The pt had PEA arrest, CPR was initiated, had ROSC, and was transferred to the ED, at which time the patient was in acute hypoxic respiratory failure and was intubated and sedated. PEA Arrest most likely secondary to prothrombotic state vs respiratory failure. Cardiology consult appreciated. She has a history of CHF. Troponin peaked at 1.74. - continue cardiac regimen. - Cardiology following. - continue therapeutic Lovenox. - rehab efforts. Acute respiratory failure Extubated 08/05. CTA 07/29-acute pulmonary emboli upper lobe branches bilaterally. Chest x-ray 08/04/16 shows improving bilateral infiltrates. - pulmonology consult pending. - Continue scheduled and when necessary DuoNeb. - Maintain O2 sat greater than 90%. - Solumedrol being weaned. - oxygen as needed. - therapeutic Lovenox. Anxiety/ Depression Mood well controlled at this time. - Xanax to 1mg po q8hr slow taper (Stop 08/07/16). Continue when necessary Xanax. - Seroquel 100mg po [id number] to DC. - Restart the Wellbutrin. GIB Upper GI bleed 07/25/16 with gastric ulceration. GI consult appreciated. - ADAT. Speech therapy following. - Continue Protonix to BID IV. - follow CBC and transfuse as needed. Bilateral PE/ Thrombus-left cephalic vein [place] IVC filter placement-2012. 07/31-ultrasound B/L upper extremities- nonocclusive and occlusive thrombus in left cephalic vein mid arm to proximal forearm. - Previously on Xarelto, continue Lovenox 1mg/kg sq q12h for now. HTN Blood pressure has been elevated. - resume Coreg. - Vasotec and clonidine as needed. PPx: Lovenox; PPI. Discharge Planning Transfer to floor in . Jhony King DO Aug 07, 2016 10:09
[2016-08-07] MEDS ORDERED: ENALAPRILAT 1.25 MG/ML VIAL IV PUSH PRN (11:00)
[2016-08-07] MEDS: SENNOSIDES 8.6 MG TAB PO SCH (11:00)
[2016-08-07] MEDS: CARVEDILOL 3.125 MG TAB PO SCH ×2 (11:26→21:33)
--- NOTE | 2016-08-07 13:54 | PD.CARD.PN ---
Subjective Subjective Remarks alert in nad Objective Vital Signs / I&O Vital Signs Date Time Temp Pulse Resp B/P Pulse Ox O2 Delivery O2 Flow Rate FiO2 08/07/16 10:00 104 08/07/16 08:00 93 08/07/16 08:00 98.2 93 23 170/101 100 08/07/16 06:00 97 08/07/16 04:00 97.8 79 17 149/70 98 08/07/16 04:00 79 08/07/16 02:00 93 08/07/16 00:00 98.2 84 17 129/60 94 08/07/16 00:00 84 08/06/16 22:00 88 08/06/16 21:07 98 Nasal Cannula 4.00 08/06/16 20:00 97.9 91 23 172/96 93 08/06/16 20:00 91 08/06/16 18:00 88 08/06/16 16:00 98.3 83 23 143/68 96 08/06/16 16:00 83 08/06/16 14:00 87 I/O 08/06/16 08/06/16 08/06/16 08/07/16 08/07/16 08/07/16 07:00 15:00 23:00 07:00 15:00 23:00 Intake Total 200 ml 460 ml 100 ml 250 ml Output Total 900 ml 350 ml 300 ml 400 ml Balance -700 ml 110 ml -200 ml -150 ml Intake Oral 100 ml 360 ml 100 ml 250 ml IV Total 100 ml 100 ml Output Urine Total 900 ml 350 ml 300 ml 400 ml # Bowel Movements 0 0 0 0 Physical Exam GENERAL: SKIN: Warm and dry. HEAD: Normocephalic. EYES: No scleral icterus. No injection or drainage. NECK: Supple, trachea midline. No JVD or lymphadenopathy. CARDIOVASCULAR: Regular rate and rhythm without murmurs, gallops, or rubs. RESPIRATORY: Breath sounds equal bilaterally. No accessory muscle use. GASTROINTESTINAL: Abdomen soft, non-tender, nondistended. MUSCULOSKELETAL: No cyanosis, or edema. BACK: Nontender without obvious deformity. No CVA tenderness. Laboratory Laboratory Tests Test 08/07/16 04:42 White Blood Count 11.9 TH/MM3 Red Blood Count 3.98 MIL/MM3 Hemoglobin 11.0 GM/DL Hematocrit 34.1 % Mean Corpuscular Volume 85.5 FL Mean Corpuscular Hemoglobin 27.6 PG Mean Corpuscular Hemoglobin 32.3 % Concent Red Cell Distribution Width 17.3 % Platelet Count 335 TH/MM3 Mean Platelet Volume 11.2 FL Activated Partial 23.8 SEC Thromboplast Time Sodium Level 145 MEQ/L Potassium Level 4.2 MEQ/L Chloride Level 108 MEQ/L Carbon Dioxide Level 26.7 MEQ/L Anion Gap 10 MEQ/L Blood Urea Nitrogen 19 MG/DL Creatinine 0.62 MG/DL Estimat Glomerular Filtration 101 ML/MIN Rate Random Glucose 157 MG/DL Calcium Level 9.2 MG/DL Assessment and Plan Problem List: (1) COPD exacerbation (2) Acute systolic CHF (congestive heart failure) (3) HTN (hypertension) (4) CHF (congestive heart failure) (5) DVT (deep venous thrombosis) (6) Upper gastrointestinal hemorrhage (7) Hypotension (8) Hypovolemic shock (9) PEA (Pulseless electrical activity) (10) Required emergent intubation (11) Acute respiratory failure (12) Cardiogenic shock (13) Cardiac arrest (14) Encephalopathy acute (15) PE (pulmonary thromboembolism) Assessment and Plan 1.) PE - s/p pea cardiac arrest with respiratory failure requiring intubation, recent life threatening GIB, now on lovenox, hgb =11 today, with no obvious bleeding, high risk for poor outcome d/t dilemma of pe and gib; Casa Andrew MD Aug 07, 2016 13:54
[2016-08-07] MEDS ORDERED: AMLO10TA2 PO (13:55)
[2016-08-07] MEDS ORDERED: LISI40TA PO (13:55)
[2016-08-07] MEDS ORDERED: CHLO25TA2 PO (13:55)
--- NOTE | 2016-08-07 17:43 | MB ---
cc: ELLIOTT GALLAGHER DATE OF CONSULTATION 08/07/16 REASON FOR CONSULTATION Upper airway obstruction. HISTORY OF PRESENT ILLNESS Mrs. Tariq is a 55-year-old female known history of DVT on Xarelto. The patient was hospitalized 07/28/16 when she was found unresponsive at home. In the emergency room, was noted to be in cardiac arrest, resuscitated, intubated, mechanically ventilated. The patient did improve and extubated, presently in extubation. She developed stridor for which she was given racemic epinephrine and did indeed improve. She presently is without fever, chills, cough or expectoration. No respiratory distress. PAST MEDICAL HISTORY 1. DVT on Xarelto 2. COPD and/or bronchial asthma 3. Mood disorder namely depression, 4. Congestive heart failure, 5. Hypertension, 6. Esophagitis and gastritis 7. History of acute renal insufficiency and chronic anemia 8. Previous tonsillectomy, cholecystectomy MEDICATIONS 1. Pantoprazole 2. Xarelto 3. Xanax as needed 4. Lortab. 5. Carvedilol. 6. Bupropion. 7. Atorvastatin. SOCIAL HISTORY The patient smokes a pack of cigarettes a day for over 30 years. Does not drink any alcohol. No TB or industrial exposure. FAMILY HISTORY Notable for a father who had history of colon cancer, otherwise, unremarkable. PHYSICAL EXAMINATION GENERAL: The patient is alert. VITAL SIGNS: Temperature 98, pulse 84, respirations 18, blood pressure 114/65. HEENT: Exam unremarkable. Eyes without icterus. NECK: Without adenopathy or thyroid enlargement. Central trachea. CHEST: Without dullness to percussion, clear to auscultation. CARDIAC: PMI distant. S1-S2 audible. No murmur or rub. ABDOMEN: Lax, bowel sounds audible. EXTREMITIES: No clubbing, cyanosis or edema. LABORATORY DATA White count 11,000, hemoglobin 11, hematocrit 34, platelets 325. Sodium 145, potassium 4.2, BUN 19, creatinine 0.6, APTT 24. ABG - pH 7.43, pCO2 36, pO2 85 on BiPap in August 05/ oxygen saturation 100%, 98% on room air. IMAGING STUDIES Chest x-ray 08/04/2016 with improving aeration of both lungs. IMPRESSION 1. Respiratory failure resolved 2. Status post cardiac arrest 3. Atelectasis at lung bases, improving 4. stridor related to intubation and mechanical ventilation, improving, question COPD. PLAN The patient is improving at present. We will obtain pulmonary function. When the patient is able to assess pulmonary performance should the stridor recur, it will be addressed. However, seems improving at present. We will follow up her care along with you and depending on progress proceed further. Meanwhile, bronchodilators on as-needed basis would be appropriate. I do thank you for asking me to partake in Mrs. Tariq's care. Elliott Gallagher MD WWW/ /4:54 PM /5:26 PM
[2016-08-07] MEDS: ATORVASTATIN 20 MG TAB PO SCH (21:33)
[2016-08-07] MEDS: DOCUSATE SODIUM 100 MG CAP PO SCH (21:33)
[2016-08-08] VITALS (11 sets, daily range): BP systolic 140–168; BP diastolic 63–80; PULSE 77–92; RESP 15–18; TEMP 97.1–98.4; O2SAT 93–98
[2016-08-08] MEDS: ACETAMINOPHEN/HYDROcodone 325 MG/10 MG TAB PO PRN ×5 (02:54→21:53)
[2016-08-08] MEDS: RESP: ALBUTEROL 2.5 MG/IPRATROPIUM 0.5 MG NEB (SCH) NEB ×4 (03:20→20:28)
[2016-08-08] MEDS: CHLORHEXIDINE GLUCONATE 2 % 1 PACK (2 CLOTHS) TOP SCH (04:00)
[2016-08-08] MEDS: QUEtiapine FUMARATE 100 MG TAB PO SCH (05:10)
[2016-08-08 06:22] LABS: BICARBONATE 29.1 MEQ/L (21.0-32.0); POTASSIUM 4.5 MEQ/L (3.5-5.1)
[2016-08-08 06:29] LABS: HEMATOCRIT 34.4 % (35.0-46.0); MEAN CELL VOLUME 84.8 FL (80.0-100.0); RED BLOOD COUNT 4.05 MIL/MM3 (4.00-5.30); RED CELL DISTRIBUTION WIDTH 17.1 % (11.6-17.2); WHITE BLOOD COUNT 13.5 TH/MM3 (4.0-11.0)
[2016-08-08 07:25] LABS: REVIEW FLAG AUTO DIFF
[2016-08-08 07:26] LABS: PLATELET COUNT 257 TH/MM3 (150-450)
[2016-08-08] MEDS: SENNOSIDES 8.6 MG TAB PO SCH (08:19)
[2016-08-08] MEDS: buPROPion HCL 100 MG TAB PO SCH ×2 (08:19→20:01)
[2016-08-08] MEDS: CARVEDILOL 3.125 MG TAB PO SCH ×2 (08:19→20:02)
[2016-08-08] MEDS: DOCUSATE SODIUM 100 MG CAP PO SCH ×2 (08:19→20:01)
[2016-08-08] MEDS: PANTOPRAZOLE SODIUM 40 MG VIAL IV SCH (08:20)
[2016-08-08] MEDS: methylPREDNISolone SOD SUCC 40 MG/1 ML VIAL IV PUSH SCH ×2 (08:20→20:02)
[2016-08-08] MEDS: LACTULOSE SYRUP 20 GM/30 ML CUP PO SCH (08:20)
[2016-08-08] MEDS: cefTRIAXone INJ 2,000 MG in SODIUM CHLORIDE 0.9% INJ 100 ML IV SCH (08:20)
[2016-08-08] MEDS: TIOTROPIUM BROMIDE 18 MCG INH INH SCH (08:21)
[2016-08-08] MEDS: BUDESONIDE-FORMOTEROL 160/4.5 MCG INHALER INH SCH ×2 (08:21→20:00)
[2016-08-08] MEDS: SODIUM CHLORIDE 0.9% FLUSH 5 ML FLUSH IV FLUSH SCH ×2 (08:21→20:01)
[2016-08-08] MEDS: ENOXAPARIN SODIUM 100 MG/ML SYRINGE SQ SCH ×2 (11:16→21:52)
[2016-08-08] MEDS: INSULIN ASPART SUPPLEMENTAL SCALE SQ SCH ×3 (12:00→20:19)
--- NOTE | 2016-08-08 12:12 | HHI.PR ---
Subjective Remarks The patient ambulated earlier and felt well. She said she didn't feel too short of breath. She was looking forward to going home soon. She had no acute complaints. Discussed with nursing. Objective Vitals Vital Signs Date Time Temp Pulse Resp B/P Pulse Ox O2 Delivery O2 Flow Rate FiO2 08/08/16 10:00 77 08/08/16 09:31 98 Nasal Cannula 2.00 08/08/16 09:19 18 08/08/16 08:00 78 08/08/16 08:00 98.2 78 16 168/78 96 08/08/16 06:00 77 08/08/16 04:00 98.4 78 15 152/74 97 08/08/16 04:00 78 08/08/16 02:00 89 08/08/16 00:00 98.1 92 18 143/67 93 08/08/16 00:00 92 08/07/16 22:00 93 08/07/16 20:00 98.2 91 23 154/77 95 08/07/16 20:00 91 08/07/16 19:57 97 Nasal Cannula 2.00 08/07/16 18:00 83 08/07/16 16:00 98 08/07/16 16:00 98.1 98 26 134/64 94 08/07/16 14:00 94 I/O 08/07/16 08/07/16 08/07/16 08/08/16 08/08/16 08/08/16 07:00 15:00 23:00 07:00 15:00 23:00 Intake Total 250 ml 460 ml 240 ml 240 ml Output Total 400 ml 450 ml 250 ml 450 ml Balance -150 ml 10 ml -10 ml -210 ml Intake Oral 250 ml 360 ml 240 ml 240 ml IV Total 100 ml Output Urine Total 400 ml 450 ml 250 ml 450 ml # Bowel Movements 0 0 0 0 Result Diagram: 08/08/16 0341 08/08/16 0341 Imaging Last Impressions Chest X-Ray 08/04/16 0600 Signed Impressions: Service Date/Time: Thursday, August 04, 2016 03:18 - CONCLUSION: Improving aeration Taiwo Cruz MD Upper Extremity Ultrasound 07/30/16 0000 Signed Impressions: Service Date/Time: Saturday, July 30, 2016 16:08 - CONCLUSION: 1. Occlusive and nonocclusive thrombus within the left cephalic vein from the mid arm to the proximal forearm. 2. No deep venous thrombosis within the right upper extremity. David Luther MD CT Angiography 07/29/16 0000 Signed Impressions: Service Date/Time: Friday, July 29, 2016 15:26 - CONCLUSION: 1. Acute pulmonary emboli within the upper lobe branches of the pulmonary arteries bilaterally. 2. Small bilateral pleural effusions. 3. Bibasilar alveolar consolidations (right worse than left) consistent with atelectasis and/or pneumonia. Clinical correlation is recommended. 4. Cardiomegaly. David Luther MD Objective Remarks GENERAL: Morbidly obese female resting comfortably. Hoarse voice. SKIN: Warm and dry. HEAD: Atraumatic. Normocephalic. EYES: Pupils equal and round. No scleral icterus. No injection or drainage. ENT: No nasal bleeding or discharge. NECK: Trachea midline. No JVD. CARDIOVASCULAR: Normal rate, regular rhythm. RESPIRATORY: Breath sounds equal bilaterally. Clear to auscultation. GASTROINTESTINAL: Abdomen soft, protuberant non-tender, nondistended. No guarding. MUSCULOSKELETAL: Extremities without clubbing, cyanosis, or edema. No obvious deformities. NEUROLOGICAL: Alert awake oriented 3. No focal deficits. PSYCH: Mood and affect appropriate. Procedures Intubation/ extubation Medications and IVs Current Medications Medications (Trade) Dose Ordered Sig/Jessica Route Start Time Stop Time Status Last Admin (NS Flush) 2 ml UNSCH PRN IV FLUSH 07/28/16 19:00 08/05/16 07:27 (NS Flush) 2 ml BID IV FLUSH 07/28/16 21:00 08/08/16 08:21 (Tylenol) 650 mg Q6H PRN PO 07/28/16 19:00 08/04/16 19:57 (Zofran Inj) 4 mg Q6H PRN IV 07/28/16 19:00 (Lactulose Liq) 30 ml DAILY PO 07/29/16 09:00 08/08/16 08:20 Miscellaneous Information 1 Q361D XX 07/28/16 19:00 07/28/16 19:00 (Chlorhexidine 2% Cloth) Taper DAILY@04 TOP 07/29/16 04:00 07/25/17 03:59 08/08/16 04:00 (Chlorhexidine 2% Cloth) 3 pack UNSCH PRN TOP 07/28/16 19:00 Terbutaline Sulfate 1 mg 1 mg UNSCH PRN SQ 07/28/16 19:00 Potassium Chloride 100 ml @ 50 mls/hr Q2H PRN IV 07/29/16 14:15 08/01/16 17:32 (KCl 20 Meq Premix Inj) 100 ml @ 50 mls/hr Q2H PRN IV 07/29/16 14:15 Potassium Chloride 40 meq 40 meq UNSCH PRN PO/TUBE 07/29/16 14:15 Potassium Chloride 100 ml @ 25 mls/hr UNSCH PRN IV 07/29/16 14:15 08/04/16 08:50 Potassium Chloride 100 ml @ 50 mls/hr Q2H PRN IV 07/29/16 14:15 (Magnesium Sulfate Inj/NS Inj) 100 ml @ 50 mls/hr UNSCH PRN IV 07/29/16 14:15 Magnesium Oxide 800 mg 800 mg UNSCH PRN PO 07/29/16 14:15 (Magnesium Sulfate Inj/NS Inj) 100 ml @ 50 mls/hr UNSCH PRN IV 07/29/16 14:15 07/29/16 17:02 Potassium Phosphate 2000 mg 2,000 mg Q4H PRN PO 07/29/16 14:15 (Sodium Phosphate Inj/NS 250 ml Inj) 250 ml @ 42 mls/hr UNSCH PRN IV 07/29/16 14:15 07/30/16 09:38 (KCl 40 Meq/30 ml Liq) 40 meq UNSCH PRN PO/TUBE 07/29/16 14:15 Potassium Phosphate 2000 mg 2,000 mg UNSCH PRN PO/TUBE 07/29/16 14:15 (Potassium Phosphate Inj/NS 250 ml Inj) 260 ml @ 42 mls/hr UNSCH PRN IV 07/29/16 14:15 (Trandate Inj) 20 mg Q4H PRN IV PUSH 07/29/16 22:00 08/06/16 13:32 (Lipitor) 20 mg HS PO 07/31/16 21:00 08/07/16 21:33 Enoxaparin Sodium 100 mg 100 mg Q12H SQ 08/01/16 11:00 08/08/16 11:16 (Rocephin Inj/NS Inj) 100 ml @ 200 mls/hr Q24H IV 08/04/16 10:00 08/08/16 08:20 (Sanders 10-325 Mg) 1 tab Q4H PRN PO 08/05/16 15:00 08/08/16 08:19 (Imodium) 2 mg Q6H PRN PO 08/05/16 15:00 08/05/16 14:51 (SEROquel) 50 mg Q8HR PO 08/06/16 14:00 08/08/16 13:59 08/07/16 13:34 (Wellbutrin) 100 mg BID PO 08/06/16 09:00 08/08/16 08:19 (Pill Splitter) 1 ea UNSCH PRN OTHER 08/06/16 08:45 (Symbicort 160-4.5 Inh) 2 puff Q12HR INH 08/06/16 09:00 08/08/16 08:21 (Spiriva Inh) 18 mcg DAILY INH 08/06/16 09:00 08/08/16 08:21 (Vasotec Inj) 1.25 mg Q6H PRN IV PUSH 08/07/16 11:00 (Colace) 100 mg BID PO 08/07/16 21:00 08/08/16 08:19 (Senokot) 17.2 mg DAILY PO 08/07/16 11:00 08/08/16 08:19 (SoluMEDROL INJ) 40 mg BID IV PUSH 08/07/16 21:00 08/08/16 08:20 (Coreg) 3.125 mg BID PO 08/07/16 11:00 08/08/16 08:19 (Protonix) 40 mg Q12HR PO 08/08/16 21:00 Date of Insertion: Jul 28, 2016 Date of Insertion: Jul 28, 2016 Location: [facility] A/P Assessment and Plan PEA arrest The pt had PEA arrest, CPR was initiated, had ROSC, and was transferred to the ED, at which time the patient was in acute hypoxic respiratory failure and was intubated and sedated. PEA Arrest most likely secondary to prothrombotic state vs respiratory failure. Cardiology consult appreciated. She has a history of CHF. Troponin peaked at 1.74. - continue cardiac regimen. Add ACEi. - check lipid profile and HgbA1c. - Cardiology following. - continue therapeutic Lovenox. Would resume Xarelto upon discharge. - rehab efforts. Acute respiratory failure The pt is on home oxygen. She required intubation. She was extubated 08/05. CTA -acute pulmonary emboli upper lobe branches bilaterally. Chest x-ray 08/04/16 shows improving bilateral infiltrates. - pulmonology consult appreciated. Follow-up recommendations. - Continue scheduled and when necessary DuoNeb. - Maintain O2 sat greater than 90%. - Solumedrol being weaned. - oxygen as needed. - therapeutic Lovenox. Anxiety/ Depression Mood well controlled at this time. Benzos weaned off. - Continue when necessary Xanax. - Seroquel 100mg po [id number] to DC. - Restart the Wellbutrin. GIB Upper GI bleed 07/25/16 with gastric ulceration. GI consult appreciated. - ADAT. Speech therapy following. - Continue PO Protonix BID. - follow CBC and transfuse as needed. Bilateral PE/ Thrombus-left cephalic vein Ian IVC filter placement-2012. 07/31-ultrasound B/L upper extremities- nonocclusive and occlusive thrombus in left cephalic vein mid arm to proximal forearm. - Previously on Xarelto, continue Lovenox 1mg/kg sq q12h for now. Resume Xarelto at discharge. HTN Blood pressure has been elevated. - resume Coreg. Add ACEi 08/08. - Vasotec and clonidine as needed. Hyperglycemia Likely s/t steroids. - wean steroids. - insulin sliding scale. - check HgbA1c. PPx: Lovenox; PPI. Discharge Planning Transfer to floor. Jhony King DO Aug 08, 2016 12:12
[2016-08-08] MEDS: LISINOPRIL 20 MG TAB PO SCH (13:00)
[2016-08-08 13:03] LABS: HDL CHOLESTEROL 33.6 MG/DL (40.0-60.0); LDL CHOLESTEROL 56 MG/DL (0-99)
--- NOTE | 2016-08-08 13:48 | PD.CARD.PN ---
Subjective Subjective Remarks alert in nad Objective Vital Signs / I&O Vital Signs Date Time Temp Pulse Resp B/P Pulse Ox O2 Delivery O2 Flow Rate FiO2 08/08/16 10:00 77 08/08/16 09:31 98 Nasal Cannula 2.00 08/08/16 09:19 18 08/08/16 08:00 78 08/08/16 08:00 98.2 78 16 168/78 96 08/08/16 06:00 77 08/08/16 04:00 98.4 78 15 152/74 97 08/08/16 04:00 78 08/08/16 02:00 89 08/08/16 00:00 98.1 92 18 143/67 93 08/08/16 00:00 92 08/07/16 22:00 93 08/07/16 20:00 98.2 91 23 154/77 95 08/07/16 20:00 91 08/07/16 19:57 97 Nasal Cannula 2.00 08/07/16 18:00 83 08/07/16 16:00 98 08/07/16 16:00 98.1 98 26 134/64 94 08/07/16 14:00 94 I/O 08/07/16 08/07/16 08/07/16 08/08/16 08/08/16 08/08/16 07:00 15:00 23:00 07:00 15:00 23:00 Intake Total 250 ml 460 ml 240 ml 240 ml Output Total 400 ml 450 ml 250 ml 450 ml Balance -150 ml 10 ml -10 ml -210 ml Intake Oral 250 ml 360 ml 240 ml 240 ml IV Total 100 ml Output Urine Total 400 ml 450 ml 250 ml 450 ml # Bowel Movements 0 0 0 0 Physical Exam GENERAL: SKIN: Warm and dry. HEAD: Normocephalic. EYES: No scleral icterus. No injection or drainage. NECK: Supple, trachea midline. No JVD or lymphadenopathy. CARDIOVASCULAR: Regular rate and rhythm without murmurs, gallops, or rubs. RESPIRATORY: Breath sounds equal bilaterally. No accessory muscle use. GASTROINTESTINAL: Abdomen soft, non-tender, nondistended. MUSCULOSKELETAL: No cyanosis, or edema. BACK: Nontender without obvious deformity. No CVA tenderness. Laboratory Laboratory Tests Test 08/08/16 03:41 White Blood Count 13.5 TH/MM3 Red Blood Count 4.05 MIL/MM3 Hemoglobin 11.4 GM/DL Hematocrit 34.4 % Mean Corpuscular Volume 84.8 FL Mean Corpuscular Hemoglobin 28.0 PG Mean Corpuscular Hemoglobin 33.0 % Concent Red Cell Distribution Width 17.1 % Platelet Count 257 TH/MM3 Mean Platelet Volume 11.6 FL Hematology Comments Activated Partial 21.0 SEC Thromboplast Time Sodium Level 141 MEQ/L Potassium Level 4.5 MEQ/L Chloride Level 105 MEQ/L Carbon Dioxide Level 29.1 MEQ/L Anion Gap 7 MEQ/L Blood Urea Nitrogen 17 MG/DL Creatinine 0.57 MG/DL Estimat Glomerular Filtration 111 ML/MIN Rate Random Glucose 132 MG/DL Calcium Level 9.1 MG/DL Triglycerides Level 90 MG/DL Cholesterol Level 108 MG/DL LDL Cholesterol 56 MG/DL HDL Cholesterol 33.6 MG/DL Cholesterol/HDL Ratio 3.21 RATIO Assessment and Plan Problem List: (1) COPD exacerbation (2) Acute systolic CHF (congestive heart failure) (3) HTN (hypertension) (4) CHF (congestive heart failure) (5) DVT (deep venous thrombosis) (6) Upper gastrointestinal hemorrhage (7) Hypotension (8) Hypovolemic shock (9) PEA (Pulseless electrical activity) (10) Required emergent intubation (11) Acute respiratory failure (12) Cardiogenic shock (13) Cardiac arrest (14) Encephalopathy acute (15) PE (pulmonary thromboembolism) Assessment and Plan 1.) PE - s/p pea cardiac arrest with respiratory failure requiring intubation, recent life threatening GIB, now on lovenox, hgb =11 today, with no obvious bleeding, high risk for poor outcome d/t dilemma of pe and gib; Casa Andrew MD Aug 08, 2016 13:48
[2016-08-08 15:37] LABS: HEMOGLOBIN A1a 1.2 %; HEMOGLOBIN A1b 2.1 %; HEMOGLOBIN Ao 83.4 %; HEMOGLOBIN LA1C 2.3 %; HEMOGLOBIN P3 4.5 %
[2016-08-08] MEDS: PANTOPRAZOLE SOD 40 MG DELAYED RELEASE TAB PO SCH (20:02)
[2016-08-08] MEDS: ATORVASTATIN 20 MG TAB PO SCH (20:02)
[2016-08-09] VITALS: BP 133/78; PULSE 87; RESP 16; TEMP 98.7; O2SAT 93
[2016-08-09] MEDS: ACETAMINOPHEN/HYDROcodone 325 MG/10 MG TAB PO PRN ×3 (02:16→10:24)
[2016-08-09] MEDS: CHLORHEXIDINE GLUCONATE 2 % 1 PACK (2 CLOTHS) TOP SCH (03:49)
[2016-08-09 04:00] VITALS: PULSE 98; RESP 18; TEMP 97.4; O2SAT 94
[2016-08-09] MEDS: RESP: ALBUTEROL 2.5 MG/IPRATROPIUM 0.5 MG NEB (SCH) NEB ×2 (04:24→08:56)
[2016-08-09 04:25] VITALS: O2SAT 94
[2016-08-09 05:05] VITALS: BP 151/91
[2016-08-09] MEDS: INSULIN ASPART SUPPLEMENTAL SCALE SQ SCH (06:02)
[2016-08-09] MEDS: CARVEDILOL 3.125 MG TAB PO SCH (07:46)
[2016-08-09] MEDS: PANTOPRAZOLE SOD 40 MG DELAYED RELEASE TAB PO SCH (07:46)
[2016-08-09] MEDS: LISINOPRIL 20 MG TAB PO SCH (07:46)
[2016-08-09] MEDS: buPROPion HCL 100 MG TAB PO SCH (07:46)
[2016-08-09] MEDS: BUDESONIDE-FORMOTEROL 160/4.5 MCG INHALER INH SCH (07:47)
[2016-08-09] MEDS: methylPREDNISolone SOD SUCC 40 MG/1 ML VIAL IV PUSH SCH (07:47)
[2016-08-09] MEDS: TIOTROPIUM BROMIDE 18 MCG INH INH SCH (07:47)
[2016-08-09] MEDS: SODIUM CHLORIDE 0.9% FLUSH 5 ML FLUSH IV FLUSH SCH (07:47)
[2016-08-09] MEDS: DOCUSATE SODIUM 100 MG CAP PO SCH (07:48)
[2016-08-09] MEDS: SENNOSIDES 8.6 MG TAB PO SCH (07:48)
[2016-08-09] MEDS: LACTULOSE SYRUP 20 GM/30 ML CUP PO SCH (07:48)
[2016-08-09 08:00] VITALS: BP 151/97; PULSE 88; RESP 16; TEMP 97.5; O2SAT 97
[2016-08-09 08:13] LABS: APTT (PATIENT) 25.8 SEC (24.3-30.1)
[2016-08-09] MEDS: cefTRIAXone INJ 2,000 MG in SODIUM CHLORIDE 0.9% INJ 100 ML IV SCH (10:00)
[2016-08-09] MEDS ORDERED: SYMB160A INH (10:19)
[2016-08-09] MEDS ORDERED: HYDR-3535 PO (10:19)
[2016-08-09] MEDS ORDERED: NICO21DI2 T-DERMAL (10:19)
[2016-08-09] MEDS ORDERED: CEFT500T3 PO (10:19)
[2016-08-09] MEDS ORDERED: SPIRCAP INH (10:19)
--- NOTE | 2016-08-09 10:19 | HHI.DCPOC ---
Discharge Care Plan Diagnosis: (1) PEA (Pulseless electrical activity) (2) COPD exacerbation (3) PE (pulmonary thromboembolism) (4) HTN (hypertension) (5) Hypotension Goals to Promote Your Health * To prevent worsening of your condition and complications * To maintain your health at the optimal level Directions to Meet Your Goals Take your medications as prescribed Follow your dietary instruction Follow activity as directed Keep your appointments as scheduled Take your immunizations and boosters as scheduled If your symptoms worsen call your PCP, if no PCP go to Urgent Care Center or Emergency Room Smoking is Dangerous to Your Health. Avoid second hand smoke Call the 24-hour hour crisis hotline for domestic abuse at Jhony King DO Aug 09, 2016 10:19
--- NOTE | 2016-08-09 10:23 | HHI.FF ---
Face to Face Verification Diagnosis: (1) Required emergent intubation (2) PEA (Pulseless electrical activity) (3) COPD exacerbation (4) PE (pulmonary thromboembolism) (5) HTN (hypertension) (6) Hypotension (7) DVT (deep venous thrombosis) (8) CHF (congestive heart failure) Physical Therapy Order: Evaluate and Treat, Improve ambulation, Strength and gait training Speech Therapy Order: To Improve: Swallowing Home Health Nursing Order: Medical education Signs/symptoms of disease process CHF education Oxygen administration education Medication education-adverse effect Nursing assessment with vital signs I have seen patient Yas Tariq on 08/09/16. My clinical findings support the need for the requested home health care services because: Ltd mobility - disease progression Deconditioned w/ increased weakness Limited ability to care for self I certify that my clinical findings support that this patient is homebound because: Hx COPD- exertion dyspnea/weakness Unsteady gait/balance Unsafe to leave home unassisted Jhony King DO Aug 09, 2016 10:23
[2016-08-09] MEDS: ENOXAPARIN SODIUM 100 MG/ML SYRINGE SQ SCH (10:24)
[2016-08-09] MEDS ORDERED: PRED10PA2 PO (10:33)
--- NOTE | 2016-08-09 10:33 | HHI.DS ---
Discharge Summary Admission Date Jul 28, 2016 at 18:06 Discharge Date: Aug 09, 2016 Admitting Diagnosis postarrest/intubated (1) Required emergent intubation ICD Code: Z98.890 (2) PEA (Pulseless electrical activity) ICD Code: I46.9 Diagnosis: Principal (3) COPD exacerbation ICD Code: J44.1 (4) PE (pulmonary thromboembolism) ICD Code: I26.99 (5) HTN (hypertension) ICD Code: I10 (6) Hypotension ICD Code: I95.9 (7) DVT (deep venous thrombosis) ICD Code: I82.409 (8) CHF (congestive heart failure) ICD Code: I50.9 Procedures Intubation/ extubation Brief History - From Admission See above.Her history is significant for the fact that she has a history of DVT in 2012, Ian filter placement and is on Xarelto. The patient also stated that she has a history of peptic ulcer disease. The patient's pain level on presentation to the [place] was 7/10 noted to be epigastric and radiating into her back. The patient presented with complaints of lightheadedness ,generalized weakness,fatigue and inability to void 3 days. The patient medical history significant for the fact that in 2012 was admitted with GI bleed at that time had upper endoscopy which was consistent with severe grade D esophagitis and mild gastritis. The patient denies NSAID use. On presentation to the ED and [place] the patient's blood pressure ranges 65/40 to 81/40 with initial hemoglobin of 12. The patient reported also having medical history significant for history of renal failure, and congestive heart failure. The patient received 4 units of crystalloid, an NG tube was placed, approximately a liter of coffee ground emesis upon initial placement. Octreotide and Protonix infusions were initiated, and GI was consulted. Patient was transfused 1unit PRBC. The patient remained hypotensive, a right femoral line was placed, the patient was placed on Shane-Synephrine. Critical care medicine was consulted for treatment and management. A telephone handoff was given from Dr. Hernández, upon initiation of transport from [place], the patient became acutely hypotensive, SBP 70's. The patient was placed on a Levophed infusion, MAP's were obtained greater than 65mmHG. the patient was then transferred to [facility] with ER physician, Dr. Sabillon accompanying patient. The [place] [facility] [place], verbal handoff was given with Dr. Sabillon. Upon arrival, MAP 76, the patient was alert and oriented not in respiratory distress, tachycardic complaining of abdominal pain, maldonado draining pale yellow urine. Levophed had been weaned off prior to arrival ,and the [place] [facility] [place]/BMP: 08/08/16 0341 08/08/16 0341 Significant Findings Laboratory Tests Test 08/07/16 08/08/16 04:42 03:41 White Blood Count 11.9 TH/MM3 13.5 TH/MM3 (4.0-11.0) (4.0-11.0) Red Blood Count 3.98 MIL/MM3 (4.00-5.30) Hemoglobin 11.0 GM/DL 11.4 GM/DL (11.6-15.3) (11.6-15.3) Hematocrit 34.1 % 34.4 % (35.0-46.0) (35.0-46.0) Red Cell Distribution Width 17.3 % (11.6-17.2) Mean Platelet Volume 11.2 FL 11.6 FL (7.0-11.0) (7.0-11.0) Activated Partial 23.8 SEC 21.0 SEC Thromboplast Time (24.3-30.1) (24.3-30.1) Chloride Level 108 MEQ/L (98-107) Blood Urea Nitrogen 19 MG/DL (7-18) Random Glucose 157 MG/DL 132 MG/DL (74-106) (74-106) Cholesterol Level 108 MG/DL (120-200) HDL Cholesterol 33.6 MG/DL (40.0-60.0) Imaging Last Impressions Chest X-Ray 08/04/16 0600 Signed Impressions: Service Date/Time: Thursday, August 04, 2016 03:18 - CONCLUSION: Improving aeration Taiwo Cruz MD Upper Extremity Ultrasound 07/30/16 0000 Signed Impressions: Service Date/Time: Saturday, July 30, 2016 16:08 - CONCLUSION: 1. Occlusive and nonocclusive thrombus within the left cephalic vein from the mid arm to the proximal forearm. 2. No deep venous thrombosis within the right upper extremity. David Luther MD CT Angiography 07/29/16 0000 Signed Impressions: Service Date/Time: Friday, July 29, 2016 15:26 - CONCLUSION: 1. Acute pulmonary emboli within the upper lobe branches of the pulmonary arteries bilaterally. 2. Small bilateral pleural effusions. 3. Bibasilar alveolar consolidations (right worse than left) consistent with atelectasis and/or pneumonia. Clinical correlation is recommended. 4. Cardiomegaly. David Luther MD PE at Discharge GENERAL: Morbidly obese female resting comfortably. Hoarse voice. SKIN: Warm and dry. HEAD: Atraumatic. Normocephalic. EYES: Pupils equal and round. No scleral icterus. No injection or drainage. ENT: No nasal bleeding or discharge. NECK: Trachea midline. No JVD. CARDIOVASCULAR: Normal rate, regular rhythm. RESPIRATORY: Breath sounds equal bilaterally. Clear to auscultation. GASTROINTESTINAL: Abdomen soft, protuberant non-tender, nondistended. No guarding. MUSCULOSKELETAL: Extremities without clubbing, cyanosis, or edema. No obvious deformities. NEUROLOGICAL: Alert awake oriented 3. No focal deficits. PSYCH: Mood and affect appropriate. Pt update on day of discharge The patient was very anxious to go home. She said she had no acute complaints. She said she had home oxygen. She says she has been ambulating well. She says she will quit smoking. She says she would like a nicotine patch. Discussed with nursing. Hospital Course PEA arrest The pt had PEA arrest, CPR was initiated, had ROSC, and was transferred to the ED, at which time the patient was in acute hypoxic respiratory failure and was intubated and sedated. Cardiology was consulted. She has a history of CHF. Troponin peaked at 1.74. She was continued on a cardiac regimen. She will follow up with cardiology as an outpt. Acute respiratory failure The pt is on home oxygen. She required intubation. She was extubated 08/05. CTA -acute pulmonary emboli upper lobe branches bilaterally. Chest x-ray 08/04/16 shows improving bilateral infiltrates. She was continued on ceftriaxone. Pulmonology was consulted. She received scheduled and when necessary DuoNebs. She was on Solumedrol which will be switched to a prednisone taper. She was continued on therapeutic Lovenox. She will resume her home Xarelto. She will follow up with pulmonary upon discharge. GIB/ Nutrition Upper GI bleed 07/25/16 with gastric ulceration. GI was consulted. She will continue Protonix BID. She will follow up with GI. CBC has been stable. She worked with speech therapy and will continue to work with them after discharge. Bilateral PE/ Thrombus-left cephalic vein [place] IVC filter placed in 2012. 07/31-ultrasound B/L upper extremities- nonocclusive and occlusive thrombus in left cephalic vein mid arm to proximal forearm. Previously on Xarelto. Continued on Lovenox 1mg/kg sq q12h while in the hospital. The pt will resume Xarelto at discharge. HTN The pt will resume her blood pressure medications upon discharge. Pt Condition on Discharge: Stable Discharge Disposition: Disch w/ Home Health Serv Discharge Time: > 30 minutes Discharge Instructions DIET: Follow Instructions for: Heart Healthy Diet Speech Therapy-Diet Recommends: Regular, Honey Thickened Liquids Activities you can perform: Weight Bearing as Iris Follow up Referrals: Cardiology - 1 Week with Casa Andrew MD Gastroenterology - 2 Weeks PCP Follow-up - 1 Week Pulmonology - 1 Week with Elliott Gallagher MD New Orders: Speech Therapy - 2-3 Days New Medications: Cefuroxime (Ceftin) 500 Mg Tab 500 MG PO BID Start taking 08/10/16. Infection #8 Ref 0 TAB Nicotine Patch (Nicotine Patch) 21 Mg/24 Hr Patch 21 MG T-DERMAL DAILY Smoking Cessation #30 Ref 0 PATCH Prednisone (48) 10 mg tab Dose Pack (Prednisone (48) 10 mg tab Dose Pack) 10 Mg Dspk 10 MG PO DIRECTED Inflammation #1 Ref 0 DSPK Budesonide-Formoterol Inh (Symbicort Inh) 160-4.5 Mcg/Act Aero 2 PUFF INH Q12HR Breathing #1 INHALER Tiotropium Inh (Spiriva Handihaler) 18 Mcg Cap 18 MCG INH DAILY Breathing #1 CAP Continued Medications: Alprazolam (Xanax) 2 Mg Tab 2 MG PO DAILY PRN ANXIETY Ref 0 TAB Amlodipine (Amlodipine) 10 Mg Tab 10 MG PO DAILY Blood Pressure Management #30 Ref 0 TAB Atorvastatin (Atorvastatin) 20 Mg Tab 20 MG PO HS Cholesterol Management #30 Ref 0 TAB Bupropion HCl (Bupropion HCl) 100 Mg Tab 100 MG PO DAILY Control Depression Ref 0 TAB Carvedilol (Carvedilol) 3.125 Mg Tab 3.125 MG PO BID #60 Ref 0 TAB Chlorthalidone (Chlorthalidone) 25 Mg Tab 25 MG PO DAILY Ref 0 TAB Hydrocodone-Acetaminophen (Lortab) 10-325 Mg Tab 1 TAB PO Q4H PRN PAIN #15 Ref 0 TAB (This prescription has been renewed) Lisinopril (Lisinopril) 40 Mg Tab 40 MG PO DAILY Blood Pressure Management #30 Ref 0 TAB Pantoprazole (Pantoprazole) 40 Mg Tab 40 MG PO BID esophagitis Days 30 Ref 0 TAB Rivaroxaban (Xarelto) 20 Mg Tab 20 MG PO DAILY Blood Clot Prevention Ref 0 TAB Jhony King DO Aug 09, 2016 10:33
[2016-08-09 12:00] VITALS: BP 149/90; PULSE 92; RESP 16; TEMP 98.8; O2SAT 94
== END 2016-08-09 12:19 | disposition home health service (06) | DRG 207 ==
LOC: NEPC 17:56 → NEDA 18:06 → HIMW 18:15 → HOCA 08-08 15:18
PROVIDERS: ADMIT Hospitalist; ATTEND Hospitalist
PROC: 5A1955Z Respiratory Ventilation, Greater than 96 Consecutive Hours (ICD-10-PCS; principal; 2016-07-28)
PROC: 05H533Z Insertion of Infusion Device into Right Subclavian Vein, Percutaneous Approach (ICD-10-PCS; 2016-07-28)
PROC: 0BH17EZ Insertion of Endotracheal Airway into Trachea, Via Natural or Artificial Opening (ICD-10-PCS; 2016-07-29)
PROC: 0B978ZX Drainage of Left Main Bronchus, Via Natural or Artificial Opening Endoscopic, Diagnostic (ICD-10-PCS; 2016-07-31)
DX: I26.99 Other pulmonary embolism without acute cor pulmonale (principal); I21.4 Non-ST elevation (NSTEMI) myocardial infarction; R57.0 Cardiogenic shock; R57.1 Hypovolemic shock; G93.40 Encephalopathy, unspecified; I50.21 Acute systolic (congestive) heart failure; N17.9 Acute kidney failure, unspecified; K22.10 Ulcer of esophagus without bleeding; J96.01 Acute respiratory failure with hypoxia; J44.1 Chronic obstructive pulmonary disease with (acute) exacerbation; I82.612 Acute embolism and thrombosis of superficial veins of left upper extremity; E87.0 Hyperosmolality and hypernatremia; J98.11 Atelectasis; R00.1 Bradycardia, unspecified; J45.909 Unspecified asthma, uncomplicated; K21.9 Gastro-esophageal reflux disease without esophagitis; E78.5 Hyperlipidemia, unspecified; I10 Essential (primary) hypertension; M54.9 Dorsalgia, unspecified; G89.29 Other chronic pain; R40.2420 Glasgow coma scale score 9-12, unspecified time; R73.9 Hyperglycemia, unspecified; E83.39 Other disorders of phosphorus metabolism; E66.01 Morbid (severe) obesity due to excess calories; D64.9 Anemia, unspecified; F17.210 Nicotine dependence, cigarettes, uncomplicated; F32.9 Major depressive disorder, single episode, unspecified; F41.9 Anxiety disorder, unspecified; Z68.35 Body mass index [BMI] 35.0-35.9, adult; Z79.01 Long term (current) use of anticoagulants; Z86.718 Personal history of other venous thrombosis and embolism; Z87.11 Personal history of peptic ulcer disease; Z96.643 Presence of artificial hip joint, bilateral; Z99.81 Dependence on supplemental oxygen
CPT/HCPCS: 31500; 31624; 36556; 36600; 71010; 71275; 80048; 80053; 80061; 81001; 82272; 82550; 82552; 82805; 82948; 83036; 83605; 83735; 83880; 84100; 84132; 84484; 85025; 85027; 85610; 85730; 87040; 87070; 87077; 87184; 87185; 87186; 87205; 87641; 93005; 93306; 93970; 94002; 94003; 94150; 94620; 94640; 94664; 94667; 94668; C9113; C9399; J0696; J1630; J1644; J1650; J1815; J1940; J2250; J2920; J2930; J3010; J3475; J3480; J7050; Q9967

== ENCOUNTER 2017-05-05 08:41 | Emergency (ER) | payer OTHER ==
[~2017-05-05] VITALS: Ht 167.6 cm; Wt 94.0 kg
[~2017-05-05 08:41] MED LIST changes: +CEFT500T3 PO; +NICO21DI2 T-DERMAL; +PRED10PA2 PO; -PROT40TA PO; +SPIRCAP INH; +SYMB160A INH
[2017-05-05 08:56] VITALS: BP 200/86; PULSE 100; RESP 20; TEMP 98.4; O2SAT 96
[2017-05-05 09:08] VITALS: BP 168/99; PULSE 88; RESP 18; O2SAT 98
[2017-05-05] MEDS ORDERED: WARF-21 PO (09:31)
[2017-05-05] MEDS ORDERED: SYMB160A INH (09:31)
[2017-05-05] MEDS: RESP: ALBUTEROL 2.5 MG/IPRATROPIUM 0.5 MG NEB (SCH) INH (09:46)
--- NOTE | 2017-05-05 09:51 | PD ---
HPI Chief Complaint: Cold / Flu Symptoms Time Seen by Provider: 09:09 Travel History International Travel<30 days: No Contact w/Intl Traveler<30days: No Traveled to known affect area: No History of Present Illness HPI 56-year-old female presents with cough and congestion and chills over the past couple of days. She states she took Tylenol at 6 AM this morning. She states that she has been using breathing treatments 3 times a day when she usually uses them twice a day given she feels worse. She states that she has no other concurrent complaints. She states she feels worse when she moves around. She denies other modifying factors. Quality is productive. Severity is progressive. Duration is couple of days. PFSH Past Medical History Hx Anticoagulant Therapy: Yes (Xeralto) Arthritis: No Asthma: Yes Autoimmune Disease: No Blood Disorders: Yes Anxiety: Yes (pt reports 2mg of xanax daily) Depression: Yes Heart Rhythm Problems: No Cancer: No Cardiovascular Problems: Yes High Cholesterol: No Chest Pain: No Congestive Heart Failure: No COPD: No Diabetes: No Diminished Hearing: No Deep Vein Thrombosis: Yes (03/2011- RIGHT LEG) Endocrine: No Gastrointestinal Disorders: Yes GERD: Yes Genitourinary: No Hepatitis: No Hiatal Hernia: No Hypertension: Yes Immune Disorder: No Implanted Vascular Access Dvce: Yes Medical other: Yes (HX BLOOD CLOT-DONNA FILTER) Musculoskeletal: Yes (CHRONIC BACK PAIN) Neurologic: No Psychiatric: No Reproductive: No Respiratory: Yes (copd, hx recent pneumomia) Immunizations Current: Yes Sleep Apnea: No Thyroid Disease: No Ulcer: Yes Influenza Vaccination: Yes ?: Not Menopausal: Yes : 4 Para: 3 Miscarriage: 1 : 0 Tubal Ligation: Yes Past Surgical History Abdominal Surgery: Yes (DONNA FILTER) AICD: No Body Medical Devices: IVC FILTER Cardiac Surgery: No Cholecystectomy: Yes Ear Surgery: No Endocrine Surgery: No Eye Surgery: No Genitourinary Surgery: No Gynecologic Surgery: Yes (TUBAL LIG.) Joint Replacement: Yes (BILATERAL TOTAL HIPS) Oral Surgery: Yes (T & A) Pacemaker: No Thoracic Surgery: No Tonsillectomy: Yes Other Surgery: Yes (ISIDRO,TUBAL LIG, TONSILS,IVC FILTER) Social History Alcohol Use: No (DENIES ) Tobacco Use: Yes (1/2 PPD) Substance Use: No Allergies-Medications (Allergen,Severity, Reaction): Coded Allergies: No Known Allergies (Verified , 05/05/17) Reported Meds & Prescriptions Reported Meds & Active Scripts Active Augmentin (Amoxicillin-Clavulanate) 875-125 Mg Tab 1 Tab PO BID 7 Days Prednisone 50 Mg Tab 50 Mg PO DAILY 5 Days Spiriva Handihaler (Tiotropium Inh) 18 Mcg Cap 18 Mcg INH DAILY Symbicort Inh (Budesonide/Formoterol Fumarate) 160-4.5 Mcg/Act Aero 2 Puff INH Q12HR Lortab (Hydrocodone-Acetaminophen) 10-325 Mg Tab 1 Tab PO Q4H PRN Pantoprazole (Pantoprazole Sodium) 40 Mg Tab 40 Mg PO BID 30 Days Reported Symbicort Inh (Budesonide/Formoterol Fumarate) 160-4.5 Mcg/Act Aero 2 Puff INH Q12HR Warfarin 7.5 Mg Tab 7.5 Mg PO DAILY Chlorthalidone 25 Mg Tab 25 Mg PO DAILY Amlodipine (Amlodipine Besylate) 10 Mg Tab 10 Mg PO DAILY Lisinopril 40 Mg Tab 40 Mg PO DAILY Xanax (Alprazolam) 2 Mg Tab 2 Mg PO DAILY PRN Carvedilol 3.125 Mg Tab 3.125 Mg PO BID Bupropion HCl 100 Mg Tab 100 Mg PO DAILY Atorvastatin (Atorvastatin Calcium) 20 Mg Tab 20 Mg PO HS Review of Systems Except as stated in HPI: all other systems reviewed are Neg Physical Exam Narrative GENERAL: Well-nourished, well-developed patient. SKIN: Warm and dry. HEAD: Normocephalic and atraumatic. EYES: No injection or drainage. ENT: No nasal drainage noted. NECK: Supple, trachea midline. CARDIOVASCULAR: Regular rate and rhythm RESPIRATORY: Expiratory wheezing bilaterally. No accessory muscle use. GASTROINTESTINAL: Abdomen soft, non-tender, nondistended. EXTREMITIES: No edema. NEUROLOGICAL: Awake and alert. Motor and sensory grossly within normal limits. Normal speech. Data Data Last Documented VS Vital Signs Date Time Temp Pulse Resp B/P (MAP) Pulse Ox O2 Delivery O2 Flow Rate FiO2 05/05/17 10:53 24 98 Room Air 05/05/17 10:53 84 05/05/17 08:56 98.4 Orders Orders Chest, Pa & Lat (05/05/17 ) Ecg Monitoring (05/05/17 09:22) Oximetry (05/05/17 09:22) Albuterol-Ipratropium Neb (Duoneb Neb) (05/05/17 09:30) Influenzae A/B Antigen (05/05/17 09:22) Complete Blood Count With Diff (05/05/17 10:08) Comprehensive Metabolic Panel (05/05/17 10:08) B-Type Natriuretic Peptide (05/05/17 10:08) Act Partial Throm Time (Ptt) (05/05/17 10:08) Prothrombin Time / Inr (Pt) (05/05/17 10:08) Magnesium (Mg) (05/05/17 10:08) Ckmb (Isoenzyme) Profile (05/05/17 10:08) Troponin I (05/05/17 10:08) Iv Access Insert/Monitor (05/05/17 10:08) Electrocardiogram (05/05/17 10:08) Sodium Chloride 0.9% Flush (Ns Flush) (05/05/17 10:15) Lactic Acid (05/05/17 10:08) Albuterol-Ipratropium Neb (Duoneb Neb) (05/05/17 10:15) Methylprednisolone So Succ Inj (Solumedr (05/05/17 10:15) Ed Discharge Order (05/05/17 11:24) Labs Laboratory Tests Test 05/05/17 10:45 White Blood Count 6.4 TH/MM3 Red Blood Count 4.35 MIL/MM3 Hemoglobin 12.0 GM/DL Hematocrit 35.9 % Mean Corpuscular Volume 82.5 FL Mean Corpuscular Hemoglobin 27.5 PG Mean Corpuscular Hemoglobin Concent 33.4 % Red Cell Distribution Width 14.6 % Platelet Count 224 TH/MM3 Mean Platelet Volume 8.7 FL Neutrophils (%) (Auto) 48.5 % Lymphocytes (%) (Auto) 40.3 % Monocytes (%) (Auto) 7.8 % Eosinophils (%) (Auto) 2.7 % Basophils (%) (Auto) 0.7 % Neutrophils # (Auto) 3.1 TH/MM3 Lymphocytes # (Auto) 2.6 TH/MM3 Monocytes # (Auto) 0.5 TH/MM3 Eosinophils # (Auto) 0.2 TH/MM3 Basophils # (Auto) 0.0 TH/MM3 CBC Comment DIFF FINAL Differential Comment Prothrombin Time 27.5 SEC Prothromb Time International Ratio 2.4 RATIO Activated Partial Thromboplast Time 36.9 SEC Blood Urea Nitrogen 8 MG/DL Creatinine 0.72 MG/DL Random Glucose 88 MG/DL Total Protein 7.3 GM/DL Albumin 3.5 GM/DL Calcium Level 8.6 MG/DL Magnesium Level 2.0 MG/DL Alkaline Phosphatase 117 U/L Aspartate Amino Transf (AST/SGOT) 12 U/L Alanine Aminotransferase (ALT/SGPT) 19 U/L Total Bilirubin 0.3 MG/DL Sodium Level 141 MEQ/L Potassium Level 3.6 MEQ/L Chloride Level 105 MEQ/L Carbon Dioxide Level 27.6 MEQ/L Anion Gap 8 MEQ/L Estimat Glomerular Filtration Rate 84 ML/MIN Lactic Acid Level 1.8 mmol/L Total Creatine Kinase 57 U/L Troponin I LESS THAN 0.02 NG/ML B-Type Natriuretic Peptide 73 PG/ML MDM Medical Decision Making Medical Screen Exam Complete: Yes Emergency Medical Condition: Yes Medical Record Reviewed: Yes (past history confirmed) Interpretation(s) Last 24 hours Impressions Chest X-Ray 05/05/17 0000 Signed Impressions: Service Date/Time: Friday, May 05, 2017 09:35 - CONCLUSION: No acute disease. George Cai Jr., MD CBC & BMP Diagram 05/05/17 10:45 Total Protein 7.3, Albumin 3.5, Calcium Level 8.6, Magnesium Level 2.0, Alkaline Phosphatase 117, Aspartate Amino Transf (AST/SGOT) 12 L, Alanine Aminotransferase (ALT/SGPT) 19, Total Bilirubin 0.3 Differential Diagnosis Pneumonia, COPD exacerbation, CHF Narrative Course Will check chest x-ray and influenza and dose with DuoNeb's and reevaluate. Patient does not improve she will need IV steroids and lab work for further analysis. She is in agreement to plan Patient only feels a little better after breathing treatments and still with expiratory wheezing and tachypnea noted. Will add on additional DuoNeb treatment and check blood work to rule out other process. Reviewed recent hospitalization where patient had pulmonary embolus, GI bleed and was intubated at beginning of year Patient states she is feeling much better after additional breathing treatment and IV steroids. Labs are within normal limits. Chest x-ray without acute process. Patient denies any chest pain or other concurrent complaints at this time. She has COPD exacerbation with upper respiratory infection at this time. She is stable without needing oxygen and wanting to go home and I think this is appropriate. Given her past history she agrees to close follow-up. Given her change in sputum production Will place on antibiotic therapy, all questions answered. Patient knows that follow up is incumbent on them and to return to the emergency room immediately if new or worsening symptoms develop. Patient given strict return precautions, vitals reviewed and are normal, agrees to further workup as an outpatient. Diagnosis Primary Impression: COPD exacerbation Additional Impression: Upper respiratory infection Qualified Codes: J06.9 - Acute upper respiratory infection, unspecified Patient Instructions: General Instructions Additional Instructions: return as needed, follow with primary tommorrow, albuterol as needed Med/Other Pt SpecificInfo: Prescription(s) given Scripts Amoxicillin-Clavulanate (Augmentin) 875-125 Mg Tab 1 TAB PO BID for Infection for 7 Days, #14 TAB 0 Refills Prov: January Rivas MD 05/05/17 Prednisone (Prednisone) 50 Mg Tab 50 MG PO DAILY for 5 Days, #5 TAB 0 Refills Prov: January Rivas MD 05/05/17 Disposition: 01 DISCHARGE HOME Condition: Stable January Rivas MD May 05, 2017 09:51
--- NOTE | 2017-05-05 09:58 | RADRPT ---
EXAM DATE/TIME: 05/05/2017 09:35 [facility] COMPARISON: CHEST SINGLE AP, August 04, 2016, 3:18. INDICATIONS : Cough and short of breath for 1 week. MEDICAL HISTORY : Chronic obstructive pulmonary disease. Congestive heart failure. Hypertension. Gastroesophageal reflux disease. Deep vein thrombosis. Ulcer. Asthma. SURGICAL HISTORY : Tonsillectomy. Cholecystectomy. Tubal ligation. Bilateral hip replacements. IVC filter. ENCOUNTER: Initial ACUITY: 1 week PAIN SCORE: 2/10 LOCATION: Bilateral chest FINDINGS: PA and lateral views of the chest demonstrate the lungs to be symmetrically aerated without evidence of mass, infiltrate or effusion. The cardiomediastinal contours are unremarkable. Osseous structure s are intact. CONCLUSION: No acute disease. George Cai Jr., MD on May 05, 2017 at 9:56 Board Certified Radiologist. This report was verified electronically.
[2017-05-05] MEDS ORDERED: RESP: ALBUTEROL 2.5 MG/IPRATROPIUM 0.5 MG NEB (SCH) NEB ONE (10:15)
[2017-05-05] MEDS ORDERED: SODIUM CHLORIDE 0.9% FLUSH 10 ML FLUSH IVF PRN (10:15)
[2017-05-05] MEDS ORDERED: methylPREDNISolone SOD SUCC 125 MG/2 ML VIAL IV PUSH ONE (10:15)
[2017-05-05 10:53] VITALS: BP 146/73; PULSE 84; RESP 24; O2SAT 98
[2017-05-05 10:53] LABS: AUTOMATED NEUTROPHIL # 3.1 TH/MM3 (1.8-7.7); BASOPHIL % 0.7 % (0.0-2.0); EOSINOPHIL # 0.2 TH/MM3 (0-0.4); EOSINOPHIL % 2.7 % (0.0-4.0); HEMATOCRIT 35.9 % (35.0-46.0); HEMO FLAGS DIFF FINAL; LYMPH % 40.3 % (9.0-44.0); LYMPHOCYTE # 2.6 TH/MM3 (1.0-4.8); MEAN CELL VOLUME 82.5 FL (80.0-100.0); MEAN CORPUSCULAR HEMOGLOBIN 27.5 PG (27.0-34.0); MEAN CORPUSCULAR HGB CONC 33.4 % (32.0-36.0); MONO % 7.8 % (0.0-8.0); NEUT % 48.5 % (16.0-70.0); PLATELET COUNT 224 TH/MM3 (150-450); RED BLOOD COUNT 4.35 MIL/MM3 (4.00-5.30); RED CELL DISTRIBUTION WIDTH 14.6 % (11.6-17.2); WHITE BLOOD COUNT 6.4 TH/MM3 (4.0-11.0)
[2017-05-05 11:02] LABS: CHLORIDE 105 MEQ/L (98-107); POTASSIUM 3.6 MEQ/L (3.5-5.1); SODIUM (NA) 141 MEQ/L (136-145)
[2017-05-05 11:06] LABS: ANION GAP 8 MEQ/L (5-15); APTT (PATIENT) 36.9 SEC (24.3-30.1); BICARBONATE 27.6 MEQ/L (21.0-32.0); BLOOD UREA NITROGEN 8 MG/DL (7-18); INTERNATIONAL NORMALIZED RATIO 2.4 RATIO; PROTHROMBIN TIME - PATIENT 27.5 SEC (9.8-11.6)
[2017-05-05 11:09] LABS: ALT (GPT) 19 U/L (10-53); AST (GOT) 12 U/L (15-37); GLOMERULAR FILTRATION RATE 84 ML/MIN (>89)
[2017-05-05 11:10] LABS: TOTAL BILIRUBIN ADULT 0.3 MG/DL (0.2-1.0)
[2017-05-05 11:12] LABS: ALKALINE PHOSPHATASE 117 U/L (45-117)
[2017-05-05 11:15] LABS: CREATINE KINASE 57 U/L (26-192)
[2017-05-05] MEDS ORDERED: AUGM875T3 PO (11:23)
[2017-05-05] MEDS ORDERED: PRED50 PO (11:23)
--- NOTE | 2017-05-05 20:36 | EKG ---
Date Performed: 05/05/2017 Time Performed: 10:16:01 PTAGE: 56 years EKG: Sinus rhythm SINCE PREVIOUS TRACING 07/28/2016, [place] INTERVAL IS NOW WITHIN NORMAL LIMITS. NORMAL ECG PREVIOUS TRACING : 07/28/2016 19.06 DOCTOR: Hugo Martinez Interpretating Date/Time 05/05/2017 20:34:16
== END 2017-05-05 11:34 | disposition home or self-care (01) ==
LOC: PHED 08:41
DX: J44.1 Chronic obstructive pulmonary disease with (acute) exacerbation (principal); J06.9 Acute upper respiratory infection, unspecified; R05 Cough; J45.909 Unspecified asthma, uncomplicated; F41.9 Anxiety disorder, unspecified; F32.9 Major depressive disorder, single episode, unspecified; K21.9 Gastro-esophageal reflux disease without esophagitis; I10 Essential (primary) hypertension; F17.200 Nicotine dependence, unspecified, uncomplicated; Z79.899 Other long term (current) drug therapy; Z79.01 Long term (current) use of anticoagulants; D75.9 Disease of blood and blood-forming organs, unspecified
CPT/HCPCS: 71020; 80053; 82550; 83605; 83735; 83880; 84484; 85025; 85610; 85730; 87804; 93005; 94640; 94664; 96374; 99285; J2930

== ENCOUNTER 2017-05-29 13:34 | Emergency (ER) | payer OTHER ==
[~2017-05-29] VITALS: Ht 167.6 cm; Wt 95.0 kg
[~2017-05-29 13:34] MED LIST changes: +AUGM875T3 PO; -CEFT500T3 PO; -NICO21DI2 T-DERMAL; -PRED10PA2 PO; +PRED50 PO; +WARF-21 PO; -XARE20TA PO
[2017-05-29 13:39] VITALS: BP 116/79; PULSE 107; RESP 30; TEMP 98.4; O2SAT 97
[2017-05-29 13:52] VITALS: BP 116/79; PULSE 107; RESP 24; TEMP 98.4; O2SAT 97
[2017-05-29] MEDS ORDERED: ACETAMINOPHEN/HYDROcodone 325 MG/5 MG TAB PO ONE (14:00)
--- NOTE | 2017-05-29 14:00 | PD ---
HPI . Leg injury Chief Complaint: Injury Time Seen by Provider: 13:46 Travel History International Travel<30 days: No Contact w/Intl Traveler<30days: No Traveled to known affect area: No History of Present Illness HPI This patient presents with a chief complaint of a right leg injury. The injury occurred just prior to arrival. She states that she was pressure washing when the hose burst. She was subsequently struck in her right lower leg by the hose. She then came immediately to the hospital. No treatment prior to arrival. She states that the pain is severe. PFSH Past Medical History Hx Anticoagulant Therapy: Yes (Xeralto) Arthritis: No Asthma: Yes Autoimmune Disease: No Blood Disorders: Yes Anxiety: Yes (pt reports 2mg of xanax daily) Depression: Yes Heart Rhythm Problems: No Cancer: No Cardiovascular Problems: Yes High Cholesterol: No Chest Pain: No Congestive Heart Failure: No COPD: No Diabetes: No Diminished Hearing: No Deep Vein Thrombosis: Yes (03/2011- RIGHT LEG) Endocrine: No Gastrointestinal Disorders: Yes GERD: Yes Genitourinary: No Hepatitis: No Hiatal Hernia: No Hypertension: Yes Immune Disorder: No Implanted Vascular Access Dvce: Yes Medical other: Yes (HX BLOOD CLOT-DONNA FILTER) Musculoskeletal: Yes (CHRONIC BACK PAIN) Neurologic: No Psychiatric: No Reproductive: No Respiratory: Yes (copd, hx recent pneumomia) Immunizations Current: Yes Myocardial Infarction: Yes Sleep Apnea: No Thyroid Disease: No Ulcer: Yes Tetanus Vaccination: < 5 Years Influenza Vaccination: Yes ?: Not Menopausal: Yes : 4 Para: 3 Miscarriage: 1 : 0 Tubal Ligation: Yes Past Surgical History Abdominal Surgery: Yes (DONNA FILTER) AICD: No Body Medical Devices: IVC FILTER Cardiac Surgery: No Cholecystectomy: Yes Ear Surgery: No Endocrine Surgery: No Eye Surgery: No Genitourinary Surgery: No Gynecologic Surgery: Yes (TUBAL LIG.) Joint Replacement: Yes (BILATERAL TOTAL HIPS) Oral Surgery: Yes (T & A) Pacemaker: No Thoracic Surgery: No Tonsillectomy: Yes Other Surgery: Yes (ISIDRO,TUBAL LIG, TONSILS,IVC FILTER) Social History Alcohol Use: No (DENIES ) Tobacco Use: Yes (1 PPD) Substance Use: No Allergies-Medications (Allergen,Severity, Reaction): Coded Allergies: No Known Allergies (Verified Adverse Reaction, Unknown, 05/29/17) Reported Meds & Prescriptions Reported Meds & Active Scripts Active Spiriva Handihaler (Tiotropium Inh) 18 Mcg Cap 18 Mcg INH DAILY Symbicort Inh (Budesonide/Formoterol Fumarate) 160-4.5 Mcg/Act Aero 2 Puff INH Q12HR Pantoprazole (Pantoprazole Sodium) 40 Mg Tab 40 Mg PO BID 30 Days Reported Warfarin 7.5 Mg Tab 7.5 Mg PO DAILY Chlorthalidone 25 Mg Tab 25 Mg PO DAILY Amlodipine (Amlodipine Besylate) 10 Mg Tab 10 Mg PO DAILY Lisinopril 40 Mg Tab 40 Mg PO DAILY Xanax (Alprazolam) 2 Mg Tab 2 Mg PO DAILY PRN Carvedilol 3.125 Mg Tab 3.125 Mg PO BID Bupropion HCl 100 Mg Tab 100 Mg PO DAILY Atorvastatin (Atorvastatin Calcium) 20 Mg Tab 20 Mg PO HS Review of Systems Except as stated in HPI: all other systems reviewed are Neg Musculoskeletal: Positive: Pain (right kumar) Skin: Positive Change in Pigmentation Physical Exam Narrative GENERAL: Patient is very anxious. SKIN: Bruise to the right kumar. Skin is intact. HEAD: Normocephalic/atraumatic. EYES: Pupils are equal. Extraocular movements are intact. NECK: Full range of motion with no apparent pain. RESPIRATORY: Nonlabored respirations. MUSCULOSKELETAL: Tender in the anterior kumar over the bruised area. No gross deformity noted. Distally neurovascularly intact. NEUROLOGICAL: Nonfocal. PSYCHIATRIC: Appropriate mood and affect. Data Data Last Documented VS Vital Signs Date Time Temp Pulse Resp B/P (MAP) Pulse Ox O2 Delivery O2 Flow Rate FiO2 05/29/17 13:52 98.4 107 24 116/79 (91) 97 Room Air Orders Orders Tibia/Fibula (Ap/Lat) (05/29/17 13:50) Acetamin-Hydrocod 325-5 Mg ([place] 5-325 (05/29/17 14:00) MDM Medical Decision Making Medical Screen Exam Complete: Yes Emergency Medical Condition: Yes Medical Record Reviewed: Yes (this patient has multiple medical problems including COPD status post respiratory arrest with intubation. She also has a history of the VTE and is on warfarin and has a Donna filter.) Differential Diagnosis Differential diagnosis of extremity trauma includes but is not limited to fracture, sprain or strain, dislocation, contusion Narrative Course This patient presents with an injury to her right lower leg. She suffered a direct blow to her leg. X-ray is pending. I have given her [place] for pain. Last Impressions Tibia/Fibula X-Ray 05/29/17 1350 Signed Impressions: Service Date/Time: Thursday, May 29, 2017 14:01 - CONCLUSION: Negative for fracture or dislocation. Follow up in 7-10 days is suggested if symptoms persist. Yonis Bonilla MD FACR The x-ray was independently viewed by me. Diagnosis Primary Impression: Contusion of right lower leg Qualified Codes: S80.11XA - Contusion of right lower leg, initial encounter Patient Instructions: Contusion in Adults (DC), General Instructions, RICE Therapy (ED), Narcotic given in the ED Med/Other Pt SpecificInfo: No Change to Meds Disposition: 01 DISCHARGE HOME Condition: Stable Marisela Deleon MD May 29, 2017 14:00
--- NOTE | 2017-05-29 14:33 | RADRPT ---
EXAM DATE/TIME: 05/29/2017 14:01 [facility] COMPARISON: TIBIA/FIBULA RIGHT (AP/LAT), May 18, 2016, 18:37. INDICATIONS : Trauma. Hit on medial aspect of lower leg. MEDICAL HISTORY : Hypertension. SURGICAL HISTORY : None. ENCOUNTER: Initial ACUITY: 1 day PAIN SCORE: 10/10 LOCATION: Right low leg FINDINGS: Two view examination of the right tibia demonstrates no evidence of fracture or dislocation. Bony mi neralization is normal. The soft tissue structures are intact. CONCLUSION: Negative for fracture or dislocation. Follow up in 7-10 days is suggested if symptoms persist. Yonis Bonilla MD FACR on May 29, 2017 at 14:32 Board Certified Radiologist. This report was verified electronically.
[2017-05-29 15:30] VITALS: BP 117/66
== END 2017-05-29 15:31 | disposition home or self-care (01) ==
LOC: PHED 13:34
DX: S80.11XA Contusion of right lower leg, initial encounter (principal); I10 Essential (primary) hypertension; I25.2 Old myocardial infarction; F17.200 Nicotine dependence, unspecified, uncomplicated; W20.8XXA Other cause of strike by thrown, projected or falling object, initial encounter; Y93.89 Activity, other specified; Z79.01 Long term (current) use of anticoagulants; Z87.09 Personal history of other diseases of the respiratory system; Z86.2 Personal history of diseases of the blood and blood-forming organs and certain disorders involving the immune mechanism; Z86.59 Personal history of other mental and behavioral disorders; Z86.718 Personal history of other venous thrombosis and embolism; Z87.19 Personal history of other diseases of the digestive system; Z87.39 Personal history of other diseases of the musculoskeletal system and connective tissue
CPT/HCPCS: 73590; 99283

== ENCOUNTER 2017-10-01 10:53 | Emergency (ER) | payer OTHER ==
[~2017-10-01] VITALS: Ht 167.6 cm; Wt 94.0 kg
[~2017-10-01 10:53] MED LIST changes: -AUGM875T3 PO; -HYDR-3535 PO; -PRED50 PO
[2017-10-01 10:54] VITALS: BP 139/75; PULSE 105; RESP 16; TEMP 99.2
--- NOTE | 2017-10-01 12:38 | PD ---
HPI Chief Complaint: GI Complaint Time Seen by Provider: 12:28 Travel History International Travel<30 days: No Contact w/Intl Traveler<30days: No Traveled to known affect area: No History of Present Illness HPI The patient was seen and examined in the presence of the nurse. She complains of abdominal pain and cramping. She has nausea vomiting and diarrhea. Duration 3 days. Symptoms severity is moderate. She has no gallbladder. No alleviating factors. Denies fever. She does have pain in the right lower and right upper quadrant. No exacerbating factors. PFSH Past Medical History Hx Anticoagulant Therapy: Yes (Xeralto) Arthritis: No Asthma: Yes Autoimmune Disease: No Blood Disorders: Yes Anxiety: Yes (pt reports 2mg of xanax daily) Depression: Yes Heart Rhythm Problems: No Cancer: No Cardiovascular Problems: Yes (htn on meds, OR x 2) High Cholesterol: No Chest Pain: No Congestive Heart Failure: No COPD: No Diabetes: No Diminished Hearing: No Deep Vein Thrombosis: Yes (03/2011- RIGHT LEG) Endocrine: No Gastrointestinal Disorders: Yes GERD: Yes Genitourinary: No Hepatitis: No Hiatal Hernia: No Hypertension: Yes Immune Disorder: No Implanted Vascular Access Dvce: Yes Musculoskeletal: Yes (CHRONIC BACK PAIN) Neurologic: No Psychiatric: No Reproductive: No Respiratory: Yes (copd) Immunizations Current: Yes Myocardial Infarction: Yes Sleep Apnea: No Thyroid Disease: No Ulcer: Yes Menopausal: Yes : 4 Para: 3 Miscarriage: 1 : 0 Tubal Ligation: Yes Past Surgical History Abdominal Surgery: Yes (DONNA FILTER) AICD: No Body Medical Devices: IVC FILTER Cardiac Surgery: No Cholecystectomy: Yes Ear Surgery: No Endocrine Surgery: No Eye Surgery: No Genitourinary Surgery: No Gynecologic Surgery: Yes (TUBAL LIG.) Joint Replacement: Yes (BILATERAL TOTAL HIPS) Oral Surgery: Yes (T & A) Pacemaker: No Thoracic Surgery: No Tonsillectomy: Yes Other Surgery: Yes (ISIDRO,TUBAL LIG, TONSILS,IVC FILTER) Social History Alcohol Use: No (DENIES ) Tobacco Use: Yes (1 PPD) Substance Use: No Allergies-Medications (Allergen,Severity, Reaction): Coded Allergies: No Known Allergies (Verified Adverse Reaction, Unknown, 10/01/17) Reported Meds & Prescriptions Reported Meds & Active Scripts Active Spiriva Handihaler (Tiotropium Inh) 18 Mcg Cap 18 Mcg INH DAILY Symbicort Inh (Budesonide/Formoterol Fumarate) 160-4.5 Mcg/Act Aero 2 Puff INH Q12HR Pantoprazole (Pantoprazole Sodium) 40 Mg Tab 40 Mg PO BID 30 Days Reported Warfarin 7.5 Mg Tab 7.5 Mg PO DAILY Chlorthalidone 25 Mg Tab 25 Mg PO DAILY Amlodipine (Amlodipine Besylate) 10 Mg Tab 10 Mg PO DAILY Lisinopril 40 Mg Tab 40 Mg PO DAILY Xanax (Alprazolam) 2 Mg Tab 2 Mg PO DAILY PRN Carvedilol 3.125 Mg Tab 3.125 Mg PO BID Bupropion HCl 100 Mg Tab 100 Mg PO DAILY Atorvastatin (Atorvastatin Calcium) 20 Mg Tab 20 Mg PO HS Review of Systems General / Constitutional: No: Fever Eyes: No: Visual changes HENT: No: Headaches Cardiovascular: No: Chest Pain or Discomfort Respiratory: No: Shortness of Breath Gastrointestinal: Positive: Nausea, Vomiting, Diarrhea, Abdominal Pain Genitourinary: No: Dysuria Musculoskeletal: No: Pain Skin: No Rash Neurologic: No: Weakness Psychiatric: No: Depression Endocrine: No: Polydipsia Hematologic/Lymphatic: No: Easy Bruising Physical Exam Narrative GENERAL: Well-nourished, well-developed patient with abdominal pain and nausea. SKIN: Focused skin assessment reveals no rash and nodules. Skin is Warm and dry. HEAD: Atraumatic. Normocephalic. EYES: Pupils equal and round. No scleral icterus. No injection or drainage. ENT: No nasal bleeding or discharge. Mucous membranes pink and moist. NECK: Trachea midline. No JVD. CARDIOVASCULAR: Regular rate and rhythm. No murmur appreciated. RESPIRATORY: No accessory muscle use. Clear to auscultation. Breath sounds equal bilaterally. GASTROINTESTINAL: Abdomen soft, obese, right upper and right lower quadrant is tender without rebound or guarding, nondistended. Hepatic and splenic margins not palpable. MUSCULOSKELETAL: No obvious deformities. No clubbing. No cyanosis. No edema. NEUROLOGICAL: Awake and alert. No obvious cranial nerve deficits. Motor grossly within normal limits. Normal speech. PSYCHIATRIC: Appropriate mood and affect; insight and judgment normal. Data Data Last Documented VS Vital Signs Date Time Temp Pulse Resp B/P (MAP) Pulse Ox O2 Delivery O2 Flow Rate FiO2 3/15/18 13:33 99.5 99 18 124/64 (84) 96 Room Air Orders Orders Complete Blood Count With Diff (10/01/17 12:33) Comprehensive Metabolic Panel (10/01/17 12:33) Lipase (10/01/17 12:33) Ct Abd/Pel W Iv Contrast(Rout) (10/01/17 12:33) Iv Access Insert/Monitor (10/01/17 12:33) NPO (10/01/17 12:33) Ondansetron Inj (Zofran Inj) (10/01/17 12:45) Sodium Chloride 0.9% Flush (Ns Flush) (10/01/17 12:45) Iohexol 350 Inj (Omnipaque 350 Inj) (10/01/17 13:52) Labs Laboratory Tests Test 10/01/17 12:48 White Blood Count 6.6 TH/MM3 Red Blood Count 4.94 MIL/MM3 Hemoglobin 13.2 GM/DL Hematocrit 40.1 % Mean Corpuscular Volume 81.3 FL Mean Corpuscular Hemoglobin 26.7 PG Mean Corpuscular Hemoglobin Concent 32.8 % Red Cell Distribution Width 14.1 % Platelet Count 242 TH/MM3 Mean Platelet Volume 10.1 FL Neutrophils (%) (Auto) 72.8 % Lymphocytes (%) (Auto) 17.1 % Monocytes (%) (Auto) 9.0 % Eosinophils (%) (Auto) 0.6 % Basophils (%) (Auto) 0.5 % Neutrophils # (Auto) 4.9 TH/MM3 Lymphocytes # (Auto) 1.1 TH/MM3 Monocytes # (Auto) 0.6 TH/MM3 Eosinophils # (Auto) 0.0 TH/MM3 Basophils # (Auto) 0.0 TH/MM3 CBC Comment DIFF FINAL Differential Comment Blood Urea Nitrogen 8 MG/DL Creatinine 0.87 MG/DL Random Glucose 98 MG/DL Total Protein 8.0 GM/DL Albumin 3.1 GM/DL Calcium Level 8.1 MG/DL Alkaline Phosphatase 124 U/L Aspartate Amino Transf (AST/SGOT) 24 U/L Alanine Aminotransferase (ALT/SGPT) 15 U/L Total Bilirubin 0.3 MG/DL Sodium Level 134 MEQ/L Potassium Level 3.9 MEQ/L Chloride Level 99 MEQ/L Carbon Dioxide Level 26.6 MEQ/L Anion Gap 8 MEQ/L Estimat Glomerular Filtration Rate 68 ML/MIN Lipase 36 U/L MDM Medical Decision Making Medical Screen Exam Complete: Yes Emergency Medical Condition: Yes Medical Record Reviewed: Yes Differential Diagnosis Gastroenteritis, colitis, appendicitis, ileus Narrative Course I have reviewed the patient's electronic medical record. Ordered an abdominal pain workup to include labs and CT scanning. Zofran given. General labs reasonably normal CT scan shows nothing emergent. There is an adrenal adenoma that similar to prior. No Obstruction or colitis. I prescribe some Zofran. Likely has gastroenteritis Diagnosis Primary Impression: Viral gastroenteritis Additional Impression: Abdominal pain Qualified Codes: R10.84 - Generalized abdominal pain Additional Instructions: The patient was advised to follow up with their physician and return if they worsen. I have recommended clear liquids for 24 hours, then gradually advance as tolerated. Med/Other Pt SpecificInfo: Prescription(s) given Scripts Ondansetron (Zofran) 4 Mg Tab 4 MG PO Q6HR Y for NAUSEA OR VOMITING, #12 TAB 0 Refills Prov: Bart Dang MD 10/01/17 Disposition: DISCHARGE HOME Condition: Stable Bart Dang MD Oct 01, 2017 12:38
[2017-10-01] MEDS ORDERED: ONDANSETRON HCL 4 MG/2 ML VIAL IVP ONE (12:45)
[2017-10-01] MEDS ORDERED: SODIUM CHLORIDE 0.9% FLUSH 10 ML FLUSH IV FLUSH PRN (12:45)
[2017-10-01 12:53] LABS: AUTOMATED NEUTROPHIL # 4.9 TH/MM3 (1.8-7.7); BASOPHIL % 0.5 % (0.0-2.0); EOSINOPHIL % 0.6 % (0.0-4.0); HEMATOCRIT 40.1 % (35.0-46.0); HEMOGLOBIN 13.2 GM/DL (11.6-15.3); LYMPH % 17.1 % (9.0-44.0); LYMPHOCYTE # 1.1 TH/MM3 (1.0-4.8); MEAN CELL VOLUME 81.3 FL (80.0-100.0); MEAN CORPUSCULAR HEMOGLOBIN 26.7 PG (27.0-34.0); MEAN CORPUSCULAR HGB CONC 32.8 % (32.0-36.0); MEAN PLATELET VOLUME 10.1 FL (7.0-11.0); MONOCYTE # 0.6 TH/MM3 (0-0.9); NEUT % 72.8 % (16.0-70.0); PLATELET COUNT 242 TH/MM3 (150-450); RED BLOOD COUNT 4.94 MIL/MM3 (4.00-5.30); RED CELL DISTRIBUTION WIDTH 14.1 % (11.6-17.2); WHITE BLOOD COUNT 6.6 TH/MM3 (4.0-11.0)
[2017-10-01 13:22] LABS: CHLORIDE 99 MEQ/L (98-107); SODIUM (NA) 134 MEQ/L (136-145)
[2017-10-01 13:31] LABS: CALCIUM 8.1 MG/DL (8.5-10.1)
[2017-10-01 13:32] LABS: ALBUMIN 3.1 GM/DL (3.4-5.0); BICARBONATE 26.6 MEQ/L (21.0-32.0); BLOOD UREA NITROGEN 8 MG/DL (7-18); GLUCOSE,RANDOM 98 MG/DL (74-106)
[2017-10-01 13:33] VITALS: BP 124/64; PULSE 99; RESP 18; TEMP 99.5; O2SAT 96
[2017-10-01 13:35] LABS: AST (GOT) 24 U/L (15-37); CREATININE 0.87 MG/DL (0.50-1.00); GLOMERULAR FILTRATION RATE 68 ML/MIN (>89)
[2017-10-01 13:37] LABS: ALT (GPT) 15 U/L (10-53); TOTAL BILIRUBIN ADULT 0.3 MG/DL (0.2-1.0)
[2017-10-01 13:38] LABS: ALKALINE PHOSPHATASE 124 U/L (45-117)
[2017-10-01] MEDS ORDERED: IOHEXOL 350 MG/ML 10 ML VIAL (for RAD DIAG) IVCONTRAST ONE (13:52)
--- NOTE | 2017-10-01 14:07 | RADRPT ---
EXAM DATE/TIME: 10/01/2017 13:46 [place] COMPARISON: CT ABDOMEN & PELVIS W/O CONTRAST, July 25, 2016, 20:28. CT PULMONARY ANGIOGRAM, July 29, 2016, 15:26. INDICATIONS : Right upper and lower quadrant pain. Nausea, vomiting and diarrhea. IV CONTRAST: 95 cc Omnipaque 350 (iohexol) IV ORAL CONTRAST: No oral contrast ingested. RADIATION DOSE: 21.12 CTDIvol (mGy) MEDICAL HISTORY : Myocardial infarction. Deep venous thrombosis. Gastroesophageal reflux disease.Hypertension. Ulcer. SURGICAL HISTORY : Cholecystectomy. Tubal ligation.[place] filter. ENCOUNTER: Initial ACUITY: 3 days PAIN SCALE: 7/10 LOCATION: Right lower quadrant TECHNIQUE: Volumetric scanning of the abdomen and pelvis was performed. Using automated exposure control and ad justment of the mA and/or kV according to patient size, radiation dose was kept as low as reasonably achievable to obtain optimal diagnostic quality images. DICOM format image data is available electro nically for review and comparison. FINDINGS: The limited portion of the lung base visualized is clear. The appearance of the liver,, spleen, pancreas and kidneys is within normal limits. Note is made of a 1.3 x 1.2 cm nodule in the left adrenal gland. The abdominal aorta is normal in caliber. There is no retroperitoneal adenopathy. Note is made of an IVC filter. The visualized loops of small and large bowel are unremarkable. There is no free air or free fluid. The intra-abdominal wall is intact. There is no free fluid within the pelvis. No iliac or inguinal adenopathy is seen. The osseous structures demonstrate degenerative changes in the lumbar spine. The patient is post bila teral hip arthroplasty. CONCLUSION: 1. 1.3 x 1.2 cm nodule in the left adrenal gland most consistent with adrenal adenoma. It is relative ly unchanged from previous dated 07/25/16. 2. No findings to indicate bowel obstruction. 3. No definite abnormality to explain the patient's right upper quadrant pain identified. 4. Incidental IVC filter. 5. The patient is post cholecystectomy. Jay Bonilla MD on October 01, 2017 at 14:01 Board Certified Radiologist. This report was verified electronically.
[2017-10-01] MEDS ORDERED: ZOFR4TAB PO (15:17)
[2017-10-01 15:28] VITALS: BP 140/60
== END 2017-10-01 15:29 | disposition home or self-care (01) ==
LOC: PHED 10:53
DX: A08.4 Viral intestinal infection, unspecified (principal); R10.84 Generalized abdominal pain; J45.909 Unspecified asthma, uncomplicated; I10 Essential (primary) hypertension; Z72.0 Tobacco use; Z79.01 Long term (current) use of anticoagulants
CPT/HCPCS: 74177; 80053; 83690; 85025; 96374; 99285; J2405; Q9967